=== PATIENT | male | born 1960 | race Caucasian/White ===

== ENCOUNTER 2018-07-04 15:28 | Emergency (ER) | payer MEDICARE, OTHER ==
[2018-07-04 15:41] VITALS: RESP 18
[2018-07-04] MEDS ORDERED: MORPHINE SULFATE 4 MG/ML SYRINGE IM STA ×2 (15:54→18:52)
--- NOTE | 2018-07-04 16:33 | ED ---
Lower Extremity Injury HPI - General Chief Complaint: Extremity Injury, Lower Stated Complaint: Fall, Left Hip Pain Time Seen by Provider: 07/04/18 15:43 Source: patient, RN notes reviewed Mode of arrival: ambulatory Limitations: no limitations - History of Present Illness Initial Comments: 58-year-old male presents emergency Department chief complaint of left hip pain. Patient states that he tripped over some kindling and states that he fell onto his left hip. Patient states he has pain in his buttocks, left hip region. He denies any head injury no loss conscious. Patient states pain is worsened since that they states he can barely ambulate. Patient denies any upper back pain, chest pain, shortness breath, abdominal pain, bowel or bladder incontinence or retention. Denies any saddle anesthesia or lower shunted paresthesias. - Related Data Home Medications Medication Instructions Recorded Confirmed DULoxetine HCL [Cymbalta] 60 mg PO DAILY 05/25/15 11/22/15 Gemfibrozil [Lopid] 600 mg PO BID 05/25/15 11/22/15 Lisinopril [Prinivil] 20 mg PO DAILY 05/25/15 11/22/15 Naproxen Sodium [Aleve] 220 mg PO Q12HR PRN 05/25/15 11/22/15 glipiZIDE [Glucotrol] 10 mg PO AC-BID 05/25/15 11/22/15 metFORMIN HCL 1,000 mg PO BID 05/25/15 11/22/15 Docusate [Colace] 100 mg PO DAILY PRN 11/22/15 11/22/15 Insulin Glargine [Lantus] 15 units SQ HS 11/22/15 11/22/15 Simvastatin [Zocor] 20 mg PO HS 11/22/15 11/22/15 Previous Rx's Medication Instructions Recorded Aspirin 325 mg PO DAILY tab 11/26/15 Moxifloxacin HCl [Avelox] 400 mg PO DAILY #7 tablet 11/26/15 Hydrocodone/Acetaminophen [Sycamore 1 tab PO Q6HR PRN #12 tab 07/04/18 5-325] Allergies Allergy/AdvReac Type Severity Reaction Status Date / Time No Known Allergies Allergy Verified 07/04/18 15:41 Review of Systems ROS Statement: Those systems with pertinent positive or pertinent negative responses have been documented in the HPI. ROS Other: All systems not noted in ROS Statement are negative. Past Medical History Past Medical History: CVA/TIA, Diabetes Mellitus, GERD/Reflux, Hypertension Additional Past Medical History / Comment(s): BACK PAIN, CONSTIPATION, NUMBNESS IN FEET, URGENCY TO URINATE, BURPS FREQUENTLY AND STOMACH CRUZ., COUGHED UP BLOOD X2. History of Any Multi-Drug Resistant Organisms: None Reported Past Surgical History: Tonsillectomy Additional Past Surgical History / Comment(s): PLATE IN FEMUR AND ANKLE PINS , SURGERY FOR SNORING Past Anesthesia/Blood Transfusion Reactions: No Reported Reaction Past Psychological History: Depression Smoking Status: Heavy tobacco smoker Past Alcohol Use History: None Reported Past Drug Use History: None Reported - Past Family History Mother Family Medical History: Coronary Artery Disease (CAD), Diabetes Mellitus Father History Unknown: Yes Sister(s) Family Medical History: Cancer Additional Family Medical History / Comment(s): MELANOMA General Exam Limitations: no limitations General appearance: alert, in no apparent distress Head exam: Present: atraumatic, normocephalic, normal inspection Eye exam: Present: normal appearance, PERRL, EOMI. Absent: scleral icterus, conjunctival injection, periorbital swelling Respiratory exam: Present: normal lung sounds bilaterally. Absent: respiratory distress, wheezes, rales, rhonchi, stridor Cardiovascular Exam: Present: regular rate, normal rhythm, normal heart sounds. Absent: systolic murmur, diastolic murmur, rubs, gallop, clicks GI/Abdominal exam: Present: soft, normal bowel sounds. Absent: distended, tenderness, guarding, rebound, rigid Extremities exam: Present: other (Lower extremity neurovascular intact, moderate discomfort with left range of motion, unable to bear weight on left hip ) Back exam: Present: full ROM. Absent: tenderness, paraspinal tenderness, vertebral tenderness Neurological exam: Present: alert, oriented X3, CN II-XII intact, reflexes normal. Absent: motor sensory deficit Course Vital Signs 07/04/18 15:36 Temperature 98.6 F Pulse Rate 87 Respiratory 18 Rate Blood Pressure 137/73 O2 Sat by Pulse 95 Oximetry Medical Decision Making - Medical Decision Making 58-year-old male present emergency from for fall, hip pain. X-ray was obtained which initially showed no fracture so CT was obtained secondary to patient's pain. CT shows degenerative changes and spurring with no acute fracture. Patient be discharged with pain medication follow-up with orthopedics. Disposition Clinical Impression: Fall, Left hip pain, Contusion, hip Disposition: HOME SELF-CARE Condition: Stable Instructions: Hip Contusion (ED) Additional Instructions: Please return to the Emergency Department if symptoms worsen or any other concerns. Prescriptions: Hydrocodone/Acetaminophen [Sycamore 5-325] 1 tab PO Q6HR PRN #12 tab PRN Reason: Pain Is patient prescribed a controlled substance at d/c from ED?: Yes When asked, does pt state using other controlled substances?: No If prescribed controlled substance>3 days was MAPS reviewed?: Prescribed <3 Days If opioid is for acute pain is fill amount 7 days or less?: Yes If Rx opioid, was Start Talking consent form obtained?: Yes Referrals: Quirino Escobedo MD [Primary Care Provider] - 1-2 days Robb Huddleston MD [STAFF PHYSICIAN] - 1-2 days Time of Disposition: 18:48
--- NOTE | 2018-07-04 16:33 | XR ---
EXAMINATION TYPE: XR Hip LT and AP Pelvis DATE OF EXAM: 07/04/2018 COMPARISON: None HISTORY: Left hip pain following trip and fall 2 days prior TECHNIQUE: Exam is performed with 2 views left hip supplemented with an AP pelvis FINDINGS: Femoral head articulates with the acetabulum. No acute fractures evident. Joint spaces preserved. Rig ht femoral head articulates with the acetabulum. Symphysis pubis and sacroiliac joints are intact. No rmal bowel gas is present. IMPRESSION: 1. Normal left hip
--- NOTE | 2018-07-04 18:45 | CT ---
EXAMINATION TYPE: CT hip LT wo con DATE OF EXAM: 07/04/2018 COMPARISON: None HISTORY: left hip pain following fall CT DLP: 662 mGycm Automated exposure control for dose reduction was used. FINDINGS: Acetabulum and proximal femur are intact. There is mild spurring on the femoral head. There is no kyra dence of a fracture. There is no evidence of avascular necrosis. The left sacroiliac joint is intact. IMPRESSION: MINOR DEGENERATIVE SPUR FORMATION IN THE HIP JOINT. NO FRACTURE SEEN.
[2018-07-04 19:08] VITALS: BP 160/84; PULSE 70; TEMP 97
== END 2018-07-04 19:06 | disposition home or self-care (01) ==
LOC: EC 15:28
DX: S70.02XA Contusion of left hip, initial encounter (principal); E11.9 Type 2 diabetes mellitus without complications; I10 Essential (primary) hypertension; F32.9 Major depressive disorder, single episode, unspecified; F17.200 Nicotine dependence, unspecified, uncomplicated; Z86.73 Personal history of transient ischemic attack (TIA), and cerebral infarction without residual deficits; Z79.4 Long term (current) use of insulin; Z79.899 Other long term (current) drug therapy; W01.0XXA Fall on same level from slipping, tripping and stumbling without subsequent striking against object, initial encounter; Y92.009 Unspecified place in unspecified non-institutional (private) residence as the place of occurrence of the external cause
CPT/HCPCS: 73502; 73700; 99284; 96372 ×2; J2270

== ENCOUNTER 2019-05-18 19:11 | Emergency (ER) | payer MEDICARE, OTHER ==
[2019-05-18 19:21] LABS: Glucose,Whole Blood 189 mg/dL (75-99)
--- NOTE | 2019-05-18 19:37 | CT ---
EXAMINATION TYPE: CT brain wo con for TPA DATE OF EXAM: 05/18/2019 COMPARISON: 11/22/2015 HISTORY: Poor historian. Neurological deficits CT DLP: unavailable mGycm Automated exposure control for dose reduction was used. FINDINGS: There is mild cerebral atrophy. There is no mass effect nor midline shift. There is no sign of intrac ranial hemorrhage. Calvarium is intact. IMPRESSION: MILD ATROPHY. NO ACUTE INTRACRANIAL ABNORMALITY. NO SIGNIFICANT CHANGE.
[2019-05-18 19:50] VITALS: TEMP 97.5
[2019-05-18 19:52] LABS: ALT 27 U/L (21-72); AST 25 U/L (17-59); Acetaminophen <10.0 ug/mL; African American GFR (CKD) >90 (>60 ml/min/1.73 sqM); Albumin 4.8 g/dL (3.5-5.0); Alcohol <10 mg/dL; Alkaline Phosphatase 105 U/L (38-126); Anion Gap 17 mmol/L; Blood Urea Nitrogen 25 mg/dL (9-20); Calcium 11.5 mg/dL (8.4-10.2); Carbon Dioxide 25 mmol/L (22-30); Chloride 92 mmol/L (98-107); Glucose 202 mg/dL (74-99); Potassium 4.5 mmol/L (3.5-5.1); Salicylate 1.2 mg/dL; Sodium 134 mmol/L (137-145); Total Bilirubin 0.9 mg/dL (0.2-1.3); Total Protein 8.3 g/dL (6.3-8.2)
[2019-05-18 19:53] LABS: Partial Thromboplastin Time 24.6 sec (22.0-30.0); Prothrombin Time 10.5 sec (9.0-12.0)
--- NOTE | 2019-05-18 19:56 | CT ---
EXAMINATION TYPE: CT angio head neck DATE OF EXAM: 05/18/2019 HISTORY: Neurological deficits. Poor historian COMPARISON: None CT DLP: 671.2 mGycm. Automated Exposure Control for Dose Reduction was Utilized. TECHNIQUE: CTA scan of the neck is performed with IV Contrast, patient injected with 65 mL of Isovue 370, axial images are obtained, coronal and sagittal reformatted images are reviewed. Three-D recons tructed images are created on an independent workstation and reviewed. FINDINGS: There is normal branching pattern of the great vessels on the aortic arch. There is bilateral arteria l flow in the subclavian arteries. There is arterial flow in the common internal and external carotid arteries bilaterally. There is minimal plaque formation at the carotid artery bifurcations. There is lumen narrowing less than 20%. There is arterial flow in the right vertebral artery. There is no kyra dence of arterial flow in the left vertebral artery. There is arterial flow in a diminutive distal le ft vertebral artery that could be retrograde flow. There is arterial flow in the vertebrobasilar artery system. There is arterial flow in the anterior m iddle and posterior cerebral arteries. I see no evidence of intracranial aneurysm or neovascularity. There is no mass effect. There is no evidence of intracranial hemodynamic stenosis. There is normal c ontrast opacification of the venous sinuses. 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 Minimal plaque at the carotid artery bifurcations and less than 20% stenosis. No intracranial angiographic Abnormality.
[2019-05-18 19:59] VITALS: BP 129/72; PULSE 89; RESP 21
[2019-05-18 20:05] LABS: Basophils # (A) 0.1 k/uL (0-0.2); Basophils % (A) 0 %; Eosinophils # (A) 0.6 k/uL (0-0.7); Eosinophils % (A) 3 %; HCT 49.2 % (39.0-53.0); HGB 16.7 gm/dL (13.0-17.5); Lymphocytes # (A) 3.6 k/uL (1.0-4.8); Lymphocytes % (A) 19 %; MCH 28.8 pg (25.0-35.0); MCV 84.8 fL (80.0-100.0); Mean Platelet Volume 6.1; Monocytes # (A) 1.1 k/uL (0-1.0); Monocytes % (A) 6 %; Neutrophils # (A) 13.6 k/uL (1.3-7.7); Neutrophils % (A) 71 %; Platelet Count 379 k/uL (150-450); RBC 5.81 m/uL (4.30-5.90); RDW 13.1 % (11.5-15.5); WBC 19.2 k/uL (3.8-10.6)
--- NOTE | 2019-05-18 20:07 | XR ---
EXAMINATION TYPE: XR chest 2V DATE OF EXAM: 05/18/2019 COMPARISON: 11/26/2015 HISTORY: Weakness TECHNIQUE: Frontal and lateral views of the chest are obtained. FINDINGS: There is no heart failure nor confluent pneumonic infiltrate. Costophrenic angles are [place] r. There are chest leads. IMPRESSION: No active cardiopulmonary disease. There is clearing of the atelectasis right lung base compared to old exam.
--- NOTE | 2019-05-18 20:22 | ED ---
Neuro HPI - General Chief Complaint: Neuro Symptoms/Deficit Stated Complaint: Stroke Time Seen by Provider: 05/18/19 19:20 Source: patient, EMS Mode of arrival: EMS Limitations: no limitations - History of Present Illness Is the patient presenting with stroke symptoms?: Yes Last Known Well Date: 05/18/19 Last Known Well Time: 18:29 Initial Comments: The patient is a 59-year-old male with past medical history of stroke who presents to the emergency department with reported strokelike symptoms. EMS provided the history and so does the when she presents at bedside. She reports that around 6:30 PM the patient had sudden onset of slurred speech and difficulty ambulating. They stated that he was ataxic. He does have a history of previous stroke in 2017 with no residual deficits. Because of these symptoms they did call EMS. EMS reported that he felt somewhat weak on his left side. The patient is presenting continues to have some dysarthria. He reports to decreased sensation in left upper and left lower extremity. No reported confusion. Denies headaches or visual changes. No neck pain or stiffness. Denies any sick contacts or recent travel. No blunt head trauma. Patient denies any intoxicating substances. No recent medication changes. Denies any n ew [id number] medications. Denies any chest pain or shortness of breath. No abdominal pain. There are no alleviating, precipitating or modifying factors - Related Data Home Medications: Home Medications Medication Instructions Recorded Confirmed DULoxetine HCL [Cymbalta] 60 mg PO DAILY 05/25/15 05/18/19 Gemfibrozil [Lopid] 600 mg PO BID 05/25/15 05/18/19 Lisinopril [Prinivil] 20 mg PO DAILY 05/25/15 05/18/19 glipiZIDE [Glucotrol] 10 mg PO AC-BID 05/25/15 05/18/19 metFORMIN HCL 1,000 mg PO BID 05/25/15 05/18/19 Insulin Glargine [Lantus] 10 units SQ HS 11/22/15 05/18/19 Atorvastatin [Lipitor] 20 mg PO HS 05/18/19 05/18/19 Gabapentin [Neurontin] 300 mg PO TID 05/18/19 05/18/19 Hydrochlorothiazide [Hydrodiuril] 25 mg PO DAILY 05/18/19 05/18/19 Meclizine [Antivert] 25 mg PO TID 05/18/19 05/18/19 sitaGLIPtin [Januvia] 100 mg PO DAILY 05/18/19 05/18/19 Previous Rx's Medication Instructions Recorded Aspirin 325 mg PO DAILY tab 11/26/15 Allergies/Adverse Reactions: Allergies Allergy/AdvReac Type Severity Reaction Status Date / Time No Known Allergies Allergy Verified 05/18/19 19:56 Review of Systems ROS Statement: Those systems with pertinent positive or pertinent negative responses have been documented in the HPI. ROS Other: All systems not noted in ROS Statement are negative. General Exam Limitations: no limitations General appearance: alert, in no apparent distress Head exam: Present: atraumatic, normocephalic Eye exam: Present: normal appearance, PERRL Pupils: Present: normal accommodation ENT exam: Present: normal exam, other (edentulous) Neck exam: Present: normal inspection. Absent: tenderness, meningismus Respiratory exam: Present: normal lung sounds bilaterally. Absent: respiratory distress, wheezes, rales, rhonchi Cardiovascular Exam: Present: regular rate, normal rhythm GI/Abdominal exam: Present: soft. Absent: distended, tenderness, guarding, rebound Extremities exam: Present: normal inspection, full ROM. Absent: tenderness Back exam: Present: normal inspection, full ROM Neurological exam: Present: alert, oriented X3, CN II-XII intact, reflexes normal, other (patient has mild dysarthria. Reports decreased sensation left upper and lower extremity. 5/5 muscle strength in all extremities. No facial droop present. No aphasia) Stroke MDM - Lab Data Result diagrams: 05/18/19 19:20 05/18/19 19:20 Lab Results 05/18/19 05/18/19 05/18/19 Range/Units 19:18 19:20 19:20 WBC 19.2 H (3.8-10.6) k/uL RBC 5.81 (4.30-5.90) m/uL Hgb 16.7 (13.0-17.5) gm/dL Hct 49.2 (39.0-53.0) % MCV 84.8 (80.0-100.0) fL MCH 28.8 (25.0-35.0) pg MCHC 34.0 (31.0-37.0) g/dL RDW 13.1 (11.5-15.5) % Plt Count 379 (150-450) k/uL Neutrophils % 71 % Lymphocytes % 19 % Monocytes % 6 % Eosinophils % 3 % Basophils % 0 % Neutrophils # 13.6 H (1.3-7.7) k/uL Lymphocytes # 3.6 (1.0-4.8) k/uL Monocytes # 1.1 H (0-1.0) k/uL Eosinophils # 0.6 (0-0.7) k/uL Basophils # 0.1 (0-0.2) k/uL PT (9.0-12.0) sec INR (<1.2) APTT (22.0-30.0) sec Sodium 134 L (137-145) mmol/L Potassium 4.5 (3.5-5.1) mmol/L Chloride 92 L (98-107) mmol/L Carbon Dioxide 25 (22-30) mmol/L Anion Gap 17 mmol/L BUN 25 H (9-20) mg/dL Creatinine 0.88 (0.66-1.25) mg/dL Est GFR (CKD-EPI)AfAm >90 (>60 ml/min/1.73 sqM) Est GFR (CKD-EPI)NonAf >90 (>60 ml/min/1.73 sqM) Glucose 202 H (74-99) mg/dL POC Glucose (mg/dL) 189 H (75-99) mg/dL POC Glu Meter Tester Primary ID Aurelia Gaytan Calcium 11.5 H (8.4-10.2) mg/dL Total Bilirubin 0.9 (0.2-1.3) mg/dL AST 25 (17-59) U/L ALT 27 (21-72) U/L Alkaline Phosphatase 105 (38-126) U/L Ammonia (<30) umol/L Troponin I (0.000-0.034) ng/mL Total Protein 8.3 H (6.3-8.2) g/dL Albumin 4.8 (3.5-5.0) g/dL Salicylates 1.2 mg/dL Acetaminophen <10.0 ug/mL Serum Alcohol <10 mg/dL 05/18/19 05/18/19 05/18/19 Range/Units 19:20 19:20 19:34 WBC (3.8-10.6) k/uL RBC (4.30-5.90) m/uL Hgb (13.0-17.5) gm/dL Hct (39.0-53.0) % MCV (80.0-100.0) fL MCH (25.0-35.0) pg MCHC (31.0-37.0) g/dL RDW (11.5-15.5) % Plt Count (150-450) k/uL Neutrophils % % Lymphocytes % % Monocytes % % Eosinophils % % Basophils % % Neutrophils # (1.3-7.7) k/uL Lymphocytes # (1.0-4.8) k/uL Monocytes # (0-1.0) k/uL Eosinophils # (0-0.7) k/uL Basophils # (0-0.2) k/uL PT 10.5 (9.0-12.0) sec INR 1.0 (<1.2) APTT 24.6 (22.0-30.0) sec Sodium (137-145) mmol/L Potassium (3.5-5.1) mmol/L Chloride (98-107) mmol/L Carbon Dioxide (22-30) mmol/L Anion Gap mmol/L BUN (9-20) mg/dL Creatinine (0.66-1.25) mg/dL Est GFR (CKD-EPI)AfAm (>60 ml/min/1.73 sqM) Est GFR (CKD-EPI)NonAf (>60 ml/min/1.73 sqM) Glucose (74-99) mg/dL POC Glucose (mg/dL) (75-99) mg/dL POC Glu Meter Tester Primary ID Calcium (8.4-10.2) mg/dL Total Bilirubin (0.2-1.3) mg/dL AST (17-59) U/L ALT (21-72) U/L Alkaline Phosphatase (38-126) U/L Ammonia <9 (<30) umol/L Troponin I <0.012 (0.000-0.034) ng/mL Total Protein (6.3-8.2) g/dL Albumin (3.5-5.0) g/dL Salicylates mg/dL Acetaminophen ug/mL Serum Alcohol mg/dL - Medical Decision Making Upon arrival the patient was placed into trauma 2. A thorough history and physical exam was performed. NIH stroke scale is 4 at this time for the decreased in sensation and dysarthria. Code stroke is activated at 7:15. We did obtain IV access. Vitals were obtained and the patient was sent over for a CT of his brain as well as a CT angios of his head and neck. I did discuss the case with Dr. Feldman at 724. The patient is then placed back in the trauma bay. EKG was obtained. Laboratory studies were drawn. Review of the CTs was performed by Dr. Kirkland. I did discuss the case with him at 743 and he stated the patient had no signs on CT of acute stroke. He also evaluates the patient via stroke robot determines no TPA on the patient. He does recommend that the patient be transferred to [facility] for MRI and neurology evaluation. The patient does get up and ambulatory to the restroom. I did review the laboratory studies with the patient. White blood cell count is 19.2. Sodium 134. Chloride 92. Glucose 202. Chest x-ray demonstrates no acute cardiopulmonary process. CT angiography of the brain and neck demonstrates thrombosis of the left vertebral artery. Minimal plaque at the carotid artery bifurcation less than 20% stenosis. The brain demonstrates mild atrophy. No acute intracranial abnormality. No significant change. 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 I then called and discussed case with Dr. Feldman. He states that the treatment will be the same with transfer to [facility]. I discussed the case with the patient. The patient refuses hospital transfer. He also refuses hospital admission. The patient is requesting go home at this time. I did inform him of the severity of his condition. I did state that the patient could go home and suffer from chronic disability and even . The patient understood this. His significant other at bedside was also aware. He continued to want to leave. I discussed he would leave AGAINST MEDICAL ADVICE which she understood. I did inform the patient that if he has any new or worsening symptoms or does agree to further treatment is return to the hospital. The patient was discharged AGAINST MEDICAL ADVICE EKG demonstrates a normal sinus rhythm with a ventricular rate of 87. NH interval 126. QRS 110. QTC 459. No acute ST segment elevations or depressions concerning for ischemic changes Past Medical History Past Medical History: CVA/TIA, Diabetes Mellitus, GERD/Reflux, Hypertension Additional Past Medical History / Comment(s): BACK PAIN, CONSTIPATION, NUMBNESS IN FEET, URGENCY TO URINATE, BURPS FREQUENTLY AND STOMACH CRUZ., COUGHED UP BLOOD X2. History of Any Multi-Drug Resistant Organisms: None Reported Past Surgical History: Tonsillectomy Additional Past Surgical History / Comment(s): PLATE IN FEMUR AND ANKLE PINS , SURGERY FOR SNORING Past Anesthesia/Blood Transfusion Reactions: No Reported Reaction Past Psychological History: Depression Smoking Status: Heavy tobacco smoker Past Alcohol Use History: None Reported Past Drug Use History: None Reported - Past Family History Mother Family Medical History: Coronary Artery Disease (CAD), Diabetes Mellitus Father History Unknown: Yes Sister(s) Family Medical History: Cancer Additional Family Medical History / Comment(s): MELANOMA Course Vital Signs 05/18/19 05/18/19 05/18/19 19:19 19:21 19:30 Temperature 97.5 F L 97.5 F L Pulse Rate 86 86 Respiratory 20 20 Rate Blood Pressure 122/75 122/75 O2 Sat by Pulse 97 95 95 Oximetry 05/18/19 19:45 Temperature Pulse Rate 89 Respiratory 21 Rate Blood Pressure 129/72 O2 Sat by Pulse Oximetry Disposition Clinical Impression: Altered mental status, CVA (cerebral vascular accident) Disposition: Left Against Medical Advice Condition: Serious Instructions (If sedation given, give patient instructions): Stroke (DC) Additional Instructions: I recommended that you be admitted to the hospital. Youre leaving AGAINST MEDICAL ADVICE knowing the risks of permanent disability and . Return to the emergency department if you have agree to transfer, or have any new or worsening symptoms Is patient prescribed a controlled substance at d/c from ED?: No Referrals: Quirino Escobedo MD [Primary Care Provider] - 1-2 days Time of Disposition: 20:31
== END 2019-05-18 20:52 | disposition left against medical advice (07) ==
LOC: EC 19:11
DX: I63.012 Cerebral infarction due to thrombosis of left vertebral artery (principal); I63.239 Cerebral infarction due to unspecified occlusion or stenosis of unspecified carotid artery; I63.22 Cerebral infarction due to unspecified occlusion or stenosis of basilar artery; R47.1 Dysarthria and anarthria; R29.704 NIHSS score 4; G31.9 Degenerative disease of nervous system, unspecified; K08.109 Complete loss of teeth, unspecified cause, unspecified class; R47.81 Slurred speech; E11.9 Type 2 diabetes mellitus without complications; I10 Essential (primary) hypertension; F32.9 Major depressive disorder, single episode, unspecified; F17.200 Nicotine dependence, unspecified, uncomplicated; Z79.4 Long term (current) use of insulin; Z79.899 Other long term (current) drug therapy; Z53.20 Procedure and treatment not carried out because of patient's decision for unspecified reasons
CPT/HCPCS: 36415; 93005; 80053; 82140; 84484; 85025; 85610; 85730; 83520; 71046; 70496; 70450; 70498; 99285; G0480 ×2; Q9967; 80320; 80329

== ENCOUNTER 2020-09-04 14:46 | Emergency (ER) | payer MEDICARE, OTHER ==
--- NOTE | 2020-09-04 15:08 | ED ---
Skin/Abscess/FB HPI - General Chief complaint: Skin/Abscess/Foreign Body Stated complaint: Abscess on R Leg Time Seen by Provider: 09/04/20 15:04 Source: patient Mode of arrival: ambulatory Limitations: no limitations - History of Present Illness Initial comments: 60-year-old male presenting to the emergency department with a chief complaint of an abscess. Patient states this episode started about 5 days ago on the medial aspect of his right proximal thigh. She reports increasing size over the last several days. Patient reports the abscess was a large yesterday and it was very tender. Patient reports she has been applying warm compresses and he has noticed some drainage that is yellow in color. He denies night sweats or chills. Patient states yesterday he took some antibiotics but cannot remember the name of it. States he is diabetic. Denies history of MRSA. - Related Data Home Medications Medication Instructions Recorded Confirmed DULoxetine HCL [Cymbalta] 60 mg PO DAILY 05/25/15 09/04/20 gemfibroziL [Lopid] 600 mg PO BID 05/25/15 09/04/20 glipiZIDE [Glucotrol] 10 mg PO DAILY 05/25/15 09/04/20 metFORMIN HCL 1,000 mg PO BID 05/25/15 09/04/20 Insulin Glargine [Lantus] 30 units SQ HS 11/22/15 09/04/20 Atorvastatin [Lipitor] 20 mg PO HS 05/18/19 09/04/20 hydroCHLOROthiazide [Hydrodiuril] 25 mg PO DAILY 05/18/19 09/04/20 sitaGLIPtin [Januvia] 100 mg PO DAILY 05/18/19 09/04/20 Previous Rx's Medication Instructions Recorded Aspirin 325 mg PO DAILY tab 11/26/15 Cephalexin [Keflex] 500 mg PO Q6HR #40 cap 09/04/20 Sulfamethox-Tmp 800-160Mg [Bactrim 1 each PO Q12HR #20 tab 09/04/20 Ds] Allergies Allergy/AdvReac Type Severity Reaction Status Date / Time No Known Allergies Allergy Verified 09/04/20 16:00 Review of Systems ROS Statement: Those systems with pertinent positive or pertinent negative responses have been documented in the HPI. ROS Other: All systems not noted in ROS Statement are negative. Past Medical History Past Medical History: CVA/TIA, Diabetes Mellitus, GERD/Reflux, Hypertension Additional Past Medical History / Comment(s): BACK PAIN, CONSTIPATION, NUMBNESS IN FEET, URGENCY TO URINATE, BURPS FREQUENTLY AND STOMACH CRUZ., COUGHED UP BLOOD X2. History of Any Multi-Drug Resistant Organisms: None Reported Past Surgical History: Tonsillectomy Additional Past Surgical History / Comment(s): PLATE IN FEMUR AND ANKLE PINS , SURGERY FOR SNORING Past Anesthesia/Blood Transfusion Reactions: No Reported Reaction Past Psychological History: Depression Smoking Status: Current every day smoker Past Alcohol Use History: None Reported Past Drug Use History: None Reported - Past Family History Mother Family Medical History: Coronary Artery Disease (CAD), Diabetes Mellitus Father History Unknown: Yes Sister(s) Family Medical History: Cancer Additional Family Medical History / Comment(s): MELANOMA General Exam Limitations: no limitations General appearance: alert, in no apparent distress Head exam: Present: atraumatic, normocephalic, normal inspection Eye exam: Present: normal appearance, PERRL, EOMI Pupils: Present: normal accommodation ENT exam: Present: normal exam, normal oropharynx, mucous membranes moist, TM's normal bilaterally, normal external ear exam Neck exam: Present: normal inspection, full ROM. Absent: tenderness Respiratory exam: Present: normal lung sounds bilaterally. Absent: respiratory distress, wheezes, rales Cardiovascular Exam: Present: regular rate, normal rhythm, normal heart sounds GI/Abdominal exam: Present: soft. Absent: distended, tenderness, guarding Rectal exam: Present: normal inspection exam: Present: normal inspection. Absent: testicular tenderness, urethral discharge, scrotal swelling, vertical testicular lie Extremities exam: Present: full ROM, normal capillary refill. Absent: normal inspection (Abscess measuring about 15 cm in diameter with induration. No area or fluctuance. Cellulitis also noted.), tenderness Back exam: Present: normal inspection, full ROM. Absent: tenderness, CVA tenderness (R), CVA tenderness (L) Neurological exam: Present: alert, oriented X3 Psychiatric exam: Present: normal affect, normal mood Skin exam: Present: warm, dry, intact, normal color Course Vital Signs 09/04/20 09/04/20 14:56 17:17 Temperature 97.9 F Pulse Rate 97 87 Respiratory 18 20 Rate Blood Pressure 147/86 136/86 O2 Sat by Pulse 97 97 Oximetry Medical Decision Making - Medical Decision Making 60-year-old male presenting to the emergency department with a chief complaint of an abscess. On physical examination, patient has a lesion on the medial aspect of the right proximal thigh. There is a large area of induration with overlying cellulitis that is tender. There is an area in the center that has been draining yellow discharge. Patient is mildly tender to palpation. According to him, this appears to be improved compared to yesterday. Patient has leukocytosis of 12.[address] of the leg reveals no signs of free air. There is wall thickening noted but no signs of an obvious abscess or fluid collection. No incision and drainage performed because it is not necessary at this time. The area is only indurated. Patient will be started on Bactrim and Keflex. Patient also had blood glucose of 400 and will be treated with 8 units of regular insulin. Patient states his glucose is not well controlled. Return parameters thoroughly discussed the patient is understanding and agreeable. Case discussed with physician. - Lab Data Result diagrams: 09/04/20 15:27 09/04/20 15:27 Lab Results 09/04/20 09/04/20 09/04/20 Range/Units 15:24 15:27 15:27 WBC 12.4 H (3.8-10.6) k/uL RBC 5.87 (4.30-5.90) m/uL Hgb 15.8 (13.0-17.5) gm/dL Hct 48.0 (39.0-53.0) % MCV 81.8 (80.0-100.0) fL MCH 26.9 (25.0-35.0) pg MCHC 32.9 (31.0-37.0) g/dL RDW 13.7 (11.5-15.5) % Plt Count 423 (150-450) k/uL MPV 6.8 Neutrophils % 64 % Lymphocytes % 22 % Monocytes % 7 % Eosinophils % 3 % Basophils % 1 % Neutrophils # 8.0 H (1.3-7.7) k/uL Lymphocytes # 2.7 (1.0-4.8) k/uL Monocytes # 0.9 (0-1.0) k/uL Eosinophils # 0.4 (0-0.7) k/uL Basophils # 0.1 (0-0.2) k/uL Sodium 130 L (137-145) mmol/L Potassium 4.0 (3.5-5.1) mmol/L Chloride 94 L (98-107) mmol/L Carbon Dioxide 25 (22-30) mmol/L Anion Gap 11 mmol/L BUN 21 H (9-20) mg/dL Creatinine 0.51 L (0.66-1.25) mg/dL Est GFR (CKD-EPI)AfAm >90 (>60 ml/min/1.73 sqM) Est GFR (CKD-EPI)NonAf >90 (>60 ml/min/1.73 sqM) Glucose 393 H (74-99) mg/dL POC Glucose (mg/dL) 396 H (75-99) mg/dL POC Glu Automotive Glass Mechanic ID Rufus Luther Plasma Lactic Acid Cristino (0.7-2.0) mmol/L Calcium 9.5 (8.4-10.2) mg/dL Total Bilirubin 0.5 (0.2-1.3) mg/dL AST 19 (17-59) U/L ALT 27 (4-49) U/L Alkaline Phosphatase 114 (38-126) U/L Total Protein 7.2 (6.3-8.2) g/dL Albumin 3.8 (3.5-5.0) g/dL 09/04/20 09/04/20 Range/Units 15:27 17:32 WBC (3.8-10.6) k/uL RBC (4.30-5.90) m/uL Hgb (13.0-17.5) gm/dL Hct (39.0-53.0) % MCV (80.0-100.0) fL MCH (25.0-35.0) pg MCHC (31.0-37.0) g/dL RDW (11.5-15.5) % Plt Count (150-450) k/uL MPV Neutrophils % % Lymphocytes % % Monocytes % % Eosinophils % % Basophils % % Neutrophils # (1.3-7.7) k/uL Lymphocytes # (1.0-4.8) k/uL Monocytes # (0-1.0) k/uL Eosinophils # (0-0.7) k/uL Basophils # (0-0.2) k/uL Sodium (137-145) mmol/L Potassium (3.5-5.1) mmol/L Chloride (98-107) mmol/L Carbon Dioxide (22-30) mmol/L Anion Gap mmol/L BUN (9-20) mg/dL Creatinine (0.66-1.25) mg/dL Est GFR (CKD-EPI)AfAm (>60 ml/min/1.73 sqM) Est GFR (CKD-EPI)NonAf (>60 ml/min/1.73 sqM) Glucose (74-99) mg/dL POC Glucose (mg/dL) 308 H (75-99) mg/dL POC Glu Automotive Glass Mechanic ID Rufus Luther Plasma Lactic Acid Cristino 1.4 (0.7-2.0) mmol/L Calcium (8.4-10.2) mg/dL Total Bilirubin (0.2-1.3) mg/dL AST (17-59) U/L ALT (4-49) U/L Alkaline Phosphatase (38-126) U/L Total Protein (6.3-8.2) g/dL Albumin (3.5-5.0) g/dL Disposition Clinical Impression: Abscess, Skin lesion, Hyperglycemia Disposition: HOME SELF-CARE Condition: Stable Instructions (If sedation given, give patient instructions): Abscess (ED) Additional Instructions: Continue applying warm compresses to the area. Take prescribed medication as directed. Return to emergency department if symptoms worsen. Prescriptions: Sulfamethox-Tmp 800-160Mg [Bactrim Ds] 1 each PO Q12HR #20 tab Cephalexin [Keflex] 500 mg PO Q6HR #40 cap Is patient prescribed a controlled substance at d/c from ED?: No Referrals: Quirino Escobedo MD [Primary Care Provider] - 1-2 days Time of Disposition: 17:03
[2020-09-04 15:25] LABS: Glucose,Whole Blood 396 mg/dL (75-99)
[2020-09-04 15:39] LABS: Basophils # (A) 0.1 k/uL (0-0.2); Basophils % (A) 1 %; Eosinophils # (A) 0.4 k/uL (0-0.7); Eosinophils % (A) 3 %; HGB 15.8 gm/dL (13.0-17.5); Lymphocytes # (A) 2.7 k/uL (1.0-4.8); Lymphocytes % (A) 22 %; MCH 26.9 pg (25.0-35.0); MCHC 32.9 g/dL (31.0-37.0); MCV 81.8 fL (80.0-100.0); Mean Platelet Volume 6.8; Monocytes # (A) 0.9 k/uL (0-1.0); Monocytes % (A) 7 %; Neutrophils % (A) 64 %; Platelet Count 423 k/uL (150-450); RBC 5.87 m/uL (4.30-5.90); RDW 13.7 % (11.5-15.5); WBC 12.4 k/uL (3.8-10.6)
[2020-09-04 15:52] LABS: ALT 27 U/L (4-49); AST 19 U/L (17-59); African American GFR (CKD) >90 (>60 ml/min/1.73 sqM); Albumin 3.8 g/dL (3.5-5.0); Alkaline Phosphatase 114 U/L (38-126); Anion Gap 11 mmol/L; Blood Urea Nitrogen 21 mg/dL (9-20); Calcium 9.5 mg/dL (8.4-10.2); Carbon Dioxide 25 mmol/L (22-30); Chloride 94 mmol/L (98-107); Glucose 393 mg/dL (74-99); Non-African American GFR(CKD) >90 (>60 ml/min/1.73 sqM); Sodium 130 mmol/L (137-145); Total Bilirubin 0.5 mg/dL (0.2-1.3); Total Protein 7.2 g/dL (6.3-8.2)
[2020-09-04] MEDS ORDERED: SODIUM CHLORIDE 0.9% 1,000 ML IV STA (15:54)
--- NOTE | 2020-09-04 16:29 | CT ---
EXAMINATION TYPE: CT lower extremity RT w con DATE OF EXAM: 09/04/2020 COMPARISON: None. HISTORY: Patient has a large weeping proximal abscess of right thigh. 5 days without antibiotics. Fo betsy pain and swelling. CT DLP: 638.5 mGycm Automated exposure control for dose reduction was used. CONTRAST: Performed with IV Contrast, patient injected with 100 mL of Isovue 300. FINDINGS: Correlating with patient history there is abnormal skin thickening with moderate ill-defined fluid an d fat stranding in the medial right upper thigh axial image 63. Asymmetric soft tissue swelling is se en. No well-formed fluid collection or abscess. Deeper muscles unremarkable. Visualized right femur a re intact. No bony destruction seen. Evidence of old healed distal femoral fracture with adjacent per iostitis and well-defined lucency from prior fixation hardware. Some prominent reactive right groin a denopathy. IMPRESSION: As above.
[2020-09-04] MEDS ORDERED: CEPHALEXIN 500MG STARTER PACK 4 CAP BTL PO STA (17:02)
[2020-09-04] MEDS ORDERED: INSULIN REGULAR 100 UNIT/ML VIAL IV ONE (17:02)
[2020-09-04] MEDS ORDERED: SULFAMETH-TMP DS STARTER PACK 2 TAB BTL PO STA (17:02)
[2020-09-04 17:18] VITALS: BP 136/86; PULSE 87; RESP 20
[2020-09-04 17:34] LABS: Glucose,Whole Blood 308 mg/dL (75-99)
[2020-09-04 17:42] VITALS: TEMP 98
== END 2020-09-04 17:42 | disposition home or self-care (01) ==
LOC: EC 14:46
DX: L02.415 Cutaneous abscess of right lower limb (principal); E11.65 Type 2 diabetes mellitus with hyperglycemia; F32.9 Major depressive disorder, single episode, unspecified; F17.200 Nicotine dependence, unspecified, uncomplicated; K21.9 Gastro-esophageal reflux disease without esophagitis; I10 Essential (primary) hypertension; Z79.4 Long term (current) use of insulin; Z79.899 Other long term (current) drug therapy; Z86.73 Personal history of transient ischemic attack (TIA), and cerebral infarction without residual deficits
CPT/HCPCS: 36415; 80053; 83605; 85025; 87040; 73701; 99284; 96360; Q9967

== ENCOUNTER 2021-08-26 18:21 | Emergency (ER) | payer MEDICARE, OTHER ==
[2021-08-26 18:30] VITALS: TEMP 98.2
[2021-08-26] MEDS ORDERED: ONDANSETRON 4 MG/2 ML VIAL IVP STA (18:38)
[2021-08-26] MEDS ORDERED: SODIUM CHLORIDE 0.9% 1,000 ML IV STA (18:38)
--- NOTE | 2021-08-26 18:55 | ED ---
General Adult HPI - General Chief complaint: Weakness Stated complaint: Weakness Time Seen by Provider: 08/26/21 18:26 Source: patient, EMS Mode of arrival: EMS Limitations: physical limitation - History of Present Illness Initial comments: 61 year-old male patient with history of diabetes and depression presents for evaluation of weakness. He states that he has been depressed and laying in bed for the last two days. He cannot find his medications because his house is a mess so he has not had them in two days. He reports some nausea and feeling dehydrated. He denies any chest pain, shortness of breath, fever, chills, abdominal, pain. Denies any diarrhea or constipation. Denies suicidal ideation. Does report feeling somewhat more depressed, but attributes this to not having his medication for two days. Patient denies any recent rash, cough, back pain, numbness, tingling, dizziness, hematuria, dysuria, urinary urgency, urinary frequency, headache, visual changes, or any other complaints. - Related Data Home Medications Medication Instructions Recorded Confirmed DULoxetine HCL [Cymbalta] 60 mg PO DAILY 05/25/15 08/26/21 metFORMIN HCL [Glucophage] 1,000 mg PO BID 05/25/15 08/26/21 Atorvastatin [Lipitor] 20 mg PO HS 05/18/19 08/26/21 hydroCHLOROthiazide [Hydrodiuril] 25 mg PO DAILY 05/18/19 08/26/21 Gabapentin 600 mg PO TID PRN 08/26/21 08/26/21 INSULIN ASPART (NovoLOG) [NovoLOG 14 unit SQ [facility] 08/26/21 08/26/21 (formulary)] Insulin Glargine,Hum.rec.anlog 45 unit SQ 08/26/21 08/26/21 [Lantus Solostar Pen] Allergies Allergy/AdvReac Type Severity Reaction Status Date / Time No Known Allergies Allergy Verified 08/26/21 18:56 Review of Systems ROS Statement: Those systems with pertinent positive or pertinent negative responses have been documented in the HPI. ROS Other: All systems not noted in ROS Statement are negative. Past Medical History Past Medical History: CVA/TIA, Diabetes Mellitus, GERD/Reflux, Hypertension Additional Past Medical History / Comment(s): BACK PAIN, CONSTIPATION, NUMBNESS IN FEET, URGENCY TO URINATE, BURPS FREQUENTLY AND STOMACH CRUZ., COUGHED UP BLOOD X2. History of Any Multi-Drug Resistant Organisms: MRSA Past Surgical History: Tonsillectomy Additional Past Surgical History / Comment(s): PLATE IN FEMUR AND ANKLE PINS , SURGERY FOR SNORING Past Anesthesia/Blood Transfusion Reactions: No Reported Reaction Past Psychological History: Anxiety, Depression Smoking Status: Current every day smoker Past Alcohol Use History: None Reported Past Drug Use History: None Reported - Past Family History Mother Family Medical History: Coronary Artery Disease (CAD), Diabetes Mellitus Father History Unknown: Yes Sister(s) Family Medical History: Cancer Additional Family Medical History / Comment(s): MELANOMA General Exam Limitations: physical limitation General appearance: alert, in no apparent distress, other (This well-developed, well-nourished adult male in no acute distress.) ENT exam: Present: normal exam, normal oropharynx, mucous membranes moist Respiratory exam: Present: normal lung sounds bilaterally. Absent: respiratory distress, wheezes, rales, rhonchi, stridor Cardiovascular Exam: Present: regular rate, normal rhythm, normal heart sounds. Absent: systolic murmur, diastolic murmur, rubs, gallop, clicks GI/Abdominal exam: Present: soft, normal bowel sounds. Absent: distended, tenderness, guarding, rebound, rigid Neurological exam: Present: alert, oriented X3, CN II-XII intact Psychiatric exam: Present: normal affect, normal mood Skin exam: Present: warm, dry, intact, normal color. Absent: rash Course Vital Signs 08/26/21 08/26/21 08/26/21 18:22 19:06 22:13 Temperature 98.2 F Pulse Rate 88 87 84 Pulse Rate [ 85 Foreign Student Adviser ] Respiratory 18 18 18 Rate Blood Pressure 126/57 128/72 152/86 O2 Sat by Pulse 93 L 95 94 L Oximetry Medical Decision Making - Medical Decision Making 61-year-old male patient presented to the emergency department today for evaluation of weakness not feeling well. Physical examination was unremarkable. He is neurologically intact with no focal deficits. Labs reviewed and did reveal elevated blood glucose at 359, elevated BUN at 23. Troponin negative. EKG unremarkable. Urinalysis showed no evidence for infection but did reveal 4+ glucose. He was negative for COVID-19. Patient is somewhat depressed admitted to not taking his medication for the last couple days. I do feel this is contributing to his symptoms. He denies any suicidal or homicidal ideation at this time. He was given food and fluids, states he does feel somewhat improved. He will be discharged to follow-up with his primary care physician for recheck in 1-2 days. He is recommended to get outpatient counseling. Return parameters were discussed in detail. He verbalizes understanding and agrees with this trista n. My attending is Dr. Bustos. - Lab Data Result diagrams: 08/26/21 19:06 08/26/21 19:06 Lab Results 08/26/21 08/26/21 08/26/21 Range/Units 19:06 19:06 19:06 WBC 6.5 (3.8-10.6) k/uL RBC 5.83 (4.30-5.90) m/uL Hgb 16.0 (13.0-17.5) gm/dL Hct 49.3 (39.0-53.0) % MCV 84.4 (80.0-100.0) fL MCH 27.5 (25.0-35.0) pg MCHC 32.6 (31.0-37.0) g/dL RDW 13.3 (11.5-15.5) % Plt Count 263 (150-450) k/uL MPV 6.9 Neutrophils % 55 % Lymphocytes % 29 % Monocytes % 9 % Eosinophils % 2 % Basophils % 1 % Neutrophils # 3.6 (1.3-7.7) k/uL Lymphocytes # 1.9 (1.0-4.8) k/uL Monocytes # 0.6 (0-1.0) k/uL Eosinophils # 0.1 (0-0.7) k/uL Basophils # 0.1 (0-0.2) k/uL PT 10.9 (9.0-12.0) sec INR 1.0 (<1.2) APTT 20.8 L (22.0-30.0) sec Sodium 130 L (137-145) mmol/L Potassium 4.1 (3.5-5.1) mmol/L Chloride 95 L (98-107) mmol/L Carbon Dioxide 27 (22-30) mmol/L Anion Gap 8 mmol/L BUN 23 H (9-20) mg/dL Creatinine 0.53 L (0.66-1.25) mg/dL Est GFR (CKD-EPI)AfAm >90 (>60 ml/min/1.73 sqM) Est GFR (CKD-EPI)NonAf >90 (>60 ml/min/1.73 sqM) Glucose 359 H (74-99) mg/dL POC Glucose (mg/dL) (75-99) mg/dL POC Glu Ornamental Bronze Worker ID Plasma Lactic Acid Cristino (0.7-2.0) mmol/L Calcium 8.5 (8.4-10.2) mg/dL Magnesium 1.8 (1.6-2.3) mg/dL Total Bilirubin 0.5 (0.2-1.3) mg/dL AST 22 (17-59) U/L ALT 18 (4-49) U/L Alkaline Phosphatase 85 (38-126) U/L Troponin I (0.000-0.034) ng/mL Total Protein 6.2 L (6.3-8.2) g/dL Albumin 3.1 L (3.5-5.0) g/dL Urine Color Urine Appearance (Clear) Urine pH (5.0-8.0) Ur Specific [place] (1.001-1.035) Urine Protein (Negative) Urine Glucose (UA) (Negative) Urine Ketones (Negative) Urine Blood (Negative) Urine Nitrite (Negative) Urine Bilirubin (Negative) Urine Urobilinogen (<2.0) mg/dL Ur Leukocyte Esterase (Negative) Urine RBC (0-5) /hpf Urine WBC (0-5) /hpf Urine Mucus (None) /hpf Coronavirus (PCR) (Not Detectd) 08/26/21 08/26/21 08/26/21 Range/Units 19:06 19:06 19:06 WBC (3.8-10.6) k/uL RBC (4.30-5.90) m/uL Hgb (13.0-17.5) gm/dL Hct (39.0-53.0) % MCV (80.0-100.0) fL MCH (25.0-35.0) pg MCHC (31.0-37.0) g/dL RDW (11.5-15.5) % Plt Count (150-450) k/uL MPV Neutrophils % % Lymphocytes % % Monocytes % % Eosinophils % % Basophils % % Neutrophils # (1.3-7.7) k/uL Lymphocytes # (1.0-4.8) k/uL Monocytes # (0-1.0) k/uL Eosinophils # (0-0.7) k/uL Basophils # (0-0.2) k/uL PT (9.0-12.0) sec INR (<1.2) APTT (22.0-30.0) sec Sodium (137-145) mmol/L Potassium (3.5-5.1) mmol/L Chloride (98-107) mmol/L Carbon Dioxide (22-30) mmol/L Anion Gap mmol/L BUN (9-20) mg/dL Creatinine (0.66-1.25) mg/dL Est GFR (CKD-EPI)AfAm (>60 ml/min/1.73 sqM) Est GFR (CKD-EPI)NonAf (>60 ml/min/1.73 sqM) Glucose (74-99) mg/dL POC Glucose (mg/dL) (75-99) mg/dL POC Glu Ornamental Bronze Worker ID Plasma Lactic Acid Cristino 1.6 (0.7-2.0) mmol/L Calcium (8.4-10.2) mg/dL Magnesium (1.6-2.3) mg/dL Total Bilirubin (0.2-1.3) mg/dL AST (17-59) U/L ALT (4-49) U/L Alkaline Phosphatase (38-126) U/L Troponin I <0.012 (0.000-0.034) ng/mL Total Protein (6.3-8.2) g/dL Albumin (3.5-5.0) g/dL Urine Color Urine Appearance (Clear) Urine pH (5.0-8.0) Ur Specific [place] (1.001-1.035) Urine Protein (Negative) Urine Glucose (UA) (Negative) Urine Ketones (Negative) Urine Blood (Negative) Urine Nitrite (Negative) Urine Bilirubin (Negative) Urine Urobilinogen (<2.0) mg/dL Ur Leukocyte Esterase (Negative) Urine RBC (0-5) /hpf Urine WBC (0-5) /hpf Urine Mucus (None) /hpf Coronavirus (PCR) Not Detected (Not Detectd) 08/26/21 08/26/21 08/26/21 Range/Units 20:11 20:12 21:45 WBC (3.8-10.6) k/uL RBC (4.30-5.90) m/uL Hgb (13.0-17.5) gm/dL Hct (39.0-53.0) % MCV (80.0-100.0) fL MCH (25.0-35.0) pg MCHC (31.0-37.0) g/dL RDW (11.5-15.5) % Plt Count (150-450) k/uL MPV Neutrophils % % Lymphocytes % % Monocytes % % Eosinophils % % Basophils % % Neutrophils # (1.3-7.7) k/uL Lymphocytes # (1.0-4.8) k/uL Monocytes # (0-1.0) k/uL Eosinophils # (0-0.7) k/uL Basophils # (0-0.2) k/uL PT (9.0-12.0) sec INR (<1.2) APTT (22.0-30.0) sec Sodium (137-145) mmol/L Potassium (3.5-5.1) mmol/L Chloride (98-107) mmol/L Carbon Dioxide (22-30) mmol/L Anion Gap mmol/L BUN (9-20) mg/dL Creatinine (0.66-1.25) mg/dL Est GFR (CKD-EPI)AfAm (>60 ml/min/1.73 sqM) Est GFR (CKD-EPI)NonAf (>60 ml/min/1.73 sqM) Glucose (74-99) mg/dL POC Glucose (mg/dL) 295 H 344 H (75-99) mg/dL POC Glu Ornamental Bronze Worker ID Rosaura Whitmore Jamie Plasma Lactic Acid Cristino (0.7-2.0) mmol/L Calcium (8.4-10.2) mg/dL Magnesium (1.6-2.3) mg/dL Total Bilirubin (0.2-1.3) mg/dL AST (17-59) U/L ALT (4-49) U/L Alkaline Phosphatase (38-126) U/L Troponin I (0.000-0.034) ng/mL Total Protein (6.3-8.2) g/dL Albumin (3.5-5.0) g/dL Urine Color Yellow Urine Appearance Clear (Clear) Urine pH 5.5 (5.0-8.0) Ur Specific [place] 1.034 (1.001-1.035) Urine Protein 1+ H (Negative) Urine Glucose (UA) 4+ H (Negative) Urine Ketones Trace H (Negative) Urine Blood Negative (Negative) Urine Nitrite Negative (Negative) Urine Bilirubin Negative (Negative) Urine Urobilinogen <2.0 (<2.0) mg/dL Ur Leukocyte Esterase Negative (Negative) Urine RBC <1 (0-5) /hpf Urine WBC 1 (0-5) /hpf Urine Mucus Rare H (None) /hpf Coronavirus (PCR) (Not Detectd) - EKG Data -: EKG Interpreted by Me EKG Comments: EKG obtained in 1900 shows normal sinus rhythm with a rate of 91, TN interval 18 0, QRS duration 102, QT 360, QTC 442. No evidence of ST elevation or depression. Disposition Clinical Impression: Weakness, Hyperglycemia, Dehydration Disposition: HOME SELF-CARE Condition: Good Instructions (If sedation given, give patient instructions): Dehydration (ED), Diabetic Hyperglycemia (ED) Additional Instructions: Increase fluids. Please find your medication and take as directed. If you're unable to find them, contact your primary care physician for new prescriptions. Return to the emergency department for any new, worsening, or concerning symptoms. Is patient prescribed a controlled substance at d/c from ED?: No Referrals: None,Stated [Primary Care Provider] - 1-2 days Time of Disposition: 21:06
[2021-08-26 19:11] VITALS: RESP 18
[2021-08-26 19:19] LABS: Basophils # (A) 0.1 k/uL (0-0.2); Basophils % (A) 1 %; Eosinophils # (A) 0.1 k/uL (0-0.7); Eosinophils % (A) 2 %; HCT 49.3 % (39.0-53.0); Lymphocytes # (A) 1.9 k/uL (1.0-4.8); Lymphocytes % (A) 29 %; MCH 27.5 pg (25.0-35.0); MCHC 32.6 g/dL (31.0-37.0); MCV 84.4 fL (80.0-100.0); Mean Platelet Volume 6.9; Monocytes # (A) 0.6 k/uL (0-1.0); Monocytes % (A) 9 %; Neutrophils # (A) 3.6 k/uL (1.3-7.7); Neutrophils % (A) 55 %; Platelet Count 263 k/uL (150-450); RBC 5.83 m/uL (4.30-5.90); RDW 13.3 % (11.5-15.5); WBC 6.5 k/uL (3.8-10.6)
[2021-08-26 19:28] LABS: ALT 18 U/L (4-49); AST 22 U/L (17-59); African American GFR (CKD) >90 (>60 ml/min/1.73 sqM); Albumin 3.1 g/dL (3.5-5.0); Alkaline Phosphatase 85 U/L (38-126); Anion Gap 8 mmol/L; Blood Urea Nitrogen 23 mg/dL (9-20); Calcium 8.5 mg/dL (8.4-10.2); Carbon Dioxide 27 mmol/L (22-30); Chloride 95 mmol/L (98-107); Glucose 359 mg/dL (74-99); Magnesium 1.8 mg/dL (1.6-2.3); Non-African American GFR(CKD) >90 (>60 ml/min/1.73 sqM); Potassium 4.1 mmol/L (3.5-5.1); Sodium 130 mmol/L (137-145); Total Bilirubin 0.5 mg/dL (0.2-1.3); Total Protein 6.2 g/dL (6.3-8.2)
[2021-08-26] MEDS ORDERED: INSULIN ASPART (NovoLOG) 100 UNIT/ML VIAL SQ STA (19:40)
[2021-08-26 19:41] LABS: Partial Thromboplastin Time 20.8 sec (22.0-30.0); Prothrombin Time 10.9 sec (9.0-12.0)
[2021-08-26 20:12] LABS: Glucose,Whole Blood 295 mg/dL (75-99)
[2021-08-26 20:20] LABS: Appearance,Urine Clear (Clear); Bilirubin,Urine Negative (Negative); Blood,Urine Negative (Negative); Color,Urine Yellow; Glucose,Urine (UA) 4+ (Negative); Ketones,Urine Trace (Negative); Leukocyte Esterase,Urine Negative (Negative); Mucus,Urine Rare /hpf; Nitrite,Urine Negative (Negative); PH, Urine 5.5 (5.0-8.0); Protein,Urine 1+ (Negative); RBC,Urine <1 /hpf (0-5); Specific Gravity,Urine 1.034 (1.001-1.035); Urobilinogen,Urine <2.0 mg/dL (<2.0); WBC,Urine 1 /hpf (0-5)
[2021-08-26 21:46] LABS: Glucose,Whole Blood 344 mg/dL (75-99)
[2021-08-26] MEDS ORDERED: metFORMIN 500 MG TAB PO STA (21:46)
[2021-08-26] MEDS ORDERED: INSULIN DETEMIR (LEVEMIR) 100 UNIT/ML SYR SQ STA (21:46)
[2021-08-26 22:14] VITALS: BP 152/86; PULSE 84
== END 2021-08-26 22:14 | disposition home or self-care (01) ==
LOC: EC 18:21
DX: R53.1 Weakness (principal); E11.65 Type 2 diabetes mellitus with hyperglycemia; E86.0 Dehydration; K21.9 Gastro-esophageal reflux disease without esophagitis; I10 Essential (primary) hypertension; F41.9 Anxiety disorder, unspecified; F32.A Depression, unspecified; F17.200 Nicotine dependence, unspecified, uncomplicated; Z20.822 Contact with and (suspected) exposure to COVID-19; Z79.84 Long term (current) use of oral hypoglycemic drugs; Z79.4 Long term (current) use of insulin; Z86.73 Personal history of transient ischemic attack (TIA), and cerebral infarction without residual deficits
CPT/HCPCS: 99285; 96374; 96361; 36415; 80053; 83605; 83735; 84484; 85025; 85610; 85730; 81001; 87635; J2405

== ENCOUNTER 2021-09-28 22:48 | Inpatient (IN) | payer MEDICARE, OTHER ==
[2021-09-29] MEDS ORDERED: AZITHROMYCIN 500 MG TAB PO ONE (02:00)
[2021-09-29] MEDS ORDERED: AZITHROMYCIN 500 MG TAB ONE (02:15)
[2021-09-29 02:41] LABS: Glucose,Whole Blood 422 mg/dL (75-99)
[2021-09-29 02:41] LABS: Glucose,Whole Blood 314 mg/dL (75-99)
[2021-09-29 03:55] LABS: ALT 24 U/L (4-49); AST 20 U/L (17-59); African American GFR (CKD) >90 (>60 ml/min/1.73 sqM); Albumin 3.7 g/dL (3.5-5.0); Alcohol <10 mg/dL; Alkaline Phosphatase 103 U/L (38-126); Anion Gap 15 mmol/L; Blood Urea Nitrogen 27 mg/dL (9-20); Calcium 9.2 mg/dL (8.4-10.2); Carbon Dioxide 24 mmol/L (22-30); Chloride 97 mmol/L (98-107); Glucose 381 mg/dL (74-99); Magnesium 1.6 mg/dL (1.6-2.3); Non-African American GFR(CKD) >90 (>60 ml/min/1.73 sqM); Potassium 4.3 mmol/L (3.5-5.1); Sodium 136 mmol/L (137-145); Total Bilirubin 0.9 mg/dL (0.2-1.3); Total Protein 6.8 g/dL (6.3-8.2)
[2021-09-29 04:01] LABS: HCT 48.9 % (39.0-53.0); HGB 15.6 gm/dL (13.0-17.5); Hypochromasia Slight; MCH 27.9 pg (25.0-35.0); MCHC 31.8 g/dL (31.0-37.0); MCV 87.7 fL (80.0-100.0); Mean Platelet Volume 7.3; Platelet Count 357 k/uL (150-450); RBC 5.57 m/uL (4.30-5.90); WBC 25.2 k/uL (3.8-10.6)
[2021-09-29 04:03] LABS: Band Neutrophils % 4 %; Lymphocytes # (M) 2.52 k/uL (1.0-4.8); Monocytes # (M) 2.02 k/uL (0-1.0); Neutrophils % (M) 78 %; Nucleated Red Blood Cells 0 /100 WBC (0-0); Total Cells Counted 100
[2021-09-29] MEDS ORDERED: PNEUMONIA PROTOCOL UTILIZED 1 EACH MISC PO PRN (05:23)
[2021-09-29 06:07] LABS: Appearance,Urine Clear (Clear); Bilirubin,Urine Negative (Negative); Blood,Urine Negative (Negative); Color,Urine Yellow; Glucose,Urine (UA) 4+ (Negative); Ketones,Urine 1+ (Negative); Leukocyte Esterase,Urine Negative (Negative); Mucus,Urine Rare /hpf; Nitrite,Urine Negative (Negative); Protein,Urine 1+ (Negative); RBC,Urine <1 /hpf (0-5); Specific Gravity,Urine 1.032 (1.001-1.035); Urobilinogen,Urine <2.0 mg/dL (<2.0); WBC,Urine 1 /hpf (0-5)
[2021-09-29] MEDS ORDERED: LORazepam 2 MG/ML INJ IV STA (07:14)
[2021-09-29] MEDS ORDERED: ACETAMINOPHEN SUPPOSITORY 650 MG SUPP RECTAL STA (07:14)
[2021-09-29] MEDS ORDERED: LORazepam 2 MG/ML INJ IV PRN ×3 (07:15)
[2021-09-29] MEDS ORDERED: THIAMINE 100 MG/ML 2 ML VIAL IM STA (07:15)
[2021-09-29 07:30] LABS: Glucose,Whole Blood 337 mg/dL (75-99)
--- NOTE | 2021-09-29 08:16 | XR ---
EXAMINATION TYPE: XR chest 1V DATE OF EXAM: 09/29/2021 CLINICAL HISTORY: Sepsis and fever. TECHNIQUE: Single AP portable frontal view of the chest is obtained. COMPARISON: Chest x-ray from May 18, 2019 FINDINGS: There is new right upper lung increased opacity. Left lung remains clear. Patient more rot ated to the right on current study. Cardiac silhouette size mildly enlarged. Osseous structures are i ntact. IMPRESSION: New Right upper lung acute infiltrate
[2021-09-29] MEDS ORDERED: ALBUTEROL NEBULIZED 2.5 MG/3 ML INHALATION PRN (08:31)
--- NOTE | 2021-09-29 08:31 | P.HPIM ---
<Leonidas York - Last Filed: 09/29/21 14:01> History of Present Illness H&P Date: 09/29/21 History of Presenting Illness: Patient is a very pleasant 61-year-old male with a past medical history of hyper tension, hyperlipidemia, insulin-dependent diabetes mellitus, and diabetic neuropathy. Patient reportedly presented to the emergency department with the chief complaint of overall feeling of unwell. He underwent evaluation in the emergency department and was found to be severely septic with lactate 5.6 and WBC count of 25.2 with left shift with neutrophils of 20.6 and monocytes of 2.02. In addition patient found to have hyperglycemia with serum glucose of 381. Chest x-ray revealed severe infiltration of the right upper lobe consistent with pneumonia. Patient was given sepsis bolus and started on IV antibiotics with azithromycin and Rocephin for treatment of community-acquired pneumonia. Patient was also noted to have an elevated temp of 100.8F along with tachycardia and became confused and agitated. There was concerns for possible underlying alcohol use and pt was placed on CIWA protocol and given 2 mg of Ativan IVP in the emergency department. He was then sent for a CT head w hich was negative for acute intercranial abnormality. The patient was admitted under our services for severe sepsis and community acquired pneumonia of right upper lobe. At time of initial examination, patient was sedated. He was easily aroused via verbal stimuli answering yes and no questions and was able to state his name, date of , and that he was at the hospital. Patient denied alcoho l use and RN reports pt's called and confirmed that patient did not use alcohol. Covid PCR was negative. Patient was on 5 L O2 via nasal cannula, denied shortness of breath or chest pain. Unable to complete full review of systems at this time secondary to patient's mentation and limited ability to answer questions. Attempts made to call patient's from number in chart were unsuccessful as it states the number dialed is not a working number. Review of systems: Limited ROS, most of information obtained from ER documentation and reports from the ER nurse secondary to patient's current sedation and altered mentation. Patient currently answering limited questions but did deny chest pain, shortness of breath, headache, and dizziness and was noted to be moving all extremities independently. Physical exam: Vital signs reviewed and stable. General: Nontoxic, mild distress and appears stated age, obese. Patient appears restless and uncomfortable. Derm: Skin warm and dry, normal coloration for ethnicity. Head: Atraumatic, normocephalic and symmetric. Eyes: EOMs intact, no lid lag, and anicteric sclera Mouth: no lip lesions, mucus membranes dry Cardiovascular: regular rate and rhythm with normal S1S2, no murmur, positive posterior tibial pulses bilaterally, and cap refill < 2 seconds. Lungs: Respirations even, regular, and unlabored on 5 L O2 via nasal cannula with SpO2 of 94%. Lungs diminished with diffuse rales worse on right. No wheezing and no accessory muscle usage. Abdominal: Obese abdomen soft, nontender to palpation, no guarding, no ap preciable organomegaly Ext: ROM intact. No gross muscle atrophy, no edema, no contractures Neuro: Unable to perform complete neurologic examination as patient altered/sedated at time of assessment. Patient was noted to be moving all extremities independently with no noted deficits, did not follow commands. Psych: Patient awake, restless, but altered/sedated. Assessment and Plan of Care: Community acquired pneumonia of right upper lobe Severe sepsis secondary to pneumonia Acute respiratory failure with hypoxia secondary to pneumonia Lactic acidosis -Oxygenation to be administered and titrated as needed to maintain SPO2 equal to or greater than 92% -Telemetry monitoring. -Continuous Pulse-oximetry -Duonebs scheduled four times daily and as needed for SOB and/or wheezing -Incentive Spirometry -Antibiotics: Rocephin and azithromycin -Sputum culture -Fluid boluses for treatment of lactic acidosis with continued IV fluid hydration and repeat lactate. We will continue to monitor for resolution. Acute Metabolic encephalopathy secondary to sepsis resulting from pneumonia -CT head negative for acute intercranial process. -Secondary to alteration in mentation we will hold Neurontin and other sedated his medications at this time. -Neuro checks every 4 hours. -Fall precautions. -If no improvement in mentation over the next 24 hours we'll consult neurology to evaluate as well. Insulin-dependent diabetes mellitus type 2 with hyperglycemia -Hold Glucophage in place patient on NovoLog sliding scale. We will continue patient's home dose 6 units of 14 units with meals and at bedtime along with 45 units of Lantus nightly. Hypertension Monitor vital signs. Hydrochlorothiazide held at this time secondary to lactic acidosis and need for IV fluid hydration. Hyperlipidemia -Continue daily medication regimen with atorvastatin 20 mg nightly. The patient is admitted with an anticipated greater than 2 midnight stay for evaluation of severe sepsis secondary to community-acquired pneumonia resulting in acute hypoxic respiratory failure. . CODE STATUS: Full code pending further discussion with patient and as unable to verify secondary to patient's alteration in mental status and inability to contact from number provided. DVT prophylaxis: heparin Discussed with: Patient and RN Anticipated discharge date: clinical course to determine Anticipated discharge place: Home A total of 50 minutes was spent on the care of this complex patient more than 50% of the time was spent in counseling and care coordination. Past Medical History Past Medical History: CVA/TIA, Diabetes Mellitus, GERD/Reflux, Hypertension Additional Past Medical History / Comment(s): BACK PAIN, CONSTIPATION, NUMBNESS IN FEET, URGENCY TO URINATE, BURPS FREQUENTLY AND STOMACH CRUZ., COUGHED UP BLOOD X2. History of Any Multi-Drug Resistant Organisms: MRSA Past Surgical History: Tonsillectomy Additional Past Surgical History / Comment(s): PLATE IN FEMUR AND ANKLE PINS , SURGERY FOR SNORING Past Anesthesia/Blood Transfusion Reactions: No Reported Reaction Past Psychological History: Anxiety, Depression Smoking Status: Current every day smoker Past Alcohol Use History: None Reported Past Drug Use History: None Reported - Past Family History Mother Family Medical History: Coronary Artery Disease (CAD), Diabetes Mellitus Father History Unknown: Yes Sister(s) Family Medical History: Cancer Additional Family Medical History / Comment(s): MELANOMA Medications and Allergies Home Medications Medication Instructions Recorded Confirmed Type metFORMIN HCL [Glucophage] 1,000 mg PO BID 05/25/15 09/29/21 History Atorvastatin [Lipitor] 20 mg PO HS 05/18/19 09/29/21 History hydroCHLOROthiazide [Hydrodiuril] 25 mg PO DAILY 05/18/19 09/29/21 History Gabapentin 1,200 mg PO BID 08/26/21 09/29/21 History INSULIN ASPART (NovoLOG) [NovoLOG 14 unit SQ [facility] 08/26/21 09/29/21 History (formulary)] Insulin Glargine,Hum.rec.anlog 45 unit SQ HS 08/26/21 09/29/21 History [Lantus Solostar Pen] DULoxetine HCL [Cymbalta] 30 mg PO DAILY 09/29/21 09/29/21 History Gabapentin 600 mg PO DAILY@1200 09/29/21 09/29/21 History Gemfibrozil [Lopid] 600 mg PO AC-BID 09/29/21 09/29/21 History buPROPion XL [Wellbutrin XL] 150 mg PO DAILY 09/29/21 09/29/21 History sitaGLIPtin [Januvia] 100 mg PO DAILY 09/29/21 09/29/21 History Allergies Allergy/AdvReac Type Severity Reaction Status Date / Time No Known Allergies Allergy Verified 09/29/21 06:39 Physical Exam Vitals: Vital Signs Temp Pulse Pulse Resp BP Pulse Ox 09/29/21 07:42 90 18 118/79 98 09/29/21 07:34 94 L 09/29/21 07:15 88 L 09/29/21 07:00 100.8 F H 117 H 18 148/90 09/29/21 06:00 98.5 F 112 H 27 H 134/67 09/29/21 05:00 114 H 22 156/84 09/29/21 04:56 115 H 09/29/21 04:00 115 H 25 H 147/92 09/28/21 22:55 99.6 F 115 H 24 132/79 95 Intake and Output 09/28/21 09/29/21 09/29/21 22:59 06:59 14:59 Other: Weight 102.376 kg Results CBC & Chem 7: 09/28/21 23:30 09/28/21 23:30 Labs: Abnormal Lab Results - Last 24 Hours (Table) 09/28/21 09/28/21 09/28/21 Range/Units 23:30 23:30 23:30 WBC 25.2 H (3.8-10.6) k/uL Neutrophils # (Manual) 20.60 H (1.3-7.7) k/uL Monocytes # (Manual) 2.02 H (0-1.0) k/uL Sodium 136 L (137-145) mmol/L Chloride 97 L (98-107) mmol/L BUN 27 H (9-20) mg/dL Glucose 381 H (74-99) mg/dL POC Glucose (mg/dL) (75-99) mg/dL Plasma Lactic Acid Cristino 5.6 H* (0.7-2.0) mmol/L Urine Protein (Negative) Urine Glucose (UA) (Negative) Urine Ketones (Negative) Urine Mucus (None) /hpf 09/28/21 09/29/21 09/29/21 Range/Units 23:41 01:13 03:20 WBC (3.8-10.6) k/uL Neutrophils # (Manual) (1.3-7.7) k/uL Monocytes # (Manual) (0-1.0) k/uL Sodium (137-145) mmol/L Chloride (98-107) mmol/L BUN (9-20) mg/dL Glucose (74-99) mg/dL POC Glucose (mg/dL) 422 H 314 H (75-99) mg/dL Plasma Lactic Acid Cristino (0.7-2.0) mmol/L Urine Protein 1+ H (Negative) Urine Glucose (UA) 4+ H (Negative) Urine Ketones 1+ H (Negative) Urine Mucus Rare H (None) /hpf 09/29/21 09/29/21 Range/Units 05:35 07:27 WBC (3.8-10.6) k/uL Neutrophils # (Manual) (1.3-7.7) k/uL Monocytes # (Manual) (0-1.0) k/uL Sodium (137-145) mmol/L Chloride (98-107) mmol/L BUN (9-20) mg/dL Glucose (74-99) mg/dL POC Glucose (mg/dL) 337 H (75-99) mg/dL Plasma Lactic Acid Cristino 2.9 H* (0.7-2.0) mmol/L Urine Protein (Negative) Urine Glucose (UA) (Negative) Urine Ketones (Negative) Urine Mucus (None) /hpf <Jacqui Ames - Last Filed: 09/29/21 16:53> History of Present Illness Patient seen and examined independently. Patient was also seen by Leonidas York NP and case was discussed. I am in agreement with subjective, physical exam, assessment and plan as written above and amended below. Seen and examined in the ER. He is lethargic. Breath sounds are decreased. He opens his eyes but does not verbalize. General: Ill appearing, mild distress, appears at stated age Derm: warm, dry Head: atraumatic, normocephalic, symmetric Eyes: EOMI, no lid lag, anicteric sclera Mouth: no lip lesion, mucus membranes dry Cardiovascular: S1S2 reg, no murmur, positive posterior tibial pulse bilateral, Lungs: Decreased breath sounds bilateral, no rhonchi, no rales , no accessory muscle use Ext: no gross muscle atrophy, no edema, no contractures Neuro: CN II-XI grossly intact, no focal neuro deficits Psych: Lethargic with flat affect Physical Exam Osteopathic Statement: *. No significant issues noted on an osteopathic structural exam other than those noted in the History and Physical/Consult. Vitals: Vital Signs Temp Pulse Pulse Resp BP Pulse Ox 09/29/21 13:07 115 H 22 09/29/21 12:38 97 22 130/79 94 L 09/29/21 09:13 98.9 F 105 H 20 135/78 93 L 09/29/21 08:48 105 H 09/29/21 08:40 105 H 09/29/21 07:42 90 18 118/79 98 09/29/21 07:34 94 L 09/29/21 07:15 88 L 09/29/21 07:00 100.8 F H 117 H 18 148/90 09/29/21 06:00 98.5 F 112 H 27 H 134/67 09/29/21 05:00 114 H 22 156/84 09/29/21 04:56 115 H 09/29/21 04:00 115 H 25 H 147/92 09/28/21 22:55 99.6 F 115 H 24 132/79 95 Intake and Output 09/29/21 09/29/21 09/29/21 06:59 14:59 22:59 Output Total 300 Balance -300 Output: Urine 300 Other: Weight 102.376 kg Results CBC & Chem 7: 09/28/21 23:30 09/28/21 23:30 Labs: Abnormal Lab Results - Last 24 Hours (Table) 09/28/21 09/28/21 09/28/21 Range/Units 23:30 23:30 23:30 WBC 25.2 H (3.8-10.6) k/uL Neutrophils # (Manual) 20.60 H (1.3-7.7) k/uL Monocytes # (Manual) 2.02 H (0-1.0) k/uL Sodium 136 L (137-145) mmol/L Chloride 97 L (98-107) mmol/L BUN 27 H (9-20) mg/dL Glucose 381 H (74-99) mg/dL POC Glucose (mg/dL) (75-99) mg/dL Plasma Lactic Acid Cristino 5.6 H* (0.7-2.0) mmol/L Urine Protein (Negative) Urine Glucose (UA) (Negative) Urine Ketones (Negative) Urine Mucus (None) /hpf 09/28/21 09/29/21 09/29/21 Range/Units 23:41 01:13 03:20 WBC (3.8-10.6) k/uL Neutrophils # (Manual) (1.3-7.7) k/uL Monocytes # (Manual) (0-1.0) k/uL Sodium (137-145) mmol/L Chloride (98-107) mmol/L BUN (9-20) mg/dL Glucose (74-99) mg/dL POC Glucose (mg/dL) 422 H 314 H (75-99) mg/dL Plasma Lactic Acid Cristino (0.7-2.0) mmol/L Urine Protein 1+ H (Negative) Urine Glucose (UA) 4+ H (Negative) Urine Ketones 1+ H (Negative) Urine Mucus Rare H (None) /hpf 09/29/21 09/29/21 09/29/21 Range/Units 05:35 07:27 12:09 WBC (3.8-10.6) k/uL Neutrophils # (Manual) (1.3-7.7) k/uL Monocytes # (Manual) (0-1.0) k/uL Sodium (137-145) mmol/L Chloride (98-107) mmol/L BUN (9-20) mg/dL Glucose (74-99) mg/dL POC Glucose (mg/dL) 337 H 270 H (75-99) mg/dL Plasma Lactic Acid Cristino 2.9 H* (0.7-2.0) mmol/L Urine Protein (Negative) Urine Glucose (UA) (Negative) Urine Ketones (Negative) Urine Mucus (None) /hpf
[2021-09-29] MEDS ORDERED: SODIUM CHLORIDE 0.9% 1,000 ML IV ONE (08:33)
--- NOTE | 2021-09-29 08:38 | CT ---
EXAM: CT Head Without Intravenous Contrast CLINICAL HISTORY: AMS TECHNIQUE: Axial computed tomography images of the head/brain without intravenous contrast. CTDI is 98.37 mGy and DLP is 2372.4 mGy-cm. This CT exam was performed using one or more of the following dose reduction techniques: automated exposure control, adjustment of the mA and/or kV according to patient size, and/or use of iterative reconstruction technique. COMPARISON: No relevant prior studies available. FINDINGS: Brain: Generalized cerebral volume loss. All left cerebellar infarct. No acute intracranial hemorrhage, edema or abnormal mass-effect. Ventricles: Unremarkable. No ventriculomegaly. Bones/joints: Unremarkable. No acute fracture. Soft tissues: Unremarkable. Sinuses: Unremarkable as visualized. No acute sinusitis. Mastoid air cells: Unremarkable as visualized. No mastoid effusion. IMPRESSION: No acute intracranial findings.
[2021-09-29] MEDS: ALBUTEROL NEBULIZED 2.5 MG/3 ML INHALATION SCH ×4 (08:40→20:19)
[2021-09-29] MEDS: MAGNESIUM SULFATE-D5W PMX 1 GM in DEXTROSE/WATER 1 100ML.BAG IVPB SCH ×2 (09:10→10:40)
[2021-09-29] MEDS: DULoxetine HCL 30 MG CAPSULE.DR PO SCH (09:10)
[2021-09-29 12:13] LABS: Glucose,Whole Blood 270 mg/dL (75-99)
[2021-09-29] MEDS: INSULIN ASPART (NovoLOG) 100 UNIT/ML VIAL SQ SCH ×6 (12:34→20:48)
--- NOTE | 2021-09-29 12:38 | XR ---
EXAM: XR Chest, 1 View CLINICAL HISTORY: Chest pain TECHNIQUE: Frontal view of the chest. COMPARISON: November 24, 2015 FINDINGS: Lungs: Severe infiltration in the right upper lobe. Pleural space: Unremarkable. No pneumothorax or pleural fluid. Heart: Unremarkable. No cardiomegaly. Mediastinum: Unremarkable. Bones/joints: No acute findings. IMPRESSION: Severe infiltration in the right upper lobe consistent with pneumonia.
[2021-09-29] MEDS: SODIUM CHLORIDE 0.9% 1,000 ML IV SCH ×2 (13:59→14:08)
[2021-09-29] MEDS ORDERED: ACETAMINOPHEN TAB 325 MG TAB PO PRN (14:36)
[2021-09-29] MEDS: HEPARIN SODIUM,PORCINE/PF 5,000 UNIT/0.5 ML SYRINGE SQ SCH (17:30)
[2021-09-29] MEDS ORDERED: THIAMINE 100 MG TAB PO SCH (17:30)
[2021-09-29 17:45] LABS: ABG Base Excess 5.9 mmol/L; ABG HCO3 30 mmol/L (21-25); ABG Oxygen Saturation 96.4 % (94-97); ABG PCO2 42 mmHg (35-45); ABG PH 7.46 (7.35-7.45); ABG PO2 80 mmHg (83-108); ABG TCO2 31 mmol/L (19-24)
[2021-09-29 17:48] LABS: Allen Test Performed? no
[2021-09-29 20:10] LABS: Glucose,Whole Blood 504 mg/dL (75-99)
[2021-09-29 20:10] LABS: Glucose,Whole Blood 157 mg/dL (75-99)
[2021-09-29] MEDS: ATORVASTATIN 20 MG TAB PO SCH (20:16)
[2021-09-29] MEDS: INSULIN DETEMIR (LEVEMIR) 100 UNIT/ML SYR SQ SCH (20:48)
[2021-09-29] MEDS ORDERED: INSULIN DETEMIR (LEVEMIR) 100 UNIT/ML SYR SQ SCH (21:00)
[2021-09-30] MEDS: HEPARIN SODIUM,PORCINE/PF 5,000 UNIT/0.5 ML SYRINGE SQ SCH ×3 (00:46→16:44)
[2021-09-30 02:28] LABS: Glucose,Whole Blood 122 mg/dL (75-99)
[2021-09-30] MEDS: SODIUM CHLORIDE 0.9% 1,000 ML IV SCH ×2 (03:51→12:25)
[2021-09-30 06:03] LABS: Glucose,Whole Blood 84 mg/dL (75-99)
[2021-09-30] MEDS: INSULIN ASPART (NovoLOG) 100 UNIT/ML VIAL SQ SCH ×8 (06:05→20:31)
[2021-09-30] MEDS: ALBUTEROL NEBULIZED 2.5 MG/3 ML INHALATION SCH ×4 (07:29→19:36)
[2021-09-30 08:05] LABS: HCT 39.4 % (39.0-53.0); HGB 12.8 gm/dL (13.0-17.5); MCHC 32.6 g/dL (31.0-37.0); Mean Platelet Volume 6.9; Platelet Count 316 k/uL (150-450); RBC 4.59 m/uL (4.30-5.90); WBC 16.4 k/uL (3.8-10.6)
[2021-09-30 08:34] LABS: ALT 12 U/L (4-49); AST 16 U/L (17-59); African American GFR (CKD) >90 (>60 ml/min/1.73 sqM); Albumin 2.7 g/dL (3.5-5.0); Alkaline Phosphatase 72 U/L (38-126); Anion Gap 2 mmol/L; Blood Urea Nitrogen 20 mg/dL (9-20); Calcium 8.2 mg/dL (8.4-10.2); Carbon Dioxide 29 mmol/L (22-30); Chloride 105 mmol/L (98-107); Glucose 110 mg/dL (74-99); Non-African American GFR(CKD) >90 (>60 ml/min/1.73 sqM); Potassium 3.5 mmol/L (3.5-5.1); Sodium 136 mmol/L (137-145); Total Bilirubin 0.5 mg/dL (0.2-1.3); Total Protein 5.7 g/dL (6.3-8.2)
[2021-09-30] MEDS: AZITHROMYCIN 500 MG TAB PO SCH (09:30)
[2021-09-30] MEDS: DULoxetine HCL 30 MG CAPSULE.DR PO SCH (09:30)
--- NOTE | 2021-09-30 09:51 | CT ---
EXAMINATION TYPE: CT chest angio for PE DATE OF EXAM: 09/30/2021 COMPARISON: No previous CT scan is available for comparison. HISTORY: PE, Elevated D-dimer. Hypoxia, recent COVID CT DLP: 568.5 mGycm Automated exposure control for dose reduction was used. CONTRAST: CT Chest for pulmonary embolism performed with IV contrast, patient injected with 100 ml mL of Isovue 370. MIP images were performed and reviewed. FINDINGS: The artifactual images. No definite filling defect is seen within the pulmonary trunk, main pulmonary arteries, lobar and proximal segmental arteries. Distal segmental and subsegmental arteries are subo ptimally assessed. The pulmonary trunk measures up to 3 cm. Slightly enlarged cardiac size, please co rrelate with echocardiographic results. Scattered arterial atherosclerotic calcifications. No sizable pericardial effusion. Expiratory exposure. Large area of consolidation is seen at the posterior aspect of the right upper l obe with questionable extension to the superior segment of the right lower lobe, demonstrating minima l air bronchograms within, possibly representing pneumonia. Underlying neoplastic lesion cannot be ex cluded. Recommend follow-up to complete resolution. Paraseptal emphysematous changes are seen in the upper lobes. Right pleural effusion with adjacent subsegmental pulmonary atelectasis. Minimal left pleural fluid. Minimal intraluminal secretions are seen within the trachea. Prominent hi lar, mediastinal and axillary lymph nodes. For example, a subcarinal lymph node measures 10 mm. A rig ht hilar lymph node measures 10 mm. A left hilar lymph node measures 12 mm. A left axillary lymph nod e measures 11 mm. A right paratracheal lymph node measures 14 mm. Attention on follow-up. Bulky liver with slightly nodular outline. No aggressive bone lesion. IMPRESSION: 1. Within the limitations of the artifactual images, no major or central pulmonary embolism. 2. Large area of consolidation is seen at the posterior aspect of the right upper lobe likely represe nting pneumonia. Underlying neoplastic lesion cannot be excluded. Recommend follow-up to complete res olution after proper treatment. 3. Small right pleural effusion with minimal left pleural fluid. Associated pulmonary edema can't be excluded. 4. Prominent hilar, mediastinal and axillary lymph nodes as described above, attention on follow-up.
--- NOTE | 2021-09-30 10:58 | XR ---
EXAMINATION TYPE: XR chest 2V DATE OF EXAM: 09/30/2021 COMPARISON: X-ray dated 09/29/2021 HISTORY: Pneumonia TECHNIQUE: Frontal and lateral views of the chest are obtained. FINDINGS: Larger right upper lung lobe pulmonary infiltration suggestive of progressive pneumonia. Slightly con gested pulmonary vasculature, mild pulmonary edema can't be excluded. Minimal atelectasis in the left lung base. Suspected small right pleural effusion. Increased cardiac transverse diameter. No aggressive bone lesion. IMPRESSION: Apparent progressive pneumonia in the right upper lung lobe.
[2021-09-30 11:37] LABS: Glucose,Whole Blood 141 mg/dL (75-99)
[2021-09-30] MEDS ORDERED: VANCOMYCIN IV PER PHARMACY 1 EACH MISC MISCELLANE PRN (11:39)
--- NOTE | 2021-09-30 11:53 | P.CNPUL ---
History of Present Illness Consult date: 09/30/21 Requesting physician: Wilton Cotton Reason for consult: dyspnea, cough, hypoxemia, pneumonia, abnormal CXR/CT Chief complaint: Shortness of breath. History of present illness: Pulmonary consult dated 09/30/2021. 61-year-old male that I'm asked to see for right upper lobe pneumonia. The patient is a very poor historian, and is very lethargic and somnolent. Apparently this is not a new finding. The patient apparently has a history of hypertension, hyperlipidemia, diabetes, and diabetic neuropathy. He apparently presented to "some" emergency room, and was thought to have sepsis. He had an elevated lactate and elevated white blood count. Chest x-ray revealed a right upper lobe infiltrate. The patient was started on antibiotics. The patient was also placed on the [facility] protocol for possible alcohol withdrawal syndrome. Head CT was negative. Currently, the patient's on 6 L nasal cannula, and saline at 100 mL an hour. He is not manifesting any signs or symptoms of auditory distre ss. He is quite lethargic and sleepy though. Vital signs include a saturation of 96% on 6 L, blood pressure 133/75, respiratory rate 18, heart rate 90, and temperature 97.9. Laboratory data includes a white count 16.4, hemoglobin 12.8, hematocrit 39.4, and platelet count 316,000. D-dimer is 0.99. Blood gas shows a pO2 of 80, pCO2 42, and pH of 7.46. Sodium 136, potassium 3.5, chlorides 105, CO2 29, anion gap 2, BUN 20, and creatinine 0.49. Repeat lactate was 1.7. Urine is negative for infection. Testing for coronavirus was negative. Chest x-rays and CAT scans are reviewed. The patient is currently on azithromycin, Rocephin, and vancomycin. Review of Systems REVIEW OF SYSTEMS: CONSTITUTIONAL: [Negative.] NEUROLOGIC: Mental status changes, somnolence, lethargy, obtundation. HEENT: [ Negative.] CARDIAC: [Negative.] PULMONARY: Shortness of breath. GI: [Negative.] : [Negative.] RHEUMATOLOGIC: [ Negative.] IMMUNOLOGIC: [ Negative.] ENDOCRINE: [Negative. ] DERMATOLOGIC: [Negative.] Past Medical History Past Medical History: CVA/TIA, Diabetes Mellitus, GERD/Reflux, Hypertension Additional Past Medical History / Comment(s): BACK PAIN, CONSTIPATION, NUMBNESS IN FEET, URGENCY TO URINATE, BURPS FREQUENTLY AND STOMACH CRUZ., COUGHED UP BLOOD X2. History of Any Multi-Drug Resistant Organisms: MRSA Past Surgical History: Tonsillectomy Additional Past Surgical History / Comment(s): PLATE IN FEMUR AND ANKLE PINS , SURGERY FOR SNORING Past Anesthesia/Blood Transfusion Reactions: No Reported Reaction Additional Past Anesthesia/Blood Transfusion Reaction / Comment(s): Clausterphobia Past Psychological History: Anxiety, Depression Smoking Status: Current every day smoker Past Alcohol Use History: None Reported Past Drug Use History: None Reported - Past Family History Mother Family Medical History: Coronary Artery Disease (CAD), Diabetes Mellitus Father History Unknown: Yes Additional Family Medical History / Comment(s): Alcoholism Sister(s) Family Medical History: Cancer Additional Family Medical History / Comment(s): MELANOMA Medications and Allergies Home Medications Medication Instructions Recorded Confirmed Type metFORMIN HCL [Glucophage] 1,000 mg PO BID 05/25/15 09/29/21 History Atorvastatin [Lipitor] 20 mg PO HS 05/18/19 09/29/21 History hydroCHLOROthiazide [Hydrodiuril] 25 mg PO DAILY 05/18/19 09/29/21 History Gabapentin 1,200 mg PO BID 08/26/21 09/29/21 History INSULIN ASPART (NovoLOG) [NovoLOG 14 unit SQ [facility] 08/26/21 09/29/21 History (formulary)] Insulin Glargine,Hum.rec.anlog 45 unit SQ HS 08/26/21 09/29/21 History [Lantus Solostar Pen] DULoxetine HCL [Cymbalta] 30 mg PO DAILY 09/29/21 09/29/21 History Gabapentin 600 mg PO DAILY@1200 09/29/21 09/29/21 History Gemfibrozil [Lopid] 600 mg PO AC-BID 09/29/21 09/29/21 History buPROPion XL [Wellbutrin XL] 150 mg PO DAILY 09/29/21 09/29/21 History sitaGLIPtin [Januvia] 100 mg PO DAILY 09/29/21 09/29/21 History Allergies Allergy/AdvReac Type Severity Reaction Status Date / Time No Known Allergies Allergy Verified 09/29/21 06:39 Physical Exam Osteopathic Statement: *. No significant issues noted on an osteopathic structural exam other than those noted in the History and Physical/Consult. Vitals: Vital Signs Temp Pulse Pulse Pulse Resp BP BP 09/30/21 09:24 97.9 F 90 19 133/75 09/30/21 04:00 97.4 F L 95 18 109/65 09/30/21 00:00 97.9 F 95 20 108/59 09/29/21 20:19 97 09/29/21 19:55 97.7 F 98 18 123/73 09/29/21 16:00 98.5 F 92 18 130/74 09/29/21 13:07 115 H 22 09/29/21 12:38 97 22 130/79 Pulse Ox 09/30/21 09:24 96 09/30/21 04:00 95 09/30/21 00:00 95 09/29/21 20:19 94 L 09/29/21 19:55 97 09/29/21 16:00 94 L 09/29/21 13:07 09/29/21 12:38 94 L Intake and Output 09/29/21 09/30/21 09/30/21 22:59 06:59 14:59 Intake Total 625 Output Total 400 Balance -400 625 Intake: Oral 625 Output: Urine 400 Other: # Voids 1 No acute distress, very lethargic and somnolent, doesn't arouse, not able to give much additional history. HEENT examination is grossly unremarkable. Neck supple. Full range of motion. No adenopathy thyromegaly or neck vein distention. Cardiovascular examination reveals regular rhythm rate. S1-S2 normal. No S3 or S4. No discernible murmur noted. Heart rate 90 bpm. Lungs reveal scattered rhonchi. No wheezes or crackles. Breath sounds equal bilaterally. The patient does not take deep breaths. 6 L saturation is 96%. Abdomen soft bowel sounds are heard. No masses or tenderness. Extremities are intact. No cyanosis clubbing or edema. Skin is without rash or lesion. Neurologic examination is difficult to assess. The patient does move all 4 extremities. He is very lethargic. Results - Laboratory Findings CBC and BMP: 09/30/21 07:50 09/30/21 07:50 ABG ABG pH 7.46 (7.35-7.45) H 09/29/21 17:42 ABG pCO2 42 mmHg (35-45) 09/29/21 17:42 ABG pO2 80 mmHg (83-108) L 09/29/21 17:42 ABG O2 Saturation 96.4 % (94-97) 09/29/21 17:42 PT/INR, D-dimer D-Dimer 0.99 mg/L FEU (<0.60) H 09/29/21 17:20 Abnormal lab findings: Abnormal Labs 09/28/21 09/28/21 09/28/21 23:30 23:30 23:30 WBC 25.2 H Hgb Neutrophils # (Manual) 20.60 H Monocytes # (Manual) 2.02 H D-Dimer ABG pH ABG pO2 ABG HCO3 ABG Total CO2 Sodium 136 L Chloride 97 L BUN 27 H Creatinine Glucose 381 H POC Glucose (mg/dL) Plasma Lactic Acid Cristino 5.6 H* Calcium AST Total Protein Albumin Urine Protein Urine Glucose (UA) Urine Ketones Urine Mucus 09/28/21 09/29/21 09/29/21 23:41 01:13 03:20 WBC Hgb Neutrophils # (Manual) Monocytes # (Manual) D-Dimer ABG pH ABG pO2 ABG HCO3 ABG Total CO2 Sodium Chloride BUN Creatinine Glucose POC Glucose (mg/dL) 422 H 314 H Plasma Lactic Acid Cristino Calcium AST Total Protein Albumin Urine Protein 1+ H Urine Glucose (UA) 4+ H Urine Ketones 1+ H Urine Mucus Rare H 09/29/21 09/29/21 09/29/21 05:35 07:27 12:09 WBC Hgb Neutrophils # (Manual) Monocytes # (Manual) D-Dimer ABG pH ABG pO2 ABG HCO3 ABG Total CO2 Sodium Chloride BUN Creatinine Glucose POC Glucose (mg/dL) 337 H 270 H Plasma Lactic Acid Cristino 2.9 H* Calcium AST Total Protein Albumin Urine Protein Urine Glucose (UA) Urine Ketones Urine Mucus 09/29/21 09/29/21 09/29/21 17:20 17:42 20:03 WBC Hgb Neutrophils # (Manual) Monocytes # (Manual) D-Dimer 0.99 H ABG pH 7.46 H ABG pO2 80 L ABG HCO3 30 H ABG Total CO2 31 H Sodium Chloride BUN Creatinine Glucose POC Glucose (mg/dL) 504 H Plasma Lactic Acid Cristino Calcium AST Total Protein Albumin Urine Protein Urine Glucose (UA) Urine Ketones Urine Mucus 09/29/21 09/30/21 09/30/21 20:05 02:26 07:50 WBC 16.4 H Hgb 12.8 L Neutrophils # (Manual) Monocytes # (Manual) D-Dimer ABG pH ABG pO2 ABG HCO3 ABG Total CO2 Sodium Chloride BUN Creatinine Glucose POC Glucose (mg/dL) 157 H 122 H Plasma Lactic Acid Cristino Calcium AST Total Protein Albumin Urine Protein Urine Glucose (UA) Urine Ketones Urine Mucus 09/30/21 07:50 WBC Hgb Neutrophils # (Manual) Monocytes # (Manual) D-Dimer ABG pH ABG pO2 ABG HCO3 ABG Total CO2 Sodium 136 L Chloride BUN Creatinine 0.49 L Glucose 110 H POC Glucose (mg/dL) Plasma Lactic Acid Cristino Calcium 8.2 L AST 16 L Total Protein 5.7 L Albumin 2.7 L Urine Protein Urine Glucose (UA) Urine Ketones Urine Mucus - Diagnostic Findings Chest x-ray: image reviewed CT scan - chest: image reviewed Assessment and Plan Assessment: Pneumonia, right upper lobe, could be community-acquired, or relate to underlying aspiration. Mental status changes, which may be acute or chronic. History of diabetes mellitus. History of diabetic neuropathy. History of hypertension. History of hyperlipidemia. Plan: Plan dated 09/30/2021. The patient should be seen by infectious diseases, and neurology. The patient is currently on azithromycin, ceftriaxone, and vancomycin. A pro-calcitonin level should be done. In addition, neurology should evaluate the patient's mental status. Not clear to me whether or not this is an acute abnormality or something more chronic in nature. The patient will need a follow-up chest x-ray down the road. Should the infiltrate is not clear, the patient may benefit from bronchoscopy. Additional recommendations and suggestions are forthcoming. Prognosis is guarded. We will continue to follow make recommendations where appropriate. Time with Patient: Greater than 30
[2021-09-30] MEDS ORDERED: VANCOMYCIN 1,750 MG in SODIUM CHLORIDE 0.9% 500 ML 500 ML IVPB SCH (12:00)
--- NOTE | 2021-09-30 14:14 | P.PN ---
<Leonidas York - Last Filed: 09/30/21 13:30> Subjective Progress Note Date: 09/30/21 Hospital course: Patient is a very pleasant 61-year-old male with a past medical history of hy pertension, hyperlipidemia, insulin-dependent diabetes mellitus, and diabetic neuropathy. Patient reportedly presented to the emergency department with the chief complaint of overall feeling of unwell. He underwent evaluation in the emergency department and was found to be severely septic with lactate 5.6 and WBC count of 25.2 with left shift with neutrophils of 20.6 and monocytes of 2.02. In addition patient found to have hyperglycemia with serum glucose of 381. Chest x-ray revealed severe infiltration of the right upper lobe consistent with pneumonia. Patient was given sepsis bolus and started on IV antibiotics with azithromycin and Rocephin for treatment of community-acquired pneumonia. Patient was also noted to have an elevated temp of 100.8F along with tachycardia and became confused and agitated. There was concerns for possible underlying alcohol use and pt was placed on CIWA protocol and given 2 mg of Ativan IVP in the emergency department. He was then sent for a CT head which was negative for acute intercranial abnormality. The patient was admitted under our services for severe sepsis and community acquired pneumonia of right upper lobe. D-dimer was elevated at 0.99. CTA chest showing no major central pulmonary emboli revealing large area of consolidation at the posterior aspect of the right upper lobe likely representing pneumonia, underlying neoplastic les ion cannot be excluded, there is also prominent hilar, mediastinal, and axillary lymph nodes present, recommend follow-up imaging after treatment for pneumonia is completed. 09/30/21: Called to speak with patient's Roula at 9:44 AM and left voicemail message on [phone]. Called again to speak with her at 1:30 PM on another n umber that was provided [phone] , at this time I was able to speak with his and she reports that she and her have been for 42 years. She states that he does have a history of hypertension, hyperlipidemia, insulin- dependent diabetes, neuropathy, and a previous CVA. She states that he supposed to walk with a cane but refuses. 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 She reports over the last 3-4 days he has been very sleepy and lethargic, so she thought maybe he was acting this way because his blood sugar was high and states she even accused him of just being lazy because all he wanted to do was sleep. She reports that her was very confused when EMS picked him up to bring him to the hospital. She reports that he did have Covid 19 virus infection about a month ago or so but has otherwise had no complaints. She denies knowing of any recent fevers, cough, congestion, complaints of chest pain or shortness of breath, and reports a normal appetite stating that he does not follow his diet and eats a lot of fast food but otherwise has been eating per his normal with no episodes of nausea or vomiting. Patient was seen and fully evaluated at the bedside this morning at 9:30 AM. He remains very lethargic, but was arousable to verbal and tactile stimulation. Patient was able to state his full name and date of and that he was in the hospital. When asked why he was in the hospital the patient stated "because I don't feel well". When asked the year patient states that is 2019 and could not answer month or who the president was. Patient very limited with what he did answer. He did deny having any pain or discomfort. He was on 5 L O2 via nasal cannula with vital signs stable. Morning labs revealed improvement in leukocytosis with WBC count of 16.4 and otherwise showing no significant abnormalities. Blood glucose levels significantly improved and stabilized. Preliminary blood culture result is positive for gram-positive cocci. Vancomycin ordered for patient at this time pending consult placed for infectious disease for bacteremia. Secondary to continued lethargic/somnolent state with alteration in mental status, neurology was consulted. Physical exam: Vital signs reviewed and stable. General: Nontoxic, no acute distress noted this morning and appears stated age, obese. Patient is somnolent/lethargic but does arouse to verbal and tactile stimulation Derm: Skin warm and dry, normal coloration for ethnicity. Head: Atraumatic, normocephalic and symmetric. Eyes: EOMs intact, no lid lag, and anicteric sclera Mouth: no lip lesions, mucus membranes dry Cardiovascular: regular rate and rhythm with normal S1S2, no murmur, positive posterior tibial pulses bilaterally, and cap refill < 2 seconds. Lungs: Respirations even, regular, and unlabored on 5 L O2 via nasal cannula with SpO2 of 94%. Lungs diminished with diffuse rhonchi. No wheezing and no accessory muscle usage. Abdominal: Obese abdomen soft, nontender to palpation, no guarding, no appreciable organomegaly Ext: ROM intact. No gross muscle atrophy, no edema, no contractures Neuro: Unable to perform complete neurologic examination as patient remains lethargic/somnolent at time of assessment. Patient was noted to be moving all extremities independently with no noted deficits, and did follow some commands such as open your eyes and squeeze my hands. Assessment and Plan of Care: Community acquired pneumonia of right upper lobe Severe sepsis secondary to pneumonia Acute respiratory failure with hypoxia secondary to pneumonia Lactic acidosis, resolved -Oxygenation to be administered and titrated as needed to maintain SPO2 equal to or greater than 92% -CTA chest showing no major central pulmonary emboli revealing large area of consolidation at the posterior aspect of the right upper lobe likely representing pneumonia, underlying neoplastic lesion cannot be excluded, there is also prominent hilar, mediastinal, and axillary lymph nodes present, recommend follow-up imaging after treatment for pneumonia is completed. -Telemetry monitoring. -Continuous Pulse-oximetry -Duonebs scheduled four times daily and as needed for SOB and/or wheezing -Incentive Spirometry -Antibiotics: Rocephin and azithromycin -Sputum culture -Fluid boluses were administered for treatment of lactic acidosis. Bacteremia, preliminary blood cultures positive for gram positive cocci -Started patient on vancomycin -Infectious disease consulted. Acute Metabolic encephalopathy secondary to sepsis resulting from pneumonia -CT head negative for acute intercranial process. -Secondary to alteration in mentation we will hold Neurontin and other sedated his medications at this time. -Neuro checks every 4 hours. -Fall precautions. -Patient showing only mild improvement over the past 24 hours. Consult placed to neurology at this time. Insulin-dependent diabetes mellitus type 2 with hyperglycemia -Hold Glucophage in place patient on NovoLog sliding scale. We will continue patient's home dose 6 units of 14 units with meals and at bedtime along with 45 units of Lantus nightly. Blood glucose levels have stabilized. Hypertension Monitor vital signs. Hydrochlorothiazide held at this time secondary to lactic acidosis and need for IV fluid hydration. Hyperlipidemia -Continue daily medication regimen with atorvastatin 20 mg nightly. Large area of consolidation right upper lung with prominent hilar, mediastinal, and axillary lymph nodes -Possibly secondary to infectious process, however underlying neoplastic process cannot be ruled out patient will require repeat imaging once treatment is completed for pneumonia. -Patient will need to follow up with pulmonology for further follow-up upon discharge. CODE STATUS: Full code DVT prophylaxis: Heparin Discussed with: Patient and RN, and patient's Anticipated discharge date: clinical course to determine Anticipated discharge place: Home A total of 45 minutes was spent on the care of this complex patient more than 50% of the time was spent in counseling and care coordination. Objective - Vital Signs Vital signs: Vital Signs Temp 97.9 F 09/30/21 09:24 Pulse 90 09/30/21 09:24 Resp 19 09/30/21 09:24 BP 133/75 09/30/21 09:24 Pulse Ox 96 09/30/21 09:24 Intake & Output 09/29/21 09/30/21 09/30/21 18:59 06:59 18:59 Intake Total 625 Output Total 300 400 Balance -300 -400 625 Weight 102.376 kg Intake: Oral 625 Output: Urine 300 400 Other: # Voids 1 - Labs CBC & Chem 7: 09/30/21 07:50 09/30/21 07:50 Labs: Abnormal Lab Results - Last 24 Hours (Table) 09/29/21 09/29/21 09/29/21 Range/Units 12:09 17:20 17:42 WBC (3.8-10.6) k/uL Hgb (13.0-17.5) gm/dL D-Dimer 0.99 H (<0.60) mg/L FEU ABG pH 7.46 H (7.35-7.45) ABG pO2 80 L (83-108) mmHg ABG HCO3 30 H (21-25) mmol/L ABG Total CO2 31 H (19-24) mmol/L Sodium (137-145) mmol/L Creatinine (0.66-1.25) mg/dL Glucose (74-99) mg/dL POC Glucose (mg/dL) 270 H (75-99) mg/dL Calcium (8.4-10.2) mg/dL AST (17-59) U/L Total Protein (6.3-8.2) g/dL Albumin (3.5-5.0) g/dL 09/29/21 09/29/21 09/30/21 Range/Units 20:03 20:05 02:26 WBC (3.8-10.6) k/uL Hgb (13.0-17.5) gm/dL D-Dimer (<0.60) mg/L FEU ABG pH (7.35-7.45) ABG pO2 (83-108) mmHg ABG HCO3 (21-25) mmol/L ABG Total CO2 (19-24) mmol/L Sodium (137-145) mmol/L Creatinine (0.66-1.25) mg/dL Glucose (74-99) mg/dL POC Glucose (mg/dL) 504 H 157 H 122 H (75-99) mg/dL Calcium (8.4-10.2) mg/dL AST (17-59) U/L Total Protein (6.3-8.2) g/dL Albumin (3.5-5.0) g/dL 09/30/21 09/30/21 Range/Units 07:50 07:50 WBC 16.4 H (3.8-10.6) k/uL Hgb 12.8 L (13.0-17.5) gm/dL D-Dimer (<0.60) mg/L FEU ABG pH (7.35-7.45) ABG pO2 (83-108) mmHg ABG HCO3 (21-25) mmol/L ABG Total CO2 (19-24) mmol/L Sodium 136 L (137-145) mmol/L Creatinine 0.49 L (0.66-1.25) mg/dL Glucose 110 H (74-99) mg/dL POC Glucose (mg/dL) (75-99) mg/dL Calcium 8.2 L (8.4-10.2) mg/dL AST 16 L (17-59) U/L Total Protein 5.7 L (6.3-8.2) g/dL Albumin 2.7 L (3.5-5.0) g/dL Microbiology - Last 24 Hours (Table) 09/29/21 02:00 Blood Culture - Preliminary Blood No Growth after 24 hours 09/29/21 02:10 Blood Culture - Final Blood <Jacqui Ames - Last Filed: 09/30/21 17:27> Subjective Leonidas York NP rendered care for this patient independently, reviewed the findings and plan as documented in the note above. I did not physically speak with or examine the patient on this date. Objective - Vital Signs Vital signs: Vital Signs Temp 97.6 F 09/30/21 16:42 Pulse 80 09/30/21 16:42 Resp 15 09/30/21 16:42 BP 113/64 09/30/21 16:42 Pulse Ox 96 09/30/21 16:42 Intake & Output 09/29/21 09/30/21 09/30/21 18:59 06:59 18:59 Intake Total 1555 Output Total 300 400 Balance -300 -400 1555 Weight 102.376 kg Intake: Oral 1555 Output: Urine 300 400 Other: # Voids 1 1 # Bowel Movements 1 - Labs CBC & Chem 7: 09/30/21 07:50 09/30/21 07:50 Labs: Abnormal Lab Results - Last 24 Hours (Table) 09/29/21 09/29/21 09/29/21 Range/Units 17:20 17:42 20:03 WBC (3.8-10.6) k/uL Hgb (13.0-17.5) gm/dL D-Dimer 0.99 H (<0.60) mg/L FEU ABG pH 7.46 H (7.35-7.45) ABG pO2 80 L (83-108) mmHg ABG HCO3 30 H (21-25) mmol/L ABG Total CO2 31 H (19-24) mmol/L Sodium (137-145) mmol/L Creatinine (0.66-1.25) mg/dL Glucose (74-99) mg/dL POC Glucose (mg/dL) 504 H (75-99) mg/dL Calcium (8.4-10.2) mg/dL AST (17-59) U/L Total Protein (6.3-8.2) g/dL Albumin (3.5-5.0) g/dL 09/29/21 09/30/21 09/30/21 Range/Units 20:05 02:26 07:50 WBC 16.4 H (3.8-10.6) k/uL Hgb 12.8 L (13.0-17.5) gm/dL D-Dimer (<0.60) mg/L FEU ABG pH (7.35-7.45) ABG pO2 (83-108) mmHg ABG HCO3 (21-25) mmol/L ABG Total CO2 (19-24) mmol/L Sodium (137-145) mmol/L Creatinine (0.66-1.25) mg/dL Glucose (74-99) mg/dL POC Glucose (mg/dL) 157 H 122 H (75-99) mg/dL Calcium (8.4-10.2) mg/dL AST (17-59) U/L Total Protein (6.3-8.2) g/dL Albumin (3.5-5.0) g/dL 09/30/21 09/30/21 09/30/21 Range/Units 07:50 11:35 16:26 WBC (3.8-10.6) k/uL Hgb (13.0-17.5) gm/dL D-Dimer (<0.60) mg/L FEU ABG pH (7.35-7.45) ABG pO2 (83-108) mmHg ABG HCO3 (21-25) mmol/L ABG Total CO2 (19-24) mmol/L Sodium 136 L (137-145) mmol/L Creatinine 0.49 L (0.66-1.25) mg/dL Glucose 110 H (74-99) mg/dL POC Glucose (mg/dL) 141 H 158 H (75-99) mg/dL Calcium 8.2 L (8.4-10.2) mg/dL AST 16 L (17-59) U/L Total Protein 5.7 L (6.3-8.2) g/dL Albumin 2.7 L (3.5-5.0) g/dL Microbiology - Last 24 Hours (Table) 09/29/21 02:10 Blood Culture Gram Stain - Preliminary Blood Blood Culture - Preliminary Streptococcus pneumoniae 09/29/21 02:00 Blood Culture - Preliminary Blood No Growth after 24 hours 09/29/21 02:10 Blood Culture - Final Blood
[2021-09-30 16:29] LABS: Glucose,Whole Blood 158 mg/dL (75-99)
--- NOTE | 2021-09-30 16:33 | MR ---
EXAMINATION TYPE: MR brain wo con DATE OF EXAM: 09/30/2021 COMPARISON: MRI Brain 11/24/2015. HISTORY: Altered mental status. TECHNIQUE: Multiplanar, multisequence imaging of the brain and brainstem is performed without IV cont rast. FINDINGS: Diffusion weighted images demonstrate no evidence of a recent infarct or other diffusion abnormality. There is no extraaxial fluid collection or significant white matter signal abnormality. The ventricu lar system and cisternal spaces are normal in size and appearance. The brain volume is age appropria te. Old infarct inferior left cerebellar region noted axial image 6. Midline structures demonstrate normal morphology. The craniocervical junction appears within normal limits. Normal vascular flow voids are present. The visualized sinuses are clear and the globes are i ntact. 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 No acute infarct.
--- NOTE | 2021-09-30 17:23 | EEG ---
ELECTROENCEPHALOGRAM REPORT DATE OF SERVICE: 09/30/2021 CLINICAL HISTORY: This is a 61-year-old gentleman with altered mental status. The video EEG is obtained to evaluate for seizure epileptiform activity. RELEVANT MEDICATION: The patient is not on any antiepileptic drugs. EEG TYPE: A routine 21-channel EEG is performed with video using the 10/20 electrode placement system. DESCRIPTION: Wakefulness and drowsiness are obtained. During the awake state, the background consists of low to moderate voltage of 7.5 to 8 hertz activity. There is no physiological stage II sleep architecture. There is no focal slowing. Interictal and ictal is none. ACTIVATION PROCEDURE: Photic stimulation did not evoke a posterior driving response. There is no abnormality during the photic stimulation. Hyperventilation was not performed. CLINICAL INTERPRETATION: This is an abnormal routine EEG. The background slowing is suggestive of mild encephalopathy of unknown etiology. There is no focal slowing, epileptiform discharges or seizure on the EEG. Clinical correlation is recommended. DAYANARA / BANDAR: [id number] / [id number]
--- NOTE | 2021-09-30 17:59 | P.CNNES ---
History of Present Illness Consult date: 09/30/21 Requesting physician: Leonidas York Reason for Consult: continues confusion History of Present Illness: This is a 61-year-old gentleman with medical history of left cerebellar stroke in 2016, diabetes mellitus, hypertension, hyperlipidemia, diabetic neuropathy who presented to the emergency department with chief complaint of "overall feeling of unwell". Neurology is consulted for altered mental status. She is obtained from medical record as well as patient's nurse. Per the patient's nurse patient mentation is slowly improving but he continues to be confused. Nurse feels he is repeating himself, repeating phrases. He is able to stand up on his own and was walking with minimal assistance. No seizure-like activity is noted. Upon seeing him he feels he is doing well and denies of any headaches, visual disturbance or any focal weakness. Patient is on Lipitor 20 mg daily at bedtime, gabapentin 600 mg daily, also gabapentin 1200 mg 1 tablet twice a day, Lantus, Wellbutrin, hydrochlorothiazide, metformin, Januvia, Cymbalta, gemfibrozil. Some of the workup in the hospital consisted of: Initial vital signs his blood pressure 132/79, heart rate of 115, temperature of 99.6 Fahrenheit axillary, respiratory of 24 and pulse ox of 95% at room air. Patient had one time temperature of 100.8 on 08-29 and that was around 7 AM but no further fevers On presented to the hospital the patient white blood cell was 25.2 thousand and predominantly neutrophilic and repeat white blood cell is 16.4. Initial POC glucose is 381 and got as high as 504. Most recent chemistry panel sodium is 136, creatinine is 0.49, calcium is 8.2, magnesium 2.0, AST and ALT is within normal limits. Initially plasma lactic acid venous 5.6 most repeated one is a 1.7. CT of the head is reported as no intracranial finding. Nobody reported it is mentioned the patient has left cerebellar infarct. I personally could not review the image since there is no image associated with the report that. Serum alcohol was less than 10 and acetone the is negative Charles virus PCR was not detected Urine analysis is negative for urinary tract infection Blood cultures is reported as gram-positive cocci in chains. Patient had MRI of the brain on 11/24/2015 and is reported as evolving acute infarct centered in the inferior aspect of left cerebellar hemisphere was small area of involvement the left dorsal w[place]ka likely PICA distribution Review of Systems Review of system: The 12 point system was reviewed and apparent positive and negative per HPI. Past Medical History Past Medical History: CVA/TIA, Diabetes Mellitus, GERD/Reflux, Hypertension Additional Past Medical History / Comment(s): BACK PAIN, CONSTIPATION, NUMBNESS IN FEET, URGENCY TO URINATE, BURPS FREQUENTLY AND STOMACH RCUZ., COUGHED UP BLOOD X2. History of Any Multi-Drug Resistant Organisms: MRSA Past Surgical History: Tonsillectomy Additional Past Surgical History / Comment(s): PLATE IN FEMUR AND ANKLE PINS , SURGERY FOR SNORING Past Anesthesia/Blood Transfusion Reactions: No Reported Reaction Additional Past Anesthesia/Blood Transfusion Reaction / Comment(s): Clausterphobia Past Psychological History: Anxiety, Depression Smoking Status: Current every day smoker Past Alcohol Use History: None Reported Past Drug Use History: None Reported - Past Family History Mother Family Medical History: Coronary Artery Disease (CAD), Diabetes Mellitus Father History Unknown: Yes Additional Family Medical History / Comment(s): Alcoholism Sister(s) Family Medical History: Cancer Additional Family Medical History / Comment(s): MELANOMA Medications and Allergies Home Medications Medication Instructions Recorded Confirmed Type metFORMIN HCL [Glucophage] 1,000 mg PO BID 05/25/15 09/29/21 History Atorvastatin [Lipitor] 20 mg PO HS 05/18/19 09/29/21 History hydroCHLOROthiazide [Hydrodiuril] 25 mg PO DAILY 05/18/19 09/29/21 History Gabapentin 1,200 mg PO BID 08/26/21 09/29/21 History INSULIN ASPART (NovoLOG) [NovoLOG 14 unit SQ ACHS 08/26/21 09/29/21 History (formulary)] Insulin Glargine,Hum.rec.anlog 45 unit SQ HS 08/26/21 09/29/21 History [Lantus Solostar Pen] DULoxetine HCL [Cymbalta] 30 mg PO DAILY 09/29/21 09/29/21 History Gabapentin 600 mg PO DAILY@1200 09/29/21 09/29/21 History Gemfibrozil [Lopid] 600 mg PO AC-BID 09/29/21 09/29/21 History buPROPion XL [Wellbutrin XL] 150 mg PO DAILY 09/29/21 09/29/21 History sitaGLIPtin [Januvia] 100 mg PO DAILY 09/29/21 09/29/21 History Allergies Allergy/AdvReac Type Severity Reaction Status Date / Time No Known Allergies Allergy Verified 09/29/21 06:39 Physical Examination - Vital Signs Vital Signs: Vital Signs Temp Pulse Pulse Pulse Pulse Resp BP 09/30/21 12:04 97.8 F 70 16 113/71 09/30/21 09:24 97.9 F 90 19 133/75 09/30/21 04:00 97.4 F L 95 18 109/65 09/30/21 00:00 97.9 F 95 20 108/59 09/29/21 20:19 97 09/29/21 19:55 97.7 F 98 18 123/73 09/29/21 16:00 98.5 F 92 18 130/74 Pulse Ox 09/30/21 12:04 97 09/30/21 09:24 96 09/30/21 04:00 95 09/30/21 00:00 95 09/29/21 20:19 94 L 09/29/21 19:55 97 09/29/21 16:00 94 L Intake and Output 09/29/21 09/30/21 09/30/21 22:59 06:59 14:59 Intake Total 985 Output Total 400 Balance -400 985 Intake: Oral 985 Output: Urine 400 Other: # Voids 1 1 # Bowel Movements 1 GENERAL: The patient is lying in bed and is not in acute distress. HENT: Supple and no nuchal ridigty. CHEST: The heart rate is regular rate rhythm. No murmurs to auscultation. LUNG: Clear to auscultation bilaterally no wheezing noted throughout. Not labored breathing. ABDOMEN/GI: Bowel sounds present in all 4 quadrants. No tenderness to palpation throughout. NEUROLOGICAL: Higher mental function: The patient is awake, alert, oriented to self, place. He correctly stated the year but for month he stated August. Patient is following commands. No aphasia and no neglect. Cranial nerves: The pupils are round, equal and reactive to light and accommodation. Visual michael are full to confrontation throughout. Extraocular movement is intact no nystagmus is noted. Facial sensation is normal to touch throughout. The facial strength is normal throughout. Hearing is mildly decreased l bilaterally to hand rub. Tongue is midline and moved [id number] without any difficulty. No dysarthria is noted. Shoulder shrug is normal bilaterally. Motor: Gait is deferred. The strength is 5 over 5 throughout uppers. Normal tone and bulk. Cerebellum: Normal finger to nose bilaterally. Sensation: Sensation is normal to touch throughout. Reflexes (right/left): 2+ throughout. Plantars are downgoing bilaterally. Results - Laboratory Findings CBC and BMP: 09/30/21 07:50 09/30/21 07:50 Abnormal Lab Findings: Abnormal Labs 09/28/21 09/28/21 09/28/21 23:30 23:30 23:30 WBC 25.2 H Hgb Neutrophils # (Manual) 20.60 H Monocytes # (Manual) 2.02 H D-Dimer ABG pH ABG pO2 ABG HCO3 ABG Total CO2 Sodium 136 L Chloride 97 L BUN 27 H Creatinine Glucose 381 H POC Glucose (mg/dL) Plasma Lactic Acid Cristino 5.6 H* Calcium AST Total Protein Albumin Urine Protein Urine Glucose (UA) Urine Ketones Urine Mucus 09/28/21 09/29/21 09/29/21 23:41 01:13 03:20 WBC Hgb Neutrophils # (Manual) Monocytes # (Manual) D-Dimer ABG pH ABG pO2 ABG HCO3 ABG Total CO2 Sodium Chloride BUN Creatinine Glucose POC Glucose (mg/dL) 422 H 314 H Plasma Lactic Acid Cristino Calcium AST Total Protein Albumin Urine Protein 1+ H Urine Glucose (UA) 4+ H Urine Ketones 1+ H Urine Mucus Rare H 09/29/21 09/29/21 09/29/21 05:35 07:27 12:09 WBC Hgb Neutrophils # (Manual) Monocytes # (Manual) D-Dimer ABG pH ABG pO2 ABG HCO3 ABG Total CO2 Sodium Chloride BUN Creatinine Glucose POC Glucose (mg/dL) 337 H 270 H Plasma Lactic Acid Cristino 2.9 H* Calcium AST Total Protein Albumin Urine Protein Urine Glucose (UA) Urine Ketones Urine Mucus 09/29/21 09/29/21 09/29/21 17:20 17:42 20:03 WBC Hgb Neutrophils # (Manual) Monocytes # (Manual) D-Dimer 0.99 H ABG pH 7.46 H ABG pO2 80 L ABG HCO3 30 H ABG Total CO2 31 H Sodium Chloride BUN Creatinine Glucose POC Glucose (mg/dL) 504 H Plasma Lactic Acid Cristino Calcium AST Total Protein Albumin Urine Protein Urine Glucose (UA) Urine Ketones Urine Mucus 09/29/21 09/30/21 09/30/21 20:05 02:26 07:50 WBC 16.4 H Hgb 12.8 L Neutrophils # (Manual) Monocytes # (Manual) D-Dimer ABG pH ABG pO2 ABG HCO3 ABG Total CO2 Sodium Chloride BUN Creatinine Glucose POC Glucose (mg/dL) 157 H 122 H Plasma Lactic Acid Cristino Calcium AST Total Protein Albumin Urine Protein Urine Glucose (UA) Urine Ketones Urine Mucus 09/30/21 09/30/21 07:50 11:35 WBC Hgb Neutrophils # (Manual) Monocytes # (Manual) D-Dimer ABG pH ABG pO2 ABG HCO3 ABG Total CO2 Sodium 136 L Chloride BUN Creatinine 0.49 L Glucose 110 H POC Glucose (mg/dL) 141 H Plasma Lactic Acid Cristino Calcium 8.2 L AST 16 L Total Protein 5.7 L Albumin 2.7 L Urine Protein Urine Glucose (UA) Urine Ketones Urine Mucus Assessment and Plan Assessment: * Encephalopathy of unknown etiology. Seems due to underlying right upper pneumonia and some component of metabolic encephalopathy (sugar in 500's)--mentation is improving. * Right upper pneumonia (seen on CXR. Has leukocytosis, one low grade fever). * Diabetes mellitus and his sugar was as high as 504 during this presentation * History of stroke in 2016 (appears PICA with left cerebellar and some component of left w[place]ka) * Hypertension * Diabetic neuropathy Plan: I ordered a routine EEG. I'll not start the patient on antiepileptic drug unless there is epileptiform discharges or seizure on the EEG I ordered MRI of the brain. Continue Lipitor 20 mg daily at bedtime. Recommend aspirin 81 mg daily for secondary stroke prophylaxis. Every 4 hours neuro checks Patient is on ceftriaxone 2 g every 24 hours and is is also on azithromycin. Infection disease is on board and we'll defer the antibiotic management to them. Pulmonary team is on board We'll defer the rest of the medical management to primary team The plan was discussed with the patient's nurse. Thank you for the consultation. UPDATE: MR the brain is reported as old left cerebellar infarct we demonstrate. No acute infarct. Routine EEG is abnormal. The background slowing is suggestive of mild encephal opathy. There is no epileptiform discharges, focal slowing or seizure on the EEG. Since the patient's mentation is improving all hold off on ordering any additional workup from neurological perspective. Jake Villalobos M.D. Neuro-hospitalist Time with Patient: Greater than 30
[2021-09-30] MEDS: INSULIN DETEMIR (LEVEMIR) 100 UNIT/ML SYR SQ SCH (20:31)
[2021-09-30] MEDS: ATORVASTATIN 20 MG TAB PO SCH (20:33)
[2021-09-30 20:52] LABS: Glucose,Whole Blood 156 mg/dL (75-99)
--- NOTE | 2021-09-30 22:38 | P.CONS ---
History of Present Illness - Reason for Consult Consult date: 09/30/21 Bacteremia Requesting physician: Leonidas York - Chief Complaint Not feeling well x few days - History of Present Illness Patient is a 61-year-old male with a past medical history significant for hypertension hyperlipidemia diabetes mellitus presenting to the hospital with chief complaints of overall not feeling well patient symptom has been going on for a day or 2 before presentation to the hospital, the patient denies having any headache or URI symptoms P denies having any chest pain has been complaining of some shortness of breath and a cough which is moderate intensity with occasional sputum no hemoptysis no nausea no vomiting no abdominal pain no diarrhea patient on presentation to the hospital did have low-grade fever 100.8 F patient was hypoxic with O2 sats of 88% on room air is currently 97% on 6 L nasal cannula patient did have a white count of 25.2 with a left shift BUN and creatinine was normal liver enzymes are normal urine was negative serum alcohol was normal Covid testing was negative patient did have a chest x-ray right upper lobe pneumonia patient also have a CT angiogram of the chest this morning did not show central pulmonary embolism large area of consolidation in the right upper lobe patient was started on Rocephin and Zithromax subsequently blood cultures came back positive gram-positive cocci that has prompted this infec tious disease consultation Review of Systems Positive point has been mentioned in the HPI rest of the systems are negative Past Medical History Past Medical History: CVA/TIA, Diabetes Mellitus, GERD/Reflux, Hypertension Additional Past Medical History / Comment(s): BACK PAIN, CONSTIPATION, NUMBNESS IN FEET, URGENCY TO URINATE, BURPS FREQUENTLY AND STOMACH CRUZ., COUGHED UP BLOOD X2. History of Any Multi-Drug Resistant Organisms: MRSA Past Surgical History: Tonsillectomy Additional Past Surgical History / Comment(s): PLATE IN FEMUR AND ANKLE PINS , SURGERY FOR SNORING Past Anesthesia/Blood Transfusion Reactions: No Reported Reaction Additional Past Anesthesia/Blood Transfusion Reaction / Comm: Clausterphobia Past Psychological History: Anxiety, Depression Smoking Status: Current every day smoker Past Alcohol Use History: None Reported Past Drug Use History: None Reported - Past Family History Mother Family Medical History: Coronary Artery Disease (CAD), Diabetes Mellitus Father History Unknown: Yes Additional Family Medical History / Comment(s): Alcoholism Sister(s) Family Medical History: Cancer Additional Family Medical History / Comment(s): MELANOMA Medications and Allergies Home Medications Medication Instructions Recorded Confirmed Type metFORMIN HCL [Glucophage] 1,000 mg PO BID 05/25/15 09/29/21 History Atorvastatin [Lipitor] 20 mg PO HS 05/18/19 09/29/21 History hydroCHLOROthiazide [Hydrodiuril] 25 mg PO DAILY 05/18/19 09/29/21 History Gabapentin 1,200 mg PO BID 08/26/21 09/29/21 History INSULIN ASPART (NovoLOG) [NovoLOG 14 unit SQ ACHS 08/26/21 09/29/21 History (formulary)] Insulin Glargine,Hum.rec.anlog 45 unit SQ HS 08/26/21 09/29/21 History [Lantus Solostar Pen] DULoxetine HCL [Cymbalta] 30 mg PO DAILY 09/29/21 09/29/21 History Gabapentin 600 mg PO DAILY@1200 09/29/21 09/29/21 History Gemfibrozil [Lopid] 600 mg PO AC-BID 09/29/21 09/29/21 History buPROPion XL [Wellbutrin XL] 150 mg PO DAILY 09/29/21 09/29/21 History sitaGLIPtin [Januvia] 100 mg PO DAILY 09/29/21 09/29/21 History Allergies Allergy/AdvReac Type Severity Reaction Status Date / Time No Known Allergies Allergy Verified 09/29/21 06:39 Physical Exam Vitals: Vital Signs Temp Pulse Pulse Pulse Pulse Resp BP 09/30/21 12:04 97.8 F 70 16 113/71 09/30/21 09:24 97.9 F 90 19 133/75 09/30/21 04:00 97.4 F L 95 18 109/65 09/30/21 00:00 97.9 F 95 20 108/59 09/29/21 20:19 97 09/29/21 19:55 97.7 F 98 18 123/73 09/29/21 16:00 98.5 F 92 18 130/74 Pulse Ox 09/30/21 12:04 97 09/30/21 09:24 96 09/30/21 04:00 95 09/30/21 00:00 95 09/29/21 20:19 94 L 09/29/21 19:55 97 09/29/21 16:00 94 L Intake and Output 09/29/21 09/30/21 09/30/21 22:59 06:59 14:59 Intake Total 985 Output Total 400 Balance -400 985 Intake: Oral 985 Output: Urine 400 Other: # Voids 1 1 # Bowel Movements 1 GENERAL DESCRIPTION: Middle-aged male lying in bed, no distress. No tachypnea or accessory muscle of respiration use. HEENT: Shows Pallor , no scleral icterus. Oral mucous membrane is dry. No pharyngeal erythema or thrush NECK: Trachea central, no thyromegaly. LUNGS: Unlabored breathing. Decreased intensity of breath sounds. No wheeze or crackle. HEART: S1, S2, regular rate and rhythm. No loud murmur ABDOMEN: Soft, no tenderness , guarding or rigidity, no organomegaly EXTREMITIES: No edema of feet. SKIN: No rash, no masses palpable. NEUROLOGICAL: The patient is awake, alert, oriented x3, mood and affect normal. Results CBC & Chem 7: 09/30/21 07:50 09/30/21 07:50 Labs: Abnormal Lab Results - Last 24 Hours (Table) 09/29/21 09/29/21 09/29/21 Range/Units 17:20 17:42 20:03 WBC (3.8-10.6) k/uL Hgb (13.0-17.5) gm/dL D-Dimer 0.99 H (<0.60) mg/L FEU ABG pH 7.46 H (7.35-7.45) ABG pO2 80 L (83-108) mmHg ABG HCO3 30 H (21-25) mmol/L ABG Total CO2 31 H (19-24) mmol/L Sodium (137-145) mmol/L Creatinine (0.66-1.25) mg/dL Glucose (74-99) mg/dL POC Glucose (mg/dL) 504 H (75-99) mg/dL Calcium (8.4-10.2) mg/dL AST (17-59) U/L Total Protein (6.3-8.2) g/dL Albumin (3.5-5.0) g/dL 09/29/21 09/30/21 09/30/21 Range/Units 20:05 02:26 07:50 WBC 16.4 H (3.8-10.6) k/uL Hgb 12.8 L (13.0-17.5) gm/dL D-Dimer (<0.60) mg/L FEU ABG pH (7.35-7.45) ABG pO2 (83-108) mmHg ABG HCO3 (21-25) mmol/L ABG Total CO2 (19-24) mmol/L Sodium (137-145) mmol/L Creatinine (0.66-1.25) mg/dL Glucose (74-99) mg/dL POC Glucose (mg/dL) 157 H 122 H (75-99) mg/dL Calcium (8.4-10.2) mg/dL AST (17-59) U/L Total Protein (6.3-8.2) g/dL Albumin (3.5-5.0) g/dL 09/30/21 09/30/21 Range/Units 07:50 11:35 WBC (3.8-10.6) k/uL Hgb (13.0-17.5) gm/dL D-Dimer (<0.60) mg/L FEU ABG pH (7.35-7.45) ABG pO2 (83-108) mmHg ABG HCO3 (21-25) mmol/L ABG Total CO2 (19-24) mmol/L Sodium 136 L (137-145) mmol/L Creatinine 0.49 L (0.66-1.25) mg/dL Glucose 110 H (74-99) mg/dL POC Glucose (mg/dL) 141 H (75-99) mg/dL Calcium 8.2 L (8.4-10.2) mg/dL AST 16 L (17-59) U/L Total Protein 5.7 L (6.3-8.2) g/dL Albumin 2.7 L (3.5-5.0) g/dL Microbiology - Last 24 Hours (Table) 09/29/21 02:00 Blood Culture - Preliminary Blood No Growth after 24 hours 09/29/21 02:10 Blood Culture - Final Blood Assessment and Plan (1) Bacteremia Current Visit: Yes Status: Acute Code(s): R78.81 - BACTEREMIA SNOMED Code(s): 6200537 (2) Sepsis due to pneumonia Current Visit: Yes Status: Acute Code(s): J18.9 - PNEUMONIA, UNSPECIFIED ORGANISM; A41.9 - SEPSIS, UNSPECIFIED ORGANISM SNOMED Code(s): 78104520 Plan: 1-Patient presented to hospital with sepsis in this patient who did have a fever elevated white count hypoxemia source likely pneumonia likely community- acquired. 2patient with gram-positive bacteremia in chains possibly strep pneumo. 3we will obtain a sputum for Gram stain and culture and blood cultures will be repeated document clearance of bacteremia 4patient to continue with Rocephin 2 g daily We will follow on clinical condition and cultures to further adjust medication if needed Thank you for this consultation we will follow the patient along with you Time with Patient: Greater than 30
[2021-10-01] MEDS: HEPARIN SODIUM,PORCINE/PF 5,000 UNIT/0.5 ML SYRINGE SQ SCH ×4 (00:29→20:32)
[2021-10-01] MEDS: SODIUM CHLORIDE 0.9% 1,000 ML IV SCH ×3 (04:57→20:32)
[2021-10-01 06:19] LABS: Glucose,Whole Blood 197 mg/dL (75-99)
[2021-10-01 07:09] LABS: HCT 41.4 % (39.0-53.0); HGB 13.4 gm/dL (13.0-17.5); MCH 27.9 pg (25.0-35.0); MCHC 32.5 g/dL (31.0-37.0); Mean Platelet Volume 7.1; Platelet Count 344 k/uL (150-450); RBC 4.81 m/uL (4.30-5.90); RDW 13.8 % (11.5-15.5)
[2021-10-01 07:18] LABS: ALT 17 U/L (4-49); AST 17 U/L (17-59); African American GFR (CKD) >90 (>60 ml/min/1.73 sqM); Albumin 2.9 g/dL (3.5-5.0); Alkaline Phosphatase 86 U/L (38-126); Anion Gap 3 mmol/L; Blood Urea Nitrogen 13 mg/dL (9-20); Calcium 8.2 mg/dL (8.4-10.2); Carbon Dioxide 30 mmol/L (22-30); Chloride 101 mmol/L (98-107); Glucose 209 mg/dL (74-99); Magnesium 1.6 mg/dL (1.6-2.3); Non-African American GFR(CKD) >90 (>60 ml/min/1.73 sqM); Sodium 134 mmol/L (137-145); Total Bilirubin 0.6 mg/dL (0.2-1.3); Total Protein 5.9 g/dL (6.3-8.2)
[2021-10-01 07:33] LABS: Potassium 3.7 mmol/L (3.5-5.1)
[2021-10-01] MEDS: INSULIN ASPART (NovoLOG) 100 UNIT/ML VIAL SQ SCH ×8 (07:37→20:31)
[2021-10-01] MEDS: AZITHROMYCIN 500 MG TAB PO SCH (08:07)
[2021-10-01] MEDS: DULoxetine HCL 30 MG CAPSULE.DR PO SCH (08:08)
[2021-10-01] MEDS: ALBUTEROL NEBULIZED 2.5 MG/3 ML INHALATION SCH ×4 (08:28→19:23)
--- NOTE | 2021-10-01 11:21 | P.PN ---
<Leonidas York - Last Filed: 10/01/21 11:07> Subjective Progress Note Date: 10/01/21 Hospital course: Patient is a very pleasant 61-year-old male with a past medical history of hy pertension, hyperlipidemia, insulin-dependent diabetes mellitus, and diabetic neuropathy. Patient reportedly presented to the emergency department with the chief complaint of overall feeling of unwell. He underwent evaluation in the emergency department and was found to be severely septic with lactate 5.6 and WBC count of 25.2 with left shift with neutrophils of 20.6 and monocytes of 2.02. In addition patient found to have hyperglycemia with serum glucose of 381. Chest x-ray revealed severe infiltration of the right upper lobe consistent with pneumonia. Patient was given sepsis bolus and started on IV antibiotics with azithromycin and Rocephin for treatment of community-acquired pneumonia. Patient was also noted to have an elevated temp of 100.8F along with tachycardia and became confused and agitated. There was concerns for possible underlying alcohol use and pt was placed on CIWA protocol and given 2 mg of Ativan IVP in the emergency department. He was then sent for a CT head which was negative for acute intercranial abnormality. The patient was admitted under our services for severe sepsis and community acquired pneumonia of right upper lobe. D-dimer was elevated at 0.99. CTA chest showing no major central pulmonary emboli revealing large area of consolidation at the posterior aspect of the right upper lobe likely representing pneumonia, underlying neoplastic les ion cannot be excluded, there is also prominent hilar, mediastinal, and axillary lymph nodes present, recommend follow-up imaging after treatment for pneumonia is completed. 09/30/21: Called to speak with patient's Roula at 9:44 AM and left voicemail message on [phone]. Called again to speak with her at 1:30 PM on another n umber that was provided [phone] , at this time I was able to speak with his and she reports that she and her have been for 42 years. She states that he does have a history of hypertension, hyperlipidemia, insulin- dependent diabetes, neuropathy, and a previous CVA. She states that he supposed to walk with a cane but refuses. 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 She reports over the last 3-4 days he has been very sleepy and lethargic, so she thought maybe he was acting this way because his blood sugar was high and states she even accused him of just being lazy because all he wanted to do was sleep. She reports that her was very confused when EMS picked him up to bring him to the hospital. She reports that he did have Covid 19 virus infection about a month ago or so but has otherwise had no complaints. She denies knowing of any recent fevers, cough, congestion, complaints of chest pain or shortness of breath, and reports a normal appetite stating that he does not follow his diet and eats a lot of fast food but otherwise has been eating per his normal with no episodes of nausea or vomiting. 10/01/21: Patient was seen and fully evaluated at the bedside this morning. He is showing significant improvement. Patient awake upon entering room. He was able to stay full name, date of , that he is in [facility], and knew that it was 2021. Patient states that he just remembers that he had to come to the hospital because he felt short of breath. Patient was updated that he was diagnosed with pneumonia and he was very confused over the past few days. Patient currently reports that he feels like he is breathing okay and he denies having any other complaints including headache, lightheadedness, dizziness, chest pain, palpitations, abdominal pain, nausea, vomiting, or experiencing any numbness/tingling/weakness in his extremities. Patient states, "So when do I get to go home?". Patient updated that he will require a little longer in the hospital for treatment of IV antibiotics for his pneumonia and bacteremia. Patient very pleasant and cooperative and in agreement with plan of care. CBC reveals continued improvement in WBC count currently down to 13.0 and BMP revealing mild hyponatremia otherwise normal findings. Physical exam: Vital signs reviewed and stable. General: Nontoxic, no acute distress noted this morning and appears stated age, obese. Patient is somnolent/lethargic but does arouse to verbal and tactile stimulation Derm: Skin warm and dry, normal coloration for ethnicity. Head: Atraumatic, normocephalic and symmetric. Eyes: EOMs intact, no lid lag, and anicteric sclera Mouth: no lip lesions, mucus membranes dry Cardiovascular: regular rate and rhythm with normal S1S2, no murmur, positive posterior tibial pulses bilaterally, and cap refill < 2 seconds. Lungs: Respirations even, regular, and unlabored on 4L O2 via nasal cannula with SpO2 of 95%. Lungs diminished with diffuse rhonchi. No wheezing and no accessory muscle usage. Abdominal: Obese abdomen soft, nontender to palpation, no guarding, no appreciable organomegaly Ext: ROM intact. No gross muscle atrophy, no edema, no contractures Neuro: Unable to perform complete neurologic examination as patient remains lethargic/somnolent at time of assessment. Patient was noted to be moving all extremities independently with no noted deficits, and did follow some commands such as open your eyes and squeeze my hands. Assessment and Plan of Care: Community acquired pneumonia of right upper lobe Severe sepsis secondary to pneumonia Acute respiratory failure with hypoxia secondary to pneumonia Lactic acidosis, resolved -Oxygenation to be administered and titrated as needed to maintain SPO2 equal to or greater than 92% -CTA chest showing no major central pulmonary emboli revealing large area of consolidation at the posterior aspect of the right upper lobe likely representing pneumonia, underlying neoplastic lesion cannot be excluded, there is also prominent hilar, mediastinal, and axillary lymph nodes present, recommend follow-up imaging after treatment for pneumonia is completed. -Telemetry monitoring. -Continuous Pulse-oximetry -Duonebs scheduled four times daily and as needed for SOB and/or wheezing -Incentive Spirometry -Antibiotics: Rocephin and azithromycin -Sputum culture -Fluid boluses were administered for treatment of lactic acidosis. Strep pneumoniae Bacteremia -Vancomycin discontinued, patient to continue Rocephin 2 g every 24 hours -Infectious disease following. Acute Metabolic encephalopathy secondary to sepsis resulting from pneumonia, improving -CT head negative for acute intercranial process. -Secondary to alteration in mentation we will hold Neurontin and other sedated his medications at this time. -Neuro checks every 4 hours. -Fall precautions. -Neurology following. -MRI -EEG negative for Eliptiform activities or seizure activity, it was abnormal showing ground slowing suggestive of mild encephalopathy. Insulin-dependent diabetes mellitus type 2 with hyperglycemia -Hold Glucophage in place patient on NovoLog sliding scale. We will continue patient's home dose 6 units of 14 units with meals and at bedtime along with 45 units of Lantus nightly. Blood glucose levels have stabilized. Hypertension Monitor vital signs. Hydrochlorothiazide held at this time secondary to lactic acidosis and need for IV fluid hydration. Hyperlipidemia -Continue daily medication regimen with atorvastatin 20 mg nightly. Large area of consolidation right upper lung with prominent hilar, mediastinal, and axillary lymph nodes -Possibly secondary to infectious process, however underlying neoplastic process cannot be ruled out patient will require repeat imaging once treatment is completed for pneumonia. -Patient will need to follow up with pulmonology for further follow-up upon discharge. CODE STATUS: Full code DVT prophylaxis: Heparin Discussed with: Patient and RN, and patient's Anticipated discharge date: clinical course to determine Anticipated discharge place: Home A total of 45 minutes was spent on the care of this complex patient more than 50% of the time was spent in counseling and care coordination. Objective - Vital Signs Vital signs: Vital Signs Temp 98.6 F 10/01/21 08:06 Pulse 93 10/01/21 08:06 Resp 18 10/01/21 08:06 BP 130/72 10/01/21 08:06 Pulse Ox 96 10/01/21 08:06 Intake & Output 09/30/21 10/01/21 10/01/21 18:59 06:59 18:59 Intake Total 1555 Output Total 200 Balance 1555 -200 Intake: Oral 1555 Output: Urine 200 Other: # Voids 1 # Bowel Movements 1 - Labs CBC & Chem 7: 10/01/21 06:53 10/01/21 06:53 Labs: Abnormal Lab Results - Last 24 Hours (Table) 09/30/21 09/30/21 09/30/21 Range/Units 07:50 11:35 16:26 WBC (3.8-10.6) k/uL Sodium (137-145) mmol/L Creatinine (0.66-1.25) mg/dL Glucose (74-99) mg/dL POC Glucose (mg/dL) 141 H 158 H (75-99) mg/dL Calcium (8.4-10.2) mg/dL Total Protein (6.3-8.2) g/dL Albumin (3.5-5.0) g/dL Procalcitonin 4.82 H (0.02-0.09) ng/mL 09/30/21 10/01/21 10/01/21 Range/Units 20:41 06:17 06:53 WBC (3.8-10.6) k/uL Sodium 134 L (137-145) mmol/L Creatinine 0.38 L (0.66-1.25) mg/dL Glucose 209 H (74-99) mg/dL POC Glucose (mg/dL) 156 H 197 H (75-99) mg/dL Calcium 8.2 L (8.4-10.2) mg/dL Total Protein 5.9 L (6.3-8.2) g/dL Albumin 2.9 L (3.5-5.0) g/dL Procalcitonin (0.02-0.09) ng/mL 10/01/21 Range/Units 06:53 WBC 13.0 H (3.8-10.6) k/uL Sodium (137-145) mmol/L Creatinine (0.66-1.25) mg/dL Glucose (74-99) mg/dL POC Glucose (mg/dL) (75-99) mg/dL Calcium (8.4-10.2) mg/dL Total Protein (6.3-8.2) g/dL Albumin (3.5-5.0) g/dL Procalcitonin (0.02-0.09) ng/mL Microbiology - Last 24 Hours (Table) 09/29/21 02:10 Blood Culture Gram Stain - Preliminary Blood Blood Culture - Preliminary Streptococcus pneumoniae 09/29/21 02:00 Blood Culture - Final Blood 09/29/21 15:20 Blood Culture - Preliminary Blood No Growth after 24 hours 09/29/21 02:10 Blood Culture - Final Blood <Jacqui Ames - Last Filed: 10/01/21 18:52> Subjective Leonidas York NP rendered care for this patient independently, reviewed the findings and plan as documented in the note above. I did not physically speak with or examine the patient on this date. Objective - Vital Signs Vital signs: Vital Signs Temp 97.8 F 10/01/21 16:51 Pulse 88 10/01/21 16:51 Resp 17 10/01/21 16:51 BP 132/69 10/01/21 16:51 Pulse Ox 93 L 10/01/21 16:51 Intake & Output 09/30/21 10/01/21 10/01/21 18:59 06:59 18:59 Intake Total 1555 660 Output Total 200 1150 Balance 1555 -200 -490 Intake: Oral 1555 660 Output: Urine 200 1150 Other: Voiding Method Urinal # Voids 1 # Bowel Movements 1 - Labs CBC & Chem 7: 10/01/21 06:53 10/01/21 06:53 Labs: Abnormal Lab Results - Last 24 Hours (Table) 09/30/21 09/30/21 10/01/21 Range/Units 07:50 20:41 06:17 WBC (3.8-10.6) k/uL Sodium (137-145) mmol/L Creatinine (0.66-1.25) mg/dL Glucose (74-99) mg/dL POC Glucose (mg/dL) 156 H 197 H (75-99) mg/dL Calcium (8.4-10.2) mg/dL Total Protein (6.3-8.2) g/dL Albumin (3.5-5.0) g/dL Procalcitonin 4.82 H (0.02-0.09) ng/mL 10/01/21 10/01/21 10/01/21 Range/Units 06:53 06:53 11:49 WBC 13.0 H (3.8-10.6) k/uL Sodium 134 L (137-145) mmol/L Creatinine 0.38 L (0.66-1.25) mg/dL Glucose 209 H (74-99) mg/dL POC Glucose (mg/dL) 216 H (75-99) mg/dL Calcium 8.2 L (8.4-10.2) mg/dL Total Protein 5.9 L (6.3-8.2) g/dL Albumin 2.9 L (3.5-5.0) g/dL Procalcitonin (0.02-0.09) ng/mL 10/01/21 Range/Units 16:35 WBC (3.8-10.6) k/uL Sodium (137-145) mmol/L Creatinine (0.66-1.25) mg/dL Glucose (74-99) mg/dL POC Glucose (mg/dL) 216 H (75-99) mg/dL Calcium (8.4-10.2) mg/dL Total Protein (6.3-8.2) g/dL Albumin (3.5-5.0) g/dL Procalcitonin (0.02-0.09) ng/mL Microbiology - Last 24 Hours (Table) 09/29/21 15:20 Blood Culture - Preliminary Blood No Growth after 48 hours 09/29/21 02:00 Blood Culture Gram Stain - Preliminary Blood 09/29/21 02:10 Blood Culture Gram Stain - Preliminary Blood Blood Culture - Preliminary Streptococcus pneumoniae 09/29/21 02:00 Blood Culture - Final Blood
[2021-10-01 11:50] LABS: Glucose,Whole Blood 216 mg/dL (75-99)
--- NOTE | 2021-10-01 16:28 | P.PN ---
Subjective Progress Note Date: 10/01/21 Principal diagnosis: Pneumonia. Pulmonary consult dated 09/30/2021. 61-year-old male that I'm asked to see for right upper lobe pneumonia. The patient is a very poor historian, and is very lethargic and somnolent. Apparently this is not a new finding. The patient apparently has a history of hypertension, hyperlipidemia, diabetes, and diabetic neuropathy. He apparently presented to "some" emergency room, and was thought to have sepsis. He had an elevated lactate and elevated white blood count. Chest x-ray revealed a right upper lobe infiltrate. The patient was started on antibiotics. The patient was also placed on the [facility] protocol for possible alcohol withdrawal syndrome. Head CT was negative. Currently, the patient's on 6 L nasal cannula, and saline at 100 mL an hour. He is not manifesting any signs or symptoms of auditory distress. He is quite lethargic and sleepy though. Vital signs include a saturation of 96% on 6 L, blood pressure 133/75, respiratory rate 18, heart rate 90, and temperature 97.9. Laboratory data includes a white count 16.4, hem oglobin 12.8, hematocrit 39.4, and platelet count 316,000. D-dimer is 0.99. Blood gas shows a pO2 of 80, pCO2 42, and pH of 7.46. Sodium 136, potassium 3.5, chlorides 105, CO2 29, anion gap 2, BUN 20, and creatinine 0.49. Repeat lactate was 1.7. Urine is negative for infection. Testing for coronavirus was negative. Chest x-rays and CAT scans are reviewed. The patient is currently on azithromycin, Rocephin, and vancomycin. Progress note dated 10/01/2021. The patient is again seen today in room 358. Seen by me yesterday in consultation for right upper lobe pneumonia. Currently, he's on a couple liters of oxygen. He's feeling much better. The patient soda has a weird affect. He does answer questions, but seems to doze off quite a bit. Yesterday. He has a history of hypertension, hyperlipidemia, and diabetes. Laboratory data today includes a white count of 13, hemoglobin 13.4, hematocrit 41.4, and platelet count 344,000. Sodium 134, potassium 3.7, chlorides 101, CO2 30, anion gap 3, BUN 13, creatinine 0.38. Brain MRI shows an old left cerebellar infarct. Chest x-ray continues to show a right upper lobe infiltrate. Blood cultures are positive for Streptococcus pneumoniae. Objective - Vital Signs Vital signs: Vital Signs Temp 97.7 F 10/01/21 12:31 Pulse 91 10/01/21 12:31 Resp 19 10/01/21 12:31 BP 146/82 10/01/21 12:31 Pulse Ox 96 10/01/21 12:31 Intake & Output 09/30/21 10/01/21 10/01/21 18:59 06:59 18:59 Intake Total 1555 240 Output Total 200 550 Balance 1555 -200 -310 Intake: Oral 1555 240 Output: Urine 200 550 Other: Voiding Method Urinal # Voids 1 # Bowel Movements 1 - Exam No acute distress, much more awake, currently on 3 L nasal cannula. Saturations are 96%. HEENT examination is grossly unremarkable. Neck supple. Full range of motion. No adenopathy thyromegaly or neck vein distention. Cardiovascular examination reveals regular rhythm rate. S1-S2 normal. No S3 or S4. No discernible murmur noted. Heart rate 91 bpm. Lungs reveal scattered rhonchi. No wheezes or crackles. Breath sounds equal bilaterally. The patient does not take deep breaths. 3 L saturation is 96%. Abdomen soft bowel sounds are heard. No masses or tenderness. Extremities are intact. No cyanosis clubbing or edema. Skin is without rash or lesion. Neurologic examination reveals a much more awake individual, who does move all 4 extremities. He's able to answer questions today. - Labs CBC & Chem 7: 10/01/21 06:53 10/01/21 06:53 Labs: Abnormal Lab Results - Last 24 Hours (Table) 09/30/21 09/30/21 09/30/21 Range/Units 07:50 16:26 20:41 WBC (3.8-10.6) k/uL Sodium (137-145) mmol/L Creatinine (0.66-1.25) mg/dL Glucose (74-99) mg/dL POC Glucose (mg/dL) 158 H 156 H (75-99) mg/dL Calcium (8.4-10.2) mg/dL Total Protein (6.3-8.2) g/dL Albumin (3.5-5.0) g/dL Procalcitonin 4.82 H (0.02-0.09) ng/mL 10/01/21 10/01/21 10/01/21 Range/Units 06:17 06:53 06:53 WBC 13.0 H (3.8-10.6) k/uL Sodium 134 L (137-145) mmol/L Creatinine 0.38 L (0.66-1.25) mg/dL Glucose 209 H (74-99) mg/dL POC Glucose (mg/dL) 197 H (75-99) mg/dL Calcium 8.2 L (8.4-10.2) mg/dL Total Protein 5.9 L (6.3-8.2) g/dL Albumin 2.9 L (3.5-5.0) g/dL Procalcitonin (0.02-0.09) ng/mL 10/01/21 Range/Units 11:49 WBC (3.8-10.6) k/uL Sodium (137-145) mmol/L Creatinine (0.66-1.25) mg/dL Glucose (74-99) mg/dL POC Glucose (mg/dL) 216 H (75-99) mg/dL Calcium (8.4-10.2) mg/dL Total Protein (6.3-8.2) g/dL Albumin (3.5-5.0) g/dL Procalcitonin (0.02-0.09) ng/mL Microbiology - Last 24 Hours (Table) 09/29/21 02:00 Blood Culture Gram Stain - Preliminary Blood 09/29/21 02:10 Blood Culture Gram Stain - Preliminary Blood Blood Culture - Preliminary Streptococcus pneumoniae 09/29/21 02:00 Blood Culture - Final Blood 09/29/21 15:20 Blood Culture - Preliminary Blood No Growth after 24 hours Assessment and Plan Assessment: Pneumonia, right upper lobe, could be community-acquired, or relate to underlying aspiration. Streptococcus pneumoniae bacteremia, currently on ceftriaxone. Mental status changes, which may be acute or chronic, improved. Old left cerebellar infarct seen on MRI. History of diabetes mellitus. History of diabetic neuropathy. History of hypertension. History of hyperlipidemia. Plan: Plan dated 09/30/2021. The patient should be seen by infectious diseases, and neurology. The patient is currently on azithromycin, ceftriaxone, and vancomycin. A pro-calcitonin level should be done. In addition, neurology should evaluate the patient's mental status. Not clear to me whether or not this is an acute abnormality or something more chronic in nature. The patient will need a follow-up chest x-ray down the road. Should the infiltrate is not clear, the patient may benefit from bronchoscopy. Additional recommendations and suggestions are forthcoming. Prognosis is guarded. We will continue to follow make recommendations where a ppropriate. Plan dated 10/01/2021. The patient's blood cultures came back positive for Streptococcus pneumoniae. His antibiotics have been changed to ceftriaxone. Currently, the patient's much more awake and alert. He is able to answer questions today compared to yesterday. Yesterday he seemed very lethargic, and somnolent and currently, he is much improved. Labs, x-rays, medications are reviewed. The patient continues on updrafts. No additional recommendations are made at this time. We will continue to follow make recommendations were appropriate. Follow-up chest x-ray should be performed. Time with Patient: Less than 30
--- NOTE | 2021-10-01 16:30 | P.PN ---
Subjective Progress Note Date: 10/01/21 The patient is seen at bedside and he feels he is doing well. He feels back to baseline. Objective - Vital Signs Vital signs: Vital Signs Temp 97.7 F 10/01/21 12:31 Pulse 91 10/01/21 12:31 Resp 19 10/01/21 12:31 BP 146/82 10/01/21 12:31 Pulse Ox 96 10/01/21 12:31 Intake & Output 09/30/21 10/01/21 10/01/21 18:59 06:59 18:59 Intake Total 1555 240 Output Total 200 550 Balance 1555 -200 -310 Intake: Oral 1555 240 Output: Urine 200 550 Other: Voiding Method Urinal # Voids 1 # Bowel Movements 1 - Exam GENERAL: The patient is lying in bed and is not in acute distress. NEUROLOGICAL: Higher mental function: The patient is awake, alert, oriented to self, place. He correctly stated the year but for month he stated August. Patient is following commands. No aphasia and no neglect. Cranial nerves: The pupils are round, equal and reactive to light and accommodation. Visual michael are full to confrontation throughout. Extraocular movement is intact no nystagmus is noted. Facial sensation is normal to touch throughout. The facial strength is normal throughout. Hearing is mildly decreased l bilaterally to hand rub. Tongue is midline and moved [id number] without any difficulty. No dysarthria is noted. Shoulder shrug is normal bilaterally. Motor: Gait is deferred. The strength is 5 over 5 throughout uppers. Normal tone and bulk. Cerebellum: Normal finger to nose bilaterally. Sensation: Sensation is normal to touch throughout. Reflexes (right/left): 2+ throughout. Plantars are downgoing bilaterally. WORK-UP: Blood culture is strep Pneumo. MR the brain is reported as old left cerebellar infarct we demonstrate. No acute infarct. Routine EEG is abnormal. The background slowing is suggestive of mild encephalopathy. There is no epileptiform discharges, focal slowing or seizure on the EEG. - Labs CBC & Chem 7: 10/01/21 06:53 10/01/21 06:53 Labs: Abnormal Lab Results - Last 24 Hours (Table) 09/30/21 09/30/21 09/30/21 Range/Units 07:50 16:26 20:41 WBC (3.8-10.6) k/uL Sodium (137-145) mmol/L Creatinine (0.66-1.25) mg/dL Glucose (74-99) mg/dL POC Glucose (mg/dL) 158 H 156 H (75-99) mg/dL Calcium (8.4-10.2) mg/dL Total Protein (6.3-8.2) g/dL Albumin (3.5-5.0) g/dL Procalcitonin 4.82 H (0.02-0.09) ng/mL 10/01/21 10/01/21 10/01/21 Range/Units 06:17 06:53 06:53 WBC 13.0 H (3.8-10.6) k/uL Sodium 134 L (137-145) mmol/L Creatinine 0.38 L (0.66-1.25) mg/dL Glucose 209 H (74-99) mg/dL POC Glucose (mg/dL) 197 H (75-99) mg/dL Calcium 8.2 L (8.4-10.2) mg/dL Total Protein 5.9 L (6.3-8.2) g/dL Albumin 2.9 L (3.5-5.0) g/dL Procalcitonin (0.02-0.09) ng/mL 10/01/21 Range/Units 11:49 WBC (3.8-10.6) k/uL Sodium (137-145) mmol/L Creatinine (0.66-1.25) mg/dL Glucose (74-99) mg/dL POC Glucose (mg/dL) 216 H (75-99) mg/dL Calcium (8.4-10.2) mg/dL Total Protein (6.3-8.2) g/dL Albumin (3.5-5.0) g/dL Procalcitonin (0.02-0.09) ng/mL Microbiology - Last 24 Hours (Table) 09/29/21 02:00 Blood Culture Gram Stain - Preliminary Blood 09/29/21 02:10 Blood Culture Gram Stain - Preliminary Blood Blood Culture - Preliminary Streptococcus pneumoniae 09/29/21 02:00 Blood Culture - Final Blood 09/29/21 15:20 Blood Culture - Preliminary Blood No Growth after 24 hours Assessment and Plan Assessment: * Encephalopathy of unknown etiology. Seems due to underlying right upper pneumonia and some component of metabolic encephalopathy (sugar in 500's)--mentation is improving. * Right upper pneumonia (seen on CXR. Has leukocytosis, one low grade fever). * Diabetes mellitus and his sugar was as high as 504 during this presentation * History of stroke in 2016 (appears PICA with left cerebellar and some comp onent of left w[place]) * Hypertension * Diabetic neuropathy Plan: MR the brain is reported as old left cerebellar infarct we demonstrate. No acute infarct. Routine EEG is abnormal. The background slowing is suggestive of mild encephalopathy. There is no epileptiform discharges, focal slowing or seizure on the EEG. Continue Lipitor 20 mg daily at bedtime. Recommend aspirin 81 mg daily for secondary stroke prophylaxis. Every 4 hours neuro checks Blood culture is Strep Pneumo. Patient is on ceftriaxone 2 g every 24 hours and is is also on azithromycin. Infection disease is on board and we'll defer the antibiotic management to them. Pulmonary team is on board We'll defer the rest of the medical management to primary team. The plan was discussed with the patient's nurse. There is no further neurological work-up. Neurology will sign off. [place] reconsult if needed. Jkae Villalobos M.D. Neuro-hospitalist Time with Patient: Less than 30
[2021-10-01 16:36] LABS: Glucose,Whole Blood 216 mg/dL (75-99)
[2021-10-01 20:20] LABS: Glucose,Whole Blood 216 mg/dL (75-99)
[2021-10-01] MEDS: INSULIN DETEMIR (LEVEMIR) 100 UNIT/ML SYR SQ SCH (20:30)
[2021-10-01] MEDS: ATORVASTATIN 20 MG TAB PO SCH (20:30)
--- NOTE | 2021-10-01 23:37 | P.PN ---
Subjective Progress Note Date: 10/01/21 Principal diagnosis: Pneumonia and bacteremia Patient is a 61-year-old male presented to hospital with weakness and shortness of breath and cough with evidence of pneumonia and did have a positive blood culture finalized Streptococcus pneumoniae. On today's evaluation that is 10/01/2021, the patient denies having any fever or any chills, she is breathing slightly comfortably, the patient denies having any chest pain he did have some cough not bringing up any sputum no nausea no vomiting no abdominal pain and no diarrhea Objective - Vital Signs Vital signs: Vital Signs Temp 97.7 F 10/01/21 12:31 Pulse 91 10/01/21 12:31 Resp 19 10/01/21 12:31 BP 146/82 10/01/21 12:31 Pulse Ox 96 10/01/21 12:31 Intake & Output 09/30/21 10/01/21 10/01/21 18:59 06:59 18:59 Intake Total 1555 240 Output Total 200 550 Balance 1555 -200 -310 Intake: Oral 1555 240 Output: Urine 200 550 Other: Voiding Method Urinal # Voids 1 # Bowel Movements 1 - Exam GENERAL DESCRIPTION: Middle-aged male lying in bed in no distress RESPIRATORY SYSTEM: Unlabored breathing , decreased breath sounds at bases HEART: S1 S2 regular rate and rhythm , ABDOMEN: Soft , no tenderness EXTREMITIES: No edema feet - Labs CBC & Chem 7: 10/01/21 06:53 10/01/21 06:53 Labs: Abnormal Lab Results - Last 24 Hours (Table) 09/30/21 09/30/21 09/30/21 Range/Units 07:50 16:26 20:41 WBC (3.8-10.6) k/uL Sodium (137-145) mmol/L Creatinine (0.66-1.25) mg/dL Glucose (74-99) mg/dL POC Glucose (mg/dL) 158 H 156 H (75-99) mg/dL Calcium (8.4-10.2) mg/dL Total Protein (6.3-8.2) g/dL Albumin (3.5-5.0) g/dL Procalcitonin 4.82 H (0.02-0.09) ng/mL 10/01/21 10/01/21 10/01/21 Range/Units 06:17 06:53 06:53 WBC 13.0 H (3.8-10.6) k/uL Sodium 134 L (137-145) mmol/L Creatinine 0.38 L (0.66-1.25) mg/dL Glucose 209 H (74-99) mg/dL POC Glucose (mg/dL) 197 H (75-99) mg/dL Calcium 8.2 L (8.4-10.2) mg/dL Total Protein 5.9 L (6.3-8.2) g/dL Albumin 2.9 L (3.5-5.0) g/dL Procalcitonin (0.02-0.09) ng/mL 10/01/21 Range/Units 11:49 WBC (3.8-10.6) k/uL Sodium (137-145) mmol/L Creatinine (0.66-1.25) mg/dL Glucose (74-99) mg/dL POC Glucose (mg/dL) 216 H (75-99) mg/dL Calcium (8.4-10.2) mg/dL Total Protein (6.3-8.2) g/dL Albumin (3.5-5.0) g/dL Procalcitonin (0.02-0.09) ng/mL Microbiology - Last 24 Hours (Table) 09/29/21 02:00 Blood Culture Gram Stain - Preliminary Blood 09/29/21 02:10 Blood Culture Gram Stain - Preliminary Blood Blood Culture - Preliminary Streptococcus pneumoniae 09/29/21 02:00 Blood Culture - Final Blood 09/29/21 15:20 Blood Culture - Preliminary Blood No Growth after 24 hours Assessment and Plan (1) Bacteremia Current Visit: Yes Status: Acute Code(s): R78.81 - BACTEREMIA SNOMED Code(s): 4328489 (2) Sepsis due to pneumonia Current Visit: Yes Status: Acute Code(s): J18.9 - PNEUMONIA, UNSPECIFIED ORGANISM; A41.9 - SEPSIS, UNSPECIFIED ORGANISM SNOMED Code(s): 83817248 Plan: 1-Patient presented to hospital with sepsis in this patient who did have a fever elevated white count hypoxemia source likely pneumonia likely community- acquired, patient blood culture had been finalized with strep pneumo, patient to continue with Rocephin 2 g daily while waiting for the cultures to finalize Time with Patient: Less than 30
[2021-10-02] MEDS: SODIUM CHLORIDE 0.9% 1,000 ML IV SCH ×2 (05:56→21:04)
[2021-10-02 06:21] LABS: Glucose,Whole Blood 167 mg/dL (75-99)
[2021-10-02] MEDS: INSULIN ASPART (NovoLOG) 100 UNIT/ML VIAL SQ SCH ×8 (06:44→21:06)
[2021-10-02] MEDS: ALBUTEROL NEBULIZED 2.5 MG/3 ML INHALATION SCH ×4 (07:54→19:51)
[2021-10-02] MEDS: DULoxetine HCL 30 MG CAPSULE.DR PO SCH (08:36)
[2021-10-02] MEDS: HEPARIN SODIUM,PORCINE/PF 5,000 UNIT/0.5 ML SYRINGE SQ SCH ×2 (08:36→17:25)
--- NOTE | 2021-10-02 11:36 | P.PN ---
Subjective Progress Note Date: 10/02/21 Pt doing well today. No further fevers. No longer requiring oxygen. Repeat BCx ordered today to document clearance of strep. Objective - Vital Signs Vital signs: Vital Signs Temp 98.0 F 10/02/21 08:33 Pulse 91 10/02/21 08:33 Resp 16 10/02/21 08:33 BP 143/68 10/02/21 08:33 Pulse Ox 93 L 10/02/21 08:33 Intake & Output 10/01/21 10/02/21 10/02/21 18:59 06:59 18:59 Intake Total 660 620 120 Output Total 1150 650 825 Balance -165 -89 -851 Intake: Intake, IV Titration 500 Amount Sodium Chloride 0.9% 1, 500 000 ml @ 100 mls/hr IV . Q10H [facility] Rx#:[id number] Oral 660 120 120 Output: Urine 1150 650 825 Other: Voiding Method Urinal Urinal - Exam Gen: awake, alert HEENT: normocephalic, atraumatic, good hearing acuity, moist mucous membranes Resp: good air exchange, breathing comfortably with no accessory muscle use CVS: good distal perfusion x 4, GI: soft, NTTP, ND : no SPT, no CVAT, casarez catheter not present MSK: no pitting edema, no clubbing Neuro: non-focal, moving all extremities Psych: cooperative, euthymic mood - Labs CBC & Chem 7: 10/01/21 06:53 10/01/21 06:53 Labs: Abnormal Lab Results - Last 24 Hours (Table) 10/01/21 10/01/21 10/01/21 Range/Units 11:49 16:35 20:13 POC Glucose (mg/dL) 216 H 216 H 216 H (75-99) mg/dL 10/02/21 Range/Units 06:16 POC Glucose (mg/dL) 167 H (75-99) mg/dL Microbiology - Last 24 Hours (Table) 09/29/21 02:00 Blood Culture Gram Stain - Final Blood Blood Culture - Final Streptococcus pneumoniae 09/29/21 02:10 Blood Culture Gram Stain - Final Blood Blood Culture - Final Streptococcus pneumoniae 09/29/21 15:20 Blood Culture - Preliminary Blood No Growth after 48 hours Assessment and Plan Assessment: Severe sepsis secondary to Community Acquired pneumonia of RUL Acute respiratory failure with hypoxia secondary to pneumonia Strep pneumoniae Bacteremia Large area of consolidation right upper lung with prominent hilar, mediastinal, and axillary lymph nodes -Oxygenation to be administered and titrated as needed to maintain SPO2 equal to or greater than 92% -CTA chest revealing large area of consolidation at the posterior aspect of the right upper lobe likely representing pneumonia, underlying neoplastic lesion cannot be excluded, there is also prominent hilar, mediastinal, and axillary lymph nodes present, recommend follow-up imaging after treatment for pneumonia is completed. -Telemetry monitoring. -Continuous Pulse-oximetry -Duonebs scheduled four times daily and as needed for SOB and/or wheezing -Incentive Spirometry -Antibiotics: Rocephin for 2 weeks in light of bacteremia from date of clearance of BCx -Repeat BCx ordered 10/02 - pending, PICC on 10/04 if NGTD, end date of abx is 10/16 if NGTD -ID following -Sputum culture - pending Acute Metabolic encephalopathy secondary to sepsis resulting from pneumonia, resolved Hx of remote CVA -CT head negative for acute intercranial process. -Secondary to alteration in mentation we will hold Neurontin and other sedated his medications at this time. -10/02: resume neurontin, wellbutrin -Neuro checks every 4 hours. -Fall precautions. 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 Insulin-dependent diabetes mellitus type 2 with hyperglycemia -Hold Glucophage in place patient on NovoLog sliding scale. We will continue patient's home dose 6 units of 14 units with meals and at bedtime along with 45 units of Lantus nightly. Blood glucose levels have stabilized. Hypertension Monitor vital signs. Hydrochlorothiazide held at this time secondary to lactic acidosis and need for IV fluid hydration. Hyperlipidemia -Continue daily medication regimen with atorvastatin 20 mg nightly. CODE STATUS: Full code DVT prophylaxis: Heparin Anticipated discharge date: clinical course to determine Anticipated discharge place: Home
[2021-10-02 11:44] LABS: Glucose,Whole Blood 267 mg/dL (75-99)
[2021-10-02] MEDS: GABAPENTIN 300 MG CAP PO SCH ×2 (12:12→21:05)
[2021-10-02] MEDS: ASPIRIN 81 MG PO SCH (12:12)
--- NOTE | 2021-10-02 14:59 | P.PN ---
Subjective Progress Note Date: 10/02/21 Principal diagnosis: Pneumonia. Pulmonary consult dated 09/30/2021. 61-year-old male that I'm asked to see for right upper lobe pneumonia. The patient is a very poor historian, and is very lethargic and somnolent. Apparently this is not a new finding. The patient apparently has a history of hypertension, hyperlipidemia, diabetes, and diabetic neuropathy. He apparently presented to "some" emergency room, and was thought to have sepsis. He had an elevated lactate and elevated white blood count. Chest x-ray revealed a right upper lobe infiltrate. The patient was started on antibiotics. The patient was also placed on the [facility] protocol for possible alcohol withdrawal syndrome. Head CT was negative. Currently, the patient's on 6 L nasal cannula, and saline at 100 mL an hour. He is not manifesting any signs or symptoms of auditory distress. He is quite lethargic and sleepy though. Vital signs include a saturation of 96% on 6 L, blood pressure 133/75, respiratory rate 18, heart rate 90, and temperature 97.9. Laboratory data includes a white count 16.4, hem oglobin 12.8, hematocrit 39.4, and platelet count 316,000. D-dimer is 0.99. Blood gas shows a pO2 of 80, pCO2 42, and pH of 7.46. Sodium 136, potassium 3.5, chlorides 105, CO2 29, anion gap 2, BUN 20, and creatinine 0.49. Repeat lactate was 1.7. Urine is negative for infection. Testing for coronavirus was negative. Chest x-rays and CAT scans are reviewed. The patient is currently on azithromycin, Rocephin, and vancomycin. Progress note dated 10/01/2021. The patient is again seen today in room 358. Seen by me yesterday in consultation for right upper lobe pneumonia. Currently, he's on a couple liters of oxygen. He's feeling much better. The patient soda has a weird affect. He does answer questions, but seems to doze off quite a bit. Yesterday. He has a history of hypertension, hyperlipidemia, and diabetes. Laboratory data today includes a white count of 13, hemoglobin 13.4, hematocrit 41.4, and platelet count 344,000. Sodium 134, potassium 3.7, chlorides 101, CO2 30, anion gap 3, BUN 13, creatinine 0.38. Brain MRI shows an old left cerebellar infarct. Chest x-ray continues to show a right upper lobe infiltrate. Blood cultures are positive for Streptococcus pneumoniae. Progress note dated 10/02/2021. The patient is again seen in room 358. The patient was initially seen over the right upper lobe pneumonia. Chest x-ray and CAT scan suggested possible right hilar enlargement. If his pneumonia doesn't clear, the patient will possibly need a procedure such as bronchoscopy. The computed tomography scan that was done suggested the possibility of a lung mass. The patient is much more awake and alert. He does have a history of hypertension, hyperlipidemia, and diabetes. The patient's currently on room air. Blood cultures were positive for Streptococcus pneumoniae. No new labs to report. Objective - Vital Signs Vital signs: Vital Signs Temp 98.0 F 10/02/21 08:33 Pulse 89 10/02/21 12:11 Resp 16 10/02/21 12:11 BP 165/78 10/02/21 12:11 Pulse Ox 93 L 10/02/21 12:11 Intake & Output 10/01/21 10/02/21 10/02/21 18:59 06:59 18:59 Intake Total 660 620 360 Output Total 1150 650 825 Balance -099 -30 -388 Intake: Intake, IV Titration 500 Amount Sodium Chloride 0.9% 1, 500 000 ml @ 100 mls/hr IV . Q10H [facility] Rx#:[id number] Oral 660 120 360 Output: Urine 1150 650 825 Other: Voiding Method Urinal Urinal Urinal - Exam No acute distress, much more awake, currently on room air. Saturations are 93- 94%. HEENT examination is grossly unremarkable. Neck supple. Full range of motion. No adenopathy thyromegaly or neck vein distention. Cardiovascular examination reveals regular rhythm rate. S1-S2 normal. No S3 or S4. No discernible murmur noted. Heart rate 89 bpm. Lungs reveal scattered rhonchi. No wheezes or crackles. Breath sounds equal bilaterally. The patient does not take deep breaths. . Abdomen soft bowel sounds are heard. No masses or tenderness. Extremities are intact. No cyanosis clubbing or edema. Skin is without rash or lesion. Neurologic examination is much improved. Exam is nonfocal. - Labs CBC & Chem 7: 10/01/21 06:53 10/01/21 06:53 Labs: Abnormal Lab Results - Last 24 Hours (Table) 10/01/21 10/01/21 10/02/21 Range/Units 16:35 20:13 06:16 POC Glucose (mg/dL) 216 H 216 H 167 H (75-99) mg/dL 10/02/21 Range/Units 11:43 POC Glucose (mg/dL) 267 H (75-99) mg/dL Microbiology - Last 24 Hours (Table) 09/29/21 02:00 Blood Culture Gram Stain - Final Blood Blood Culture - Final Streptococcus pneumoniae 09/29/21 02:10 Blood Culture Gram Stain - Final Blood Blood Culture - Final Streptococcus pneumoniae 09/29/21 15:20 Blood Culture - Preliminary Blood No Growth after 48 hours Assessment and Plan Assessment: Pneumonia, right upper lobe, could be community-acquired, or relate to underlying aspiration. Streptococcus pneumoniae bacteremia, currently on ceftriaxone. Mental status changes, which may be acute or chronic, improved. Old left cerebellar infarct seen on MRI. History of diabetes mellitus. History of diabetic neuropathy. History of hypertension. History of hyperlipidemia. Plan: Plan dated 09/30/2021. The patient should be seen by infectious diseases, and neurology. The patient is currently on azithromycin, ceftriaxone, and vancomycin. A pro-calcitonin level should be done. In addition, neurology should evaluate the patient's mental status. Not clear to me whether or not this is an acute abnormality or something more chronic in nature. The patient will need a follow-up chest x-ray down the road. Should the infiltrate is not clear, the patient may benefit from bronchoscopy. Additional recommendations and suggestions are forthcoming. Prognosis is guarded. We will continue to follow make recommendations where appropriate. Plan dated 10/01/2021. The patient's blood cultures came back positive for Streptococcus pneumoniae. His antibiotics have been changed to ceftriaxone. Currently, the patient's much more awake and alert. He is able to answer questions today compared to yesterday. Yesterday he seemed very lethargic, and somnolent and currently, he is much improved. Labs, x-rays, medications are reviewed. The patient continues on updrafts. No additional recommendations are made at this time. We will continue to follow make recommendations were appropriate. Follow-up chest x-ray should be performed. Plan dated 10/02/2021. Currently, the patient's doing much better. Neurologically, he is much more awake and alert. From the pulmonary standpoint, he's been weaned down to room air. The patient may require a rhonchi auscultated in the future should his pneumonia not clear. The patient's blood cultures were positive for Streptococcus pneumoniae. The patient currently remains on Rocephin. We will continue to follow make recommendations where appropriate. Prognosis is guarded. Time with Patient: Less than 30
[2021-10-02 16:40] LABS: Glucose,Whole Blood 195 mg/dL (75-99)
[2021-10-02 20:22] LABS: Glucose,Whole Blood 158 mg/dL (75-99)
[2021-10-02] MEDS: INSULIN DETEMIR (LEVEMIR) 100 UNIT/ML SYR SQ SCH (21:05)
[2021-10-02] MEDS: ATORVASTATIN 20 MG TAB PO SCH (21:05)
[2021-10-03] MEDS: HEPARIN SODIUM,PORCINE/PF 5,000 UNIT/0.5 ML SYRINGE SQ SCH ×4 (01:52→23:32)
[2021-10-03] MEDS: SODIUM CHLORIDE 0.9% 1,000 ML IV SCH ×3 (01:53→23:32)
[2021-10-03 06:29] LABS: Glucose,Whole Blood 126 mg/dL (75-99)
[2021-10-03 07:16] LABS: Basophils # (A) 0.1 k/uL (0-0.2); Basophils % (A) 1 %; Eosinophils # (A) 0.3 k/uL (0-0.7); Eosinophils % (A) 3 %; HCT 44.6 % (39.0-53.0); HGB 14.6 gm/dL (13.0-17.5); Lymphocytes # (A) 2.8 k/uL (1.0-4.8); Lymphocytes % (A) 23 %; MCH 27.6 pg (25.0-35.0); MCHC 32.8 g/dL (31.0-37.0); MCV 84.3 fL (80.0-100.0); Mean Platelet Volume 6.8; Monocytes # (A) 0.9 k/uL (0-1.0); Monocytes % (A) 8 %; Neutrophils # (A) 7.6 k/uL (1.3-7.7); Neutrophils % (A) 64 %; Platelet Count 436 k/uL (150-450); RBC 5.28 m/uL (4.30-5.90); RDW 13.7 % (11.5-15.5); WBC 11.9 k/uL (3.8-10.6)
[2021-10-03] MEDS: ALBUTEROL NEBULIZED 2.5 MG/3 ML INHALATION SCH ×4 (07:19→19:43)
[2021-10-03 07:29] LABS: African American GFR (CKD) >90 (>60 ml/min/1.73 sqM); Anion Gap 8 mmol/L; Blood Urea Nitrogen 11 mg/dL (9-20); Calcium 9.1 mg/dL (8.4-10.2); Carbon Dioxide 27 mmol/L (22-30); Chloride 101 mmol/L (98-107); Glucose 134 mg/dL (74-99); Magnesium 1.7 mg/dL (1.6-2.3); Non-African American GFR(CKD) >90 (>60 ml/min/1.73 sqM); Potassium 3.9 mmol/L (3.5-5.1); Sodium 136 mmol/L (137-145)
[2021-10-03] MEDS: INSULIN ASPART (NovoLOG) 100 UNIT/ML VIAL SQ SCH ×8 (07:45→20:29)
--- NOTE | 2021-10-03 07:51 | XR ---
EXAMINATION TYPE: XR chest 1V portable DATE OF EXAM: 10/03/2021 Comparison: 09/30/2021 Clinical History: 61-year-old male Pneumonia Findings: Slight rightward patient rotation ultrasound normal cardiac mediastinal contours. Heart upper limits of normal in size. Airspace opacity right upper lobe is becoming less confluent and is showing some i mprovement. No pleural effusion. Old healed right midclavicular shaft fracture deformity. Impression: Persistent but improving right upper lobe pneumonia.
[2021-10-03] MEDS: GABAPENTIN 300 MG CAP PO SCH ×3 (08:21→20:28)
[2021-10-03] MEDS: buPROPion XL 150 MG TAB.ER.24H PO SCH (08:21)
[2021-10-03] MEDS: DULoxetine HCL 30 MG CAPSULE.DR PO SCH ×2 (08:21→20:28)
[2021-10-03] MEDS: ASPIRIN 81 MG PO SCH (08:21)
--- NOTE | 2021-10-03 11:12 | P.PN ---
<Leonidas York - Last Filed: 10/03/21 10:52> Subjective Progress Note Date: 10/03/21 Hospital course: Patient is a very pleasant 61-year-old male with a past medical history of hy pertension, hyperlipidemia, insulin-dependent diabetes mellitus, and diabetic neuropathy. Patient reportedly presented to the emergency department with the chief complaint of overall feeling of unwell. He underwent evaluation in the emergency department and was noted to be very lethargic and alert to self only. He was found to be severely septic with lactate 5.6 and WBC count of 25.2 with left shift with neutrophils of 20.6 and monocytes of 2.02. He also had hyperglycemia with serum glucose of 381. Chest x-ray revealed severe infiltration of the right upper lobe consistent with pneumonia. Patient was given sepsis bolus and started on IV antibiotics with azithromycin and Rocephin for treatment of community-acquired pneumonia. Patient was also noted to have an elevated temp of 100.8F along with tachycardia and became even more confused and agitated. CT head completed and was negative for acute intercranial abnormality. D-dimer was elevated at 0.99. CTA chest showing no major central pulmonary emboli revealing large area of consolidation at the posterior aspect of the right upper lobe likely representing pneumonia, underlying neoplastic lesion cannot be excluded, there is also prominent hilar, mediastinal, and axillary lymph nodes present, recommend follow-up imaging after treatment for pneumonia is completed. The patient was admitted under our services for severe sepsis, community acquired pneumonia of right upper lobe, and metabolic encephalopathy. Consults were placed to pulmonology, neurology, and infectious disease. Blood cultures positive for strep pneumoniae. 10/03/21: Patient seen and fully evaluated at the bedside this morning. Patient alert and oriented to person, time, place, and situation. He currently denies having any needs or complaints. He reports feeling well this morning. Had long talk with patient and updating him on plan of care. We discussed patient's bacteremia, patient admits to never changing his needle on his glucometer stating he uses the same needle each and every time he checks his blood glucose level. We discussed the importance of changing this needle each and every time and risks associated with use of dirty/contaminated needles. Patient verbalized understanding. He denied having any headache, lightheadedness, dizziness, chest pain, palpitations, shortness of breath, abdominal pain, nausea, vomiting, or any other complaints this morning. He is on room air with SpO2 of 94%. He has remained afebrile with last documented elevated temp being 09/29/21. Morning labs continued to show improvement of leukocytosis with WBC count of 11.9. He did have mild hypomagnesemia with magnesium of 1.7, orders were placed for replacement. Physical exam: Vital signs reviewed and stable. General: Nontoxic, no acute distress noted this morning and appears stated age, obese. Patient is somnolent/lethargic but does arouse to verbal and tactile stimulation Derm: Skin warm and dry, normal coloration for ethnicity. Head: Atraumatic, normocephalic and symmetric. Eyes: EOMs intact, no lid lag, and anicteric sclera Mouth: no lip lesions, mucus membranes dry Cardiovascular: regular rate and rhythm with normal S1S2, no murmur, positive posterior tibial pulses bilaterally, and cap refill < 2 seconds. Lungs: Respirations even, regular, and unlabored on 4L O2 via nasal cannula with SpO2 of 95%. Lungs diminished with diffuse rhonchi. No wheezing and no accessory muscle usage. Abdominal: Obese abdomen soft, nontender to palpation, no guarding, no appreciable organomegaly Ext: ROM intact. No gross muscle atrophy, no edema, no contractures Neuro: Unable to perform complete neurologic examination as patient remains lethargic/somnolent at time of assessment. Patient was noted to be moving all extremities independently with no noted deficits, and did follow some commands such as open your eyes and squeeze my hands. Assessment and Plan of Care: Severe sepsis secondary to Community Acquired pneumonia of RUL Acute respiratory failure with hypoxia secondary to pneumonia Strep pneumoniae Bacteremia Large area of consolidation right upper lung with prominent hilar, mediastinal, and axillary lymph nodes -Oxygenation to be administered and titrated as needed to maintain SPO2 equal to or greater than 92% -CTA chest revealing large area of consolidation at the posterior aspect of the right upper lobe likely representing pneumonia, underlying neoplastic lesion cannot be excluded, there is also prominent hilar, mediastinal, and axillary lymph nodes present, recommend follow-up imaging after treatment for pneumonia is completed. -Telemetry monitoring. -Continuous Pulse-oximetry -Duonebs scheduled four times daily and as needed for SOB and/or wheezing -Incentive Spirometry -Antibiotics: Completed course of 5 day azithromycin on 10/02/21 for treatment of pneumonia, patient remains on Rocephin and to continue Rocephin for 2 weeks in light of bacteremia from date of clearance of BCx -Repeat BCx ordered 10/02 - pending, PICC on 10/04 if NGTD, end date of abx is 10/16 if NGTD -ID following Acute Metabolic encephalopathy secondary to sepsis resulting from pneumonia, resolved Hx of remote CVA -CT head negative for acute intercranial process. -Secondary to alteration in mentation we initially held Neurontin. -10/02: resumed neurontin and wellbutrin -Neuro checks every 4 hours. -Fall precautions. 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 Insulin-dependent diabetes mellitus type 2 with hyperglycemia -Hold Glucophage in place patient on NovoLog sliding scale. We will continue patient's home dose 6 units of 14 units with meals and at bedtime along with 45 units of Lantus nightly. Blood glucose levels have stabilized. Hypertension Monitor vital signs. Hydrochlorothiazide held at this time secondary to lactic acidosis and need for IV fluid hydration. Hyperlipidemia -Continue daily medication regimen with atorvastatin 20 mg nightly. CODE STATUS: Full code DVT prophylaxis: Heparin Anticipated discharge date: clinical course to determine Anticipated discharge place: Home A total of 35 minutes was spent on the care of this complex patient more than 50% of the time was spent in counseling and care coordination. Objective - Vital Signs Vital signs: Vital Signs Temp 98.2 F 10/03/21 08:19 Pulse 86 10/03/21 08:19 Resp 20 10/03/21 08:19 BP 126/77 10/03/21 08:19 Pulse Ox 94 L 10/03/21 08:19 Intake & Output 10/02/21 10/03/21 10/03/21 18:59 06:59 18:59 Intake Total 600 Output Total 1625 Balance -1025 Intake: Oral 600 Output: Urine 1625 Other: Voiding Method Urinal Urinal - Labs CBC & Chem 7: 10/03/21 06:21 10/03/21 06:21 Labs: Abnormal Lab Results - Last 24 Hours (Table) 10/02/21 10/02/21 10/02/21 Range/Units 11:43 16:39 19:34 WBC (3.8-10.6) k/uL Sodium (137-145) mmol/L Creatinine (0.66-1.25) mg/dL Glucose (74-99) mg/dL POC Glucose (mg/dL) 267 H 195 H 158 H (75-99) mg/dL 10/03/21 10/03/21 10/03/21 Range/Units 06:07 06:21 06:21 WBC 11.9 H (3.8-10.6) k/uL Sodium 136 L (137-145) mmol/L Creatinine 0.37 L (0.66-1.25) mg/dL Glucose 134 H (74-99) mg/dL POC Glucose (mg/dL) 126 H (75-99) mg/dL Microbiology - Last 24 Hours (Table) 09/29/21 15:20 Blood Culture - Preliminary Blood No Growth after 72 hours 09/29/21 02:00 Blood Culture Gram Stain - Final Blood Blood Culture - Final Streptococcus pneumoniae 09/29/21 02:10 Blood Culture Gram Stain - Final Blood Blood Culture - Final Streptococcus pneumoniae <Jacqui Ames A - Last Filed: 10/03/21 18:24> Subjective Leonidas York NP rendered care for this patient independently, reviewed the findings and plan as documented in the note above. I did not physically speak with or examine the patient on this date. mood Liability - psych recs: off welbutrin and cymbalta was increased. Objective - Vital Signs Vital signs: Vital Signs Temp 97.9 F 10/03/21 17:01 Pulse 84 10/03/21 17:01 Resp 20 10/03/21 17:01 BP 122/78 10/03/21 17:01 Pulse Ox 90 L 10/03/21 17:01 Intake & Output 10/02/21 10/03/21 10/03/21 18:59 06:59 18:59 Intake Total 600 780 Output Total 1625 Balance -1025 780 Intake: Oral 600 780 Output: Urine 1625 Other: Voiding Method Urinal Urinal Urinal - Labs CBC & Chem 7: 10/03/21 06:21 10/03/21 06:21 Labs: Abnormal Lab Results - Last 24 Hours (Table) 10/02/21 10/03/21 10/03/21 Range/Units 19:34 06:07 06:21 WBC 11.9 H (3.8-10.6) k/uL Sodium (137-145) mmol/L Creatinine (0.66-1.25) mg/dL Glucose (74-99) mg/dL POC Glucose (mg/dL) 158 H 126 H (75-99) mg/dL 10/03/21 10/03/21 10/03/21 Range/Units 06:21 11:48 16:52 WBC (3.8-10.6) k/uL Sodium 136 L (137-145) mmol/L Creatinine 0.37 L (0.66-1.25) mg/dL Glucose 134 H (74-99) mg/dL POC Glucose (mg/dL) 313 H 195 H (75-99) mg/dL Microbiology - Last 24 Hours (Table) 09/29/21 15:20 Blood Culture - Preliminary Blood No Growth after 96 hours 10/02/21 11:23 Blood Culture - Preliminary Blood No Growth after 24 hours
[2021-10-03 11:50] LABS: Glucose,Whole Blood 313 mg/dL (75-99)
[2021-10-03] MEDS: MAGNESIUM SULFATE-D5W PMX 1 GM in DEXTROSE/WATER 1 100ML.BAG IVPB SCH ×2 (12:07→13:03)
--- NOTE | 2021-10-03 15:09 | P.PN ---
Subjective Progress Note Date: 10/03/21 Principal diagnosis: Pneumonia. Pulmonary consult dated 09/30/2021. 61-year-old male that I'm asked to see for right upper lobe pneumonia. The patient is a very poor historian, and is very lethargic and somnolent. Apparently this is not a new finding. The patient apparently has a history of hypertension, hyperlipidemia, diabetes, and diabetic neuropathy. He apparently presented to "some" emergency room, and was thought to have sepsis. He had an elevated lactate and elevated white blood count. Chest x-ray revealed a right upper lobe infiltrate. The patient was started on antibiotics. The patient was also placed on the [facility] protocol for possible alcohol withdrawal syndrome. Head CT was negative. Currently, the patient's on 6 L nasal cannula, and saline at 100 mL an hour. He is not manifesting any signs or symptoms of auditory distress. He is quite lethargic and sleepy though. Vital signs include a saturation of 96% on 6 L, blood pressure 133/75, respiratory rate 18, heart rate 90, and temperature 97.9. Laboratory data includes a white count 16.4, hem oglobin 12.8, hematocrit 39.4, and platelet count 316,000. D-dimer is 0.99. Blood gas shows a pO2 of 80, pCO2 42, and pH of 7.46. Sodium 136, potassium 3.5, chlorides 105, CO2 29, anion gap 2, BUN 20, and creatinine 0.49. Repeat lactate was 1.7. Urine is negative for infection. Testing for coronavirus was negative. Chest x-rays and CAT scans are reviewed. The patient is currently on azithromycin, Rocephin, and vancomycin. Progress note dated 10/01/2021. The patient is again seen today in room 358. Seen by me yesterday in consultation for right upper lobe pneumonia. Currently, he's on a couple liters of oxygen. He's feeling much better. The patient soda has a weird affect. He does answer questions, but seems to doze off quite a bit. Yesterday. He has a history of hypertension, hyperlipidemia, and diabetes. Laboratory data today includes a white count of 13, hemoglobin 13.4, hematocrit 41.4, and platelet count 344,000. Sodium 134, potassium 3.7, chlorides 101, CO2 30, anion gap 3, BUN 13, creatinine 0.38. Brain MRI shows an old left cerebellar infarct. Chest x-ray continues to show a right upper lobe infiltrate. Blood cultures are positive for Streptococcus pneumoniae. Progress note dated 10/02/2021. The patient is again seen in room 358. The patient was initially seen over the right upper lobe pneumonia. Chest x-ray and CAT scan suggested possible right hilar enlargement. If his pneumonia doesn't clear, the patient will possibly need a procedure such as bronchoscopy. The computed tomography scan that was done suggested the possibility of a lung mass. The patient is much more awake and alert. He does have a history of hypertension, hyperlipidemia, and diabetes. The patient's currently on room air. Blood cultures were positive for Streptococcus pneumoniae. No new labs to report. Progress note dated 10/03/2021. The patient is again seen today in room 358. His been in the hospital now for 4 days. He was admitted with a diagnosis of right upper lobe pneumonia. Currently, the patient's on 2 L nasal cannula. He's not receiving any IV fluids. When I went into the room, he was actually sleeping. He was not manifesting any distress or difficulty. Blood cultures were apparently positive for Streptococcus pneumoniae. The patient is much more awake and alert. Chest x-ray and computed tomography scan suggested the possibility of a right hilar mass. That will have to be investigated should the pneumonia not clear. Current laboratory data includes a white count of 11.9, hemoglobin 14.6, hematocrit 44.6, platelet count 436,000. Sodium is 136, potassium 3.9, chlorides 101, CO2 27, anion gap 8, BUN 11, creatinine 0.37. Chest x-ray shows some improvement in the right upper lobe infiltrate. Objective - Vital Signs Vital signs: Vital Signs Temp 98.2 F 10/03/21 12:05 Pulse 94 10/03/21 12:05 Resp 18 10/03/21 14:00 BP 130/68 10/03/21 12:05 Pulse Ox 92 L 10/03/21 12:05 Intake & Output 10/02/21 10/03/21 10/03/21 18:59 06:59 18:59 Intake Total 600 Output Total 1625 Balance -1025 Intake: Oral 600 Output: Urine 1625 Other: Voiding Method Urinal Urinal Urinal - Exam No acute distress, much more awake, currently on 2 L, with saturations of 93%. HEENT examination is grossly unremarkable. Neck supple. Full range of motion. No adenopathy thyromegaly or neck vein distention. Cardiovascular examination reveals regular rhythm rate. S1-S2 normal. No S3 or S4. No discernible murmur noted. Heart rate 94 bpm. Lungs reveal scattered rhonchi. No wheezes or crackles. Breath sounds equal bilaterally. The patient does not take deep breaths. . Abdomen soft bowel sounds are heard. No masses or tenderness. Extremities are intact. No cyanosis clubbing or edema. Skin is without rash or lesion. Neurologic examination is much improved. Exam is nonfocal. - Labs CBC & Chem 7: 10/03/21 06:21 10/03/21 06:21 Labs: Abnormal Lab Results - Last 24 Hours (Table) 10/02/21 10/02/21 10/03/21 Range/Units 16:39 19:34 06:07 WBC (3.8-10.6) k/uL Sodium (137-145) mmol/L Creatinine (0.66-1.25) mg/dL Glucose (74-99) mg/dL POC Glucose (mg/dL) 195 H 158 H 126 H (75-99) mg/dL 10/03/21 10/03/21 10/03/21 Range/Units 06:21 06:21 11:48 WBC 11.9 H (3.8-10.6) k/uL Sodium 136 L (137-145) mmol/L Creatinine 0.37 L (0.66-1.25) mg/dL Glucose 134 H (74-99) mg/dL POC Glucose (mg/dL) 313 H (75-99) mg/dL Microbiology - Last 24 Hours (Table) 10/02/21 11:23 Blood Culture - Preliminary Blood No Growth after 24 hours 09/29/21 15:20 Blood Culture - Preliminary Blood No Growth after 72 hours Assessment and Plan Assessment: Pneumonia, right upper lobe, could be community-acquired, or relate to underlying aspiration. Possible mass, right hilum, we'll need to be evaluated once pneumonia is resolved. Streptococcus pneumoniae bacteremia, currently on ceftriaxone. Mental status changes, which may be acute or chronic, improved. Old left cerebellar infarct seen on MRI. History of diabetes mellitus. History of diabetic neuropathy. History of hypertension. History of hyperlipidemia. Plan: Plan dated 09/30/2021. The patient should be seen by infectious diseases, and neurology. The patient is currently on azithromycin, ceftriaxone, and vancomycin. A pro-calcitonin level should be done. In addition, neurology should evaluate the patient's mental status. Not clear to me whether or not this is an acute abnormality or something more chronic in nature. The patient will need a follow-up chest x-ray down the road. Should the infiltrate is not clear, the patient may benefit from bronchoscopy. Additional recommendations and suggestions are forthcoming. Prognosis is guarded. We will continue to follow make recommendations where appropriate. Plan dated 10/01/2021. The patient's blood cultures came back positive for Streptococcus pneumoniae. His antibiotics have been changed to ceftriaxone. Currently, the patient's much more awake and alert. He is able to answer questions today compared to yesterday. Yesterday he seemed very lethargic, and somnolent and currently, he is much improved. Labs, x-rays, medications are reviewed. The patient continues on updrafts. No additional recommendations are made at this time. We will continue to follow make recommendations were appropriate. Follow-up chest x-ray should be performed. Plan dated 10/02/2021. Currently, the patient's doing much better. Neurologically, he is much more awake and alert. From the pulmonary standpoint, he's been weaned down to room air. The patient may require a rhonchi auscultated in the future should his pneumonia not clear. The patient's blood cultures were positive for Streptococcus pneumoniae. The patient currently remains on Rocephin. We will continue to follow make recommendations where appropriate. Prognosis is guarded. Plan dated 10/03/2021. Clinically, the patient looks very stable. He's on 2 L nasal O2. Saturations are 94-95%. The chest x-ray looks a bit improved. He is on ceftriaxone for Streptococcus pneumoniae bacteremia. The other medications are appropriate including breathing treatments. We will continue to follow make recommendations where appropriate. Prognosis is guarded. The patient may have a mass/abnormality in the area of the right hilum, which may need further evaluation, once the pneumonia slowly treated. Time with Patient: Less than 30
[2021-10-03 16:55] LABS: Glucose,Whole Blood 195 mg/dL (75-99)
--- NOTE | 2021-10-03 17:53 | P.CN ---
Psychiatric Consult - . Consult date: 10/03/21 Consult:: Psychiatric consultation he was referred to psychiatry for consultation of his mood changes. he improved significantly from his medical diagnosis of metabolic encephalopathy secondary to sepsis related to his pneumonis. I reviewed his chart and noted that upon admssion he had altered mental status with changes in his LOC. Neurontin was considered the possible and likely agent and was held. In reviewing his past, he had significant metabolic syndrome: with Type II diabetes, hypertensino and dyslipidemia. His was kept update of his progress and fro he past 12 -24 hours he has made steady improvement in terms of resolution of his respiratory status with anti biotic and pneumonia. The issue revolves whether he would further benefit from a few days of stay at the psychiatric unit. His according to his nurse, revealed that she was concerned over his declining mental condition with his intermittent behavioral outbursts and his daytime sleepiness. He commented that he may have a "STROKE" when I isnterviewed, him I could corroborate his remark. I may have to further communciate with his . He did have a history of mood symptoms with anxiety and mood changes. He was articulated sufficently to make himself understood. MSE revealed that he has mild expressive aphasis and had work finding paraphasia. He admitted at times he was slow in collecting his thoughts. He was resting in his bed in a slanted position and talked about his nutritional needs. He helped himself to the bathroom unassisted. He repeatedly ruminated over his solid marriage for over 30- 40 yrs with no children. according to him. The sore point revolved upon his excessive preference for cars . possibly for antique collection or for hobby. He has worked for a no of years in the [employer] industry. Subjectively, he talked about a STROKE syndrome. and mood changes. He denied any halluciations or delusions. No suicidal or homicidal ideation. Cognition: I will adminsiter COG 3 at the next session. He may have subtle memory and psychomotor activity related to his recent sepsis and his metabolic syndrome. He was fully oriented. 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 premorbid depressive disorder with anger attacks and anxious distress cannot be ruled CVA event may have contributed towards his mood changes; but CT scan and medical history was uneventful. Metabolic syndrome for him can be a risk factor for MCI Mild cognitive impairment Recommendation: I will reassess him again for cognitive and mood follow up. He may benefit from extended physical rehabilitation after discussing with family he is unwilling to have a short stay at Mental [facility] Unit For his anxiety and depressive disorder, I find Mirtazepine is a better choice; however, he was started on low dosage of Wellbutrin at 150 mg . Celexa at 10 mg has better track record to manage behavioral aberrant pattern. Excessive daytime sleepiness may be further included in the differential as depressive syndrome of apathy and subtle cognitive changes. Communicate with his to obtain her perspective of the best option
[2021-10-03 19:58] LABS: Glucose,Whole Blood 230 mg/dL (75-99)
[2021-10-03] MEDS: ATORVASTATIN 20 MG TAB PO SCH (20:28)
[2021-10-03] MEDS: INSULIN DETEMIR (LEVEMIR) 100 UNIT/ML SYR SQ SCH (20:29)
--- NOTE | 2021-10-03 22:48 | P.PN ---
Subjective Progress Note Date: 09/25/21 Principal diagnosis: Pneumonia and bacteremia Patient is a 61-year-old male presented to hospital with weakness and shortness of breath and cough with evidence of pneumonia and did have a positive blood culture finalized Streptococcus pneumoniae. On today's evaluation that is 10/02/2021, the patient remains to be afebrile, the patient is breathing slightly comfortably, the patient denies having any chest pain he did have some cough but is not not bringing up any sputum no nausea no vomiting no abdominal pain and no diarrhea Objective - Vital Signs Vital signs: Vital Signs Temp 98.0 F 10/02/21 08:33 Pulse 89 10/02/21 12:11 Resp 16 10/02/21 12:11 BP 165/78 10/02/21 12:11 Pulse Ox 93 L 10/02/21 12:11 Intake & Output 10/01/21 10/02/21 10/02/21 18:59 06:59 18:59 Intake Total 660 620 120 Output Total 1150 650 825 Balance -096 -30 -392 Intake: Intake, IV Titration 500 Amount Sodium Chloride 0.9% 1, 500 000 ml @ 100 mls/hr IV . Q10H [facility] Rx#:[id number] Oral 660 120 120 Output: Urine 1150 650 825 Other: Voiding Method Urinal Urinal - Exam GENERAL DESCRIPTION: Middle-aged male lying in bed in no distress RESPIRATORY SYSTEM: Unlabored breathing , decreased breath sounds at bases HEART: S1 S2 regular rate and rhythm , ABDOMEN: Soft , no tenderness EXTREMITIES: No edema feet - Labs CBC & Chem 7: 10/03/21 06:21 10/03/21 06:21 Labs: Abnormal Lab Results - Last 24 Hours (Table) 10/01/21 10/01/21 10/02/21 Range/Units 16:35 20:13 06:16 POC Glucose (mg/dL) 216 H 216 H 167 H (75-99) mg/dL 10/02/21 Range/Units 11:43 POC Glucose (mg/dL) 267 H (75-99) mg/dL Microbiology - Last 24 Hours (Table) 09/29/21 02:00 Blood Culture Gram Stain - Final Blood Blood Culture - Final Streptococcus pneumoniae 09/29/21 02:10 Blood Culture Gram Stain - Final Blood Blood Culture - Final Streptococcus pneumoniae 09/29/21 15:20 Blood Culture - Preliminary Blood No Growth after 48 hours Assessment and Plan (1) Bacteremia Current Visit: Yes Status: Acute Code(s): R78.81 - BACTEREMIA SNOMED Code( s): 0683288 (2) Sepsis due to pneumonia Current Visit: Yes Status: Acute Code(s): J18.9 - PNEUMONIA, UNSPECIFIED ORGANISM; A41.9 - SEPSIS, UNSPECIFIED ORGANISM SNOMED Code(s): 63220966 Plan: 1-Patient presented to hospital with sepsis in this patient who did have a fever elevated white count hypoxemia source likely pneumonia likely community- acquired, patient blood culture had been finalized with strep pneumoniae which is sensitive to Rocephin, patient to continue with Rocephin 2 g daily while waiting for repeat blood cultures to finalize Time with Patient: Less than 30
--- NOTE | 2021-10-03 22:50 | P.PN ---
Subjective Progress Note Date: 10/03/21 Principal diagnosis: Pneumonia and bacteremia Patient is a 61-year-old male presented to hospital with weakness and shortness of breath and cough with evidence of pneumonia and did have a positive blood culture finalized Streptococcus pneumoniae. On today's evaluation that is 10/03/2021, the patient denies any fever or any chills, the patient is breathing comfortably on room air, the patient denies having any chest pain he did have minimal dry cough the patient denies nausea no vomiting no abdominal pain and no diarrhea Objective - Vital Signs Vital signs: Vital Signs Temp 98.2 F 10/03/21 12:05 Pulse 94 10/03/21 12:05 Resp 18 10/03/21 14:00 BP 130/68 10/03/21 12:05 Pulse Ox 92 L 10/03/21 12:05 Intake & Output 10/02/21 10/03/21 10/03/21 18:59 06:59 18:59 Intake Total 600 Output Total 1625 Balance -1025 Intake: Oral 600 Output: Urine 1625 Other: Voiding Method Urinal Urinal Urinal - Exam GENERAL DESCRIPTION: Middle-aged male lying in bed in no distress RESPIRATORY SYSTEM: Unlabored breathing , decreased breath sounds at bases HEART: S1 S2 regular rate and rhythm , ABDOMEN: Soft , no tenderness EXTREMITIES: No edema feet - Labs CBC & Chem 7: 10/03/21 06:21 10/03/21 06:21 Labs: Abnormal Lab Results - Last 24 Hours (Table) 10/02/21 10/02/21 10/03/21 Range/Units 16:39 19:34 06:07 WBC (3.8-10.6) k/uL Sodium (137-145) mmol/L Creatinine (0.66-1.25) mg/dL Glucose (74-99) mg/dL POC Glucose (mg/dL) 195 H 158 H 126 H (75-99) mg/dL 10/03/21 10/03/21 10/03/21 Range/Units 06:21 06:21 11:48 WBC 11.9 H (3.8-10.6) k/uL Sodium 136 L (137-145) mmol/L Creatinine 0.37 L (0.66-1.25) mg/dL Glucose 134 H (74-99) mg/dL POC Glucose (mg/dL) 313 H (75-99) mg/dL Microbiology - Last 24 Hours (Table) 10/02/21 11:23 Blood Culture - Preliminary Blood No Growth after 24 hours 09/29/21 15:20 Blood Culture - Preliminary Blood No Growth after 72 hours Assessment and Plan (1) Bacteremia Current Visit: Yes Status: Acute Code(s): R78.81 - BACTEREMIA SNOMED Code(s): 4502638 (2) Sepsis due to pneumonia Current Visit: Yes Status: Acute Code(s): J18.9 - PNEUMONIA, UNSPECIFIED ORGANISM; A41.9 - SEPSIS, UNSPECIFIED ORGANISM SNOMED Code(s): 21748530 Plan: 1-Patient presented to hospital with sepsis in this patient who did have a fever elevated white count hypoxemia source likely pneumonia likely community- acquired, patient blood culture had been finalized with strep pneumoniae which is sensitive to Rocephin, patient to continue with Rocephin 2 g daily , repeat blood culture negative so far chest x-ray did show improvement, options for discharge will be IV Rocephin for 10 days if the patient has coverage versus oral Ceftin Time with Patient: Less than 30
[2021-10-03] MEDS: MELATONIN 3 MG TABLET PO SCH (23:09)
[2021-10-04 06:06] LABS: Glucose,Whole Blood 154 mg/dL (75-99)
[2021-10-04] MEDS: INSULIN ASPART (NovoLOG) 100 UNIT/ML VIAL SQ SCH ×8 (06:32→20:48)
[2021-10-04] MEDS: GABAPENTIN 300 MG CAP PO SCH ×3 (08:04→19:54)
[2021-10-04] MEDS: ARIPiprazole 2 MG TAB PO SCH (08:05)
[2021-10-04] MEDS: DULoxetine HCL 30 MG CAPSULE.DR PO SCH ×2 (08:05→19:54)
[2021-10-04] MEDS: SODIUM CHLORIDE 0.9% 1,000 ML IV SCH ×2 (08:05→17:20)
[2021-10-04] MEDS: buPROPion XL 150 MG TAB.ER.24H PO SCH (08:05)
[2021-10-04] MEDS: HEPARIN SODIUM,PORCINE/PF 5,000 UNIT/0.5 ML SYRINGE SQ SCH ×3 (08:05→19:54)
[2021-10-04] MEDS: ASPIRIN 81 MG PO SCH (08:05)
[2021-10-04 08:31] LABS: HCT 47.7 % (39.0-53.0); HGB 15.3 gm/dL (13.0-17.5); MCH 27.2 pg (25.0-35.0); MCV 85.3 fL (80.0-100.0); Mean Platelet Volume 7.1; Platelet Count 517 k/uL (150-450); WBC 11.5 k/uL (3.8-10.6)
[2021-10-04] MEDS: ALBUTEROL NEBULIZED 2.5 MG/3 ML INHALATION SCH ×4 (08:35→20:38)
--- NOTE | 2021-10-04 08:40 | P.PN ---
<Leonidas York - Last Filed: 10/04/21 13:10> Subjective Progress Note Date: 10/04/21 Hospital course: Patient is a very pleasant 61-year-old male with a past medical history of hy pertension, hyperlipidemia, insulin-dependent diabetes mellitus, and diabetic neuropathy. Patient reportedly presented to the emergency department with the chief complaint of overall feeling of unwell. He underwent evaluation in the emergency department and was noted to be very lethargic and alert to self only. He was found to be severely septic with lactate 5.6 and WBC count of 25.2 with left shift with neutrophils of 20.6 and monocytes of 2.02. He also had hyperglycemia with serum glucose of 381. Chest x-ray revealed severe infiltration of the right upper lobe consistent with pneumonia. Patient was given sepsis bolus and started on IV antibiotics with azithromycin and Rocephin for treatment of community-acquired pneumonia. Patient was also noted to have an elevated temp of 100.8F along with tachycardia and became even more confused and agitated. CT head completed and was negative for acute intercranial abnormality. D-dimer was elevated at 0.99. CTA chest showing no major central pulmonary emboli revealing large area of consolidation at the posterior aspect of the right upper lobe likely representing pneumonia, underlying neoplastic lesion cannot be excluded, there is also prominent hilar, mediastinal, and axillary lymph nodes present, recommend follow-up imaging after treatment for pneumonia is completed. The patient was admitted under our services for severe sepsis, community acquired pneumonia of right upper lobe, and metabolic encephalopathy. Consults were placed to pulmonology, neurology, and infectious disease. Blood cultures positive for strep pneumoniae. 10/04/21: Patient seen and fully evaluated at the bedside this morning. Patient remains alert and oriented to person, time, place, and situation. He reports feeling much better and denies having any needs or complaints including headache, lightheadedness, dizziness, chest pain, palpitations, shortness of breath, or cough. Labs reviewed showing no significant abnormalities, leukocytosis continues to improve daily. He did have mild thrombocytosis with platelet count of 517 we will continue to monitor. Blood glucose level 138 this morning. Blood cultures showing no growth 24 hours once updated in showing no growth 48 hours order will be placed for PICC line with plans for discharge home on IV antibiotics. Plan is for patient to continue Rocephin 2 weeks upon discharge for treatment of bacteremia. Physical exam: Vital signs reviewed and stable. General: Nontoxic, no acute distress noted this morning and appears stated age, obese. Patient is somnolent/lethargic but does arouse to verbal and tactile stimulation Derm: Skin warm and dry, normal coloration for ethnicity. Head: Atraumatic, normocephalic and symmetric. Eyes: EOMs intact, no lid lag, and anicteric sclera Mouth: no lip lesions, mucus membranes dry Cardiovascular: regular rate and rhythm with normal S1S2, no murmur, positive posterior tibial pulses bilaterally, and cap refill < 2 seconds. Lungs: Respirations even, regular, and unlabored on 4L O2 via nasal cannula with SpO2 of 95%. Lungs diminished with diffuse rhonchi. No wheezing and no accessory muscle usage. Abdominal: Obese abdomen soft, nontender to palpation, no guarding, no appreciable organomegaly Ext: ROM intact. No gross muscle atrophy, no edema, no contractures Neuro: Unable to perform complete neurologic examination as patient remains lethargic/somnolent at time of assessment. Patient was noted to be moving all extremities independently with no noted deficits, and did follow some commands such as open your eyes and squeeze my hands. Assessment and Plan of Care: Severe sepsis secondary to Community Acquired pneumonia of RUL Acute respiratory failure with hypoxia secondary to pneumonia Strep pneumoniae Bacteremia Large area of consolidation right upper lung with prominent hilar, mediastinal, and axillary lymph nodes -Oxygenation to be administered and titrated as needed to maintain SPO2 equal to or greater than 92% -CTA chest revealing large area of consolidation at the posterior aspect of the right upper lobe likely representing pneumonia, underlying neoplastic lesion cannot be excluded, there is also prominent hilar, mediastinal, and axillary lymph nodes present, recommend follow-up imaging after treatment for pneumonia is completed. -Telemetry monitoring. -Continuous Pulse-oximetry -Duonebs scheduled four times daily and as needed for SOB and/or wheezing -Incentive Spirometry -Antibiotics: Completed course of 5 day azithromycin on 10/02/21 for treatment of pneumonia, patient remains on Rocephin and to continue Rocephin for 2 weeks in light of bacteremia from date of clearance of BCx -Repeat BCx ordered 10/02 - pending, PICC on 10/04 if NGTD, end date of abx is 10/16 if NGTD -ID following Acute Metabolic encephalopathy secondary to sepsis resulting from pneumonia, resolved Hx of remote CVA -CT head negative for acute intercranial process. -Secondary to alteration in mentation we initially held Neurontin. -10/02: resumed neurontin and wellbutrin -Neuro checks every 4 hours. -Fall precautions. 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 Insulin-dependent diabetes mellitus type 2 with hyperglycemia -Hold Glucophage in place patient on NovoLog sliding scale. We will continue patient's home dose 6 units of 14 units with meals and at bedtime along with 45 units of Lantus nightly. Blood glucose levels have stabilized. Hypertension Monitor vital signs. Hydrochlorothiazide held at this time secondary to lactic acidosis and need for IV fluid hydration. Hypomagnesemia, resolved Hyperlipidemia -Continue daily medication regimen with atorvastatin 20 mg nightly. CODE STATUS: Full code DVT prophylaxis: Heparin Anticipated discharge date: Tomorrow Anticipated discharge place: Home with IV antibiotics A total of 35 minutes was spent on the care of this complex patient more than 50% of the time was spent in counseling and care coordination. Objective - Vital Signs Vital signs: Vital Signs Temp 97.8 F 10/04/21 08:02 Pulse 82 10/04/21 08:02 Resp 18 10/04/21 08:02 BP 101/61 10/04/21 08:02 Pulse Ox 95 10/04/21 08:02 Intake & Output 10/03/21 10/04/21 10/04/21 18:59 06:59 18:59 Intake Total 780 250 Output Total 750 Balance 780 -750 250 Intake: IV 10 Invasive Line 4 10 Oral 780 240 Output: Urine 750 Other: Voiding Method Urinal Urinal Urinal # Voids 2 - Labs CBC & Chem 7: 10/04/21 07:10 10/04/21 07:10 Labs: Abnormal Lab Results - Last 24 Hours (Table) 10/03/21 10/03/21 10/03/21 Range/Units 11:48 16:52 19:56 WBC (3.8-10.6) k/uL Plt Count (150-450) k/uL POC Glucose (mg/dL) 313 H 195 H 230 H (75-99) mg/dL 10/04/21 10/04/21 Range/Units 06:04 07:10 WBC 11.5 H (3.8-10.6) k/uL Plt Count 517 H (150-450) k/uL POC Glucose (mg/dL) 154 H (75-99) mg/dL Microbiology - Last 24 Hours (Table) 09/29/21 15:20 Blood Culture - Preliminary Blood No Growth after 96 hours 10/02/21 11:23 Blood Culture - Preliminary Blood No Growth after 24 hours <RichJose - Last Filed: 10/04/21 16:41> Subjective I reviewed the documentation as provided by the AMARIS above, who is the original author of this note. I agree with the documented assessment and plan, with the following changes: None Objective - Vital Signs Vital signs: Vital Signs Temp 98.4 F 10/04/21 15:38 Pulse 82 10/04/21 15:38 Resp 18 10/04/21 15:38 BP 116/69 10/04/21 15:38 Pulse Ox 92 L 10/04/21 15:38 Intake & Output 10/03/21 10/04/21 10/04/21 18:59 06:59 18:59 Intake Total 780 490 Output Total 750 Balance 780 -750 490 Intake: IV 10 Invasive Line 4 10 Oral 780 480 Output: Urine 750 Other: Voiding Method Urinal Urinal Urinal # Voids 2 1 - Labs CBC & Chem 7: 10/04/21 07:10 10/04/21 07:10 Labs: Abnormal Lab Results - Last 24 Hours (Table) 10/03/21 10/03/21 10/04/21 Range/Units 16:52 19:56 06:04 WBC (3.8-10.6) k/uL Plt Count (150-450) k/uL Sodium (137-145) mmol/L Creatinine (0.66-1.25) mg/dL Glucose (74-99) mg/dL POC Glucose (mg/dL) 195 H 230 H 154 H (75-99) mg/dL Albumin (3.5-5.0) g/dL 10/04/21 10/04/21 10/04/21 Range/Units 07:10 07:10 11:42 WBC 11.5 H (3.8-10.6) k/uL Plt Count 517 H (150-450) k/uL Sodium 134 L (137-145) mmol/L Creatinine 0.44 L (0.66-1.25) mg/dL Glucose 138 H (74-99) mg/dL POC Glucose (mg/dL) 239 H (75-99) mg/dL Albumin 3.3 L (3.5-5.0) g/dL Microbiology - Last 24 Hours (Table) 10/03/21 11:29 Blood Culture - Preliminary Blood No Growth after 24 hours 10/02/21 11:23 Blood Culture - Preliminary Blood No Growth after 48 hours 09/29/21 15:20 Blood Culture - Preliminary Blood No Growth after 96 hours
[2021-10-04 08:55] LABS: ALT 19 U/L (4-49); AST 17 U/L (17-59); African American GFR (CKD) >90 (>60 ml/min/1.73 sqM); Albumin 3.3 g/dL (3.5-5.0); Alkaline Phosphatase 91 U/L (38-126); Anion Gap 8 mmol/L; Blood Urea Nitrogen 15 mg/dL (9-20); Carbon Dioxide 26 mmol/L (22-30); Chloride 100 mmol/L (98-107); Glucose 138 mg/dL (74-99); Magnesium 1.9 mg/dL (1.6-2.3); Non-African American GFR(CKD) >90 (>60 ml/min/1.73 sqM); Potassium 4.6 mmol/L (3.5-5.1); Sodium 134 mmol/L (137-145); Total Bilirubin 0.5 mg/dL (0.2-1.3); Total Protein 6.7 g/dL (6.3-8.2)
[2021-10-04 11:44] LABS: Glucose,Whole Blood 239 mg/dL (75-99)
--- NOTE | 2021-10-04 16:33 | P.PN ---
Subjective Progress Note Date: 10/04/21 Principal diagnosis: Right upper lobe pneumonia, shortness of breath On 10/04/2021 patient seen in follow-up on selective care unit, is awake and alert, in no acute distress, he is on room air with a pulse ox of 95%, his lung sounds are clear to auscultation, his chest x-ray from yesterday on 10/03/2021 showing improving right upper lobe pneumonia. Patient remains on Rocephin for strep pneumonia bacteremia likely related to community acquired pneumonia, he is breathing comfortably, no compressive chest discomfort no hemoptysis, no worsening cough. Vital signs have been stable overnight, no fever or chills. Follow-up blood cultures have shown no growth. His labs have been reviewed his white count is 11.5, hemoglobin is 15.2, electrolytes and renal profile were essentially unremarkable. ID service is following and has recommended either IV Rocephin or possibly oral antibiotics if IV antibiotics are not improved by the insurance. Patient is awaiting possible PICC line placement in case his Rocephin is approved. Objective - Vital Signs Vital signs: Vital Signs Temp 98.4 F 10/04/21 15:38 Pulse 82 10/04/21 15:38 Resp 18 10/04/21 15:38 BP 116/69 10/04/21 15:38 Pulse Ox 92 L 10/04/21 15:38 Intake & Output 10/03/21 10/04/21 10/04/21 18:59 06:59 18:59 Intake Total 780 490 Output Total 750 Balance 780 -750 490 Intake: IV 10 Invasive Line 4 10 Oral 780 480 Output: Urine 750 Other: Voiding Method Urinal Urinal Urinal # Voids 2 1 - Exam GENERAL EXAM: Alert, pleasant, 61-year-old white male resting comfortably in bed, on room air with a pulse ox of 95%, comfortable in no apparent distress. HEAD: Normocephalic/atraumatic. EYES: Normal reaction of pupils, equal size. Conjunctiva pink, sclera white. NOSE: Clear with pink turbinates. THROAT: No erythema or exudates. NECK: No masses, no JVD, no thyroid enlargement, no adenopathy. CHEST: No chest wall deformity. Symmetrical expansion. LUNGS: Equal air entry with no crackles, wheeze, rhonchi or dullness. CVS: Regular rate and rhythm, normal S1 and S2, no gallops, no murmurs, no rubs ABDOMEN: Soft, nontender. No hepatosplenomegaly, normal bowel sounds, no guarding or rigidity. EXTREMITIES: No clubbing, no edema, no cyanosis, 2+ pulses and upper and lower extremities. MUSCULOSKELETAL: Muscle strength and tone normal. SPINE: No scoliosis or deformity SKIN: No rashes CENTRAL NERVOUS SYSTEM: Alert and oriented -3. No focal deficits, tone is normal in all 4 extremities. PSYCHIATRIC: Alert and oriented -3. Appropriate affect. Intact judgment and insight. - Labs CBC & Chem 7: 10/04/21 07:10 10/04/21 07:10 Labs: Abnormal Lab Results - Last 24 Hours (Table) 10/03/21 10/03/21 10/04/21 Range/Units 16:52 19:56 06:04 WBC (3.8-10.6) k/uL Plt Count (150-450) k/uL Sodium (137-145) mmol/L Creatinine (0.66-1.25) mg/dL Glucose (74-99) mg/dL POC Glucose (mg/dL) 195 H 230 H 154 H (75-99) mg/dL Albumin (3.5-5.0) g/dL 10/04/21 10/04/21 10/04/21 Range/Units 07:10 07:10 11:42 WBC 11.5 H (3.8-10.6) k/uL Plt Count 517 H (150-450) k/uL Sodium 134 L (137-145) mmol/L Creatinine 0.44 L (0.66-1.25) mg/dL Glucose 138 H (74-99) mg/dL POC Glucose (mg/dL) 239 H (75-99) mg/dL Albumin 3.3 L (3.5-5.0) g/dL Microbiology - Last 24 Hours (Table) 10/03/21 11:29 Blood Culture - Preliminary Blood No Growth after 24 hours 10/02/21 11:23 Blood Culture - Preliminary Blood No Growth after 48 hours 09/29/21 15:20 Blood Culture - Preliminary Blood No Growth after 96 hours Assessment and Plan Plan: Assessment: #1. Acute community acquired pneumonia, related to Streptococcus pneumonia with sepsis #2. Streptococcus pneumonia bacteremia related to the above #3. Acute hypoxic respiratory failure related to the above, improving #4. Altered mental status related to acute sepsis, improved #5. History of diabetes mellitus with diabetic neuropathy #6. History of hypertension #7. History of hyperlipidemia Plan: Patient continues to improve No worsening dyspnea or cough Yesterday chest x-ray showing persistent but improving right upper lobe pneumonia From pulmonary perspective patient can be considered for discharge home on oral antibiotics, Currently arrangements are in progress for possible PICC line placement and IV antibiotics if insurance approves Outpatient follow-up with Dr. Kohler any office in one week I performed a history & physical examination of the patient and discussed their management with my nurse practitioner, Ani Hussein. I reviewed the nurse practitioner's note and agree with the documented findings and plan of care. Lung sounds are positive for dim breath sounds throughout the lung michael. The findings and the impression was discussed with the patient. I attest to the documentation by the nurse practitioner. Time with Patient: Less than 30
[2021-10-04 17:00] LABS: Glucose,Whole Blood 284 mg/dL (75-99)
[2021-10-04] MEDS: ATORVASTATIN 20 MG TAB PO SCH (19:54)
[2021-10-04] MEDS: MELATONIN 3 MG TABLET PO SCH (19:54)
[2021-10-04 20:10] LABS: Glucose,Whole Blood 208 mg/dL (75-99)
[2021-10-04] MEDS: INSULIN DETEMIR (LEVEMIR) 100 UNIT/ML SYR SQ SCH (20:51)
[2021-10-05 06:20] LABS: Glucose,Whole Blood 287 mg/dL (75-99)
[2021-10-05] MEDS: INSULIN ASPART (NovoLOG) 100 UNIT/ML VIAL SQ SCH ×4 (07:02→11:51)
[2021-10-05] MEDS: ALBUTEROL NEBULIZED 2.5 MG/3 ML INHALATION SCH ×2 (08:12→11:59)
[2021-10-05 08:39] VITALS: RESP 17
--- NOTE | 2021-10-05 09:00 | P.PN ---
Subjective Progress Note Date: 10/05/21 Principal diagnosis: Right upper lobe pneumonia, shortness of breath On 10/04/2021 patient seen in follow-up on selective care unit, is awake and alert, in no acute distress, he is on room air with a pulse ox of 95%, his lung sounds are clear to auscultation, his chest x-ray from yesterday on 10/03/2021 showing improving right upper lobe pneumonia. Patient remains on Rocephin for strep pneumonia bacteremia likely related to community acquired pneumonia, he is breathing comfortably, no compressive chest discomfort no hemoptysis, no worsening cough. Vital signs have been stable overnight, no fever or chills. Follow-up blood cultures have shown no growth. His labs have been reviewed his white count is 11.5, hemoglobin is 15.2, electrolytes and renal profile were essentially unremarkable. ID service is following and has recommended either IV Rocephin or possibly oral antibiotics if IV antibiotics are not improved by the insurance. Patient is awaiting possible PICC line placement in case his Rocephin is approved. On 10/05/2021 patient seen in follow-up on selective care unit, she is resting comfortably in bed, breathing very comfortably, room air pulse ox is 93%. Lung sounds are clear to auscultation, no rhonchi no wheezing, patient denies any cough, no chest discomfort. His been afebrile overnight, he continues on Rocephin for Streptococcus pneumonia bacteremia, his follow blood cultures from 10/02/2021 are negative at 48 hour kayla, his most recent blood culture from 10/03/2021 is negative at 24 hour kayla. No new labs today, no acute events overnight. Patient is awaiting to finalize blood cultures to be negative at 48 hour kayla and he will likely receive a PICC line and go home with 2 week course of IV Rocephin Objective - Vital Signs Vital signs: Vital Signs Temp 97.9 F 10/05/21 08:38 Pulse 84 10/05/21 08:38 Resp 17 10/05/21 08:38 BP 145/68 10/05/21 08:38 Pulse Ox 93 L 10/05/21 08:38 Intake & Output 10/04/21 10/05/21 10/05/21 18:59 06:59 18:59 Intake Total 490 410 Output Total 900 Balance 490 -490 Intake: IV 10 Invasive Line 4 10 Intake, IV Titration 50 Amount cefTRIAXone 2 gm In 50 Sodium Chloride 0.9% 50 ml @ 100 mls/hr IVPB Q24H [facility] Rx#:[id number] Oral 480 360 Output: Urine 900 Other: Voiding Method Urinal Urinal # Voids 1 - Exam GENERAL EXAM: Alert, pleasant, 61-year-old white male resting comfortably in bed, on room air with a pulse ox of 95%, comfortable in no apparent distress. HEAD: Normocephalic/atraumatic. EYES: Normal reaction of pupils, equal size. Conjunctiva pink, sclera white. NOSE: Clear with pink turbinates. THROAT: No erythema or exudates. NECK: No masses, no JVD, no thyroid enlargement, no adenopathy. CHEST: No chest wall deformity. Symmetrical expansion. LUNGS: Equal air entry with no crackles, wheeze, rhonchi or dullness. CVS: Regular rate and rhythm, normal S1 and S2, no gallops, no murmurs, no rubs ABDOMEN: Soft, nontender. No hepatosplenomegaly, normal bowel sounds, no guarding or rigidity. EXTREMITIES: No clubbing, no edema, no cyanosis, 2+ pulses and upper and lower extremities. MUSCULOSKELETAL: Muscle strength and tone normal. SPINE: No scoliosis or deformity SKIN: No rashes CENTRAL NERVOUS SYSTEM: Alert and oriented -3. No focal deficits, tone is normal in all 4 extremities. PSYCHIATRIC: Alert and oriented -3. Appropriate affect. Intact judgment and insight. - Labs CBC & Chem 7: 10/04/21 07:10 10/04/21 07:10 Labs: Abnormal Lab Results - Last 24 Hours (Table) 10/04/21 10/04/21 10/04/21 Range/Units 11:42 16:53 20:08 POC Glucose (mg/dL) 239 H 284 H 208 H (75-99) mg/dL 10/05/21 Range/Units 06:14 POC Glucose (mg/dL) 287 H (75-99) mg/dL Microbiology - Last 24 Hours (Table) 09/29/21 15:20 Blood Culture - Preliminary Blood No Growth after 120 hours 10/03/21 11:29 Blood Culture - Preliminary Blood No Growth after 24 hours 10/02/21 11:23 Blood Culture - Preliminary Blood No Growth after 48 hours Assessment and Plan Plan: Assessment: #1. Acute community acquired pneumonia, related to Streptococcus pneumonia with sepsis #2. Streptococcus pneumonia bacteremia related to the above #3. Acute hypoxic respiratory failure related to the above, improving #4. Altered mental status related to acute sepsis, improved #5. History of diabetes mellitus with diabetic neuropathy #6. History of hypertension #7. History of hyperlipidemia Plan: patient has remained stable overnight No worsening dyspnea or cough Last chest x-ray showing persistent but improving right upper lobe pneumonia From pulmonary perspective patient can be considered for discharge home on oral antibiotics, Currently arrangements are in progress for possible PICC line placement and IV antibiotics if insurance approves Outpatient follow-up with Dr. Villalobos any office in one week I performed a history & physical examination of the patient and discussed their management with my nurse practitioner, Ani Hussein. I reviewed the nurse practitioner's note and agree with the documented findings and plan of care. Lung sounds are positive for dim breath sounds throughout the lung michael. The findings and the impression was discussed with the patient. I attest to the documentation by the nurse practitioner. Time with Patient: Less than 30
[2021-10-05] MEDS: SODIUM CHLORIDE 0.9% 1,000 ML IV SCH (10:44)
[2021-10-05] MEDS: DULoxetine HCL 30 MG CAPSULE.DR PO SCH (10:45)
[2021-10-05] MEDS: ARIPiprazole 2 MG TAB PO SCH (10:45)
[2021-10-05] MEDS: GABAPENTIN 300 MG CAP PO SCH (10:45)
[2021-10-05] MEDS: ASPIRIN 81 MG PO SCH (10:45)
[2021-10-05] MEDS: HEPARIN SODIUM,PORCINE/PF 5,000 UNIT/0.5 ML SYRINGE SQ SCH (10:45)
[2021-10-05] MEDS: buPROPion XL 150 MG TAB.ER.24H PO SCH (10:45)
--- NOTE | 2021-10-05 11:32 | P.DS ---
<Leonidas York - Last Filed: 10/05/21 11:32> Providers Expected date of discharge: 10/05/21 Hospital Course: Discharge Diagnosis: Severe sepsis secondary to Community Acquired pneumonia of RUL Acute respiratory failure with hypoxia secondary to pneumonia Strep pneumoniae Bacteremia Large area of consolidation right upper lung with prominent hilar, mediastinal, and axillary lymph nodes, patient instructed he will need to follow up outpatient after he completes antibiotic treatment for repeat imaging. Acute Metabolic encephalopathy secondary to sepsis resulting from pneumonia, resolved Hx of remote CVA, continue aspirin and atorvastatin Insulin-dependent diabetes mellitus type 2 with hyperglycemia Hypertension Hypomagnesemia, resolved Hyperlipidemia Hospital Course: Patient is a very pleasant 61-year-old male with a past medical history of hypertension, hyperlipidemia, insulin-dependent diabetes mellitus, CVA, and diabetic neuropathy. Patient reportedly presented to the emergency department with the chief complaint of overall feeling of unwell. He underwent evaluation in the emergency department and was noted to be very lethargic and alert to self only. He was found to be severely septic with lactate 5.6 and WBC count of 25.2 with left shift with neutrophils of 20.6 and monocytes of 2.02. He also had hyperglycemia with serum glucose of 381. Chest x-ray revealed severe in filtration of the right upper lobe consistent with pneumonia. Patient was given sepsis bolus and started on IV antibiotics with azithromycin and Rocephin for treatment of community-acquired pneumonia. Patient was also noted to have an elevated temp of 100.8F along with tachycardia and became even more confused and agitated. CT head completed and was negative for acute intercranial abnormality. D-dimer was elevated at 0.99. CTA chest showing no major central pulmonary emboli revealing large area of consolidation at the posterior aspect of the right upper lobe likely representing pneumonia, underlying neoplastic lesion cannot be excluded, there is also prominent hilar, mediastinal, and axillary lymph nodes present, recommend follow-up imaging after treatment for pneumonia is completed. MRI showed old left cerebellar infarct. EEG negative for Eliptiform activities or seizure activity, it was abnormal showing ground slowing suggestive of mild encephalopathy. The patient was admitted under our services for severe sepsis, community acquired pneumonia of right upper lobe, and metabolic encephalopathy. Consults were placed to pulmonology, neurology, and infectious disease. Blood cultures positive for strep pneumoniae. Patient was treated with IV antibiotic Rocephin and completed 5 day course of azithromycin on 10/02/21. Throughout hospitalization and treatment of sepsis patient's mentation significantly improving and is back to baseline levels. Leukocytosis significantly improved from initial 25.2 down to 11.5. Repeat blood culture showing no growth after 48 hours. Patient had midline placed and is being discharged home with IV antibiotics, Rocephin 2 weeks for continued treatment of strep pneumoniae bacteremia. Patient educated on importance of changing out glucometer need each and every time he uses as he reports he previously never changed. Patient educated on discharge instructions. He is stable for discharge home at this time. Patient to follow-up outpatient with his PCP, commercial management accountant, and infectious disease. Patient medically stable for discharge home at this time. Physical exam: Vital signs reviewed and stable. General: Nontoxic, no acute distress noted this morning and appears stated age, obese Derm: Skin warm and dry, normal coloration for ethnicity. Head: Atraumatic, normocephalic and symmetric. Eyes: EOMs intact, no lid lag, and anicteric sclera Mouth: no lip lesions, mucus membranes dry Cardiovascular: regular rate and rhythm with normal S1S2, no murmur, positive posterior tibial pulses bilaterally, and cap refill < 2 seconds. Lungs: Respirations even, regular, and unlabored o room air with SpO2 of 94%. Lungs diminished. No wheezing, rhonchi, rales, and no accessory muscle usage. Abdominal: Obese abdomen soft, nontender to palpation, no guarding, no appreciable organomegaly Ext: ROM intact. No gross muscle atrophy, no edema, no contractures Neuro: GCS 15. Patient alert and oriented showing no neurological deficits. Pleasant and cooperative. A total of 45 minutes of time were spent preparing this complex discharge summary. Patient Condition at Discharge: Stable Plan - Discharge Summary Discharge Rx Participant: No New Discharge Prescriptions: New ARIPiprazole [Abilify] 1 mg PO DAILY 30 Days #15 tab Acetaminophen Tab [Tylenol] 650 mg PO Q6HR PRN tab PRN Reason: Mild Pain Or Fever > 100.5 Cefuroxime Axetil [Ceftin] 500 mg PO BID 12 Days #24 tab Aspirin 81 mg PO DAILY Continue metFORMIN HCL [Glucophage] 1,000 mg PO BID Atorvastatin [Lipitor] 20 mg PO HS hydroCHLOROthiazide [Hydrodiuril] 25 mg PO DAILY INSULIN ASPART (NovoLOG) [NovoLOG (formulary)] 14 unit SQ ACHS Gabapentin 600 mg PO DAILY@1200 Insulin Glargine,Hum.rec.anlog [Lantus Solostar Pen] 45 unit SQ HS Gabapentin 1,200 mg PO BID sitaGLIPtin [Januvia] 100 mg PO DAILY buPROPion XL [Wellbutrin XL] 150 mg PO DAILY Gemfibrozil [Lopid] 600 mg PO AC-BID DULoxetine HCL [Cymbalta] 30 mg PO DAILY Discharge Medication List metFORMIN HCL [Glucophage] 1,000 mg PO BID 05/25/15 [History] Atorvastatin [Lipitor] 20 mg PO HS 05/18/19 [History] hydroCHLOROthiazide [Hydrodiuril] 25 mg PO DAILY 05/18/19 [History] Gabapentin 1,200 mg PO BID 08/26/21 [History] INSULIN ASPART (NovoLOG) [NovoLOG (formulary)] 14 unit SQ ACHS 08/26/21 [History] Insulin Glargine,Hum.rec.anlog [Lantus Solostar Pen] 45 unit SQ HS 08/26/21 [History] DULoxetine HCL [Cymbalta] 30 mg PO DAILY 09/29/21 [History] Gabapentin 600 mg PO DAILY@1200 09/29/21 [History] Gemfibrozil [Lopid] 600 mg PO AC-BID 09/29/21 [History] buPROPion XL [Wellbutrin XL] 150 mg PO DAILY 09/29/21 [History] sitaGLIPtin [Januvia] 100 mg PO DAILY 09/29/21 [History] ARIPiprazole [Abilify] 1 mg PO DAILY 30 Days #15 tab 10/05/21 [Rx] Acetaminophen Tab [Tylenol] 650 mg PO Q6HR PRN tab 10/05/21 [Rx] Aspirin 81 mg PO DAILY 10/05/21 [Rx] Cefuroxime Axetil [Ceftin] 500 mg PO BID 12 Days #24 tab 10/06/21 [Rx] Follow up Appointment(s)/Referral(s): [facility], [NON-STAFF] - Jennifer Mares NPC [Nurse Practitioner] - 10/06/21 9:30 am ([place] office [address] [place] [address]) Shahriar Villalobos DO [Doctor of Osteopathic Medicine] - 11/01/21 1:30 pm (Pulmonary doctor. Office will call if any sooner appointments are available. ) [facility],Infusion [NON-STAFF] - Savannah Corrales MD [STAFF PHYSICIAN] - 10/12/21 1:45 pm (infectious disease doctor.) Patient Instructions/Handouts: Community Acquired Pneumonia (DC), Encephalopathy (DC) Activity/Diet/Wound Care/Special Instructions: Activity: As tolerated. Take breaks as needed. Diet: Heart healthy and carb consistent diet. Avoid salts, or foods with hidden salts such as canned or boxed foods and frozen dinners. Extra salt makes your heart work harder and traps the fluid in your body for longer. Special Instructions: Take all of your medications as directed and remember to keep all of your doctor's appointments and follow-up as needed. Remember to change the needles on your glucometer after each use. As discussed with you, there was a large area of consolidation in your right upper lung with prominent enlarged lymph nodes surrounding. It is of utmost importance that he follow up with your commercial management accountant after you have completed her antibiotic treatment for repeat imaging to ensure resolution of these findings after treatment of infectious process. Thank you for allowing us to participate in your care, it was truly a pleasure having you for our patient!!! Discharge/Stand Alone Forms: Who Do I Call?, Community Resources Discharge Disposition: HOME WITH HOME HEALTH SERVICES <Jose Villanueva - Last Filed: 10/06/21 16:26> Providers Date of admission: 09/29/21 05:23 Attending physician: Wilton Cotton MD Consults: 09/29/21 17:16 Consult Physician Routine Consulting Provider: John Mireles Consult Reason/Comments: Acute respiratory failure w hypoxia recent Covid + nicotine use, ?COPD Do you want consulting provider notified?: Yes 09/30/21 13:24 Consult Physician Routine Consulting Provider: Savannah Corrales Consult Reason/Comments: bacteremia, BC gram positive cocci Do you want consulting provider notified?: Yes 09/30/21 13:26 Consult Physician Routine Consulting Provider: Jake Villalobos Consult Reason/Comments: continued confusion, mild improvement Do you want consulting provider notified?: Yes 10/02/21 11:03 Consult Physician Routine Consulting Provider: Ramsey Yee Consult Reason/Comments: Depression, Angry outbursts, medical non compliance Do you want consulting provider notified?: Yes Primary care physician: Stated None Hospital Course: I reviewed the documentation as provided by the AMARIS above, who is the original author of this note. I agree with the documented assessment and plan, with the following changes: None
[2021-10-05 11:41] LABS: Glucose,Whole Blood 274 mg/dL (75-99)
[2021-10-05 11:51] VITALS: BP 124/66; PULSE 80; TEMP 97.6
--- NOTE | 2021-10-05 21:50 | P.PN ---
Subjective Progress Note Date: 10/04/21 Principal diagnosis: Pneumonia and bacteremia Patient is a 61-year-old male presented to hospital with weakness and shortness of breath and cough with evidence of pneumonia and did have a positive blood culture finalized Streptococcus pneumoniae. On today's evaluation that is 10/04/2021, the patient remains to be afebrile, the patient is breathing comfortably on room air, the patient denies having any chest pain he did have minimal cough but no sputum production the patient denies nausea no vomiting no abdominal pain and no diarrhea Objective - Vital Signs Vital signs: Vital Signs Temp 97.8 F 10/04/21 08:02 Pulse 82 10/04/21 08:02 Resp 18 10/04/21 08:02 BP 101/61 10/04/21 08:02 Pulse Ox 95 10/04/21 08:02 Intake & Output 10/03/21 10/04/21 10/04/21 18:59 06:59 18:59 Intake Total 780 250 Output Total 750 Balance 780 -750 250 Intake: IV 10 Invasive Line 4 10 Oral 780 240 Output: Urine 750 Other: Voiding Method Urinal Urinal Urinal # Voids 2 - Exam GENERAL DESCRIPTION: Middle-aged male lying in bed in no distress RESPIRATORY SYSTEM: Unlabored breathing , decreased breath sounds at bases HEART: S1 S2 regular rate and rhythm , ABDOMEN: Soft , no tenderness EXTREMITIES: No edema feet - Labs CBC & Chem 7: 10/04/21 07:10 10/04/21 07:10 Labs: Abnormal Lab Results - Last 24 Hours (Table) 10/03/21 10/03/21 10/03/21 Range/Units 11:48 16:52 19:56 WBC (3.8-10.6) k/uL Plt Count (150-450) k/uL Sodium (137-145) mmol/L Creatinine (0.66-1.25) mg/dL Glucose (74-99) mg/dL POC Glucose (mg/dL) 313 H 195 H 230 H (75-99) mg/dL Albumin (3.5-5.0) g/dL 10/04/21 10/04/21 10/04/21 Range/Units 06:04 07:10 07:10 WBC 11.5 H (3.8-10.6) k/uL Plt Count 517 H (150-450) k/uL Sodium 134 L (137-145) mmol/L Creatinine 0.44 L (0.66-1.25) mg/dL Glucose 138 H (74-99) mg/dL POC Glucose (mg/dL) 154 H (75-99) mg/dL Albumin 3.3 L (3.5-5.0) g/dL Microbiology - Last 24 Hours (Table) 09/29/21 15:20 Blood Culture - Preliminary Blood No Growth after 96 hours 10/02/21 11:23 Blood Culture - Preliminary Blood No Growth after 24 hours Assessment and Plan (1) Bacteremia Status: Acute Code(s): R78.81 - BACTEREMIA SNOMED Code(s): 6357754 (2) Sepsis due to pneumonia Status: Acute Code(s): J18.9 - PNEUMONIA, UNSPECIFIED ORGANISM; A41.9 - SEPSIS, UNSPECIFIED ORGANISM SNOMED Code(s): 67261903 Plan: 1-Patient presented to hospital with sepsis in this patient who did have a fever elevated white count hypoxemia source likely pneumonia likely community- acquired, patient blood culture had been finalized with strep pneumoniae which is sensitive to Rocephin, patient to continue with Rocephin 2 g daily , repeat blood culture negative so far chest x-ray did show improvement, caser in is currently working for outpatient IV antibiotic management Time with Patient: Less than 30
--- NOTE | 2021-10-05 21:51 | P.PN ---
Subjective Progress Note Date: 10/05/21 Principal diagnosis: Pneumonia and bacteremia Patient is a 61-year-old male presented to hospital with weakness and shortness of breath and cough with evidence of pneumonia and did have a positive blood culture finalized Streptococcus pneumoniae. On today's evaluation that is 10/05/2021, the patient denies any fever or chills, the patient is breathing comfortably on room air, the patient denies having any chest pain shortness of breath or cough. Denies having any nausea no vomiting no abdominal pain no diarrhea patient did got midline for outpatient IV antibiotics Objective - Vital Signs Vital signs: Vital Signs Temp 97.9 F 10/05/21 08:38 Pulse 84 10/05/21 08:38 Resp 17 10/05/21 08:38 BP 145/68 10/05/21 08:38 Pulse Ox 93 L 10/05/21 08:38 Intake & Output 10/04/21 10/05/21 10/05/21 18:59 06:59 18:59 Intake Total 490 410 Output Total 900 Balance 490 -490 Intake: IV 10 Invasive Line 4 10 Intake, IV Titration 50 Amount cefTRIAXone 2 gm In 50 Sodium Chloride 0.9% 50 ml @ 100 mls/hr IVPB Q24H [facility] Rx#:[id number] Oral 480 360 Output: Urine 900 Other: Voiding Method Urinal Urinal # Voids 1 - Exam GENERAL DESCRIPTION: Middle-aged male lying in bed in no distress RESPIRATORY SYSTEM: Unlabored breathing , decreased breath sounds at bases HEART: S1 S2 regular rate and rhythm , ABDOMEN: Soft , no tenderness EXTREMITIES: No edema feet - Labs CBC & Chem 7: 10/04/21 07:10 10/04/21 07:10 Labs: Abnormal Lab Results - Last 24 Hours (Table) 10/04/21 10/04/21 10/04/21 Range/Units 11:42 16:53 20:08 POC Glucose (mg/dL) 239 H 284 H 208 H (75-99) mg/dL 10/05/21 Range/Units 06:14 POC Glucose (mg/dL) 287 H (75-99) mg/dL Microbiology - Last 24 Hours (Table) 09/29/21 15:20 Blood Culture - Preliminary Blood No Growth after 120 hours 10/03/21 11:29 Blood Culture - Preliminary Blood No Growth after 24 hours 02/19/22 11:23 Blood Culture - Preliminary Blood No Growth after 48 hours Assessment and Plan (1) Bacteremia Status: Acute Code(s): R78.81 - BACTEREMIA SNOMED Code(s): 2884713 (2) Sepsis due to pneumonia Status: Acute Code(s): J18.9 - PNEUMONIA, UNSPECIFIED ORGANISM; A41.9 - SEPSIS, UNSPECIFIED ORGANISM SNOMED Code(s): 92949401 Plan: 1-Patient presented to hospital with sepsis in this patient who did have a fever elevated white count hypoxemia source likely pneumonia likely community- acquired, patient blood culture had been finalized with strep pneumoniae which is sensitive to Rocephin, patient has shown overall clinical improvement on Rocephin 2 g daily which the patient continue on another 10 days to finish his two-week course of therapy with close outpatient follow-up Time with Patient: Less than 30
--- NOTE | 2021-12-16 19:22 | ED ---
General Adult HPI - General Chief complaint: Weakness Stated complaint: Blood Sugar Issue Time Seen by Provider: 09/28/21 22:54 Source: patient, EMS Mode of arrival: EMS Limitations: altered mental status - History of Present Illness Initial comments: Please note that this is a replacement dictation. The initial evaluation was performed during computer downtime and the paper chart is replaced by this dictation. This patient is a 61-year-old man coming from home to be evaluated for altered mental status. The patient is not able to well characterize the symptoms. He states that he just does not feel well. Patient having generalized weakness and fatigue. -: unknown Severity scale (1-10): 0 Consistency: constant Improves with: none Worsens with: none Associated Symptoms: shortness of breath, weakness Treatments Prior to Arrival: none - Related Data Home Medications Medication Instructions Recorded Confirmed metFORMIN HCL [Glucophage] 1,000 mg PO BID 05/25/15 10/06/21 Atorvastatin [Lipitor] 20 mg PO HS 05/18/19 10/06/21 hydroCHLOROthiazide [Hydrodiuril] 25 mg PO DAILY 05/18/19 10/06/21 Gabapentin 1,200 mg PO BID 08/26/21 10/06/21 INSULIN ASPART (NovoLOG) [NovoLOG 14 unit SQ [facility] 08/26/21 10/06/21 (formulary)] Insulin Glargine,Hum.rec.anlog 45 unit SQ HS 08/26/21 10/06/21 [Lantus Solostar Pen] DULoxetine HCL [Cymbalta] 30 mg PO DAILY 09/29/21 10/06/21 Gabapentin 600 mg PO DAILY@1200 09/29/21 10/06/21 Gemfibrozil [Lopid] 600 mg PO AC-BID 09/29/21 10/06/21 buPROPion XL [Wellbutrin XL] 150 mg PO DAILY 09/29/21 10/06/21 sitaGLIPtin [Januvia] 100 mg PO DAILY 09/29/21 10/06/21 Previous Rx's Medication Instructions Recorded ARIPiprazole [Abilify] 1 mg PO DAILY 30 Days #15 tab 10/05/21 Acetaminophen Tab [Tylenol] 650 mg PO Q6HR PRN tab 10/05/21 Aspirin 81 mg PO DAILY 10/05/21 Cefuroxime Axetil [Ceftin] 500 mg PO BID 12 Days #24 tab 10/06/21 Allergies Allergy/AdvReac Type Severity Reaction Status Date / Time No Known Allergies Allergy Verified 10/06/21 16:28 Review of Systems ROS Statement: Those systems with pertinent positive or pertinent negative responses have been documented in the HPI. ROS Other: All systems not noted in ROS Statement are negative. Limitations: ROS unobtainable due to patients medical condition (There appears to be some acute delirium) Constitutional: Reports: chills, weakness. Denies: fever Eyes: Denies: vision change Respiratory: Reports: dyspnea. Denies: cough Cardiovascular: Denies: chest pain, palpitations, edema Endocrine: Reports: fatigue Gastrointestinal: Denies: abdominal pain, vomiting, diarrhea Genitourinary: Denies: dysuria Musculoskeletal: Denies: back pain Skin: Denies: rash Neurological: Denies: headache, weakness Past Medical History Past Medical History: CVA/TIA, Diabetes Mellitus, GERD/Reflux, Hypertension Additional Past Medical History / Comment(s): BACK PAIN, CONSTIPATION, NUMBNESS IN FEET, URGENCY TO URINATE, BURPS FREQUENTLY AND STOMACH CRUZ., COUGHED UP BLOOD X2. History of Any Multi-Drug Resistant Organisms: MRSA Past Surgical History: Tonsillectomy Additional Past Surgical History / Comment(s): PLATE IN FEMUR AND ANKLE PINS , SURGERY FOR SNORING Past Anesthesia/Blood Transfusion Reactions: No Reported Reaction Additional Past Anesthesia/Blood Transfusion Reaction / Comment(s): Clausterphobia Past Psychological History: Anxiety, Depression Smoking Status: Current every day smoker Past Alcohol Use History: None Reported Past Drug Use History: None Reported - Past Family History Mother Family Medical History: Coronary Artery Disease (CAD), Diabetes Mellitus Father History Unknown: Yes Additional Family Medical History / Comment(s): Alcoholism Sister(s) Family Medical History: Cancer Additional Family Medical History / Comment(s): MELANOMA General Exam General appearance: alert, in distress Head exam: Present: atraumatic, normocephalic Eye exam: Present: normal appearance. Absent: scleral icterus, conjunctival injection ENT exam: Present: mucous membranes dry Neck exam: Present: normal inspection, full ROM Respiratory exam: Present: respiratory distress, rhonchi. Absent: wheezes, rales, stridor, accessory muscle use, decreased breath sounds Cardiovascular Exam: Present: normal rhythm, tachycardia, normal heart sounds. Absent: systolic murmur, diastolic murmur, rubs, gallop GI/Abdominal exam: Present: soft. Absent: distended, tenderness, guarding, rebound, rigid, mass Extremities exam: Present: normal inspection, normal capillary refill. Absent: pedal edema, calf tenderness Back exam: Present: normal inspection. Absent: CVA tenderness (R), CVA tenderness (L) Neurological exam: Present: alert, CN II-XII intact. Absent: motor sensory deficit Skin exam: Present: warm, dry, intact, normal color. Absent: rash Course Vital Signs 09/28/21 09/29/21 09/29/21 22:55 04:00 04:56 Temperature 99.6 F Pulse Rate 115 H 115 H Pulse Rate [ 115 H [address] Patroller ] Respiratory 24 25 H Rate Blood Pressure 132/79 147/92 O2 Sat by Pulse 95 Oximetry 09/29/21 09/29/21 09/29/21 05:00 06:00 07:00 Temperature 98.5 F 100.8 F H Pulse Rate 114 H 112 H 117 H Pulse Rate [ [employer] Patroller ] Respiratory 22 27 H 18 Rate Blood Pressure 156/84 134/67 148/90 O2 Sat by Pulse Oximetry 09/29/21 09/29/21 09/29/21 07:15 07:34 07:42 Temperature Pulse Rate 90 Pulse Rate [ [employer] Patroller ] Respiratory 18 Rate Blood Pressure 118/79 O2 Sat by Pulse 88 L 94 L 98 Oximetry 09/29/21 09/29/21 09/29/21 08:40 08:48 09:13 Temperature 98.9 F Pulse Rate 105 H 105 H 105 H Pulse Rate [ [employer] Patroller ] Respiratory 20 Rate Blood Pressure 135/78 O2 Sat by Pulse 93 L Oximetry 09/29/21 12:38 Temperature Pulse Rate 97 Pulse Rate [ [employer] Patroller ] Respiratory 22 Rate Blood Pressure 130/79 O2 Sat by Pulse 94 L Oximetry EKG Findings - EKG Results: EKG: interpreted by ERMD, sinus rhythm, normal axis, normal QRS EKG shows: tachycardia Procedures - [place] Protocol (Time Out) Patient Identification (2 identifiers required): Verbal, Arm Band, Name, Birthdate 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: Identity, Procedure, Consent Site Marked: Not Applicable - Sepsis Sepsis Focused Exam #1 Sepsis Focused Exam Date: 02/17/22 Sepsis Focused Exam Time: 03:00 Sepsis Focused Exam Complete: Yes Vital Signs & RN Notes Reviewed: Yes Capillary Refill: < 2 Seconds: Fingers Peripheral Pulses: Normal: Radial (R) Skin Color: Flushed Respiratory Exam: rales Cardiovascular Exam: normal rhythm, tachycardia Medical Decision Making - Medical Decision Making Patient is 61-year-old man presenting with altered mental status and found to have right upper lobe pneumonia as well as hyperglycemia and lactic acidosis. IV fluids, antibiotics, and admission. - Lab Data Result diagrams: 10/04/21 07:10 10/04/21 07:10 Lab Results 09/28/21 09/28/21 09/28/21 Range/Units 23:30 23:30 23:30 WBC 25.2 H (3.8-10.6) k/uL RBC 5.57 (4.30-5.90) m/uL Hgb 15.6 (13.0-17.5) gm/dL Hct 48.9 (39.0-53.0) % MCV 87.7 (80.0-100.0) fL MCH 27.9 (25.0-35.0) pg MCHC 31.8 (31.0-37.0) g/dL RDW 14.0 (11.5-15.5) % Plt Count 357 (150-450) k/uL MPV 7.3 Neutrophils % (Manual) 78 % Band Neuts % (Manual) 4 % Lymphocytes % (Manual) 10 % Monocytes % (Manual) 8 % Neutrophils # (Manual) 20.60 H (1.3-7.7) k/uL Lymphocytes # (Manual) 2.52 (1.0-4.8) k/uL Monocytes # (Manual) 2.02 H (0-1.0) k/uL Nucleated RBCs 0 (0-0) /100 WBC Manual Slide Review Performed Hypochromasia Slight Sodium 136 L (137-145) mmol/L Potassium 4.3 (3.5-5.1) mmol/L Chloride 97 L (98-107) mmol/L Carbon Dioxide 24 (22-30) mmol/L Anion Gap 15 mmol/L BUN 27 H (9-20) mg/dL Creatinine 0.74 (0.66-1.25) mg/dL Est GFR (CKD-EPI)AfAm >90 (>60 ml/min/1.73 sqM) Est GFR (CKD-EPI)NonAf >90 (>60 ml/min/1.73 sqM) Glucose 381 H (74-99) mg/dL POC Glucose (mg/dL) (75-99) mg/dL POC Glu Risk Control Product Liability Director ID Lactic Ac Sepsis Rflx Plasma Lactic Acid Cristino (0.7-2.0) mmol/L Calcium 9.2 (8.4-10.2) mg/dL Magnesium 1.6 (1.6-2.3) mg/dL Total Bilirubin 0.9 (0.2-1.3) mg/dL AST 20 (17-59) U/L ALT 24 (4-49) U/L Alkaline Phosphatase 103 (38-126) U/L Troponin I <0.012 (0.000-0.034) ng/mL Total Protein 6.8 (6.3-8.2) g/dL Albumin 3.7 (3.5-5.0) g/dL Urine Color Urine Appearance (Clear) Urine pH (5.0-8.0) Ur Specific Nezperce (1.001-1.035) Urine Protein (Negative) Urine Glucose (UA) (Negative) Urine Ketones (Negative) Urine Blood (Negative) Urine Nitrite (Negative) Urine Bilirubin (Negative) Urine Urobilinogen (<2.0) mg/dL Ur Leukocyte Esterase (Negative) Urine RBC (0-5) /hpf Urine WBC (0-5) /hpf Urine Mucus (None) /hpf Serum Alcohol <10 mg/dL Acetone, Qual Negative (Negative) 09/28/21 09/28/21 09/29/21 Range/Units 23:30 23:41 01:13 WBC (3.8-10.6) k/uL RBC (4.30-5.90) m/uL Hgb (13.0-17.5) gm/dL Hct (39.0-53.0) % MCV (80.0-100.0) fL MCH (25.0-35.0) pg MCHC (31.0-37.0) g/dL RDW (11.5-15.5) % Plt Count (150-450) k/uL MPV Neutrophils % (Manual) % Band Neuts % (Manual) % Lymphocytes % (Manual) % Monocytes % (Manual) % Neutrophils # (Manual) (1.3-7.7) k/uL Lymphocytes # (Manual) (1.0-4.8) k/uL Monocytes # (Manual) (0-1.0) k/uL Nucleated RBCs (0-0) /100 WBC Manual Slide Review Hypochromasia Sodium (137-145) mmol/L Potassium (3.5-5.1) mmol/L Chloride (98-107) mmol/L Carbon Dioxide (22-30) mmol/L Anion Gap mmol/L BUN (9-20) mg/dL Creatinine (0.66-1.25) mg/dL Est GFR (CKD-EPI)AfAm (>60 ml/min/1.73 sqM) Est GFR (CKD-EPI)NonAf (>60 ml/min/1.73 sqM) Glucose (74-99) mg/dL POC Glucose (mg/dL) 422 H 314 H (75-99) mg/dL POC Glu Risk Control Product Liability Director ID Cabello, Claudio Cabello, Claudio Lactic Ac Sepsis Rflx Plasma Lactic Acid Cristino 5.6 H* (0.7-2.0) mmol/L Calcium (8.4-10.2) mg/dL Magnesium (1.6-2.3) mg/dL Total Bilirubin (0.2-1.3) mg/dL AST (17-59) U/L ALT (4-49) U/L Alkaline Phosphatase (38-126) U/L Troponin I (0.000-0.034) ng/mL Total Protein (6.3-8.2) g/dL Albumin (3.5-5.0) g/dL Urine Color Urine Appearance (Clear) Urine pH (5.0-8.0) Ur Specific [place] (1.001-1.035) Urine Protein (Negative) Urine Glucose (UA) (Negative) Urine Ketones (Negative) Urine Blood (Negative) Urine Nitrite (Negative) Urine Bilirubin (Negative) Urine Urobilinogen (<2.0) mg/dL Ur Leukocyte Esterase (Negative) Urine RBC (0-5) /hpf Urine WBC (0-5) /hpf Urine Mucus (None) /hpf Serum Alcohol mg/dL Acetone, Qual (Negative) 09/29/21 09/29/21 Range/Units 03:20 03:59 WBC (3.8-10.6) k/uL RBC (4.30-5.90) m/uL Hgb (13.0-17.5) gm/dL Hct (39.0-53.0) % MCV (80.0-100.0) fL MCH (25.0-35.0) pg MCHC (31.0-37.0) g/dL RDW (11.5-15.5) % Plt Count (150-450) k/uL MPV Neutrophils % (Manual) % Band Neuts % (Manual) % Lymphocytes % (Manual) % Monocytes % (Manual) % Neutrophils # (Manual) (1.3-7.7) k/uL Lymphocytes # (Manual) (1.0-4.8) k/uL Monocytes # (Manual) (0-1.0) k/uL Nucleated RBCs (0-0) /100 WBC Manual Slide Review Hypochromasia Sodium (137-145) mmol/L Potassium (3.5-5.1) mmol/L Chloride (98-107) mmol/L Carbon Dioxide (22-30) mmol/L Anion Gap mmol/L BUN (9-20) mg/dL Creatinine (0.66-1.25) mg/dL Est GFR (CKD-EPI)AfAm (>60 ml/min/1.73 sqM) Est GFR (CKD-EPI)NonAf (>60 ml/min/1.73 sqM) Glucose (74-99) mg/dL POC Glucose (mg/dL) (75-99) mg/dL POC Glu Risk Control Product Liability Director ID Lactic Ac Sepsis Rflx Y Plasma Lactic Acid Cristino (0.7-2.0) mmol/L Calcium (8.4-10.2) mg/dL Magnesium (1.6-2.3) mg/dL Total Bilirubin (0.2-1.3) mg/dL AST (17-59) U/L ALT (4-49) U/L Alkaline Phosphatase (38-126) U/L Troponin I (0.000-0.034) ng/mL Total Protein (6.3-8.2) g/dL Albumin (3.5-5.0) g/dL Urine Color Yellow Urine Appearance Clear (Clear) Urine pH 5.0 (5.0-8.0) Ur Specific [place] 1.032 (1.001-1.035) Urine Protein 1+ H (Negative) Urine Glucose (UA) 4+ H (Negative) Urine Ketones 1+ H (Negative) Urine Blood Negative (Negative) Urine Nitrite Negative (Negative) Urine Bilirubin Negative (Negative) Urine Urobilinogen <2.0 (<2.0) mg/dL Ur Leukocyte Esterase Negative (Negative) Urine RBC <1 (0-5) /hpf Urine WBC 1 (0-5) /hpf Urine Mucus Rare H (None) /hpf Serum Alcohol mg/dL Acetone, Qual (Negative) Disposition Clinical Impression: Altered mental status, Sepsis due to pneumonia, CAP (community acquired pneumonia), Hyperglycemia Disposition: ADMITTED IP TO THIS HOSP Condition: Stable
== END 2021-10-05 14:25 | disposition home health service (06) | DRG 871 ==
LOC: EC 22:48 → 4SSUR 09-29 05:23 → 3SCARD 09-29 07:35
PROVIDERS: ADMIT Internal Medicine; ATTEND Internal Medicine
PROC: 05HB33Z Insertion of Infusion Device into Right Basilic Vein, Percutaneous Approach (ICD-10-PCS; principal; 2021-10-05 14:40)
DX: A40.3 Sepsis due to Streptococcus pneumoniae (principal); J15.4 Pneumonia due to other streptococci; J96.01 Acute respiratory failure with hypoxia; G93.41 Metabolic encephalopathy; R65.20 Severe sepsis without septic shock; E87.2 Acidosis; E87.1 Hypo-osmolality and hyponatremia; E11.40 Type 2 diabetes mellitus with diabetic neuropathy, unspecified; E11.65 Type 2 diabetes mellitus with hyperglycemia; Z79.4 Long term (current) use of insulin; Z20.822 Contact with and (suspected) exposure to COVID-19; D75.839 Thrombocytosis, unspecified; E83.42 Hypomagnesemia; E78.5 Hyperlipidemia, unspecified; I10 Essential (primary) hypertension; K21.9 Gastro-esophageal reflux disease without esophagitis; M54.9 Dorsalgia, unspecified; F32.A Depression, unspecified; F41.9 Anxiety disorder, unspecified; K59.00 Constipation, unspecified; R39.15 Urgency of urination; Z91.19 Patient's noncompliance with other medical treatment and regimen; F17.200 Nicotine dependence, unspecified, uncomplicated; Z71.6 Tobacco abuse counseling; Z79.84 Long term (current) use of oral hypoglycemic drugs; Z79.899 Other long term (current) drug therapy; Z86.73 Personal history of transient ischemic attack (TIA), and cerebral infarction without residual deficits; Z86.14 Personal history of Methicillin resistant Staphylococcus aureus infection; Z87.81 Personal history of (healed) traumatic fracture; Z90.89 Acquired absence of other organs; Z86.16 Personal history of COVID-19; Z98.890 Other specified postprocedural states; Z82.49 Family history of ischemic heart disease and other diseases of the circulatory system; Z83.3 Family history of diabetes mellitus; Z80.8 Family history of malignant neoplasm of other organs or systems; Z81.1 Family history of alcohol abuse and dependence
CPT/HCPCS: 36410; 36415; 36600; 70450; 70551; 71045; 71046; 71275; 76937; 80048; 80053; 80320; 81001; 82009; 82805; 83605; 83735; 84145; 84484; 85025; 85027; 85379; 87040; 87077; 87186; 87635; 95819; 96365; 96366; 96372; 96375; 99285

== ENCOUNTER 2021-10-06 14:58 | Emergency (ER) | payer MEDICARE, OTHER ==
[2021-10-06 15:10] VITALS: RESP 20
--- NOTE | 2021-10-06 15:44 | ED ---
General Adult HPI - General Chief complaint: Recheck/Abnormal Lab/Rx Stated complaint: Altered Mental Status Time Seen by Provider: 10/06/21 15:17 Source: patient, EMS Limitations: no limitations - History of Present Illness Initial comments: Dictation was produced using [employer] dictation software. please excuse any grammatical, word or spelling errors. Chief Complaint: 61-year-old male presents to the emergency department from Dr. Mares's office for altered mental status and elevated blood sugar History of Present Illness: Patient is 61-year-old male who was just discharged from the hospital yesterday. He was admitted for one week. He is [facility] for pneumonia and metabolic encephalopathy secondary to pneumonia sepsis. Patient had extensive workup and treatment. He is invited by neurology, infectious disease, pulmonology and psychiatry. Diagnosed with metabolic encephalopathy. Patient allegedly was at his primary care's office w here he was evaluated for a follow-up appointment. According to patient the primary care doctor said that he appeared to be altered had elevated blood sugar was told to come to the emergency department. Patient is a reliable historian. He is supposedly been arguing with his about administering his IV medications. Nurse was able to get more history and allegedly patient's home health care nurse did not arrive today. Patient argued with his about administering his IV medications however patient's did not fill comfortable. cost manager contacted patient's ER nurse told her that patient's being transitioned to oral medications and to have the midline IV catheter removed. Patient denies any complaints at this time. The ROS documented in this emergency department record has been reviewed and confirmed by me. Those systems with pertinent positive or negative responses goode ve been documented in the HPI. All other systems are other negative and/or noncontributory. PHYSICAL EXAM: General Impression: Alert and oriented x4/4, not in acute distress HEENT: Normocephalic atraumatic, extra-ocular movements intact, pupils equal and reactive to light bilaterally, mucous membranes moist. Cardiovascular: Heart regular rate and rhythm Chest: Able to complete full sentences, no retractions, no tachypnea Abdomen: abdomen soft, non-tender, non-distended, no organomegaly Musculoskeletal: Pulses present and equal in all extremities, no peripheral edema Motor: no focal deficits noted Neurological: CN II-XII grossly intact, no focal motor or sensory deficits noted Skin: Intact with no visualized rashes Psych: Normal affect and mood ED course: 61-year-old male just discharged from the hospital for pneumonia with associated encephalopathy and sepsis presents to the emergency department for altered mental status. Patient at the bedside is alert and oriented 4. He has no neurologic issues. Vital signs upon arrival are within acceptable limits. Patient does not appear to be in any acute distress. Laboratory evaluation obtained. CBC, metabolic panel is unremarkable. Point of care blood sugars 229, metabolic panel blood sugar is 247. Blood sugars within an acceptable level. Patient reevaluated at 77:00 and found with stable medical condition. Is not altered by any means he answers appropriately and is behaving normally. Patient be discharged. EKG interpretation: Ventricular rate 84, sinus rhythm,. Interval 182, QRS 108, QTC 400. No SC prolongation, no QTC prolongation, no ST or T-wave changes noted. EKG compared to September 29 2021 showing no changes. Overall, this EKG is unremarkable - Related Data Home Medications Medication Instructions Recorded Confirmed metFORMIN HCL [Glucophage] 1,000 mg PO BID 05/25/15 10/06/21 Atorvastatin [Lipitor] 20 mg PO HS 05/18/19 10/06/21 hydroCHLOROthiazide [Hydrodiuril] 25 mg PO DAILY 05/18/19 10/06/21 Gabapentin 1,200 mg PO BID 08/26/21 10/06/21 INSULIN ASPART (NovoLOG) [NovoLOG 14 unit SQ [facility] 08/26/21 10/06/21 (formulary)] Insulin Glargine,Hum.rec.anlog 45 unit SQ HS 08/26/21 10/06/21 [Lantus Solostar Pen] DULoxetine HCL [Cymbalta] 30 mg PO DAILY 09/29/21 10/06/21 Gabapentin 600 mg PO DAILY@1200 09/29/21 10/06/21 Gemfibrozil [Lopid] 600 mg PO AC-BID 09/29/21 10/06/21 buPROPion XL [Wellbutrin XL] 150 mg PO DAILY 09/29/21 10/06/21 sitaGLIPtin [Januvia] 100 mg PO DAILY 09/29/21 10/06/21 Previous Rx's Medication Instructions Recorded ARIPiprazole [Abilify] 1 mg PO DAILY 30 Days #15 tab 10/05/21 Acetaminophen Tab [Tylenol] 650 mg PO Q6HR PRN tab 10/05/21 Aspirin 81 mg PO DAILY 10/05/21 Cefuroxime Axetil [Ceftin] 500 mg PO BID 12 Days #24 tab 10/06/21 Allergies Allergy/AdvReac Type Severity Reaction Status Date / Time No Known Allergies Allergy Verified 10/06/21 16:28 Review of Systems ROS Statement: Those systems with pertinent positive or pertinent negative responses have been documented in the HPI. ROS Other: All systems not noted in ROS Statement are negative. Past Medical History Past Medical History: CVA/TIA, Diabetes Mellitus, GERD/Reflux, Hypertension Additional Past Medical History / Comment(s): BACK PAIN, CONSTIPATION, NUMBNESS IN FEET, URGENCY TO URINATE, BURPS FREQUENTLY AND STOMACH CRUZ., COUGHED UP BLOOD X2. History of Any Multi-Drug Resistant Organisms: MRSA Date of last positivie culture/infection: unknown MDRO Source:: unknown Past Surgical History: Tonsillectomy Additional Past Surgical History / Comment(s): PLATE IN FEMUR AND ANKLE PINS , SURGERY FOR SNORING Past Anesthesia/Blood Transfusion Reactions: No Reported Reaction Additional Past Anesthesia/Blood Transfusion Reaction / Comment(s): Clausterphobia Past Psychological History: Anxiety, Depression Smoking Status: Current every day smoker Past Alcohol Use History: None Reported Past Drug Use History: None Reported - Past Family History Mother Family Medical History: Coronary Artery Disease (CAD), Diabetes Mellitus Father History Unknown: Yes Additional Family Medical History / Comment(s): Alcoholism Sister(s) Family Medical History: Cancer Additional Family Medical History / Comment(s): MELANOMA General Exam Limitations: no limitations Course Vital Signs 10/06/21 15:07 Temperature 97.5 F L Pulse Rate 79 Respiratory 20 Rate Blood Pressure 162/76 O2 Sat by Pulse 93 L Oximetry Medical Decision Making - Lab Data Result diagrams: 10/06/21 16:19 10/06/21 16:19 Lab Results 10/06/21 10/06/21 10/06/21 Range/Units 15:44 16:19 16:19 WBC 10.4 (3.8-10.6) k/uL RBC 5.28 (4.30-5.90) m/uL Hgb 14.7 (13.0-17.5) gm/dL Hct 45.0 (39.0-53.0) % MCV 85.1 (80.0-100.0) fL MCH 27.7 (25.0-35.0) pg MCHC 32.6 (31.0-37.0) g/dL RDW 14.2 (11.5-15.5) % Plt Count 584 H (150-450) k/uL MPV 6.4 Neutrophils % 61 % Lymphocytes % 27 % Monocytes % 5 % Eosinophils % 4 % Basophils % 1 % Neutrophils # 6.4 (1.3-7.7) k/uL Lymphocytes # 2.8 (1.0-4.8) k/uL Monocytes # 0.6 (0-1.0) k/uL Eosinophils # 0.4 (0-0.7) k/uL Basophils # 0.1 (0-0.2) k/uL Sodium 134 L (137-145) mmol/L Potassium 4.6 (3.5-5.1) mmol/L Chloride 96 L (98-107) mmol/L Carbon Dioxide 28 (22-30) mmol/L Anion Gap 10 mmol/L BUN 16 (9-20) mg/dL Creatinine 0.48 L (0.66-1.25) mg/dL Est GFR (CKD-EPI)AfAm >90 (>60 ml/min/1.73 sqM) Est GFR (CKD-EPI)NonAf >90 (>60 ml/min/1.73 sqM) Glucose 247 H (74-99) mg/dL POC Glucose (mg/dL) 229 H (75-99) mg/dL POC Glu [employer] Tutor ID Crystal Arguelles Calcium 9.7 (8.4-10.2) mg/dL Disposition Clinical Impression: Altered mental status Disposition: HOME SELF-CARE Condition: Good Instructions (If sedation given, give patient instructions): Diabetic Hyperglycemia (ED) Is patient prescribed a controlled substance at d/c from ED?: No Referrals: Shannan Bowman MD [Primary Care Provider] - 1-2 days
[2021-10-06 15:46] LABS: Glucose,Whole Blood 229 mg/dL (75-99)
[2021-10-06 16:27] LABS: Basophils # (A) 0.1 k/uL (0-0.2); Basophils % (A) 1 %; Eosinophils # (A) 0.4 k/uL (0-0.7); Eosinophils % (A) 4 %; HGB 14.7 gm/dL (13.0-17.5); Lymphocytes # (A) 2.8 k/uL (1.0-4.8); Lymphocytes % (A) 27 %; MCH 27.7 pg (25.0-35.0); MCHC 32.6 g/dL (31.0-37.0); MCV 85.1 fL (80.0-100.0); Mean Platelet Volume 6.4; Monocytes # (A) 0.6 k/uL (0-1.0); Monocytes % (A) 5 %; Neutrophils # (A) 6.4 k/uL (1.3-7.7); Neutrophils % (A) 61 %; Platelet Count 584 k/uL (150-450); RBC 5.28 m/uL (4.30-5.90); RDW 14.2 % (11.5-15.5); WBC 10.4 k/uL (3.8-10.6)
[2021-10-06 16:48] LABS: African American GFR (CKD) >90 (>60 ml/min/1.73 sqM); Anion Gap 10 mmol/L; Blood Urea Nitrogen 16 mg/dL (9-20); Calcium 9.7 mg/dL (8.4-10.2); Carbon Dioxide 28 mmol/L (22-30); Chloride 96 mmol/L (98-107); Glucose 247 mg/dL (74-99); Non-African American GFR(CKD) >90 (>60 ml/min/1.73 sqM); Potassium 4.6 mmol/L (3.5-5.1); Sodium 134 mmol/L (137-145)
[2021-10-06 17:29] VITALS: BP 102/72; PULSE 90; TEMP 98.1
== END 2021-10-06 17:29 | disposition home or self-care (01) ==
LOC: EC 14:58
DX: R41.82 Altered mental status, unspecified (principal); E11.9 Type 2 diabetes mellitus without complications; I10 Essential (primary) hypertension; K21.9 Gastro-esophageal reflux disease without esophagitis; F32.A Depression, unspecified; F41.9 Anxiety disorder, unspecified; F17.200 Nicotine dependence, unspecified, uncomplicated; Z79.4 Long term (current) use of insulin; Z79.84 Long term (current) use of oral hypoglycemic drugs; Z79.82 Long term (current) use of aspirin; Z79.899 Other long term (current) drug therapy
CPT/HCPCS: 36415; 80048; 85025; 93005; 99285

== ENCOUNTER → 2022-12-14 | Outpatient (CLI) | payer OTHER ==
--- NOTE | 2022-12-14 14:28 | CTL ---
EXAMINATION TYPE: CT Low Dose Lung DATE OF EXAM ORDERED: 12/14/2022 HISTORY: . Lung cancer screening CT DLP: 98.[address] CTDI: 2.6 mGy Automated exposure control for dose reduction was used. SCREENING VISIT: COMPARISON: 09/30/2021 TECHNIQUE: Low dose computed tomography scan was performed through the chest at 1 mm thick sections a nd reconstructed images in multiple planes at 1 mm and [address] DIAGNOSTIC QUALITY: Satisfactory FINDINGS: There is a 2 mm nodule right upper lobe on axial image 164. There is a left lower lobe pulmonary nodu le on axial image 185. 5 mm. There is diffuse emphysematous changes with [id number] centrilobular emphysema. There is no ple ural effusion, pneumothorax, or focal pneumonia. No overt failure. Atherosclerotic change of aorta which is caliber. Heart size normal. There is dense coronary artery c alcification. The structures the upper abdomen limited by artifact. There is hypertrophic and degenerative changes of the spine. There is a pretracheal lymph node measuring short axis of 1.3 cm. IMPRESSION: 1. Mild COPD with sub-5 mm pulmonary nodules too small to characterize but likely benign. 2. Nonspecific mediastinal lymphadenopathy as measured above. 3. Dense coronary artery calcification. CT LUNG RAD AND CT CHEST RECOMMENDATION: Lung-Rad 2 Benign Appearance or Behavior: Continue annual sc reening with LDCT in 12 months.
== END | disposition home or self-care (01) ==
LOC: RADCTMAIN 13:26
PROVIDERS: ATTEND Emergency Medicine
DX: Z12.2 Encounter for screening for malignant neoplasm of respiratory organs (principal); I25.10 Atherosclerotic heart disease of native coronary artery without angina pectoris; J43.2 Centrilobular emphysema; F17.210 Nicotine dependence, cigarettes, uncomplicated; R91.8 Other nonspecific abnormal finding of lung field
CPT/HCPCS: 71271

== ENCOUNTER → 2023-06-07 | Outpatient (CLI) | payer OTHER ==
--- NOTE | 2023-06-07 10:37 | US ---
EXAMINATION TYPE: US Aorta Screening DATE OF EXAM: 06/07/2023 COMPARISON: NONE CLINICAL INDICATION: Male, 63 years old with history of Z13.6 SCREENING FOR CARDIOVASCULAR DISORDERS; Screening for AAA TECHNIQUE: Multiple sonographic images of the abdominal aorta are obtained. FINDINGS: EXAM MEASUREMENTS: Abdominal Aorta: Proximal: 2.6x2.6cm Mid: 2.2x2.1cm Distal: 1.9x1.9cm Bifurcation: Not visualized due to body habitus and extensive bowel gas CORPORATE MANAGER NOTES: exam limited by bowel and body habitus IMPRESSION: 1. Screening abdominal aorta ultrasound negative for aneurysm.
== END | disposition home or self-care (01) ==
LOC: RADUSWWP 09:23
PROVIDERS: ATTEND Emergency Medicine
DX: Z13.6 Encounter for screening for cardiovascular disorders (principal)
CPT/HCPCS: 76706

== ENCOUNTER 2023-12-14 06:04 | Day surgery (SDC) | payer OTHER ==
[~2023-12-14 06:04] MED LIST: ALPRAZolam 0.25 MG TAB PO PRN; ALPRAZolam 0.5 MG TAB PO PRN; ASPIRIN 325 MG TAB PO STA; NITROGLYCERIN SL TABS 0.4 MG TAB SUBLINGUAL PRN; SODIUM CHLORIDE 0.9% 1,000 ML in EMPTY BAG 1 BAG IV SCH
[2023-12-14] MEDS: SODIUM CHLORIDE 0.9% 1,000 ML IV ONE (06:37)
[2023-12-14] MEDS: ASPIRIN 81 MG ONE (06:44)
[2023-12-14 06:54] LABS: Glucose,Whole Blood 180 mg/dL (70-110)
[2023-12-14 07:07] VITALS: RESP 16; TEMP 97.4
[2023-12-14] MEDS ORDERED: LIDOCAINE 1% INJ 10MG/ML (20 ML MDV) ONE (07:13)
[2023-12-14] MEDS ORDERED: VERAPAMIL 2.5 MG/ML 2 ML AMP ONE (07:13)
[2023-12-14] MEDS ORDERED: fentaNYL (PF) 50 MCG/ML 2 ML AMP ONE (07:13)
[2023-12-14] MEDS ORDERED: HEPARIN SODIUM 1,000 UN/ML (10ML VL) ONE (07:13)
[2023-12-14] MEDS: MIDAZOLAM 2 MG/2 ML VIAL IVP ONE ×2 (07:27→07:41)
[2023-12-14] MEDS: fentaNYL (PF) 50 MCG/1 ML VIAL IVP ONE (07:41)
[2023-12-14] MEDS: LIDOCAINE 1% INJ 10MG/ML (20 ML MDV) SQ ONE (07:41)
[2023-12-14] MEDS: HEPARIN SODIUM 1,000 UN/ML (10ML VL) IVP ONE (08:10)
[2023-12-14] MEDS: NITROGLYCERIN 1000MCG/10ML SYRINGE INTRACORON ONE (08:32)
[2023-12-14] MEDS ORDERED: RX INFO: IV CONTRAST WAS GIVEN 1 EACH MISC MISCELLANE PRN (08:48)
[2023-12-14] MEDS: IOPAMIDOL-370 100ML BTL INTRATHECA ONE (08:48)
--- NOTE | 2023-12-14 08:48 | CC ---
CARDIAC CATHETERIZATION REPORT INDICATIONS: Abnormal stress test. HISTORY: This is a 63-year-old gentleman who was found to have coronary artery disease on a CT scan, underwent a stress test that showed ischemia involving inferior wall due to which he was advised to undergo cardiac catheterization. He was explained of risks, benefits, and alternatives, understood and accepted. PROCEDURE NOTE: After obtaining informed consent, left heart catheterization and coronary angiogram were performed via the right femoral artery using standard Selvin catheters. The patient tolerated the procedure well without any obvious immediate complications. I initially attempted right radial catheterization, was not able to obtain access, hence proceeded with the femoral catheterization and completed it uneventfully. The patient received moderate conscious sedation. Total sedation time was 24 minutes. FINDINGS: 1. Hemodynamics: Left ventricular end-diastolic pressure is 12 to 14 mm, there is no significant gradient across the aortic valve. 2. Left Ventriculogram: Left ventriculogram is not performed. 3. Angiographic Data: a.Left Main Coronary Artery: Left main coronary artery appears calcified but is free of significant stenosis, divides into left anterior descending coronary artery and circumflex coronary artery. LAD shows [id number] atherosclerotic plaque involving both proximal and midportion. Circumflex coronary artery shows mild nonobstructive disease. Right coronary artery is a large dominant vessel, has 2 areas of stenosis, 1 in the proximal and 1 in the mid to distal area. The proximal stenosis seems to be a 70% stenosis. The distal stenosis is 60% to 70% stenosis. CONCLUSIONS: Significant 1-vessel coronary artery disease as described above with [id number] nonobstructive disease involving LAD and circumflex coronary artery. PLAN: I reviewed angiographic data with Dr. Lux, the on-call structures engineer who will perform an IFR of the right coronary artery. If the lesion is hemodynamically significant, he will proceed with intervention; if not will treat him with optimal and aggressive medical therapy. MMODL / IJN: [id number] /
--- NOTE | 2023-12-14 08:54 | P.CARDCATH ---
Date of Procedure: 12/14/23 Description of Procedure: PERCUTANEOUS TRANSLUMINAL CORONARY ANGIOPLASTY CLINICAL INFORMATION: The patient is a 63-year-old male with a history of hypertension, hyperlipidemia and diabetes who had evidence of coronary artery calcifications and abnormal MPI. He underwent cardiac catheterization by Dr. Good and revealed moderate to severe sequential RCA lesions. Recommendations were made regarding IFR measurement and if needed angioplasty and stenting. The procedure as well as the risks and the complications were discussed with the patient who was in full understanding and agreement. PROCEDURE: A 6 German FR 4 guiding catheter was introduced into the system. After cannulating the right coronary ostium, a an Omni Doppler flow wire was advanced across the lesion and positioned distally. iFR was measured in the mid and distal segment as well is a pullback IFR was performed and was averaging between 0.93 and 0.94. At that point, the guiding catheter, and guidewire were removed. The sheath was removed. Hemostasis was obtained with deployment of an Angio-Seal. There were no immediate complications. The patient was returned to the room in stable condition. Of note, the patient received 5000 units of heparin . There was no immediate complications. RESULTS: Non hemodynamically significant tandem RCA lesion with IFR between 0.93-0.94 RECOMMENDATIONS: The patient will continue on aggressive coronary risks modifications with close follow-up with Dr. Good. the findings and nery mmendations were discussed with the patient and the family, they are in full understanding and agreement. Duration of sedation: 21 minutes
[2023-12-14] MEDS ORDERED: DAPAGLIFLOZIN PROPANEDIOL 5 MG TABLET PO SCH (09:00)
[2023-12-14] MEDS ORDERED: SODIUM CHLORIDE 0.9% 1,000 ML IV SCH (09:00)
[2023-12-14] MEDS ORDERED: ARIPiprazole 2 MG TAB PO SCH (09:00)
[2023-12-14] MEDS ORDERED: METOPROLOL SUCCINATE (ER) 25 MG TAB.ER.24H PO SCH (09:00)
[2023-12-14] MEDS ORDERED: NON FORMULARY DRUG (Gabapentin [Gabapentin] 600 MG Tablet) PO SCH ×2 (09:00→12:00)
[2023-12-14] MEDS ORDERED: DULoxetine HCL 30 MG CAPSULE.DR PO SCH (09:00)
[2023-12-14 18:34] VITALS: BP 145/67; PULSE 80
[2023-12-14] MEDS ORDERED: ATORVASTATIN 20 MG TAB PO SCH (21:00)
[2023-12-20] MEDS ORDERED: NON FORMULARY DRUG (Tirzepatide [Mounjaro] 2.5 MG/0.5 ML Pen.Injctr) INJ SCH (08:49)
== END 2023-12-14 14:03 | disposition home or self-care (01) ==
LOC: CATHCVL 06:04
PROVIDERS: ATTEND Internal Medicine Cardiovascular Disease
DX: I25.10 Atherosclerotic heart disease of native coronary artery without angina pectoris (principal); I10 Essential (primary) hypertension; E78.5 Hyperlipidemia, unspecified; E11.9 Type 2 diabetes mellitus without complications; F17.210 Nicotine dependence, cigarettes, uncomplicated; Z86.73 Personal history of transient ischemic attack (TIA), and cerebral infarction without residual deficits; Z79.4 Long term (current) use of insulin; Z79.899 Other long term (current) drug therapy; Z79.82 Long term (current) use of aspirin
CPT/HCPCS: 93458; 93799; 99152; C1769 ×4; C1760; C1887; C1894 ×2; J2250; J2001; J1644; Q9967; J3010; J2305

== ENCOUNTER → 2024-02-12 | Outpatient (CLI) | payer OTHER ==
--- NOTE | 2024-02-12 15:17 | XR ---
EXAMINATION TYPE: XR Hip Complete LT DATE OF EXAM: 02/12/2024 2:52 PM CLINICAL INDICATION:Male, 64 years old with history of L08.9 LOCAL INFECTION OF SKIN SUBCUTENOUS TISS UE; PHH COMPARISON: None. TECHNIQUE: XR Hip Complete LT; hip was examined in the frontal and lateral projections and a AP pelvi s. FINDINGS: No evidence for acute process, joint dislocation or significant soft tissue swelling. Osteo phyte formation of the superior acetabulum of the hip. There is mild joint space narrowing. IMPRESSION: 1. No evidence for acute process. 2. Mild to moderate hip osteoarthrosis.
== END | disposition home or self-care (01) ==
LOC: RADXRMAIN 14:29
PROVIDERS: ATTEND Internal Medicine Hospice and Palliative Medicine
DX: L08.9 Local infection of the skin and subcutaneous tissue, unspecified (principal); M16.12 Unilateral primary osteoarthritis, left hip
CPT/HCPCS: 73502

== ENCOUNTER → 2024-05-15 | Outpatient (CLI) | payer OTHER ==
--- NOTE | 2024-05-15 13:29 | CTL ---
EXAMINATION TYPE: CT Low Dose Lung DATE OF EXAM ORDERED: 05/15/2024 HISTORY: History of tobacco use, 40 pack-year history, current smoker. Lung cancer screening CT DLP: 154.[address] CTDI: 4.1 mGy Automated exposure control for dose reduction was used. SCREENING VISIT: Second screening visit COMPARISON: CT low-dose lung 12/14/2022, CTA chest 09/30/2021 TECHNIQUE: Low dose computed tomography scan was performed through the chest at 1 mm thick sections a nd reconstructed images in multiple planes at 1 mm and [address] DIAGNOSTIC QUALITY: Satisfactory FINDINGS: Nodules: Stable lateral left upper lobe 4.5 mm solid pulmonary nodule (series 6, image 23). New left midlung lateral 3.7 mm solid pulmonary nodule (series 6, image 38). Increased size of lingular 11 mm solid pulmonary nodule (series 6, image 41), previously 7 mm. Stable 5 mm solid pulmonary nodule in the lingula (series 6, image 41). Stable left lower lobe 4 mm solid pulmonary nodule (series 6, image 44). LUNGS: COPD: Severity: Mild Fibrosis: Severity: None Lymph nodes: Stable enlarged pretracheal lymph node measuring up to 1.1 cm. No new enlarged lymph nod es. Other findings: None RIGHT PLEURAL SPACE: Effusion: None Calcification: None Thickening: None Pneumothorax: None LEFT PLEURAL SPACE: Effusion: None Calcification: None Thickening: None Pneumothorax: None HEART: Heart Size: Normal Coronary Calcification: Moderate Pericardial Effusion: None OTHER FINDINGS: Upper abdomen: None Bony thorax: Hypertrophic and degenerative changes of the spine. Supraclavicular region: None Other: Mild atherosclerotic change of the aorta. IMPRESSION: Enlarging lingular 11 mm pulmonary nodule with new left midlung 3.7 mm pulmonary nodule. Remaining pu lmonary nodules are stable. CT LUNG RAD AND CT CHEST RECOMMENDATION: Lung-Rad 4B or 4X Very Suspicious: Follow-up Chest CT with o r without contrast or PET/CT and/or tissue sampling. PET/CT may be used when there is a > 8 mm solid component. S Modifier (other clinically significant findings): None [facility], , 05/15/2024 1:27 PM
== END | disposition home or self-care (01) ==
LOC: RADCTMAIN 12:04
PROVIDERS: ATTEND Internal Medicine Hospice and Palliative Medicine
DX: Z12.2 Encounter for screening for malignant neoplasm of respiratory organs (principal); J43.2 Centrilobular emphysema; R91.8 Other nonspecific abnormal finding of lung field; F17.210 Nicotine dependence, cigarettes, uncomplicated
CPT/HCPCS: 71271

== ENCOUNTER → 2024-07-17 | Outpatient (CLI) | payer OTHER ==
--- NOTE | 2024-07-17 14:33 | XR ---
EXAMINATION TYPE: XR thoracic spine 2V DATE OF EXAM: 07/17/2024 12:48 PM COMPARISON: None. CLINICAL INDICATION: Male, 64 years old with history of UNSPEC FALL, pain mid back x2 days TECHNIQUE: 3 view(s) obtained. FINDINGS: There are 12 thoracic type vertebral bodies. The T12 thoracic vertebral level is incompletely visuali zed. Diffuse disc space narrowing is present. Spondylosis is present. Vertebral body heights are pres erved. Alignment is preserved. IMPRESSION: 1. No acute osseous abnormality thoracic spine [facility], Workstation: [facility], 07/17/2024 2:31 PM
--- NOTE | 2024-07-17 14:35 | XR ---
EXAMINATION TYPE: XR lumbar spine 2 or 3V DATE OF EXAM: 07/17/2024 12:48 PM COMPARISON: None. CLINICAL INDICATION: Male, 64 years old with history of UNSPEC FALL, pain in lower back after fall x2 days TECHNIQUE: 3 view(s) obtained. FINDINGS: There are 5 lumbar-type vertebral bodies. Pedicles are intact. Vacuum disc phenomenon and disc space narrowing is present L2-3 through L5-S1. Vertebral body alignment is preserved. Vertebral body height s are preserved. Mild space narrowing at T12-L1 and L1-2 is present. Spondylosis is present. No spond ylolisthesis is identified. IMPRESSION: 1. Degenerative disc changes within the lumbar spine. 2. No acute osseous abnormality radiographically apparent. [facility], Workstation: [facility], 07/17/2024 2:33 PM
--- NOTE | 2024-07-17 14:38 | XR ---
EXAMINATION TYPE: XR cervical spine comp DATE OF EXAM: 07/17/2024 12:48 PM COMPARISON: None. CLINICAL INDICATION: Male, 64 years old with history of UNSPEC FALL, pain in neck after fall 2 days a go TECHNIQUE: 3 view(s) obtained. FINDINGS: Facet degenerative changes are present. Odontoid is visualized and appears normal. Note is made of ca rotid artery region calcifications. C5-6 and lower levels are not able to be visualized despite multiple attempts. This however appeared normal on the swimmer's view from the thoracic spine. The vertebral bodies visualized preserved heigh t. Posterior spinal lamellar line is normal. Prevertebral space is normal. IMPRESSION: 1. Limited lower cervical spine. 2. No acute cervical spine abnormality radiographically apparent. 3. Carotid vessel calcifications. Ultrasound can be performed as clinically indicated. [facility], Workstation: [facility], 07/17/2024 2:36 PM
== END | disposition home or self-care (01) ==
LOC: RADXRMAIN 12:13
PROVIDERS: ATTEND Family Medicine
DX: M47.816 Spondylosis without myelopathy or radiculopathy, lumbar region (principal); M51.369 Other intervertebral disc degeneration, lumbar region without mention of lumbar back pain or lower extremity pain; W19.XXXA Unspecified fall, initial encounter
CPT/HCPCS: 72050; 72070; 72100

== ENCOUNTER → 2024-07-26 | Outpatient (CLI) | payer OTHER ==
--- NOTE | 2024-07-26 17:49 | PE ---
EXAMINATION TYPE: PET CT fusion skull to thigh DATE OF EXAM: 07/26/2024 CLINICAL INDICATION:Male, 64 years old with history of R91.8 LUNG NODULE; TECHNIQUE: Following the intravenous administration of 10.4 mCi of F-18 FDG, whole body images are performed from the skull base to the midthigh. Images are reviewed on the computer in the coronal, a xial, and sagittal planes. Reconstructed rotating images are created on independent workstation and reviewed on the computer. A non-contrast CT is performed in conjunction with the PET scan. Glucose level 162 mg/dL CT DLP: 10.4 mGycm, Automated exposure control for dose reduction was used. COMPARISON: CT 05/15/2024, 12/14/2022, 09/30/2021, PET/CT None, MRI: None FINDINGS: Mediastinal SUV mean is 1.8. Hepatic parenchyma SUV mean is 2.0. SKULL BASE AND NECK: No suspicious radiotracer activity. CHEST, MEDIASTINUM, AND HILAR REGION: Lingular peripheral 1.2 cm solid pulmonary nodule with a maximum SUV of 1.4. Left upper lobe 3.8 mm pulmonary nodule without significant FDG activity. ABDOMEN AND PELVIS: No suspicious radiotracer activity. Physiologic uptake within the bowel. MUSCULOSKELETAL STRUCTURES: No suspicious radiotracer activity. OTHER CT: Bilateral carotid bulb calcifications. Coronary artery calcifications. Atherosclerotic calc ifications aorta and its branches. Multilevel degenerative disc disease. Mild centrilobular and lat[place] eptal emphysematous changes. IMPRESSION: Lingular 1.2 cm pulmonary nodule with FDG activity below background. Additional left upper lobe subce ntimeter pulmonary nodule without significant FDG activity. No other suspicious radiotracer activity. Developing slow-growing pulmonary neoplasm is not excluded. Follow-up CT chest in 3-6 months is nery mmended to assess for stability. [facility], , 07/26/2024 5:46 PM
== END | disposition home or self-care (01) ==
LOC: RADPETMAIN 12:31
PROVIDERS: ATTEND Internal Medicine Hospice and Palliative Medicine
DX: R91.8 Other nonspecific abnormal finding of lung field (principal); R91.1 Solitary pulmonary nodule
CPT/HCPCS: 78815; A9552

== ENCOUNTER → 2024-10-30 | Outpatient (CLI) | payer OTHER ==
--- NOTE | 2024-10-30 11:43 | CT ---
EXAMINATION TYPE: CT chest wo con DATE OF EXAM: 10/30/2024 COMPARISON: 05/15/2024 CLINICAL INDICATION: Male, 64 years old with history of R91.1 Solitary pulmonary nodule; PHH, Solitar y pulmonary nodule. TECHNIQUE: CT scan of the thorax is performed without IV contrast. CT DLP: 560.[address] CTDI: mGy Automated exposure control for dose reduction was used. FINDINGS: LUNGS: Left upper lobe pulmonary nodule described previously measuring 4 mm is barely perceptible micaela suring 16 mm currently. Additional slightly irregular nodule within the lingula is unchanged at 1.2 c m versus 1.2 cm. Slow growing neoplasm is not excluded and continued six-month follow-up is advised. 6 mm right lower lobe groundglass nodule is noted and likely reflects scarring. No additional nodules are appreciated. No evidence for atelectasis or volume loss. No airspace consolidation appreciated. MEDIASTINUM: Lack of IV contrast is noted to limit evaluation for mediastinal and especially hilar ad enopathy. There are no definitive greater than 1 cm hilar or mediastinal lymph nodes. No cardiomega ly or pericardial effusion is seen. HEART: Size within normal limits. No significant coronary artery calcifications. OTHER: No additional significant abnormality is seen. IMPRESSION: 1. Pulmonary nodules as discussed above for which continued six-month follow-up is advised. Follow-up recommendations for incidental pulmonary nodules are per [employer] or [employer]. [facility], , 10/30/2024 11:40 AM
== END | disposition home or self-care (01) ==
LOC: RADCTMAIN 10:55
PROVIDERS: ATTEND Internal Medicine Hospice and Palliative Medicine
DX: R91.8 Other nonspecific abnormal finding of lung field (principal)
CPT/HCPCS: 71250

== ENCOUNTER 2025-01-26 14:03 | Inpatient (IN) | payer OTHER, MEDICAID ==
[2025-01-26 14:28] LABS: Glucose,Whole Blood 201 mg/dL (70-110)
[2025-01-26] MEDS: SODIUM CHLORIDE 0.9% 1,000 ML IV ONE (14:55)
[2025-01-26 15:05] LABS: Basophils # (A) 0.08 10*3/uL (0.00-0.10); Basophils % (A) 0.8 %; Eosinophils # (A) 0.18 10*3/uL (0.04-0.35); Eosinophils % (A) 1.9 %; HCT 54.6 % (39.6-50.0); HGB 18.2 g/dL (13.0-17.0); Lymphocytes # (A) 2.19 10*3/uL (0.90-5.00); MCH 28.1 pg (27.0-32.0); MCHC 33.3 g/dL (32.0-37.0); MCV 84.4 fL (80.0-97.0); Mean Platelet Volume 8.8 fL (9.5-12.2); Monocytes # (A) 0.72 10*3/uL (0.20-1.00); Monocytes % (A) 7.6 %; Neutrophils # (A) 6.32 10*3/uL (1.80-7.70); Neutrophils % (A) 66.4 %; Platelet Count 309 10*3/uL (140-440); RBC 6.47 10*6/uL (4.40-5.60); RDW 14.4 % (11.5-14.5); WBC 9.52 10*3/uL (4.50-10.00)
--- NOTE | 2025-01-26 15:15 | ED ---
Psych HPI - General Source: patient, EMS, RN notes reviewed, old records reviewed Mode of arrival: ambulatory Limitations: no limitations - History of Present Illness MD Complaint: feels depressed -: days(s) Associated Psychiatric Symptoms: depression History of same: Yes Quality: constant, changing over time, getting worse Improves With: none Context: significant life stressor Associated Symptoms: denies other symptoms <Reyes Chery - Last Filed: 01/26/25 19:32> - General Source: patient, EMS Mode of arrival: EMS <Kristy Hendricks - Last Filed: 01/28/25 22:31> - General Chief Complaint: Psychiatric Symptoms Stated Complaint: Mental Health Time Seen by Provider: 01/26/25 14:10 - History of Present Illness Initial Comments: 65 male to ER for evaluation of severe depression (Reyes Chery) 65-year-old male with past medical history of COPD, coronary artery disease, diabetes who presents to the emergency department for altered mental status. at bedside states that the patient has not been eating or drinking for the past 5 days. He has not got out of bed. Patient admits he has not been taking his medications. states that this happened previously when they got behind on their bills. They recently found out that they are going to be losing their home and patient went into this current depressive state. Patient denies suicidal or homicidal ideations but does state that he wants to fall asleep and not wake up. Patient denies drug or alcohol use (Kristy Hendricks) - Related Data Home Medications Medication Instructions Recorded Confirmed Gabapentin 600 mg PO QID 08/26/21 01/26/25 DULoxetine HCL [Cymbalta] 60 mg PO DAILY 09/29/21 01/26/25 ARIPiprazole [Abilify] 2 mg PO HS 12/13/23 01/26/25 Metoprolol Succinate (ER) [Toprol 25 mg PO DAILY 12/13/23 01/26/25 Xl] Tamsulosin HCl [Flomax] 0.4 mg PO DAILY 01/23/25 01/26/25 Ammonium Lactate [Amlactin] 1 applic TOPICAL DAILY 01/26/25 01/26/25 Atorvastatin [Lipitor] 40 mg PO DAILY 01/26/25 01/26/25 DULoxetine HCL [Cymbalta] 30 mg PO HS 01/26/25 01/26/25 Dapagliflozin Propanediol [Farxiga] 10 mg PO DAILY 01/26/25 01/26/25 Sildenafil Citrate [Viagra] 100 mg PO DAILY PRN 01/26/25 01/26/25 Tirzepatide [Mounjaro] 10 mg SQ Q7D 01/26/25 01/26/25 lisinopriL [Zestril] 2.5 mg PO DAILY 01/26/25 01/26/25 oxyBUTYnin chloride [oxyBUTYnin 5 mg PO DAILY 01/26/25 01/26/25 chloride ER] polyethylene glycoL 3350 [Miralax] 17 gm PO DAILY 01/26/25 01/26/25 Allergies Allergy/AdvReac Type Severity Reaction Status Date / Time No Known Allergies Allergy Verified 01/26/25 19:48 Review of Systems ROS Other: All systems not noted in ROS Statement are negative. <Reyes Chery - Last Filed: 01/26/25 19:32> ROS Other: All systems not noted in ROS Statement are negative. <Kristy Hendricks - Last Filed: 01/28/25 22:31> ROS Statement: Those systems with pertinent positive or pertinent negative responses have been documented in the HPI. Past Medical History Past Medical History: Coronary Artery Disease (CAD), COPD, CVA/TIA, Diabetes Mellitus, GERD/Reflux, Hypertension, Memory Impairment, Sleep Apnea/CPAP/BIPAP Additional Past Medical History / Comment(s): BACK PAIN, CONSTIPATION, NUMBNESS IN FEET, URGENCY TO URINATE, BURPS FREQUENTLY AND STOMACH CRUZ., COUGHED UP BLOOD X2-no longer any problem,no cpap,CVA 2021 approx-no residual History of Any Multi-Drug Resistant Organisms: MRSA Date of last positivie culture/infection: few yrs ago MDRO Source:: leg Past Surgical History: Tonsillectomy Additional Past Surgical History / Comment(s): PLATE IN rt FEMUR AND rt ANKLE PINS , SURGERY FOR SNORING Past Anesthesia/Blood Transfusion Reactions: No Reported Reaction Additional Past Anesthesia/Blood Transfusion Reaction / Comment(s): Claustrophobia Past Psychological History: Anxiety, Depression Smoking Status: Light tobacco smoker Past Alcohol Use History: None Reported Past Drug Use History: None Reported - Past Family History Mother Family Medical History: Coronary Artery Disease (CAD), Diabetes Mellitus Father History Unknown: Yes Additional Family Medical History / Comment(s): Alcoholism Sister(s) Family Medical History: Cancer Additional Family Medical History / Comment(s): MELANOMA <Kristy Hendricks A - Last Filed: 01/28/25 22:31> General Exam General appearance: alert, in no apparent distress Head exam: Present: atraumatic, normocephalic, normal inspection Eye exam: Present: normal appearance, PERRL, EOMI. Absent: scleral icterus, conjunctival injection, periorbital swelling ENT exam: Present: normal exam, mucous membranes moist Neck exam: Present: normal inspection. Absent: tenderness, meningismus, lymphadenopathy Respiratory exam: Present: normal lung sounds bilaterally. Absent: respiratory distress, wheezes, rales, rhonchi, stridor Cardiovascular Exam: Present: regular rate, normal rhythm, normal heart sounds. Absent: systolic murmur, diastolic murmur, rubs, gallop, clicks GI/Abdominal exam: Present: soft, normal bowel sounds. Absent: distended, tenderness, guarding, rebound, rigid Extremities exam: Present: normal inspection, full ROM, normal capillary refill. Absent: tenderness, pedal edema, joint swelling, calf tenderness Back exam: Present: normal inspection Neurological exam: Present: alert, oriented X3, CN II-XII intact Psychiatric exam: Present: normal affect, normal mood Skin exam: Present: warm, dry, intact, normal color. Absent: rash <Reyes Chery B - Last Filed: 01/26/25 19:32> General appearance: alert, in no apparent distress Head exam: Present: atraumatic, normocephalic, normal inspection Eye exam: Present: normal appearance, PERRL, EOMI. Absent: scleral icterus, conjunctival injection, periorbital swelling ENT exam: Present: normal exam, mucous membranes moist Neck exam: Present: normal inspection. Absent: tenderness, meningismus, lymphadenopathy Respiratory exam: Present: normal lung sounds bilaterally. Absent: respiratory distress, wheezes, rales, rhonchi, stridor Cardiovascular Exam: Present: regular rate, normal rhythm, normal heart sounds. Absent: systolic murmur, diastolic murmur, rubs, gallop, clicks GI/Abdominal exam: Present: soft, normal bowel sounds. Absent: distended, tenderness, guarding, rebound, rigid Extremities exam: Present: normal inspection, full ROM, normal capillary refill. Absent: tenderness, pedal edema, joint swelling, calf tenderness Back exam: Present: normal inspection Neurological exam: Present: alert, oriented X3, CN II-XII intact Psychiatric exam: Present: depressed Skin exam: Present: warm, dry, intact, normal color. Absent: rash <Kristy Hendricks - Last Filed: 01/28/25 22:31> Course <Reyes Chery - Last Filed: 01/26/25 19:32> Vital Signs 01/26/25 01/26/25 01/26/25 14:09 18:51 23:09 Temperature 98.1 F 98.4 F Pulse Rate 91 88 69 Respiratory 18 18 18 Rate Blood Pressure 116/75 119/80 124/70 O2 Sat by Pulse 95 99 98 Oximetry - Reevaluation(s) Reevaluation #1: 01/26/25 19:32 Medical records reviewed (Reyes Chery) Reevaluation #2: 01/26/25 19:32 Medically cleared for psychiatric evaluation (Reyes Chery) Reevaluation #3: Differential Mental Health Depression, anxiety, bipolar, psychosis, schizophrenia, borderline personality, situational depression, adjustment disorder, behavioral disorder, brain tumor, malingering, substance abuse, encephalopathy, medication reaction, dementia, hypothyroidism, degenerative neurologic disorder, lupus.... This is not meant to be all-inclusive list (Reyes Chery) Medical Decision Making - Lab Data Result diagrams: 01/26/25 14:47 01/26/25 14:47 <Reyes Chery - Last Filed: 01/26/25 19:32> - Lab Data Result diagrams: 01/26/25 14:47 01/26/25 14:47 <Kristy Hendricks - Last Filed: 01/28/25 22:31> - Medical Decision Making 65 male will be transferred for inpatient psychiatric evaluation and treatment (Reyes Chery) Was pt. sent in by a medical professional or institution (, PA, LAYER OFF, urgent care, hospital, or intermediate...) When possible be specific @ -No Did you speak to anyone other than the patient for history (EMS, parent, family, police, friend...)? What history was obtained from this source @ -I spoke with for history Did you review nursing and triage notes (agree or disagree)? Why? @ -I reviewed and agree with nursing and triage notes Were old charts reviewed (outside hosp., previous admission, EMS record, old EKG, old radiological studies, urgent care reports/EKG's, intermediate records)? Report findings @ -No old charts were reviewed Differential Diagnosis (chest pain, altered mental status, abdominal pain women, abdominal pain men, vaginal bleeding, weakness, fever, dyspnea, syncope, headache, dizziness, GI bleed, back pain, seizure, CVA, palpatations, mental health, musculoskeletal)? @ -Differential Mental Health Depression, anxiety, bipolar, psychosis, schizophrenia, borderline personality, situational depression, adjustment disorder, behavioral disorder, brain tumor, malingering, substance abuse, encephalopathy, medication reaction, dementia, hypothyroidism, degenerative neurologic disorder, lupus.... This is not meant to be all-inclusive list EKG interpreted by me (3pts min.). @ -Yes which demonstrates sinus rhythm with rate of 89. VA interval 144. QRS 110. QTc of 407. No acute ST segment elevations. Q wave in lead III X-rays interpreted by me (1pt min.). @ -None done CT interpreted by me (1pt min.). @ -None done U/S interpreted by me (1pt. min.). @ -None done What testing was considered but not performed or refused? (CT, X-rays, U/S, labs)? Why? @ -None What meds were considered but not given or refused? Why? @ -None Did you discuss the management of the patient with other professionals (professionals i.e. , PA, LAYER OFF, lab, RT, psych nurse, web content & social media manager, label maker, teacher, investment officer, behavioral health case manager)? Give summary @ -Spoke with the EPS nurse. Patient is cleared for mental health evaluation Was smoking cessation discussed for >3mins.? @ -No Was critical care preformed (if so, how long)? @ -No Were there social determinants of health that impacted care today? How? (Homelessness, low income, unemployed, alcoholism, drug addiction, transportation, low edu. Level, literacy, decrease access to med. care, correction, rehab)? @ -No Was there de-escalation of care discussed even if they declined (Discuss DNR or withdrawal of care, Hospice)? DNR status @ -No What co-morbidities impacted this encounter? (DM, HTN, Smoking, COPD, CAD, Cancer, CVA, ARF, Chemo, Hep., AIDS, mental health diagnosis, sleep apnea, morbid obesity)? @ -Diabetes Was patient admitted / discharged? Hospital course, mention meds given and route, prescriptions, significant lab abnormalities, going to OR and other pertinent info. @ -Upon arrival patient seen and evaluated in room 8. Thorough history and physical exam was performed. Laboratory studies are conducted. Patient cleared for EPS evaluation. Patient signed out to Dr. Chery pending their recommendations Undiagnosed new problem with uncertain prognosis? @ -No Drug Therapy requiring intensive monitoring for toxicity (Heparin, Nitro, Insulin, Cardizem)? @ -No Were any procedures done? @ -No Diagnosis/symptom? @ -Acute depression Acute, or Chronic, or Acute on Chronic? @ -Acute Uncomplicated (without systemic symptoms) or Complicated (systemic symptoms)? @ -Complicated Side effects of treatment? @ -No Exacerbation, Progression, or Severe Exacerbation? @ -No Poses a threat to life or bodily function? How? (Chest pain, USA, NV, pneumonia, PE, COPD, DKA, ARF, appy, cholecystitis, CVA, Diverticulitis, Homicidal, Suicidal, threat to staff... and all critical care pts) @ -No (Kristy Hendricks) - Lab Data Lab Results 01/26/25 01/26/25 01/26/25 Range/Units 14:27 14:47 14:47 WBC 9.52 (4.50-10.00) 10*3/uL RBC 6.47 H (4.40-5.60) 10*6/uL Hgb 18.2 H (13.0-17.0) g/dL Hct 54.6 H (39.6-50.0) % MCV 84.4 (80.0-97.0) fL MCH 28.1 (27.0-32.0) pg MCHC 33.3 (32.0-37.0) g/dL Plt Count 309 (140-440) 10*3/uL MPV 8.8 L (9.5-12.2) fL Immature Gran % (Auto) 0.3 % Neutrophils % 66.4 % Lymphocytes % 23.0 % Monocytes % 7.6 % Eosinophils % 1.9 % Basophils % 0.8 % Immature Gran # 0.03 (0.00-0.04) 10*3/uL Neutrophils # 6.32 (1.80-7.70) 10*3/uL Lymphocytes # 2.19 (0.90-5.00) 10*3/uL Monocytes # 0.72 (0.20-1.00) 10*3/uL Eosinophils # 0.18 (0.04-0.35) 10*3/uL Basophils # 0.08 (0.00-0.10) 10*3/uL PT 12.1 (10.0-12.5) sec INR 1.1 (<1.2) APTT 24.2 (22.0-30.0) sec Sodium (137-145) mmol/L Potassium (3.5-5.1) mmol/L Chloride (98-107) mmol/L Carbon Dioxide (22-30) mmol/L Anion Gap mmol/L BUN (9-20) mg/dL Creatinine (0.66-1.25) mg/dL Est GFR (CKD-EPI)AfAm (>60 ml/min/1.73 sqM) Est GFR (CKD-EPI)NonAf (>60 ml/min/1.73 sqM) Glucose (74-99) mg/dL POC Glucose (mg/dL) 201 H (70-110) mg/dL POC Glu [employer] Operator ID Emili Orozco Estimated Ave Glu mg/dL mg/dL Hemoglobin A1c (<=6.0) % Calcium (8.4-10.2) mg/dL Total Bilirubin (0.2-1.3) mg/dL AST (17-59) U/L ALT (4-49) U/L Alkaline Phosphatase (38-126) U/L Troponin I (0.000-0.034) ng/mL Total Protein (6.3-8.2) g/dL Albumin (3.5-5.0) g/dL Triglycerides (0.00-149.00) mg/dL Cholesterol (0.00-200.00) mg/dL LDL Cholesterol, Calc (0.0-131.0) mg/dL VLDL Cholesterol, Calc (5.00-40.00) mg/dL HDL Cholesterol (40.00-60.00) mg/dL Cholesterol/HDL Ratio Ratio TSH (0.465-4.680) mIU/L Urine Color Urine Appearance (Clear) Urine pH (5.0-8.0) Ur Specific [place] (1.001-1.035) Urine Protein (Negative) Urine Glucose (UA) (Negative) Urine Ketones (Negative) Urine Blood (Negative) Urine Nitrite (Negative) Urine Bilirubin (Negative) Urine Urobilinogen (<2.0) mg/dL Ur Leukocyte Esterase (Negative) Urine RBC (0-5) /hpf Urine WBC (0-5) /hpf Urine Mucus (None) /hpf Urine Opiates Screen (NotDetected) Ur Oxycodone Screen (NotDetected) Urine Methadone Screen (NotDetected) Ur Barbiturates Screen (NotDetected) U Tricyclic Antidepress (NotDetected) Ur Phencyclidine Scrn (NotDetected) Ur Amphetamines Screen (NotDetected) U Methamphetamines Scrn (NotDetected) U Benzodiazepines Scrn (NotDetected) Urine Cocaine Screen (NotDetected) U Marijuana (THC) Screen (NotDetected) Serum Alcohol mg/dL Influenza Type A (PCR) (Not Detectd) Influenza Type B (PCR) (Not Detectd) RSV (PCR) (Not Detectd) SARS-CoV-2 (PCR) (Not Detectd) 01/26/25 01/26/25 01/26/25 Range/Units 14:47 14:47 14:47 WBC (4.50-10.00) 10*3/uL RBC (4.40-5.60) 10*6/uL Hgb (13.0-17.0) g/dL Hct (39.6-50.0) % MCV (80.0-97.0) fL MCH (27.0-32.0) pg MCHC (32.0-37.0) g/dL Plt Count (140-440) 10*3/uL MPV (9.5-12.2) fL Immature Gran % (Auto) % Neutrophils % % Lymphocytes % % Monocytes % % Eosinophils % % Basophils % % Immature Gran # (0.00-0.04) 10*3/uL Neutrophils # (1.80-7.70) 10*3/uL Lymphocytes # (0.90-5.00) 10*3/uL Monocytes # (0.20-1.00) 10*3/uL Eosinophils # (0.04-0.35) 10*3/uL Basophils # (0.00-0.10) 10*3/uL PT (10.0-12.5) sec INR (<1.2) APTT (22.0-30.0) sec Sodium 136 L (137-145) mmol/L Potassium 4.5 (3.5-5.1) mmol/L Chloride 100 (98-107) mmol/L Carbon Dioxide 23 (22-30) mmol/L Anion Gap 13 mmol/L BUN 34 H (9-20) mg/dL Creatinine 0.55 L (0.66-1.25) mg/dL Est GFR (CKD-EPI)AfAm >90 (>60 ml/min/1.73 sqM) Est GFR (CKD-EPI)NonAf >90 (>60 ml/min/1.73 sqM) Glucose 199 H (74-99) mg/dL POC Glucose (mg/dL) (70-110) mg/dL POC Glu [employer] Operator ID Estimated Ave Glu mg/dL 203 mg/dL Hemoglobin A1c 8.7 H (<=6.0) % Calcium 9.6 (8.4-10.2) mg/dL Total Bilirubin 0.8 (0.2-1.3) mg/dL AST 19 (17-59) U/L ALT 22 (4-49) U/L Alkaline Phosphatase 84 (38-126) U/L Troponin I <0.012 (0.000-0.034) ng/mL Total Protein 7.1 (6.3-8.2) g/dL Albumin 4.0 (3.5-5.0) g/dL Triglycerides (0.00-149.00) mg/dL Cholesterol (0.00-200.00) mg/dL LDL Cholesterol, Calc (0.0-131.0) mg/dL VLDL Cholesterol, Calc (5.00-40.00) mg/dL HDL Cholesterol (40.00-60.00) mg/dL Cholesterol/HDL Ratio Ratio TSH (0.465-4.680) mIU/L Urine Color Urine Appearance (Clear) Urine pH (5.0-8.0) Ur Specific [place] (1.001-1.035) Urine Protein (Negative) Urine Glucose (UA) (Negative) Urine Ketones (Negative) Urine Blood (Negative) Urine Nitrite (Negative) Urine Bilirubin (Negative) Urine Urobilinogen (<2.0) mg/dL Ur Leukocyte Esterase (Negative) Urine RBC (0-5) /hpf Urine WBC (0-5) /hpf Urine Mucus (None) /hpf Urine Opiates Screen (NotDetected) Ur Oxycodone Screen (NotDetected) Urine Methadone Screen (NotDetected) Ur Barbiturates Screen (NotDetected) U Tricyclic Antidepress (NotDetected) Ur Phencyclidine Scrn (NotDetected) Ur Amphetamines Screen (NotDetected) U Methamphetamines Scrn (NotDetected) U Benzodiazepines Scrn (NotDetected) Urine Cocaine Screen (NotDetected) U Marijuana (THC) Screen (NotDetected) Serum Alcohol <10 mg/dL Influenza Type A (PCR) (Not Detectd) Influenza Type B (PCR) (Not Detectd) RSV (PCR) (Not Detectd) SARS-CoV-2 (PCR) (Not Detectd) 01/26/25 01/26/25 01/26/25 Range/Units 14:47 17:36 19:52 WBC (4.50-10.00) 10*3/uL RBC (4.40-5.60) 10*6/uL Hgb (13.0-17.0) g/dL Hct (39.6-50.0) % MCV (80.0-97.0) fL MCH (27.0-32.0) pg MCHC (32.0-37.0) g/dL Plt Count (140-440) 10*3/uL MPV (9.5-12.2) fL Immature Gran % (Auto) % Neutrophils % % Lymphocytes % % Monocytes % % Eosinophils % % Basophils % % Immature Gran # (0.00-0.04) 10*3/uL Neutrophils # (1.80-7.70) 10*3/uL Lymphocytes # (0.90-5.00) 10*3/uL Monocytes # (0.20-1.00) 10*3/uL Eosinophils # (0.04-0.35) 10*3/uL Basophils # (0.00-0.10) 10*3/uL PT (10.0-12.5) sec INR (<1.2) APTT (22.0-30.0) sec Sodium (137-145) mmol/L Potassium (3.5-5.1) mmol/L Chloride (98-107) mmol/L Carbon Dioxide (22-30) mmol/L Anion Gap mmol/L BUN (9-20) mg/dL Creatinine (0.66-1.25) mg/dL Est GFR (CKD-EPI)AfAm (>60 ml/min/1.73 sqM) Est GFR (CKD-EPI)NonAf (>60 ml/min/1.73 sqM) Glucose (74-99) mg/dL POC Glucose (mg/dL) (70-110) mg/dL POC Glu [employer] Operator ID Estimated Ave Glu mg/dL mg/dL Hemoglobin A1c (<=6.0) % Calcium (8.4-10.2) mg/dL Total Bilirubin (0.2-1.3) mg/dL AST (17-59) U/L ALT (4-49) U/L Alkaline Phosphatase (38-126) U/L Troponin I (0.000-0.034) ng/mL Total Protein (6.3-8.2) g/dL Albumin (3.5-5.0) g/dL Triglycerides 86.00 (0.00-149.00) mg/dL Cholesterol 130.00 (0.00-200.00) mg/dL LDL Cholesterol, Calc 73.0 (0.0-131.0) mg/dL VLDL Cholesterol, Calc 17.20 (5.00-40.00) mg/dL HDL Cholesterol 39.80 L (40.00-60.00) mg/dL Cholesterol/HDL Ratio 3.27 Ratio TSH 2.260 (0.465-4.680) mIU/L Urine Color Light Yellow Urine Appearance Clear (Clear) Urine pH 5.5 (5.0-8.0) Ur Specific [place] 1.028 (1.001-1.035) Urine Protein 1+ H (Negative) Urine Glucose (UA) 4+ H (Negative) Urine Ketones 2+ H (Negative) Urine Blood Negative (Negative) Urine Nitrite Negative (Negative) Urine Bilirubin Negative (Negative) Urine Urobilinogen <2.0 (<2.0) mg/dL Ur Leukocyte Esterase Negative (Negative) Urine RBC 1 (0-5) /hpf Urine WBC 1 (0-5) /hpf Urine Mucus Occasional H (None) /hpf Urine Opiates Screen Not Detected (NotDetected) Ur Oxycodone Screen Not Detected (NotDetected) Urine Methadone Screen Not Detected (NotDetected) Ur Barbiturates Screen Not Detected (NotDetected) U Tricyclic Antidepress Not Detected (NotDetected) Ur Phencyclidine Scrn Not Detected (NotDetected) Ur Amphetamines Screen Not Detected (NotDetected) U Methamphetamines Scrn Detected H (NotDetected) U Benzodiazepines Scrn Not Detected (NotDetected) Urine Cocaine Screen Not Detected (NotDetected) U Marijuana (THC) Screen Not Detected (NotDetected) Serum Alcohol mg/dL Influenza Type A (PCR) Not Detected (Not Detectd) Influenza Type B (PCR) Not Detected (Not Detectd) RSV (PCR) Not Detected (Not Detectd) SARS-CoV-2 (PCR) Not Detected (Not Detectd) Disposition Is patient prescribed a controlled substance at d/c from ED?: No <Reyes Chery - Last Filed: 01/26/25 19:32> <Kristy Hendricks - Last Filed: 01/28/25 22:31> Clinical Impression: Acute anxiety, Adjustment reaction of adult life, Depression Disposition: TRANSFER TO PSYCH HOSP/UNIT Condition: Fair
[2025-01-26 15:17] LABS: INR 1.1 (<1.2); Partial Thromboplastin Time 24.2 sec (22.0-30.0); Prothrombin Time 12.1 sec (10.0-12.5)
[2025-01-26 15:27] LABS: ALT 22 U/L (4-49); AST 19 U/L (17-59); African American GFR (CKD) >90 (>60 ml/min/1.73 sqM); Alcohol <10 mg/dL; Alkaline Phosphatase 84 U/L (38-126); Anion Gap 13 mmol/L; Blood Urea Nitrogen 34 mg/dL (9-20); Calcium 9.6 mg/dL (8.4-10.2); Carbon Dioxide 23 mmol/L (22-30); Chloride 100 mmol/L (98-107); Glucose 199 mg/dL (74-99); Non-African American GFR(CKD) >90 (>60 ml/min/1.73 sqM); Potassium 4.5 mmol/L (3.5-5.1); Sodium 136 mmol/L (137-145); Total Bilirubin 0.8 mg/dL (0.2-1.3); Total Protein 7.1 g/dL (6.3-8.2)
[2025-01-26 18:03] LABS: Appearance,Urine Clear (Clear); Bilirubin,Urine Negative (Negative); Blood,Urine Negative (Negative); Color,Urine Light Yellow; Glucose,Urine (UA) 4+ (Negative); Leukocyte Esterase,Urine Negative (Negative); Mucus,Urine Occasional /hpf; Nitrite,Urine Negative (Negative); PH, Urine 5.5 (5.0-8.0); Protein,Urine 1+ (Negative); RBC,Urine 1 /hpf (0-5); Specific Gravity,Urine 1.028 (1.001-1.035); Urobilinogen,Urine <2.0 mg/dL (<2.0); WBC,Urine 1 /hpf (0-5)
[2025-01-26 18:25] LABS: Ketones,Urine 2+ (Negative)
[2025-01-26 18:30] LABS: Amphetamine Screen,Urine Not Detected (NotDetected); Barbiturate Screen,Urine Not Detected (NotDetected); Benzodiazepines Screen,Urine Not Detected (NotDetected); Cocaine Screen,Urine Not Detected (NotDetected); Methadone Screen, Urine Not Detected (NotDetected); Opiate Screen,Urine Not Detected (NotDetected); Oxycodone Screen, Urine Not Detected (NotDetected); Phencyclidine Screen,Urine Not Detected (NotDetected); Tricyclic Antidepressant,Urine Not Detected (NotDetected); Urn Cannabinoid Scrn Not Detected (NotDetected)
[2025-01-26 20:36] LABS: Influenza A Not Detected (Not Detectd); Influenza B Not Detected (Not Detectd); RSV Not Detected (Not Detectd)
[2025-01-26] MEDS ORDERED: OLANZapine 5 MG TAB PO PRN (22:26)
[2025-01-26] MEDS ORDERED: ACETAMINOPHEN TAB 325 MG TAB PO PRN (22:26)
[2025-01-26] MEDS ORDERED: MAG HYDROX/AL HYDROX/SIMETH 355 ML BOTTLE PO PRN (22:26)
[2025-01-26] MEDS ORDERED: OLANZapine 10 MG VIAL IM PRN (22:26)
[2025-01-27] MEDS: GABAPENTIN 300 MG CAP PO SCH (06:01)
[2025-01-27 08:24] LABS: Chol/HDL Ratio 3.27 Ratio
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
[2025-01-27] MEDS: METOPROLOL SUCCINATE (ER) 25 MG TAB.ER.24H PO SCH (09:46)
[2025-01-27] MEDS: polyethylene glycoL 3350 17 GM POWD.PACK PO SCH (09:46)
[2025-01-27] MEDS: ATORVASTATIN 40 MG TAB PO SCH (09:47)
[2025-01-27] MEDS: OXYBUTYNIN XL 5 MG TAB.ER.24 PO SCH (09:47)
[2025-01-27] MEDS: DAPAGLIFLOZIN PROPANEDIOL 10 MG TABLET PO SCH (09:47)
[2025-01-27] MEDS: TAMSULOSIN 0.4 MG CAP.ER.24H PO SCH (09:47)
[2025-01-27] MEDS: DULoxetine HCL 60 MG CAPSULE.DR PO SCH (09:47)
[2025-01-27] MEDS: NICOTINE 14MG/24HR PATCH TRANSDERM SCH (09:51)
[2025-01-27 17:38] LABS: Glucose,Whole Blood 112 mg/dL (70-110)
[2025-01-27] MEDS ORDERED: DEXTROSE 50% SYRINGE 50 ML IVP PRN ×2 (20:52)
--- NOTE | 2025-01-27 20:54 | P.MDCNMH ---
<Zeinab Ramírez - Last Filed: 01/27/25 20:43> History of Present Illness H&P Date: 01/27/25 Chief Complaint: Depression Patient is a 65 year old male with coronary artery disease, COPD, CVA/TIA, di abetes mellitus, GERD, hypertension, RICH, cognitive decline presented to the emergency department for lack of thrive. Per ED reports the was mentioning that the patient had not been eating or drinking for the past 5 days and had not gotten out of bed. She also mentioned that this would happen previously when they got behind on their bills. Apparently they recently found out that day are going to lose their home and patient went into current depressive state. Patient also made statements of wanting to . Patient has been admitted to the MHU. Patient seen today in medical consultation for medical management. Denies fever, chills, shortness of breath, cough, chest pain, palpitations, abdominal pain, nausea, vomiting, hematuria, dysuria, hematochezia, melena, headache, slurred speech, numbness, tingling, dizziness, lightheadedness, blurred vision, double vision. ED documentation reviewed. In the ED patient was treated with 0.9 normal saline. Vitals T 97.8 F, MD 64 bpm, RR 18, BP 100/62, SpO2 100% on room air EKG independently interpreted as sinus rhythm, poor R wave progression, rate 89 bpm, QTc 407 ms Labs on admission show 0.2301, sodium 36, potassium 4.5, creatinine 0.55, glucose 112, A1c 8.7, troponin 0.012I <, triglycerides 86, cholesterol 130, LDL 73, VLDL 17.2, HDL 39.8 UA shows 1+ protein, 4+ glucose, 2+ ketones, occasional mucus Urine tox screen positive for methamphetamines Respiratory panel is negative Review of systems: Pertinent positives and negatives as discussed in HPI, a complete review of systems was performed and all other systems are negative. Physical examination: Vital signs reviewed General: nontoxic, no distress, appears at stated age Derm: warm, dry, intact Head: atraumatic, normocephalic, symmetric Eyes: EOMI, anicteric sclera Mouth: no lip lesion, mucus membranes moist Cardiovascular: S1 S2 reg, no murmur Lungs: CTA bilateral, no rhonchi, no rales, no accessory muscle use Abdominal: soft, non-tender to palpation Extremities: No cyanosis, clubbing, or pedal edema. Neuro: Alert, Oriented, Gross neurological examination did not reveal any focal deficits. Psych: well appearing, appropriate affect Assessment/Plan: Patient is a 65 year old male with coronary artery disease, COPD, CVA/TIA, diabetes mellitus, GERD, hypertension, RICH, cognitive decline presented to the emergency department for lack of thrive. #. History of CAD #. History of CVA/TIA Continue home med Atorvastatin 40 mg PO daily #. Diabetes mellitus Continue home med Farxiga 10 mg PO daily Insulin sliding scale and ACHS blood glucose monitoring Monitor for hypoglycemia #. Hypertension Lisinopril 2.5 mg PO daily home med held Resume for SBP >180 #. Neuropathy Continue home med Gabapentin 60 mg PO daily #. Constipation Continue Maalox and home med MiraLAX 17 gm PO daily #. BPH Continue home med Tamsulosin 0.4 mg PO daily, Oxybutynin 5 mg PO daily #. Nicotine dependence Continue Nicotine patch #. Major depressive disorder recurrent severe Patient admitted to MHU Currently on Abilify 5 mg PO HS, Cymbalta 30 mg PO HS, Cymbalta 60 mg PO daily, Zyprexa 5 mg IM Q6HR PRN and ZypreXA 5 MG PO Q6HR PRN per admitting psych team Tylenol and Motrin for pain management Dictation was produced using [employer] dictation software. please excuse any grammatical, word or spelling errors. Zeinab Ramírez MD PGY-1 IM Past Medical History Past Medical History: Coronary Artery Disease (CAD), COPD, CVA/TIA, Diabetes Mellitus, GERD/Reflux, Hypertension, Memory Impairment, Sleep Apnea/CPAP/BIPAP Additional Past Medical History / Comment(s): BACK PAIN, CONSTIPATION, NUMBNESS IN FEET, URGENCY TO URINATE, BURPS FREQUENTLY AND STOMACH CRUZ., COUGHED UP BLOOD X2-no longer any problem,no cpap,CVA 2021 approx-no residual History of Any Multi-Drug Resistant Organisms: MRSA Date of last positivie culture/infection: few yrs ago MDRO Source:: leg Past Surgical History: Tonsillectomy Additional Past Surgical History / Comment(s): PLATE IN rt FEMUR AND rt ANKLE PINS , SURGERY FOR SNORING Past Anesthesia/Blood Transfusion Reactions: No Reported Reaction Additional Past Anesthesia/Blood Transfusion Reaction / Comment(s): Claustrophobia Past Psychological History: Anxiety, Depression Additional Psychological History / Comment(s): Pt resides with his spouse. She states he has [facility] in place with Moujaro injections and scheduling procedures. Pt is independent with washing self/dressing self. He drives. He has a glucometer. Smoking Status: Former smoker Past Alcohol Use History: None Reported Additional Past Alcohol Use History / Comment(s): SMOKED 1 PPD, STARTED SMOKING AGE 17 Past Drug Use History: None Reported - Past Family History Mother Family Medical History: Coronary Artery Disease (CAD), Diabetes Mellitus Father History Unknown: Yes Additional Family Medical History / Comment(s): Alcoholism Sister(s) Family Medical History: Cancer Additional Family Medical History / Comment(s): MELANOMA Medications and Allergies Home Medications Medication Instructions Recorded Confirmed Type Gabapentin 600 mg PO QID 08/26/21 01/26/25 History DULoxetine HCL [Cymbalta] 60 mg PO DAILY 09/29/21 01/26/25 History ARIPiprazole [Abilify] 2 mg PO HS 12/13/23 01/26/25 History Metoprolol Succinate (ER) [Toprol 25 mg PO DAILY 12/13/23 01/26/25 History Xl] Tamsulosin HCl [Flomax] 0.4 mg PO DAILY 01/23/25 01/26/25 History Ammonium Lactate [Amlactin] 1 applic TOPICAL DAILY 01/26/25 01/26/25 History Atorvastatin [Lipitor] 40 mg PO DAILY 01/26/25 01/26/25 History DULoxetine HCL [Cymbalta] 30 mg PO HS 01/26/25 01/26/25 History Dapagliflozin Propanediol [Farxiga] 10 mg PO DAILY 01/26/25 01/26/25 History Sildenafil Citrate [Viagra] 100 mg PO DAILY PRN 01/26/25 01/26/25 History Tirzepatide [Mounjaro] 10 mg SQ Q7D 01/26/25 01/26/25 History lisinopriL [Zestril] 2.5 mg PO DAILY 01/26/25 01/26/25 History oxyBUTYnin chloride [oxyBUTYnin 5 mg PO DAILY 01/26/25 01/26/25 History chloride ER] polyethylene glycoL 3350 [Miralax] 17 gm PO DAILY 01/26/25 01/26/25 History Allergies Allergy/AdvReac Type Severity Reaction Status Date / Time No Known Allergies Allergy Verified 01/26/25 19:48 Physical Exam Vitals: Vital Signs Temp Pulse Pulse Resp BP BP Pulse Ox 01/27/25 11:09 100/62 01/27/25 09:51 97.8 F 64 71/44 100 01/27/25 06:34 97.8 F 69 18 100/58 97 01/26/25 23:09 98.4 F 69 18 124/70 98 Intake and Output 01/27/25 01/27/25 01/27/25 06:59 14:59 22:59 Other: Weight 95 kg Cranial Nerve Examination - Cranial Nerves Cranial Nerve I- Olfactory: Intact Cranial Nerve II- Optic: Intact Cranial Nerve III- Oculomotor: Intact Cranial Nerve IV- Trochlear: Intact Cranial Nerve V- Trigeminal: Intact Cranial Nerve - Abducens: Intact Cranial Nerve VII- Facial: Intact Cranial Nerve VIII- Auditory: Intact Cranial Nerve IX- Glossopharyngeal: Intact Cranial Nerve X- Vagus: Intact Cranial Nerve XI- Accessory: Intact Cranial Nerve XII- Hypoglossal: Intact Results CBC & Chem 7: 01/26/25 14:47 01/26/25 14:47 Labs: Abnormal Lab Results - Last 24 Hours (Table) 01/26/25 01/26/25 01/27/25 Range/Units 14:47 14:47 17:37 POC Glucose (mg/dL) 112 H (70-110) mg/dL Hemoglobin A1c 8.7 H (<=6.0) % HDL Cholesterol 39.80 L (40.00-60.00) mg/dL <Jake Lowery - Last Filed: 01/27/25 21:34> History of Present Illness Attestation : Patient seen and examined with nurses medical assistants phlebotomists. Agree with above assessment and plan except for resuming antihypertensive medication for systolic blood pressure above 180 . Antihypertensive medication can be resumed once his blood pressure is above 120/80 . patient is a 65-year-old male patient was admitted to behavioral unit for management of depression. His past medical history significant for CVA/TIA with no residual symptoms and currently only on statin therapy, [id number] type 2 diabetes mellitus, essential hypertension, BPH and diabetic neuropathy. It was reported that patient's blood pressure was borderline low and he was asymptomatic. No dizziness or lightheadedness. We will hold his lisinopril and metoprolol for now considering that his blood pressure is borderline. Antihypertensive medication can be resumed once his blood pressure is above 120/80 ( not 180 systolic pe ). HbA1c around 8.5 % and will continue with oral Farxiga 10 mg daily and daily glucose monitoring. Time spent : 30 min Physical Exam Vitals: Vital Signs Temp Pulse Pulse Resp BP BP Pulse Ox 01/27/25 11:09 100/62 01/27/25 09:51 97.8 F 64 71/44 100 01/27/25 06:34 97.8 F 69 18 100/58 97 01/26/25 23:09 98.4 F 69 18 124/70 98 Intake and Output 01/27/25 01/27/25 01/27/25 06:59 14:59 22:59 Other: Weight 95 kg Results CBC & Chem 7: 01/26/25 14:47 01/26/25 14:47 Labs: Abnormal Lab Results - Last 24 Hours (Table) 01/26/25 01/26/25 01/27/25 Range/Units 14:47 14:47 17:37 POC Glucose (mg/dL) 112 H (70-110) mg/dL Hemoglobin A1c 8.7 H (<=6.0) % HDL Cholesterol 39.80 L (40.00-60.00) mg/dL
[2025-01-27] MEDS ORDERED: ARIPiprazole 2 MG TAB PO SCH (21:00)
[2025-01-27 21:34] LABS: Glucose,Whole Blood 190 mg/dL (70-110)
[2025-01-27] MEDS: INSULIN LISPRO (HumaLOG) 100 UNIT/ML 10 mL VL SQ SCH (21:35)
[2025-01-27] MEDS: ARIPiprazole 5 MG TAB PO SCH (21:35)
[2025-01-27] MEDS: DULoxetine HCL 30 MG CAPSULE.DR PO SCH (21:35)
[2025-01-28 07:59] LABS: Glucose,Whole Blood 187 mg/dL (70-110)
[2025-01-28] MEDS: GABAPENTIN 300 MG CAP PO SCH (08:00)
[2025-01-28] MEDS: IBUPROFEN 600 MG TAB PO PRN (08:10)
--- NOTE | 2025-01-28 09:25 | P.PN ---
Progress Note - Text Progress Note Date: 01/28/25 Interval History: Patient was seen today laying in bed agreeable to speak to freelance writer today in the office. Patient had fairly poor eye contact today, claims that he slept fairly last night. He appears to have fairly superficial insight into why he is in the hospital. Claims that he had a "bad dream" and tore up his house. He is okay with continuing all of the medications, claims that he has not met with the sales administration specialist yet. Not reporting any side effects at this time. Claims that his appetite is fair. Has not been going to many groups. He was fairly focused on being discharged claims that he wants to get back to work, declining rehab at this time. Denying any auditory or visual hallucinations. Denies any suicidal or homicidal ideations intent or plan. MENTAL STATUS EXAM: General Appearance: Patient appears to be his stated age is alert, directable however the patient was guarded but cooperative. Patient appears to have fair hygiene and grooming. Behavior: Patient is seated without any agitated behavior. More cooperative today. Somewhat constricted Speech: Patient's speech is fluent and nonpressured. Mood/Affect: Patient reports their mood is improving mildly, affect is congruent and constricted. Improving mildly Suicidality/Homicidality: Patient denies having any homicidal ideation intent or plan. Denies any suicidal ideations Perceptions: Patient denies any visual hallucinations and denies any auditory hallucinations Though content/process: There is no evidence of any delusional thought content and thought process is linear and goal-directed. Fairly concrete, poverty of content Memory and concentration: AOX3, grossly intact for the purposes of this session Judgment and insight: Poor, improving mildly Diagnosis: Major depressive disorder recurrent severe methamphetamine abuse PLAN: -Patient is admitted under involuntary status to MHU for stabilization of psychiatric symptoms and safety. Patient has not signed adult voluntary form and medication consent and is placed in patient's chart. -Medications : Restart Increase Cymbalta 60 mg twice daily for depression/anxiety/neuropathic pain Abilify 5 mg take 1 tablet by mouth once daily for adjuvant for depression/mood stabilization -Ativan and Zyprexa PRN for agitation/aggression -NRT -does not smoke, not needed -SW on board for discharge planning. Encourage patient to participate in groups to work on coping skills. Deferral set for today, court hearing scheduled for tomorrow. Likely discharge back home the patient is doing well. He is refusing rehab at this time.
[2025-01-28 12:53] LABS: Glucose,Whole Blood 153 mg/dL (70-110)
[2025-01-28 17:46] LABS: Glucose,Whole Blood 155 mg/dL (70-110)
[2025-01-28 20:02] LABS: Glucose,Whole Blood 197 mg/dL (70-110)
[2025-01-28] MEDS: DULoxetine HCL 60 MG CAPSULE.DR PO SCH (20:23)
[2025-01-28 22:06] LABS: Glucose,Whole Blood 218 mg/dL (70-110)
[2025-01-28] MEDS: BACITRACIN/POLYMYX 500-10,000 UNIT/GM OINT 14 GM TUBE TOPICAL SCH (23:14)
[2025-01-29 07:54] LABS: Glucose,Whole Blood 137 mg/dL (70-110)
--- NOTE | 2025-01-29 10:25 | P.PN ---
Progress Note - Text Progress Note Date: 01/29/25 Interval History: Patient was seen today laying in bed agreeable to speak to technical writer and editor today in the office. Patient had improving eye contact today, claims that he is doing a bit better overall. States that he was able to sleep fairly last night. Claims that he has been improving in terms of his mood and anxiety. Claims that he has been speaking with his and that she had stated that his best friend had yesterday, claims that they are getting ready to do the and wake. He has been only going to some groups. Mildly improving insight. He did sign the deferral with his securities attorney agreeing to treatment. Was requesting discharge. Denying any auditory or visual hallucinations. Denies any suicidal or homicidal ideations intent or plan. MENTAL STATUS EXAM: General Appearance: Patient appears to be his stated age is alert, directable however the patient was guarded but cooperative. Patient appears to have fair hygiene and grooming. Behavior: Patient is seated without any agitated behavior. More cooperative today. Improving Speech: Patient's speech is fluent and nonpressured. Mood/Affect: Patient reports their mood is improving mildly, affect is congruent and constricted. Improving mildly Suicidality/Homicidality: Patient denies having any homicidal ideation intent or plan. Denies any suicidal ideations Perceptions: Patient denies any visual hallucinations and denies any auditory hallucinations Though content/process: There is no evidence of any delusional thought content and thought process is linear and goal-directed. Fairly concrete, poverty of content Memory and concentration: AOX3, grossly intact for the purposes of this session Judgment and insight: improving mildly Diagnosis: Major depressive disorder recurrent severe methamphetamine abuse PLAN: -Patient is admitted under involuntary status to MHU for stabilization of psychiatric symptoms and safety. Patient has not signed adult voluntary form and medication consent and is placed in patient's chart. -Medications : Restart Cymbalta 60 mg twice daily for depression/anxiety/neuropathic pain Abilify 5 mg take 1 tablet by mouth once daily for adjuvant for depression/mood stabilization -Ativan and Zyprexa PRN for agitation/aggression -NRT -does not smoke, not needed -SW on board for discharge planning. Encourage patient to participate in groups to work on coping skills. Patient ended up signing deferral with securities attorney. Likely discharge tomorrow back home the patient is doing well. He is refusing rehab at this time.
[2025-01-29 13:01] LABS: Glucose,Whole Blood 119 mg/dL (70-110)
[2025-01-29 14:08] VITALS: RESP 18
[2025-01-29 17:53] LABS: Glucose,Whole Blood 123 mg/dL (70-110)
[2025-01-29 20:21] LABS: Glucose,Whole Blood 210 mg/dL (70-110)
--- NOTE | 2025-01-29 20:50 | XR ---
EXAMINATION TYPE: XR foot limited LT DATE OF EXAM: 01/29/2025 8:22 PM COMPARISON: None. CLINICAL INDICATION: Male, 65 years old with history of Left 2nd toe seems infected; PHH, pain TECHNIQUE: XR foot limited LT examined in the AP, oblique, and lateral projections. FINDINGS: Periosteal reaction involving the second digit proximal phalanx. No definite focal osseous erosion. N o acute fracture. Tarsal alignment appears maintained. Questionable periosteal reaction involving the third digit proximal phalanx versus cortical thickening. IMPRESSION: Periosteal reaction involving the second digit proximal phalanx concerning for acute osteomyelitis gi juan pablo stated history. Recommend MRI for more definitive evaluation as clinically warranted. [facility], , 01/29/2025 8:48 PM
[2025-01-29 23:13] VITALS: BP 128/68; PULSE 72; TEMP 97.5
[2025-01-29] MEDS ORDERED: VANCOMYCIN IV PER PHARMACY 1 EACH MISC MISCELLANE PRN (23:38)
[2025-01-29] MEDS: clonazePAM 0.5 MG TAB PO STA (23:51)
--- NOTE | 2025-01-30 00:03 | P.HPIM ---
History of Present Illness H&P Date: 01/29/25 Chief Complaint: Left foot pain Patient is a 65 year old male with coronary artery disease, COPD, CVA/TIA, diabetes mellitus, GERD, hypertension, RICH, cognitive decline inititally presented to the emergency department for lack of thrive. Per ED reports the was mentioning that the patient had not been eating or drinking for the past 5 days and had not gotten out of bed. Patient was admitted to the MHU and was seen in medical consultation for medical management. Patient reports left foot pain. He states the left second toe has become black since a few days and he tried to get it addressed outpatient but has not been able to. Denies fever, chills, shortness of breath, cough, chest pain, palpitations, abdominal pain, nausea, vomiting, hematuria, dysuria, hemat ochezia, melena, headache, slurred speech, numbness, tingling, dizziness, lightheadedness, blurred vision, double vision. Vitals T 97.5 F, LA 72 bpm, RR 18, BP 128/68, SpO2 98% on room air EKG independently interpreted as sinus rhythm, poor R wave progression, rate 89 bpm, QTc 407 ms Foot x-ray shows periosteal reaction involving the second digit proximal phalanx concerning for acute osteomyelitis given stated history, recommend MRI for definitive evaluation Labs show 0.2301, sodium 36, potassium 4.5, creatinine 0.55, glucose 112, A1c 8.7, troponin 0.012I <, triglycerides 86, cholesterol 130, LDL 73, VLDL 17.2, HDL 39.8 UA shows 1+ protein, 4+ glucose, 2+ ketones, occasional mucus Urine tox screen positive for methamphetamines Respiratory panel is negative Review of systems: Pertinent positives and negatives as discussed in HPI, a complete review of systems was performed and all other systems are negative. Physical examination: Vital signs reviewed General: nontoxic, no distress, appears at stated age Derm: warm, dry, intact Head: atraumatic, normocephalic, symmetric Eyes: EOMI, anicteric sclera Mouth: no lip lesion, mucus membranes moist Cardiovascular: S1 S2 reg, no murmur Lungs: CTA bilateral, no rhonchi, no rales, no accessory muscle use Abdominal: soft, non-tender to palpation Extremities: left second toe erythematous and black discoloration Neuro: Alert, Oriented, Gross neurological examination did not reveal any focal deficits. Assessment/Plan: Patient is a 65 year old male with coronary artery disease, COPD, CVA/TIA, diabetes mellitus, GERD, hypertension, RICH, cognitive decline who presented with complaint of left foot pain. patient admitted to internal medicine service. Active: #. Possible acute Osteomyelitis of the left second toe Foot x-ray shows periosteal reaction involving the second digit proximal phalanx concerning for acute osteomyelitis given stated history, recommend MRI for definitive evaluation Initiate Vancomycin and Zosyn, Monitor for renal toxicity Tylenol and Motrin for pain management Obtain MRI left Foot, US arterial to r/o PVD Obtain CRP, lactate, blood cultures Monitor CBC, CMP Consult vascular surgery Wound care consulted #. Diabetes mellitus A1c 8.7 Continue home med Farxiga 10 mg PO daily Insulin sliding scale and ACHS blood glucose monitoring Monitor for hypoglycemia Chronic: #. History of CAD #. History of CVA/TIA #. Hypertension #. Neuropathy #. BPH #. Nicotine dependence Continue home med Atorvastatin 40 mg PO daily, Lisinopril 2.5 mg PO daily, Gabapentin 60 mg PO daily, Tamsulosin 0.4 mg PO daily, Oxybutynin 5 mg PO daily, Nicotine patch #. Major depressive disorder Currently on Abilify 5 mg PO HS, Cymbalta 30 mg PO HS, Cymbalta 60 mg PO daily, Zyprexa 5 mg IM Q6HR PRN and ZypreXA 5 MG PO Q6HR PRN F: None E: Replete as required N: Regular diet A: Ambulatory DVT prophylaxis: SCD The patient is admitted with an anticipated more than 2 midnight stay for evaluation of CODE STATUS: FULL CODE Discussed with: Patient Anticipated discharge place: Pending clinical course Dictation was produced using [employer] dictation software. please excuse any grammatical, word or spelling errors. Zeinab Ramírez MD PGY-1 IM Attestation : Patient seen and examined. Agree with above assessment and plan. 65-year-old male patient that was seen initially in the behavioral unit on the day of admission for management of depression. It was reported that patient is having pain with increased erythema at the left second toe. Physical exam is significant for left second toe erythematous and black discoloration . X-ray was done concerning for osteomyelitis. She needs to be admitted to the regular floor for surgery evaluation. Will order MRI, arterial Doppler, CRP, lactate, blood cultures and consult vascular surgery. Will start IV Zosyn and vancomycin with MRSA colonization screening. Low threshold for toe amputation. Time spent : 45 min Past Medical History Past Medical History: Coronary Artery Disease (CAD), COPD, CVA/TIA, Diabetes Mellitus, GERD/Reflux, Hypertension, Memory Impairment, Sleep Apnea/CPAP/BIPAP Additional Past Medical History / Comment(s): BACK PAIN, CONSTIPATION, NUMBNESS IN FEET, URGENCY TO URINATE, BURPS FREQUENTLY AND STOMACH CRUZ., COUGHED UP BLOOD X2-no longer any problem,no cpap,CVA 2021 approx-no residual History of Any Multi-Drug Resistant Organisms: MRSA Date of last positivie culture/infection: few yrs ago MDRO Source:: leg Past Surgical History: Tonsillectomy Additional Past Surgical History / Comment(s): PLATE IN rt FEMUR AND rt ANKLE PINS , SURGERY FOR SNORING Past Anesthesia/Blood Transfusion Reactions: No Reported Reaction Additional Past Anesthesia/Blood Transfusion Reaction / Comment(s): Claustrophobia Past Psychological History: Anxiety, Depression Smoking Status: Light tobacco smoker Past Alcohol Use History: None Reported Past Drug Use History: None Reported - Past Family History Mother Family Medical History: Coronary Artery Disease (CAD), Diabetes Mellitus Father History Unknown: Yes Additional Family Medical History / Comment(s): Alcoholism Sister(s) Family Medical History: Cancer Additional Family Medical History / Comment(s): MELANOMA Medications and Allergies Home Medications Medication Instructions Recorded Confirmed Type Gabapentin 600 mg PO QID 08/26/21 01/26/25 History DULoxetine HCL [Cymbalta] 60 mg PO DAILY 09/29/21 01/26/25 History ARIPiprazole [Abilify] 2 mg PO HS 12/13/23 01/26/25 History Metoprolol Succinate (ER) [Toprol 25 mg PO DAILY 12/13/23 01/26/25 History Xl] Tamsulosin HCl [Flomax] 0.4 mg PO DAILY 01/23/25 01/26/25 History Ammonium Lactate [Amlactin] 1 applic TOPICAL DAILY 01/26/25 01/26/25 History Atorvastatin [Lipitor] 40 mg PO DAILY 01/26/25 01/26/25 History DULoxetine HCL [Cymbalta] 30 mg PO HS 01/26/25 01/26/25 History Dapagliflozin Propanediol [Farxiga] 10 mg PO DAILY 01/26/25 01/26/25 History Sildenafil Citrate [Viagra] 100 mg PO DAILY PRN 01/26/25 01/26/25 History Tirzepatide [Mounjaro] 10 mg SQ Q7D 01/26/25 01/26/25 History lisinopriL [Zestril] 2.5 mg PO DAILY 01/26/25 01/26/25 History oxyBUTYnin chloride [oxyBUTYnin 5 mg PO DAILY 01/26/25 01/26/25 History chloride ER] polyethylene glycoL 3350 [Miralax] 17 gm PO DAILY 01/26/25 01/26/25 History Allergies Allergy/AdvReac Type Severity Reaction Status Date / Time No Known Allergies Allergy Verified 01/26/25 19:48 Physical Exam Vitals: Vital Signs Temp Pulse Resp BP Pulse Ox 01/29/25 21:00 97.5 F L 72 18 128/68 98 01/29/25 14:07 98.0 F 64 18 106/68 98 Results CBC & Chem 7: 01/26/25 14:47 01/26/25 14:47 Labs: Abnormal Lab Results - Last 24 Hours (Table) 01/29/25 01/29/25 01/29/25 Range/Units 07:53 12:59 17:51 POC Glucose (mg/dL) 137 H 119 H 123 H (70-110) mg/dL 01/29/25 Range/Units 20:19 POC Glucose (mg/dL) 210 H (70-110) mg/dL Thrombosis Risk Factor Assmnt - Choose All That Apply Each Factor Represents 1 point: Obesity (BMI >25) Other Risk Factors: Yes Each Risk Factor Represents 2 Points: Age 61-74 years Other congenital or acquired thrombophilia - If yes, enter type in comment: No Thrombosis Risk Factor Assessment Total Risk Factor Score: 3 Thrombosis Risk Factor Assessment Level: Moderate Risk
[2025-01-30] MEDS ORDERED: VANCOMYCIN 1,500 MG in SODIUM CHLORIDE 0.9% 500 ML 500 ML IVPB SCH (01:00)
[2025-01-30 07:54] LABS: Glucose,Whole Blood 160 mg/dL (70-110)
[2025-01-30] MEDS ORDERED: VANCOMYCIN IV PER PHARMACY 1 EACH MISC MISCELLANE PRN (08:00)
[2025-01-30 08:25] LABS: Basophils # (A) 0.08 10*3/uL (0.00-0.10); Basophils % (A) 0.9 %; Eosinophils % (A) 4.6 %; HCT 47.6 % (39.6-50.0); HGB 15.5 g/dL (13.0-17.0); Lymphocytes # (A) 3.42 10*3/uL (0.90-5.00); Lymphocytes % (A) 39.5 %; MCH 28.3 pg (27.0-32.0); MCHC 32.6 g/dL (32.0-37.0); MCV 86.9 fL (80.0-97.0); Mean Platelet Volume 8.7 fL (9.5-12.2); Monocytes # (A) 0.62 10*3/uL (0.20-1.00); Monocytes % (A) 7.2 %; Neutrophils % (A) 47.5 %; Platelet Count 259 10*3/uL (140-440); RBC 5.48 10*6/uL (4.40-5.60); RDW 13.6 % (11.5-14.5); WBC 8.65 10*3/uL (4.50-10.00)
[2025-01-30 08:40] LABS: ALT 20 U/L (4-49); AST 19 U/L (17-59); African American GFR (CKD) >90 (>60 ml/min/1.73 sqM); Albumin 3.9 g/dL (3.5-5.0); Alkaline Phosphatase 76 U/L (38-126); Anion Gap 6 mmol/L; Blood Urea Nitrogen 15 mg/dL (9-20); Calcium 9.1 mg/dL (8.4-10.2); Carbon Dioxide 31 mmol/L (22-30); Chloride 100 mmol/L (98-107); Glucose 175 mg/dL (74-99); Non-African American GFR(CKD) >90 (>60 ml/min/1.73 sqM); Potassium 4.2 mmol/L (3.5-5.1); Sodium 137 mmol/L (137-145); Total Bilirubin 0.4 mg/dL (0.2-1.3); Total Protein 6.7 g/dL (6.3-8.2)
[2025-01-30] MEDS: ENOXAPARIN 40 MG/0.4 ML SYRINGE SQ SCH (10:49)
--- NOTE | 2025-01-30 11:03 | P.GSCN ---
History of Present Illness Consult date: 01/30/25 Reason for Consult: Osteomyelitis of left second toe Requesting physician: Jake Lowery History of present illness: This is a pleasant 65-year-old male who is currently admitted to the mental health unit with concerns of depression. Past medical history includes diabetes mellitus, COPD and coronary artery disease. Patient has a wound to the distal tip of his left second toe which she states has been there for about a month. He does not recall any injury. He had an x-ray done this in the emergency department with findings reported concerning for osteomyelitis of the second toe proximal phalanx. Vascular surgery was consulted for osteomyelitis. Patient denies any pain in his toe. No fevers chills or bodyaches. Patient with methamphetamine use. Apparently patient is going to be discharged from the [facility] unit today secondary to a he wants to attend and reportedly will come back to the hospital tomorrow for medical treatment. Review of Systems A 14 point review systems was completed all pertinent positives and negatives as stated in the HPI. Past Medical History Past Medical History: Coronary Artery Disease (CAD), COPD, CVA/TIA, Diabetes Mellitus, GERD/Reflux, Hypertension, Memory Impairment, Sleep Apnea/CPAP/BIPAP Additional Past Medical History / Comment(s): BACK PAIN, CONSTIPATION, NUMBNESS IN FEET, URGENCY TO URINATE, BURPS FREQUENTLY AND STOMACH CRUZ., COUGHED UP BLOOD X2-no longer any problem,no cpap,CVA 2021 approx-no residual History of Any Multi-Drug Resistant Organisms: MRSA Year Discovered:: few yrs ago MDRO Source:: leg Past Surgical History: Tonsillectomy Additional Past Surgical History / Comment(s): PLATE IN rt FEMUR AND rt ANKLE PINS , SURGERY FOR SNORING Past Anesthesia/Blood Transfusion Reactions: No Reported Reaction Additional Past Anesthesia/Blood Transfusion Reaction / Comm: Claustrophobia Past Psychological History: Anxiety, Depression Smoking Status: Light tobacco smoker Past Alcohol Use History: None Reported Past Drug Use History: None Reported - Past Family History Mother Family Medical History: Coronary Artery Disease (CAD), Diabetes Mellitus Father History Unknown: Yes Additional Family Medical History / Comment(s): Alcoholism Sister(s) Family Medical History: Cancer Additional Family Medical History / Comment(s): MELANOMA Medications and Allergies Home Medications Medication Instructions Recorded Confirmed Type Gabapentin 600 mg PO QID 08/26/21 01/26/25 History DULoxetine HCL [Cymbalta] 60 mg PO DAILY 09/29/21 01/26/25 History ARIPiprazole [Abilify] 2 mg PO HS 12/13/23 01/26/25 History Metoprolol Succinate (ER) [Toprol 25 mg PO DAILY 12/13/23 01/26/25 History Xl] Tamsulosin HCl [Flomax] 0.4 mg PO DAILY 01/23/25 01/26/25 History Ammonium Lactate [Amlactin] 1 applic TOPICAL DAILY 01/26/25 01/26/25 History Atorvastatin [Lipitor] 40 mg PO DAILY 01/26/25 01/26/25 History DULoxetine HCL [Cymbalta] 30 mg PO HS 01/26/25 01/26/25 History Dapagliflozin Propanediol [Farxiga] 10 mg PO DAILY 01/26/25 01/26/25 History Sildenafil Citrate [Viagra] 100 mg PO DAILY PRN 01/26/25 01/26/25 History Tirzepatide [Mounjaro] 10 mg SQ Q7D 01/26/25 01/26/25 History lisinopriL [Zestril] 2.5 mg PO DAILY 01/26/25 01/26/25 History oxyBUTYnin chloride [oxyBUTYnin 5 mg PO DAILY 01/26/25 01/26/25 History chloride ER] polyethylene glycoL 3350 [Miralax] 17 gm PO DAILY 01/26/25 01/26/25 History Allergies Allergy/AdvReac Type Severity Reaction Status Date / Time No Known Allergies Allergy Verified 01/26/25 19:48 Surgical - Exam Vital Signs Temp Pulse Resp BP Pulse Ox 98.1 F 91 18 116/75 95 01/26/25 14:09 01/26/25 14:09 01/26/25 14:09 01/26/25 14:09 01/26/25 14:09 General appearance: The patient is alert, oriented, appears in no acute distress. HET: Head is normocephalic and atraumatic. Neck: Supple. Heart: Regular. Lungs: Equal expansion, normal respiratory effort. Abdomen: Soft, nondistended. Extremities: Bilateral lower extremities without edema. Palpable pedal pulse. Left distal tip of second toe with nonviable tissue, dry gangrene. Neurological: No focal deficits. Strength and sensation are grossly intact. Results - Labs 01/30/25 08:00 01/30/25 08:00 Abnormal Lab Results - Last 24 Hours (Table) 01/29/25 01/29/25 01/29/25 Range/Units 12:59 17:51 20:19 MPV (9.5-12.2) fL Eosinophils # (0.04-0.35) 10*3/uL Carbon Dioxide (22-30) mmol/L Creatinine (0.66-1.25) mg/dL Glucose (74-99) mg/dL POC Glucose (mg/dL) 119 H 123 H 210 H (70-110) mg/dL C-Reactive Protein (<1.0) mg/dL 01/30/25 01/30/25 01/30/25 Range/Units 00:52 07:52 08:00 MPV 8.7 L (9.5-12.2) fL Eosinophils # 0.40 H (0.04-0.35) 10*3/uL Carbon Dioxide (22-30) mmol/L Creatinine (0.66-1.25) mg/dL Glucose (74-99) mg/dL POC Glucose (mg/dL) 160 H (70-110) mg/dL C-Reactive Protein 1.3 H (<1.0) mg/dL 01/30/25 Range/Units 08:00 MPV (9.5-12.2) fL Eosinophils # (0.04-0.35) 10*3/uL Carbon Dioxide 31 H (22-30) mmol/L Creatinine 0.55 L (0.66-1.25) mg/dL Glucose 175 H (74-99) mg/dL POC Glucose (mg/dL) (70-110) mg/dL C-Reactive Protein (<1.0) mg/dL Diabetes panel 01/30/25 Range/Units 08:00 Sodium 137 (137-145) mmol/L Potassium 4.2 (3.5-5.1) mmol/L Chloride 100 (98-107) mmol/L Carbon Dioxide 31 H (22-30) mmol/L BUN 15 (9-20) mg/dL Creatinine 0.55 L (0.66-1.25) mg/dL Glucose 175 H (74-99) mg/dL Calcium 9.1 (8.4-10.2) mg/dL AST 19 (17-59) U/L ALT 20 (4-49) U/L Alkaline Phosphatase 76 (38-126) U/L Total Protein 6.7 (6.3-8.2) g/dL Albumin 3.9 (3.5-5.0) g/dL Calcium panel 01/30/25 Range/Units 08:00 Calcium 9.1 (8.4-10.2) mg/dL Albumin 3.9 (3.5-5.0) g/dL Pituitary panel 01/30/25 Range/Units 08:00 Sodium 137 (137-145) mmol/L Potassium 4.2 (3.5-5.1) mmol/L Chloride 100 (98-107) mmol/L Carbon Dioxide 31 H (22-30) mmol/L BUN 15 (9-20) mg/dL Creatinine 0.55 L (0.66-1.25) mg/dL Glucose 175 H (74-99) mg/dL Calcium 9.1 (8.4-10.2) mg/dL Adrenal panel 01/30/25 Range/Units 08:00 Sodium 137 (137-145) mmol/L Potassium 4.2 (3.5-5.1) mmol/L Chloride 100 (98-107) mmol/L Carbon Dioxide 31 H (22-30) mmol/L BUN 15 (9-20) mg/dL Creatinine 0.55 L (0.66-1.25) mg/dL Glucose 175 H (74-99) mg/dL Calcium 9.1 (8.4-10.2) mg/dL Total Bilirubin 0.4 (0.2-1.3) mg/dL AST 19 (17-59) U/L ALT 20 (4-49) U/L Alkaline Phosphatase 76 (38-126) U/L Total Protein 6.7 (6.3-8.2) g/dL Albumin 3.9 (3.5-5.0) g/dL - Imaging Comments: Left foot x-ray reports periosteal reaction involving the second digit proximal phalanx concerning for acute osteomyelitis given stated history. Recommend MRI for more definitive evaluation as clinically warranted. Assessment and Plan Assessment: 1. Dry gangrene left distal tip of second toe 2. Osteomyelitis on x-ray 3. Diabetes mellitus 4. Depression 5. Methamphetamine abuse Plan: 1. Would recommend IV antibiotics for osteomyelitis, will defer to medical team however apparently patient is being discharged for a . Would recommend at least oral antibiotics with follow-up with infectious disease and vascular surgery 2. There is no indication for any emergent or urgent vascular surgical intervention 3. Patient would likely benefit from wound care/debridement of second toe distal tip for dry gangrene, no urgency to this 4. Rest of medical management per primary medical team. Psychiatric care per mental health team. Thank you for this consultation. The impression and plan of care has been dictated as directed. Dr. Lexii Michael performed a history and examination of this patient, discussed the same with the dictator. I agree with the dictator's note ,documented as a scribe. Any additional findings or plans will be noted.
--- NOTE | 2025-01-30 11:09 | P.CONS ---
History of Present Illness - Reason for Consult Consult date: 01/30/25 wound care - History of Present Illness This is a 65-year-old patient being seen in the mental health unit for a blackened distal portion of the second toe of the left foot. Patient states that the ulceration has been there for a while. However there is no open ulceration at this time the nail and nailbed is darkened, the nail is thick and brittle in appearance. There is no open ulcerations noted to the site. Patient has 2+ pedal pulses to the left foot. Patient denies pain positive cap refill to other digits to the left foot. X-ray does show possible osteomyelitis recommending MRI. Patient's past medical history significant for coronary artery disease COPD CVA diabetes GERD and hypertension. Review Of Systems: Constitutional: No fever, no chills, no night sweats. No weight change. No weakness, fatigue or lethargy. No daytime sleepiness. Integumentary:reports wounds, no lesions. No rash or pruritus. No unusual bruising. No change in hair or nails. Physical exam: General Appearance: Alert, cooperative, no distress, appears stated age. Skin: See HPI all other Skin color, texture, tugor normal, no rashes or lesions. Neurologic: Alert oriented x3 Assessment: 1.Discoloration of the nail 2. Possible osteomyelitis Plan: 1. At this time no recommended treatment due to no open ulcerations. Patient has been started on antibiotics and a vascular consult was ordered. Thank you for the consultation any questions please contact the wound care center DNP note has been reviewed and discussed with Dr. Rueda and the impression and plan of care has been directed as dictated. Past Medical History Past Medical History: Coronary Artery Disease (CAD), COPD, CVA/TIA, Diabetes Mellitus, GERD/Reflux, Hypertension, Memory Impairment, Sleep Apnea/CPAP/BIPAP Additional Past Medical History / Comment(s): BACK PAIN, CONSTIPATION, NUMBNESS IN FEET, URGENCY TO URINATE, BURPS FREQUENTLY AND STOMACH CRUZ., COUGHED UP BLO OD X2-no longer any problem,no cpap,CVA 2021 approx-no residual History of Any Multi-Drug Resistant Organisms: MRSA Year Discovered:: few yrs ago MDRO Source:: leg Past Surgical History: Tonsillectomy Additional Past Surgical History / Comment(s): PLATE IN rt FEMUR AND rt ANKLE PINS , SURGERY FOR SNORING Past Anesthesia/Blood Transfusion Reactions: No Reported Reaction Additional Past Anesthesia/Blood Transfusion Reaction / Comm: Claustrophobia Past Psychological History: Anxiety, Depression Smoking Status: Light tobacco smoker Past Alcohol Use History: None Reported Past Drug Use History: None Reported - Past Family History Mother Family Medical History: Coronary Artery Disease (CAD), Diabetes Mellitus Father History Unknown: Yes Additional Family Medical History / Comment(s): Alcoholism Sister(s) Family Medical History: Cancer Additional Family Medical History / Comment(s): MELANOMA Medications and Allergies Home Medications Medication Instructions Recorded Confirmed Type Gabapentin 600 mg PO QID 08/26/21 01/26/25 History DULoxetine HCL [Cymbalta] 60 mg PO DAILY 09/29/21 01/26/25 History ARIPiprazole [Abilify] 2 mg PO HS 12/13/23 01/26/25 History Metoprolol Succinate (ER) [Toprol 25 mg PO DAILY 12/13/23 01/26/25 History Xl] Tamsulosin HCl [Flomax] 0.4 mg PO DAILY 01/23/25 01/26/25 History Ammonium Lactate [Amlactin] 1 applic TOPICAL DAILY 01/26/25 01/26/25 History Atorvastatin [Lipitor] 40 mg PO DAILY 01/26/25 01/26/25 History DULoxetine HCL [Cymbalta] 30 mg PO HS 01/26/25 01/26/25 History Dapagliflozin Propanediol [Farxiga] 10 mg PO DAILY 01/26/25 01/26/25 History Sildenafil Citrate [Viagra] 100 mg PO DAILY PRN 01/26/25 01/26/25 History Tirzepatide [Mounjaro] 10 mg SQ Q7D 01/26/25 01/26/25 History lisinopriL [Zestril] 2.5 mg PO DAILY 01/26/25 01/26/25 History oxyBUTYnin chloride [oxyBUTYnin 5 mg PO DAILY 01/26/25 01/26/25 History chloride ER] polyethylene glycoL 3350 [Miralax] 17 gm PO DAILY 01/26/25 01/26/25 History Allergies Allergy/AdvReac Type Severity Reaction Status Date / Time No Known Allergies Allergy Verified 01/26/25 19:48 Physical Exam Vitals: Vital Signs Temp Pulse Resp BP Pulse Ox 01/29/25 21:00 97.5 F L 72 18 128/68 98 01/29/25 14:07 98.0 F 64 18 106/68 98 Results CBC & Chem 7: 01/30/25 08:00 01/30/25 08:00 Labs: Abnormal Lab Results - Last 24 Hours (Table) 01/29/25 01/29/25 01/29/25 Range/Units 12:59 17:51 20:19 MPV (9.5-12.2) fL Eosinophils # (0.04-0.35) 10*3/uL Carbon Dioxide (22-30) mmol/L Creatinine (0.66-1.25) mg/dL Glucose (74-99) mg/dL POC Glucose (mg/dL) 119 H 123 H 210 H (70-110) mg/dL Hemoglobin A1c (<=6.0) % C-Reactive Protein (<1.0) mg/dL 01/30/25 01/30/25 01/30/25 Range/Units 00:52 07:52 08:00 MPV 8.7 L (9.5-12.2) fL Eosinophils # 0.40 H (0.04-0.35) 10*3/uL Carbon Dioxide (22-30) mmol/L Creatinine (0.66-1.25) mg/dL Glucose (74-99) mg/dL POC Glucose (mg/dL) 160 H (70-110) mg/dL Hemoglobin A1c (<=6.0) % C-Reactive Protein 1.3 H (<1.0) mg/dL 01/30/25 01/30/25 Range/Units 08:00 08:00 MPV (9.5-12.2) fL Eosinophils # (0.04-0.35) 10*3/uL Carbon Dioxide 31 H (22-30) mmol/L Creatinine 0.55 L (0.66-1.25) mg/dL Glucose 175 H (74-99) mg/dL POC Glucose (mg/dL) (70-110) mg/dL Hemoglobin A1c 9.0 H (<=6.0) % C-Reactive Protein (<1.0) mg/dL Assessment and Plan (1) Other nail disorders Current Visit: Yes Status: Acute Code(s): L60.8 - OTHER NAIL DISORDERS SNOMED Code(s): 33232208 (2) Osteomyelitis, unspecified Current Visit: Yes Status: Acute Code(s): M86.9 - OSTEOMYELITIS, UNSPECIFIED SNOMED Code(s): 59358792
[2025-01-30] MEDS: PIPERACILLIN-TAZOBACTAM 3.375 GM in SODIUM CHLORIDE 0.9% 100 ML IVPB SCH (11:14)
--- NOTE | 2025-01-30 11:35 | P.DS ---
Providers Date of admission: 01/26/25 22:08 Expected date of discharge: 01/30/25 Attending physician: Adriano Tristan MD Consults: 01/26/25 22:26 Consult Physician Routine Consulting Provider: Elin López Consult Reason/Comments: History and Physical, New Admission Do you want consulting provider notified?: Yes 01/29/25 23:40 Consult Physician Routine Consulting Provider: Chavez Del Real Consult Reason/Comments: Osteomylitis of left 2nd toe Do you want consulting provider notified?: Yes, Notify in am Primary care physician: Jon Phillips MD - Discharge Diagnosis(es) (1) Major depressive disorder, recurrent severe without psychotic features Current Visit: Yes Status: Acute Priority: High (2) Methamphetamine abuse Current Visit: Yes Status: Acute Priority: High (3) Osteomyelitis Current Visit: Yes Status: Acute Priority: High Hospital Course: Admission HPI: Admission note was completed by Dr No "patient is a 65-year-old male currently living with his collecting disability for CVA currently retired. The patient presented to the hospital due to a lack of thrive brought in by his noting that the patient had been making statements of wanting to . The patient has not been taking his medications or eating for the past 5 days per her report. The patient presented as a limited historian. He did confirm that he wants to by stopping eating and his medications. He notes that he is "tired of life". When asking the rate his depression he noted that "I do not know". He denied any ongoing anxiety. He notes that he has been oversleeping. He notes that he has no energy or motivation. He notes that he does not feel like eating and is not hungry. He notes that he struggles with concentration. He feels helpless, hopeless and worthless. He notes that he has been crying a lot. He notes feelings of guilt and shame. He continues to have thoughts of but does not specify suicidal plan outside of stop eating. He notes that he would like to hurt others that hurt his family. But he terms most this and self-defense that they came to his house. He notes that he has firearms in the house and they are loaded and unlocked." Hospital course: Upon admission to the unit patient was admitted involuntarily on a petition and certificate and a second certificate was completed and faxed to the courts. Patient ended up signing a deferral with the [facility] and agreeing to treatment. Patient was initially depressed, agitated/irritable however with time and treatment patient got along well with other patients on the unit and followed unit protocol. Patient was compliant with the medications and denied any side effects throughout hospital course. Patient was started on Cymbalta increased to a dose of 60 mg twice daily for mood/anxiety/pain, Abilify 5 mg nightly for mood stabilization/mood adjunct. Patient spoke of his stressors and engaged in therapy both group/activity therapy. Patient was also seen by medical team for history and physical exam. Throughout the course of the hospitalization patient gradually improved with regards to mood, anxiety, sleep and became more future oriented with improved insight and judgment. On the day of discharge patient denied any suicidal or homicidal ideations intent or plan denied any auditory or visual hallucinations. Patient endorsed wanting to live for their health and family. The patient denied any access to guns or weapons. Patient denied any paranoia and did not endorse any delusions. Patient does have a significant history of substance abuse and was counseled on abstaining from all substances including alcohol and marijuana. Patient was offered however declined inpatient substance-abuse rehab. Patient elected to do outpatient substance use treatment program through their outpatient provider. Patient was also counseled on the medications and need for regular compliance and was encouraged to follow-up with their outpatient appointment for mental health and also for primary care. Patient complained of pain in his left toe yesterday, was evaluated had a foot x-ray which showed possibility of osteomyelitis and recommended further imaging such as MRI confirmed. Patient was seen by wound nurse and also medicine. They recommended that patient be transferred to the medical floors upon being discharged from the psychiatric unit however the patient declined. Patient claims that he wanted to go to a today for his best friend and then wanted to return back to the ER and be admitted for treatment of the osteomyelitis/infection. Wide Load Escort spoke with both patient and his in the office and directly explained the significant risk of sepsis, spread of infection and possibility of if patient does not get urgent IV antibiotics and further treatment, they both acknowledge this risk and promised to return to the ER later on today/this evening. Patient will be discharged today with his and to return to the ER later on this evening. Mental status exam: General Appearance: Patient appears to be overweight, has a ruffin, bald, stated age is alert, pleasant, and cooperative. Patient is in no acute distress and has improved hygiene and grooming Behavior: Patient is calmly seated without any agitated behavior. Speech: Patient's speech is fluent and nonpressured. Mood/Affect: Patient reports their mood is "good", affect is congruent and euthymic. Suicidality/Homicidality: Patient denies having any suicidal or homicidal ideation intent or plan. Perceptions: Patient denies any auditory or visual hallucinations. Though content/process: There is no evidence of any delusional thought content and thought process is linear and goal-directed. More future oriented Memory and concentration: AOX3, grossly intact for the purposes of this session. Can spell "WORLD" backwards correctly. Judgment and insight: improved with guarded prognosis Impression: Major depressive disorder, recurrent, severe without psychotic features Methamphetamine abuse Osteomyelitis Plan: -Continue with discharge today as patient has improved and stabilized psychiatrically and is not currently an imminent threat to themself and/or others. Patient will remain at chronically elevated risk for harm to self and/or others due to their substance abuse. -Continue medications: Cymbalta 60 mg twice daily for mood/anxiety/pain, Abilify 5 mg nightly for mood stabilization/mood adjunct -Patient was counseled on the need for medication compliance and appropriate follow-up at mental health and also primary care for medical issues. Patient verbalized understanding and agreed. -Social work to help coordinate patients discharge today. Wide Load Escort had a family meeting with patient's and patient in the office today, discussing patient's mental health treatment and the importance of compliance and also discussing in detail be results of the imaging of his toe, more details noted above. Patient and chose to go home so patient can go to his friend's despite the risk of infection worsening and possibility of sepsis or . Patient's also to ensure safe home environment that guns/weapons are either removed from the home or locked away. Social work also to arrange for patients follow up appointments for psychiatric care along with follow up with primary care provider. -Patient counseled on abstaining from recreational drugs and marijuana and alcohol. Was informed/educated on the adverse effects on their physical and mental health. Patient verbally agreed and understood. Patient was offered substance abuse treatment however declined at this time. -Patient was instructed to return to the hospital or seek immediate medical care if their psychiatric or medical symptoms do worsen or reoccur. Allergies Allergy/AdvReac Type Severity Reaction Status Date / Time No Known Allergies Allergy Verified 01/26/25 19:48 Laboratory Results WBC 8.65 10*3/uL (4.50-10.00) 01/30/25 08:00 RBC 5.48 10*6/uL (4.40-5.60) 01/30/25 08:00 Hgb 15.5 g/dL (13.0-17.0) 01/30/25 08:00 Hct 47.6 % (39.6-50.0) 01/30/25 08:00 MCV 86.9 fL (80.0-97.0) 01/30/25 08:00 MCH 28.3 pg (27.0-32.0) 01/30/25 08:00 MCHC 32.6 g/dL (32.0-37.0) 01/30/25 08:00 Plt Count 259 10*3/uL (140-440) 01/30/25 08:00 MPV 8.7 fL (9.5-12.2) L 01/30/25 08:00 Immature Gran % (Auto) 0.3 % 01/30/25 08:00 Neutrophils % 47.5 % 01/30/25 08:00 Lymphocytes % 39.5 % 01/30/25 08:00 Monocytes % 7.2 % 01/30/25 08:00 Eosinophils % 4.6 % 01/30/25 08:00 Basophils % 0.9 % 01/30/25 08:00 Immature Gran # 0.03 10*3/uL (0.00-0.04) 01/30/25 08:00 Neutrophils # 4.10 10*3/uL (1.80-7.70) 01/30/25 08:00 Lymphocytes # 3.42 10*3/uL (0.90-5.00) 01/30/25 08:00 Monocytes # 0.62 10*3/uL (0.20-1.00) 01/30/25 08:00 Eosinophils # 0.40 10*3/uL (0.04-0.35) H 01/30/25 08:00 Basophils # 0.08 10*3/uL (0.00-0.10) 01/30/25 08:00 PT 12.1 sec (10.0-12.5) 01/26/25 14:47 INR 1.1 (<1.2) 01/26/25 14:47 APTT 24.2 sec (22.0-30.0) 01/26/25 14:47 Sodium 137 mmol/L (137-145) 01/30/25 08:00 Potassium 4.2 mmol/L (3.5-5.1) 01/30/25 08:00 Chloride 100 mmol/L (98-107) 01/30/25 08:00 Carbon Dioxide 31 mmol/L (22-30) H 01/30/25 08:00 Anion Gap 6 mmol/L 01/30/25 08:00 BUN 15 mg/dL (9-20) 01/30/25 08:00 Creatinine 0.55 mg/dL (0.66-1.25) L 01/30/25 08:00 Est GFR (CKD-EPI)AfAm >90 (>60 ml/min/1.73 sqM) 01/30/25 08:00 Est GFR (CKD-EPI)NonAf >90 (>60 ml/min/1.73 sqM) 01/30/25 08:00 Glucose 175 mg/dL (74-99) H 01/30/25 08:00 POC Glucose (mg/dL) 160 mg/dL (70-110) H 01/30/25 07:52 POC Glu [employer] Manager ID [place] 01/30/25 07:[address] Glu mg/dL 212 mg/dL 01/30/25 08:00 Hemoglobin A1c 9.0 % (<=6.0) H 01/30/25 08:00 Plasma Lactic Acid Cristino 1.8 mmol/L (0.7-2.0) 01/30/25 00:52 Calcium 9.1 mg/dL (8.4-10.2) 01/30/25 08:00 Total Bilirubin 0.4 mg/dL (0.2-1.3) 01/30/25 08:00 AST 19 U/L (17-59) 01/30/25 08:00 ALT 20 U/L (4-49) 01/30/25 08:00 Alkaline Phosphatase 76 U/L (38-126) 01/30/25 08:00 Troponin I <0.012 ng/mL (0.000-0.034) 01/26/25 14:47 C-Reactive Protein 1.3 mg/dL (<1.0) H 01/30/25 00:52 Total Protein 6.7 g/dL (6.3-8.2) 01/30/25 08:00 Albumin 3.9 g/dL (3.5-5.0) 01/30/25 08:00 Triglycerides 86.00 mg/dL (0.00-149.00) 01/26/25 14:47 Cholesterol 130.00 mg/dL (0.00-200.00) 01/26/25 14:47 LDL Cholesterol, Calc 73.0 mg/dL (0.0-131.0) 01/26/25 14:47 VLDL Cholesterol, Calc 17.20 mg/dL (5.00-40.00) 01/26/25 14:47 HDL Cholesterol 39.80 mg/dL (40.00-60.00) L 01/26/25 14:47 Cholesterol/HDL Ratio 3.27 Ratio 01/26/25 14:47 TSH 2.260 mIU/L (0.465-4.680) 01/26/25 14:47 Urine Color Light Yellow 01/26/25 17:36 Urine Appearance Clear (Clear) 01/26/25 17:36 Urine pH 5.5 (5.0-8.0) 01/26/25 17:36 Ur Specific [place] 1.028 (1.001-1.035) 01/26/25 17:36 Urine Protein 1+ (Negative) H 01/26/25 17:36 Urine Glucose (UA) 4+ (Negative) H 01/26/25 17:36 Urine Ketones 2+ (Negative) H 01/26/25 17:36 Urine Blood Negative (Negative) 01/26/25 17:36 Urine Nitrite Negative (Negative) 01/26/25 17:36 Urine Bilirubin Negative (Negative) 01/26/25 17:36 Urine Urobilinogen <2.0 mg/dL (<2.0) 01/26/25 17:36 Ur Leukocyte Esterase Negative (Negative) 01/26/25 17:36 Urine RBC 1 /hpf (0-5) 01/26/25 17:36 Urine WBC 1 /hpf (0-5) 01/26/25 17:36 Urine Mucus Occasional /hpf (None) H 01/26/25 17:36 Urine Opiates Screen Not Detected (NotDetected) 01/26/25 17:36 Ur Oxycodone Screen Not Detected (NotDetected) 01/26/25 17:36 Urine Methadone Screen Not Detected (NotDetected) 01/26/25 17:36 Ur Barbiturates Screen Not Detected (NotDetected) 01/26/25 17:36 U Tricyclic Antidepress Not Detected (NotDetected) 01/26/25 17:36 Ur Phencyclidine Scrn Not Detected (NotDetected) 01/26/25 17:36 Ur Amphetamines Screen Not Detected (NotDetected) 01/26/25 17:36 U Methamphetamines Scrn Detected (NotDetected) H 01/26/25 17:36 U Benzodiazepines Scrn Not Detected (NotDetected) 01/26/25 17:36 Urine Cocaine Screen Not Detected (NotDetected) 01/26/25 17:36 U Marijuana (THC) Screen Not Detected (NotDetected) 01/26/25 17:36 Serum Alcohol <10 mg/dL 01/26/25 14:47 Influenza Type A (PCR) Not Detected (Not Detectd) 01/26/25 19:52 Influenza Type B (PCR) Not Detected (Not Detectd) 01/26/25 19:52 RSV (PCR) Not Detected (Not Detectd) 01/26/25 19:52 SARS-CoV-2 (PCR) Not Detected (Not Detectd) 01/26/25 19:52 Vital Signs Temp 97.5 F L 01/29/25 21:00 Pulse 72 01/29/25 21:00 Resp 18 01/29/25 21:00 BP 128/68 01/29/25 21:00 Pulse Ox 98 01/29/25 21:00 FiO2 Patient Condition at Discharge: Stable Plan - Discharge Summary Discharge Rx Participant: Yes New Discharge Prescriptions: New ARIPiprazole [Abilify] 5 mg PO HS 30 Days #30 tab DULoxetine HCL [Cymbalta] 60 mg PO BID 30 Days #60 cap Nicotine 14Mg/24Hr Patch [Habitrol] 1 patch TRANSDERM DAILY 14 Days #14 patch INSULIN LISPRO (HumaLOG) [HumaLOG] 0 unit SQ ACHS each Ibuprofen [Motrin] 600 mg PO Q6HR PRN tab PRN Reason: Moderate Pain (Scale 4 To 6) Bacitracin/Polymyx Oint [Polysporin Oint] 1 applic TOPICAL BID each Continue oxyBUTYnin chloride [oxyBUTYnin chloride ER] 5 mg PO DAILY Dapagliflozin Propanediol [Farxiga] 10 mg PO DAILY Gabapentin 600 mg PO QID Tamsulosin HCl [Flomax] 0.4 mg PO DAILY Atorvastatin [Lipitor] 40 mg PO DAILY polyethylene glycoL 3350 [Miralax] 17 gm PO DAILY Discontinued DULoxetine HCL [Cymbalta] 30 mg PO HS Sildenafil Citrate [Viagra] 100 mg PO DAILY PRN PRN Reason: e.d. DULoxetine HCL [Cymbalta] 60 mg PO DAILY ARIPiprazole [Abilify] 2 mg PO HS Metoprolol Succinate (ER) [Toprol Xl] 25 mg PO DAILY lisinopriL [Zestril] 2.5 mg PO DAILY Tirzepatide [Mounjaro] 10 mg SQ Q7D Ammonium Lactate [Amlactin] 1 applic TOPICAL DAILY Discharge Medication List Gabapentin 600 mg PO QID 08/26/21 [History] Tamsulosin HCl [Flomax] 0.4 mg PO DAILY 01/23/25 [History] Atorvastatin [Lipitor] 40 mg PO DAILY 01/26/25 [History] Dapagliflozin Propanediol [Farxiga] 10 mg PO DAILY 01/26/25 [History] oxyBUTYnin chloride [oxyBUTYnin chloride ER] 5 mg PO DAILY 01/26/25 [History] polyethylene glycoL 3350 [Miralax] 17 gm PO DAILY 01/26/25 [History] ARIPiprazole [Abilify] 5 mg PO HS 30 Days #30 tab 01/30/25 [Rx] Bacitracin/Polymyx Oint [Polysporin Oint] 1 applic TOPICAL BID each 01/30/25 [Rx] DULoxetine HCL [Cymbalta] 60 mg PO BID 30 Days #60 cap 01/30/25 [Rx] INSULIN LISPRO (HumaLOG) [HumaLOG] 0 unit SQ ACHS each 01/30/25 [Rx] Ibuprofen [Motrin] 600 mg PO Q6HR PRN tab 01/30/25 [Rx] Nicotine 14Mg/24Hr Patch [Habitrol] 1 patch TRANSDERM DAILY 14 Days #14 patch 01/30/25 [Rx] Follow up Appointment(s)/Referral(s): Cj Mckay [Other] - 01/31/25 10:00 am Willie Austin [Other] - 01/30/25 5:00 pm (Please return to the ER for tr eatment of toe ) [place] [facility] [Outside] - 02/03/25 1:00 pm (with Josephine) Lillian Peters DO [STAFF PHYSICIAN] - 1 Week (Follow-up for left second toe wound with dry gangrene. Osteomyelitis.) Patient Instructions/Handouts: How to Stop Smoking (DC), Osteomyelitis (DC), Depression (DC) Activity/Diet/Wound Care/Special Instructions: Avoid the use of street drugs and alcohol. Take all medications as prescribed. When you are in need of refills on your medications, please contact your medical provider and/or outpatient psychiatrist/provider to have this done. Please go to your scheduled outpatient appointment for aftercare treatment. If symptoms return or become worse, call the crisis line at and/or go to the nearest emergency room for evaluation. National Suicide Hotline 988 Willie confidentiality statement: "The information contained in this communication, including attachments, is confidential, may be privileged, and is intended only for the use of the named recipient(s). Unauthorized use, disclosure, forwarding or copying is strictly prohibited and may be unlawful. If you have received this communication in error, please notify me IMMEDIATELY at the phone number or pager listed above. It is strongly recommended that the patient return to ER after the today for treatment for his left toe. It is recommended that he have IV antibiotics. Discharge Disposition: HOME SELF-CARE
[2025-01-30] MEDS ORDERED: CLINDAMYCIN 150 MG CAP PO SCH (16:00)
== END 2025-01-30 11:25 | disposition home or self-care (01) | DRG 885 ==
LOC: EC 14:03 → 3MHU 22:08
PROVIDERS: ADMIT Psychiatry & Neurology Psychiatry; ATTEND Psychiatry & Neurology Psychiatry
DX: F33.2 Major depressive disorder, recurrent severe without psychotic features (principal); I96 Gangrene, not elsewhere classified; R62.7 Adult failure to thrive; E11.52 Type 2 diabetes mellitus with diabetic peripheral angiopathy with gangrene; F15.10 Other stimulant abuse, uncomplicated; J44.9 Chronic obstructive pulmonary disease, unspecified; I10 Essential (primary) hypertension; M86.9 Osteomyelitis, unspecified; E11.69 Type 2 diabetes mellitus with other specified complication; E11.40 Type 2 diabetes mellitus with diabetic neuropathy, unspecified; I25.10 Atherosclerotic heart disease of native coronary artery without angina pectoris; Z59.9 Problem related to housing and economic circumstances, unspecified; Z55.5 Less than a high school diploma; F17.210 Nicotine dependence, cigarettes, uncomplicated; G47.33 Obstructive sleep apnea (adult) (pediatric); K59.00 Constipation, unspecified; N40.0 Benign prostatic hyperplasia without lower urinary tract symptoms; M54.9 Dorsalgia, unspecified; T50.916A Underdosing of multiple unspecified drugs, medicaments and biological substances, initial encounter; Z91.148 Patient's other noncompliance with medication regimen for other reason; Z79.84 Long term (current) use of oral hypoglycemic drugs; Z79.85 Long-term (current) use of injectable non-insulin antidiabetic drugs; Z79.899 Other long term (current) drug therapy; Z86.14 Personal history of Methicillin resistant Staphylococcus aureus infection; Z86.73 Personal history of transient ischemic attack (TIA), and cerebral infarction without residual deficits; Z71.51 Drug abuse counseling and surveillance of drug abuser
CPT/HCPCS: 36415; 80053; 80061; 80306; 80320; 81001; 82075; 83036; 83605; 84443; 84484; 85025; 85610; 85730; 86140; 87040; 87636; 93005; 96360; 99285

== ENCOUNTER 2025-01-31 10:45 | Emergency (ER) | payer OTHER ==
--- NOTE | 2025-01-31 11:41 | ED ---
General Adult HPI - General Chief complaint: Recheck/Abnormal Lab/Rx Stated complaint: L foot issue Time Seen by Provider: 01/31/25 11:02 Source: patient, RN notes reviewed Mode of arrival: ambulatory Limitations: no limitations - History of Present Illness Initial comments: 65-year-old male presents to the emergency department for left second toe disco loration. Patient states that this been going on for around a month. He notes that he did stub his toe but unsure when this happened. Patient had an x-ray performed and he was advised to come to the emergency department. Patient denies any fever, chills, drainage from the area. Denies any significant pain. - Related Data Home Medications Medication Instructions Recorded Confirmed Gabapentin 600 mg PO QID 08/26/21 01/26/25 Tamsulosin HCl [Flomax] 0.4 mg PO DAILY 01/23/25 01/26/25 Atorvastatin [Lipitor] 40 mg PO DAILY 01/26/25 01/26/25 Dapagliflozin Propanediol [Farxiga] 10 mg PO DAILY 01/26/25 01/26/25 oxyBUTYnin chloride [oxyBUTYnin 5 mg PO DAILY 01/26/25 01/26/25 chloride ER] polyethylene glycoL 3350 [Miralax] 17 gm PO DAILY 01/26/25 01/26/25 Previous Rx's Medication Instructions Recorded ARIPiprazole [Abilify] 5 mg PO HS 30 Days #30 tab 01/30/25 Bacitracin/Polymyx Oint 1 applic TOPICAL BID each 01/30/25 [Polysporin Oint] Clindamycin [Cleocin] 300 mg PO TID 7 Days #21 cap 01/30/25 DULoxetine HCL [Cymbalta] 60 mg PO BID 30 Days #60 cap 01/30/25 INSULIN LISPRO (HumaLOG) [HumaLOG] 0 unit SQ ACHS each 01/30/25 Ibuprofen [Motrin] 600 mg PO Q6HR PRN tab 01/30/25 Nicotine 14Mg/24Hr Patch [Habitrol] 1 patch TRANSDERM DAILY 14 Days 01/30/25 #14 patch Allergies Allergy/AdvReac Type Severity Reaction Status Date / Time No Known Allergies Allergy Verified 01/31/25 11:00 Review of Systems ROS Statement: Those systems with pertinent positive or pertinent negative responses have been documented in the HPI. ROS Other: All systems not noted in ROS Statement are negative. Past Medical History Past Medical History: Coronary Artery Disease (CAD), COPD, CVA/TIA, Diabetes Mellitus, GERD/Reflux, Hypertension, Memory Impairment, Sleep Apnea/CPAP/BIPAP Additional Past Medical History / Comment(s): BACK PAIN, CONSTIPATION, NUMBNESS IN FEET, URGENCY TO URINATE, BURPS FREQUENTLY AND STOMACH CRUZ., COUGHED UP B LOOD X2-no longer any problem,no cpap,CVA 2021 approx-no residual History of Any Multi-Drug Resistant Organisms: MRSA Date of last positivie culture/infection: few yrs ago MDRO Source:: leg Past Surgical History: Tonsillectomy Additional Past Surgical History / Comment(s): PLATE IN rt FEMUR AND rt ANKLE PINS , SURGERY FOR SNORING Past Anesthesia/Blood Transfusion Reactions: No Reported Reaction Additional Past Anesthesia/Blood Transfusion Reaction / Comment(s): Claustrophobia Past Psychological History: Anxiety, Depression Smoking Status: Former smoker, Light tobacco smoker Past Alcohol Use History: None Reported Past Drug Use History: None Reported - Past Family History Mother Family Medical History: Coronary Artery Disease (CAD), Diabetes Mellitus Father History Unknown: Yes Additional Family Medical History / Comment(s): Alcoholism Sister(s) Family Medical History: Cancer Additional Family Medical History / Comment(s): MELANOMA General Exam Limitations: no limitations General appearance: alert, in no apparent distress Head exam: Present: atraumatic, normocephalic, normal inspection Eye exam: Present: normal appearance, PERRL, EOMI. Absent: scleral icterus, conjunctival injection, periorbital swelling ENT exam: Present: normal exam, mucous membranes moist Respiratory exam: Present: normal lung sounds bilaterally. Absent: respiratory distress, wheezes, rales, rhonchi, stridor Cardiovascular Exam: Present: regular rate, normal rhythm, normal heart sounds. Absent: systolic murmur, diastolic murmur, rubs, gallop, clicks Extremities exam: Present: full ROM, normal capillary refill, other (Thickening of the toenail of the 1st and 2nd toes with dark discoloration of the left second toenail into the left distal second toe, no discharge from the area, no abrasions or open wounds; patient has strong DP and PT pulses, 2+ bilaterally). Absent: tenderness, pedal edema, joint swelling, calf tenderness Neurological exam: Present: alert, oriented X3 Psychiatric exam: Present: normal affect, normal mood Skin exam: Present: warm, dry, intact. Absent: normal color (See above) Course Vital Signs 01/31/25 01/31/25 10:55 14:08 Temperature 97.7 F 98.4 F Pulse Rate 87 67 Respiratory 17 16 Rate Blood Pressure 143/76 125/73 O2 Sat by Pulse 94 L 98 Oximetry Medical Decision Making - Medical Decision Making Was pt. sent in by a medical professional or institution (, PA, PIPE B[employer]L PAINT TRIMMER, urgent care, hospital, or long-term...) When possible be specific @ -[No] Did you speak to anyone other than the patient for history (EMS, parent, family, police, friend...)? What history was obtained from this source @ -I spoke with [place] [facility] about this patient Did you review nursing and triage notes (agree or disagree)? Why? @ -[I reviewed and agree with nursing and triage notes] Were old charts reviewed (outside hosp., previous admission, EMS record, old EKG, old radiological studies, urgent care reports/EKG's, long-term records)? Report findings @ -[No old charts were reviewed] Differential Diagnosis (chest pain, altered mental status, abdominal pain women, abdominal pain men, vaginal bleeding, weakness, fever, dyspnea, syncope, headache, dizziness, GI bleed, back pain, seizure, CVA, palpatations, mental health, musculoskeletal)? @ -[Differential Musculoskeletal Muscular strain, contusion, ligament sprain, fracture, arthritis, septic arthritis, bursitis, cellulitis, muscle spasm, nerve compression, DVT, arterial occlusion, herpes zoster, electrolyte abnormality, tumor.... This is not meant to be in all inclusive list] EKG interpreted by me (3pts min.). @ -[none] X-rays interpreted by me (1pt min.). @ -X-ray of the toes was performed revealing soft tissue swelling without evidence for subcutaneous gas or osseous erosion CT interpreted by me (1pt min.). @ -[None done] U/S interpreted by me (1pt. min.). @ -[None done] What testing was considered but not performed or refused? (CT, X-rays, U/S, labs )? Why? @ -[None] What meds were considered but not given or refused? Why? @ -[None] Did you discuss the management of the patient with other professionals (professionals i.e. , PA, P[employer] PAINT TRIMMER, lab, RT, psych nurse, licensed clinical social worker, weather analyst, teacher, catapult and arresting gear officer, correctional counselor/case manager)? Give summary @ -[No] Was smoking cessation discussed for >3mins.? @ -[No] Was critical care preformed (if so, how long)? @ -[No] Were there social determinants of health that impacted care today? How? (Homelessness, low income, unemployed, alcoholism, drug addiction, transportation, low edu. Level, literacy, decrease access to med. care, group home, rehab)? @ -[No] Was there de-escalation of care discussed even if they declined (Discuss DNR or withdrawal of care, Hospice)? DNR status @ -[No] What co-morbidities impacted this encounter? (DM, HTN, Smoking, COPD, CAD, Cancer, CVA, ARF, Chemo, Hep., AIDS, mental health diagnosis, sleep apnea, morbid obesity)? @ -[None] Was patient admitted / discharged? Hospital course, mention meds given and route, prescriptions, significant lab abnormalities, going to OR and other pertinent info. @ -[Discharged.] Undiagnosed new problem with uncertain prognosis? @ -[No] Drug Therapy requiring intensive monitoring for toxicity (Heparin, Nitro, Insulin, Cardizem)? @ -[No] Were any procedures done? @ -[No] Diagnosis/symptom? @ -[Dry gangrene] Acute, or Chronic, or Acute on Chronic? @ -Acute Uncomplicated (without systemic symptoms) or Complicated (systemic symptoms)? @ -Uncomplicated Side effects of treatment? @ -[No] Exacerbation, Progression, or Severe Exacerbation? @ -[No] Poses a threat to life or bodily function? How? (Chest pain, USA, NC, pneumonia, PE, COPD, DKA, ARF, appy, cholecystitis, CVA, Diverticulitis, Homicidal, Suicidal, threat to staff... and all critical care pts) @ -[No] - Lab Data Result diagrams: 01/31/25 12:09 01/31/25 12:09 Lab Results 01/31/25 01/31/25 01/31/25 Range/Units 12:09 12:09 12:09 WBC 8.98 (4.50-10.00) 10*3/uL RBC 5.75 H (4.40-5.60) 10*6/uL Hgb 16.3 (13.0-17.0) g/dL Hct 48.6 (39.6-50.0) % MCV 84.5 (80.0-97.0) fL MCH 28.3 (27.0-32.0) pg MCHC 33.5 (32.0-37.0) g/dL Plt Count 261 (140-440) 10*3/uL MPV 8.8 L (9.5-12.2) fL Immature Gran % (Auto) 0.4 % Neutrophils % 53.2 % Lymphocytes % 33.6 % Monocytes % 8.5 % Eosinophils % 3.6 % Basophils % 0.7 % Immature Gran # 0.04 (0.00-0.04) 10*3/uL Neutrophils # 4.78 (1.80-7.70) 10*3/uL Lymphocytes # 3.02 (0.90-5.00) 10*3/uL Monocytes # 0.76 (0.20-1.00) 10*3/uL Eosinophils # 0.32 (0.04-0.35) 10*3/uL Basophils # 0.06 (0.00-0.10) 10*3/uL PT 10.6 (10.0-12.5) sec INR 1.0 (<1.2) APTT 24.2 (22.0-30.0) sec Sodium 138 (137-145) mmol/L Potassium 4.5 (3.5-5.1) mmol/L Chloride 104 (98-107) mmol/L Carbon Dioxide 22 (22-30) mmol/L Anion Gap 12 mmol/L BUN 16 (9-20) mg/dL Creatinine 0.43 L (0.66-1.25) mg/dL Est GFR (CKD-EPI)AfAm >90 (>60 ml/min/1.73 sqM) Est GFR (CKD-EPI)NonAf >90 (>60 ml/min/1.73 sqM) Glucose 146 H (74-99) mg/dL Calcium 9.6 (8.4-10.2) mg/dL Total Bilirubin 0.6 (0.2-1.3) mg/dL AST 25 (17-59) U/L ALT 24 (4-49) U/L Alkaline Phosphatase 69 (38-126) U/L Total Protein 7.5 (6.3-8.2) g/dL Albumin 4.4 (3.5-5.0) g/dL Disposition Clinical Impression: Toenail fungus, Dry gangrene Disposition: HOME SELF-CARE Condition: Stable Additional Instructions: Please follow up with the vascular specialist. Return to the emergency department for new or worsening symptoms. Is patient prescribed a controlled substance at d/c from ED?: No Referrals: Jon Phillips MD [Primary Care Provider] - 1-2 days Chavez Del Real DO [STAFF PHYSICIAN] - 1-2 days Maddy Peña DPM [STAFF PHYSICIAN] - 1-2 days
--- NOTE | 2025-01-31 12:06 | XR ---
EXAMINATION TYPE: XR toes LT DATE OF EXAM: 01/31/2025 11:51 AM COMPARISON: 01/29/2025. CLINICAL INDICATION: Male, 65 years old with history of 2nd toe INFECTION, pain TECHNIQUE: XR toes LT examined in the AP, oblique, and lateral projections. FINDINGS: Soft tissue swelling without evidence of subcutaneous gas or erosion to suggest osteomyelitis. No kyra dence of any acute osseous pathology. Multifocal degeneration changes throughout the joints of the f oot with osteophyte formation and joint space narrowing. IMPRESSION: 1. Soft tissue swelling without evidence of osseous erosion to suggest osteomyelitis. No evidence of acute fracture. 2. Multifocal degeneration changes throughout the joints of the foot. [facility], , 01/31/2025 12:04 PM
[2025-01-31 12:21] LABS: Basophils # (A) 0.06 10*3/uL (0.00-0.10); Basophils % (A) 0.7 %; Eosinophils # (A) 0.32 10*3/uL (0.04-0.35); Eosinophils % (A) 3.6 %; HCT 48.6 % (39.6-50.0); HGB 16.3 g/dL (13.0-17.0); Lymphocytes # (A) 3.02 10*3/uL (0.90-5.00); Lymphocytes % (A) 33.6 %; MCH 28.3 pg (27.0-32.0); MCHC 33.5 g/dL (32.0-37.0); MCV 84.5 fL (80.0-97.0); Mean Platelet Volume 8.8 fL (9.5-12.2); Monocytes # (A) 0.76 10*3/uL (0.20-1.00); Monocytes % (A) 8.5 %; Neutrophils # (A) 4.78 10*3/uL (1.80-7.70); Neutrophils % (A) 53.2 %; Platelet Count 261 10*3/uL (140-440); RBC 5.75 10*6/uL (4.40-5.60); RDW 13.8 % (11.5-14.5); WBC 8.98 10*3/uL (4.50-10.00)
[2025-01-31 12:31] LABS: Partial Thromboplastin Time 24.2 sec (22.0-30.0); Prothrombin Time 10.6 sec (10.0-12.5)
[2025-01-31 12:32] LABS: ALT 24 U/L (4-49); African American GFR (CKD) >90 (>60 ml/min/1.73 sqM); Albumin 4.4 g/dL (3.5-5.0); Anion Gap 12 mmol/L; Blood Urea Nitrogen 16 mg/dL (9-20); Calcium 9.6 mg/dL (8.4-10.2); Carbon Dioxide 22 mmol/L (22-30); Chloride 104 mmol/L (98-107); Glucose 146 mg/dL (74-99); Non-African American GFR(CKD) >90 (>60 ml/min/1.73 sqM); Sodium 138 mmol/L (137-145); Total Bilirubin 0.6 mg/dL (0.2-1.3); Total Protein 7.5 g/dL (6.3-8.2)
[2025-01-31 12:35] LABS: AST 25 U/L (17-59); Alkaline Phosphatase 69 U/L (38-126); Potassium 4.5 mmol/L (3.5-5.1)
[2025-01-31 14:12] VITALS: BP 125/73; PULSE 67; RESP 16; TEMP 98.4
== END 2025-01-31 14:13 | disposition home or self-care (01) ==
LOC: EC 10:45
DX: B35.1 Tinea unguium (principal); I96 Gangrene, not elsewhere classified; F17.200 Nicotine dependence, unspecified, uncomplicated
CPT/HCPCS: 36415; 80053; 85025; 85610; 85730; 87040; 99283

== ENCOUNTER 2025-01-31 17:54 | Emergency (ER) | payer OTHER ==
[2025-01-31 18:36] VITALS: BP 111/58; PULSE 80; RESP 16; TEMP 98
== END 2025-01-31 18:45 | disposition left against medical advice (07) ==
LOC: EC 17:54
DX: Z53.29 Procedure and treatment not carried out because of patient's decision for other reasons (principal)
CPT/HCPCS: 99499

== ENCOUNTER 2025-03-14 10:09 | Day surgery (SDC) | payer OTHER ==
[2025-03-12 15:53] VITALS: BMI 33.9
[2025-03-14 11:11] VITALS: RESP 16; TEMP 96.7
[2025-03-14] MEDS: LACTATED RINGERS 1,000 ML IV ONE (11:14)
[2025-03-14] MEDS ORDERED: LACTATED RINGERS 1,000 ML IV SCH ×2 (11:15)
[2025-03-14 11:16] LABS: Glucose,Whole Blood 157 mg/dL (70-110)
[2025-03-14] MEDS ORDERED: PROPOFOL 10 MG/ML 20 ML VIAL IV ONE (11:42)
--- NOTE | 2025-03-14 12:02 | P.PCN ---
Date of Procedure: 03/14/25 Procedure(s) Performed: BRIEF HISTORY: Patient is a 65-year-old pleasant white male scheduled for an elective colonoscopy as a part of screening for colon cancer PROCEDURE PERFORMED: Colonoscopy with snare polypectomy. PREOPERATIVE DIAGNOSIS: Screening for colon cancer. IV sedation per Anesthesia. PROCEDURE: After informed consent was obtained, the patient, was brought into the endoscopy unit. IV sedation was administered by Anesthesia under continuous monitoring. Digital rectal examination was normal. Initially the Olympus CF-160 flexible video colonoscope was then inserted in the rectum, gradually advanced into the cecum without any difficulty. Careful examination was performed as the scope was gradually being withdrawn. Ileocecal valve and the appendiceal orifice were visualized and appeared normal. Prep was fair. Mucosa of the cecum, ascending colon, transverse colon, descending colon, appeared normal. The sigmoid colon there was a 5 mm sessile polyp that was removed by cold snare polypectomy. Rest of the sigmoid colon, and rectum appeared normal. Retroflexion was performed in the rectum and no lesions were seen. The patient tolerated the procedure well. IMPRESSION: 5 mm sigmoid colon polyp status post cold snare polypectomy Rest of the colon appeared normal RECOMMENDATIONS: Findings of this examination were discussed with the patient as well as his family.. Patient follow with the biopsy results. If the biopsy reveals adenoma he can have a repeat colonoscopy in 5 years.
[2025-03-14 12:27] VITALS: BP 115/71; PULSE 63
== END 2025-03-14 12:46 | disposition home or self-care (01) ==
LOC: ORWHC2ENDO 10:09
PROVIDERS: ATTEND Internal Medicine Gastroenterology
DX: Z12.11 Encounter for screening for malignant neoplasm of colon (principal); D12.5 Benign neoplasm of sigmoid colon; I25.10 Atherosclerotic heart disease of native coronary artery without angina pectoris; J44.9 Chronic obstructive pulmonary disease, unspecified; E11.9 Type 2 diabetes mellitus without complications; G47.33 Obstructive sleep apnea (adult) (pediatric); N40.0 Benign prostatic hyperplasia without lower urinary tract symptoms; F41.9 Anxiety disorder, unspecified; F32.A Depression, unspecified; F17.210 Nicotine dependence, cigarettes, uncomplicated; Z86.73 Personal history of transient ischemic attack (TIA), and cerebral infarction without residual deficits; Z79.899 Other long term (current) drug therapy; Z99.89 Dependence on other enabling machines and devices
CPT/HCPCS: 45385; 88305